=== PATIENT | female | born 1935 | race Caucasian/White ===

== ENCOUNTER 2021-05-11 20:58 | Inpatient (IN) | payer MEDICARE ==
[~2021-05-11] VITALS: Ht 162.6 cm; Wt 60.0 kg
[2021-05-11 21:33] LABS: BASO % 0 % (0-3); EOS # 0.2 x10^3/uL (0.0-0.7); EOS % 3 % (0-3); HEMATOCRIT 34.7 % (36.0-47.0); HEMOGLOBIN 11.3 g/dL (12.0-15.5); LYMPH # 1.6 x10^3/uL (1.0-4.8); LYMPH % 21 % (24-48); MEAN CORPUSCULAR HEMOGLOBIN 26 pg (25-35); MEAN CORPUSCULAR HGB CONC 33 g/dL (31-37); MEAN CORPUSCULAR VOLUME 79 fL (79-100); MONO # 0.5 x10^3/uL (0.0-1.1); MONO % 7 % (0-9); NEUT # 5.2 x10^3/uL (1.8-7.7); NEUT % 69 % (31-73); PLATELET COUNT 362 x10^3/uL (140-400); RED BLOOD COUNT 4.42 x10^6/uL (3.50-5.40); RED CELL DISTRIBUTION WIDTH 17.7 % (11.5-14.5); WHITE BLOOD COUNT 7.5 x10^3/uL (4.0-11.0)
[2021-05-11 21:41] LABS: CALCIUM 10.2 mg/dL (8.5-10.1); CREATININE 0.7 mg/dL (0.6-1.0); GFR 79.3; POTASSIUM 3.6 mmol/L (3.5-5.1)
[2021-05-11 21:47] LABS: ALBUMIN 3.5 g/dL (3.4-5.0); TOTAL BILIRUBIN 0.4 mg/dL (0.2-1.0); TOTAL PROTEIN 7.1 g/dL (6.4-8.2)
--- NOTE | 2021-05-11 21:51 | RAD ---
Exam: CT head and cervical spine INDICATION: Altered mental status TECHNIQUE: Sequential axial images through the head and cervical spine were obtained without the admi nistration of IV contrast. Exposure: One or more of the following in the visualized dose reduction techniques were utilized for this examination: 1. Automated exposure control 2. Adjustment of the MA and/or KV according to patient size 3. Use of iterative of reconstructive technique Comparisons: None FINDINGS: Head: No focal parenchymal lesion or hemorrhage is identified. There is no midline shift or sulcal effaceme nt. Patchy evidence in the periventricular white matter. No acute vascular territory infarction is identi fied. Tarango-white distinction is preserved. The ventricular system is within normal limits without compression hydrocephalus. The basal cisterns are well maintained. The visualized portions of the paranasal sinuses and mastoid air cells are well-pneumatized. No acute fractures. Cervical spine: Vertebral body heights and alignment are well-maintained. Fracture to the cervical spine is not identified. No significant spondylotic change in cervical spine. Visualized paraspinal soft tissues are unremarkable. IMPRESSION: 1. Mild small vessel schema change, technically age indeterminate without recent prior imaging. 2. Negative CT C-spine for acute traumatic injury. Electronically signed by: Marlon Hoffman MD (05/11/2021 9:48 PM) [facility]
--- NOTE | 2021-05-11 21:55 | RAD ---
Exam: Chest one view INDICATION: Altered mental status TECHNIQUE: Frontal view of the chest Comparisons: None FINDINGS: The cardiomediastinal silhouette and pulmonary vessels are within normal limits. The lung and pleural spaces are clear. IMPRESSION: No acute cardiopulmonary process. Electronically signed by: Marlon Hoffman MD (05/11/2021 9:53 PM) [facility]
--- NOTE | 2021-05-11 21:59 | PHYS DOC ---
Past Medical History Additional Past Medical Histor: Dementia, Vitamin B12 defiecientcy, oseteoporis (PATRICIA FARRIS) Past Surgical History: No Surgical History (PATRICIA FARRIS) Smoking Status: Never Smoker Alcohol Use: None (PATRICIA FARRIS) General Adult EDM: Chief Complaint: ALTERED MENTAL STATUS Problems: (1) AMS (altered mental status) (PATRICIA FARRIS) HPI: HPI: Patient is a 85 year old female who presents with reported altered mental status. Patient is a very poor historian and is oriented to place only. Per EMS, a family friend called the patient today and was concerned because she did not seem to know who the friend was. This family friend went to visit the patient, and was further concerned because the patient had difficulty conversing. The patient's baseline is fully conversational, but has some short- term memory deficits. Per EMS, patient's past medical history includes hypertension and dementia. Further history is unable to be obtained secondary to patient's current mental status. (PATRICIA FARRIS) Review of Systems: Review of Systems: Review of systems not obtained secondary to patient's altered mental status. (PATRICIA FARRIS) Heart Score: C/O Chest Pain: N/A (PATRICIA FARRIS) Allergies: Allergies: Allergies Coded Allergies Type Severity Reaction Last Updated Verified No Known Drug Allergies 05/11/21 No (PATRICIA FARRIS) Physical Exam: PE: Constitutional: Thin but well developed, well nourished, non-toxic appearance. HENT: Normocephalic, atraumatic, bilateral external ears normal, oropharynx pink, no oral exudates, nose normal. Eyes: Conjunctiva normal, no discharge. Neck: Normal range of motion, no tenderness, supple, no stridor. Cardiovascular: Heart rate regular rhythm, no murmur Lungs & Thorax: Bilateral breath sounds clear to auscultation Abdomen: Bowel sounds normal, soft, no tenderness, no masses, no pulsatile masses. Skin: Skin turgor poor, some tenting noted. Warm, dry, no erythema, no rash. Back: No tenderness, no CVA tenderness. Extremities: No tenderness, no cyanosis, no clubbing, ROM intact, no edema, cap refill less than 2 seconds. Neurologic: Alert to place only, normal motor function, normal sensory function, no focal deficits noted. Psychologic: Patient is hyper arousable and sensitive to both movement and sound. (PATRICIA FARRIS) Current Patient Data: Labs: Laboratory Tests Test 05/11/21 21:20 White Blood Count 7.5 x10^3/uL (4.0-11.0) Red Blood Count 4.42 x10^6/uL (3.50-5.40) Hemoglobin 11.3 g/dL (12.0-15.5) L Hematocrit 34.7 % (36.0-47.0) L Mean Corpuscular Volume 79 fL (79-100) Mean Corpuscular Hemoglobin 26 pg (25-35) Mean Corpuscular Hemoglobin Concent 33 g/dL (31-37) Red Cell Distribution Width 17.7 % (11.5-14.5) H Platelet Count 362 x10^3/uL (140-400) Neutrophils (%) (Auto) 69 % (31-73) Lymphocytes (%) (Auto) 21 % (24-48) L Monocytes (%) (Auto) 7 % (0-9) Eosinophils (%) (Auto) 3 % (0-3) Basophils (%) (Auto) 0 % (0-3) Neutrophils # (Auto) 5.2 x10^3/uL (1.8-7.7) Lymphocytes # (Auto) 1.6 x10^3/uL (1.0-4.8) Monocytes # (Auto) 0.5 x10^3/uL (0.0-1.1) Eosinophils # (Auto) 0.2 x10^3/uL (0.0-0.7) Basophils # (Auto) 0.0 x10^3/uL (0.0-0.2) Sodium Level 147 mmol/L (136-145) H Potassium Level 3.6 mmol/L (3.5-5.1) Chloride Level 110 mmol/L (98-107) H Carbon Dioxide Level 27 mmol/L (21-32) Anion Gap 10 (6-14) Blood Urea Nitrogen 20 mg/dL (7-20) Creatinine 0.7 mg/dL (0.6-1.0) Estimated GFR (Cockcroft-Gault) 79.3 BUN/Creatinine Ratio 29 (6-20) H Glucose Level 106 mg/dL (70-99) H Calcium Level 10.2 mg/dL (8.5-10.1) H Total Bilirubin 0.4 mg/dL (0.2-1.0) Aspartate Amino Transferase (AST) 23 U/L (15-37) Alanine Aminotransferase (ALT) 28 U/L (14-59) Alkaline Phosphatase 136 U/L (46-116) H Total Protein 7.1 g/dL (6.4-8.2) Albumin 3.5 g/dL (3.4-5.0) Albumin/Globulin Ratio 1.0 (1.0-1.7) Laboratory Tests 05/11/21 21:20 Laboratory Tests 05/11/21 21:20 Vital Signs: Vital Signs Date Time Temp Pulse Resp B/P (MAP) Pulse Ox O2 Delivery O2 Flow Rate FiO2 05/11/21 21:17 89 18 194/81 (118) 97 Room Air ([facility]) Labs: Laboratory Tests Test 05/11/21 21:20 05/11/21 22:00 White Blood Count 7.5 x10^3/uL (4.0-11.0) Red Blood Count 4.42 x10^6/uL (3.50-5.40) Hemoglobin 11.3 g/dL (12.0-15.5) Hematocrit 34.7 % (36.0-47.0) Mean Corpuscular Volume 79 fL (79-100) Mean Corpuscular Hemoglobin 26 pg (25-35) Mean Corpuscular Hemoglobin Concent 33 g/dL (31-37) Red Cell Distribution Width 17.7 % (11.5-14.5) Platelet Count 362 x10^3/uL (140-400) Neutrophils (%) (Auto) 69 % (31-73) Lymphocytes (%) (Auto) 21 % (24-48) Monocytes (%) (Auto) 7 % (0-9) Eosinophils (%) (Auto) 3 % (0-3) Basophils (%) (Auto) 0 % (0-3) Neutrophils # (Auto) 5.2 x10^3/uL (1.8-7.7) Lymphocytes # (Auto) 1.6 x10^3/uL (1.0-4.8) Monocytes # (Auto) 0.5 x10^3/uL (0.0-1.1) Eosinophils # (Auto) 0.2 x10^3/uL (0.0-0.7) Basophils # (Auto) 0.0 x10^3/uL (0.0-0.2) Sodium Level 147 mmol/L (136-145) Potassium Level 3.6 mmol/L (3.5-5.1) Chloride Level 110 mmol/L (98-107) Carbon Dioxide Level 27 mmol/L (21-32) Anion Gap 10 (6-14) Blood Urea Nitrogen 20 mg/dL (7-20) Creatinine 0.7 mg/dL (0.6-1.0) Estimated GFR (Cockcroft-Gault) 79.3 BUN/Creatinine Ratio 29 (6-20) Glucose Level 106 mg/dL (70-99) Calcium Level 10.2 mg/dL (8.5-10.1) Total Bilirubin 0.4 mg/dL (0.2-1.0) Aspartate Amino Transf (AST/SGOT) 23 U/L (15-37) Alanine Aminotransferase (ALT/SGPT) 28 U/L (14-59) Alkaline Phosphatase 136 U/L (46-116) Total Protein 7.1 g/dL (6.4-8.2) Albumin 3.5 g/dL (3.4-5.0) Albumin/Globulin Ratio 1.0 (1.0-1.7) Urine Collection Type U cath Urine Color Yellow Urine Clarity Cloudy Urine pH 5.5 (<5.0-8.0) Urine Specific [place] 1.020 (1.000-1.030) Urine Protein Negative mg/dL (NEG-TRACE) Urine Glucose (UA) Negative mg/dL (NEG) Urine Ketones (Stick) Negative mg/dL (NEG) Urine Blood Trace (NEG) Urine Nitrite Positive (NEG) Urine Bilirubin Negative (NEG) Urine Urobilinogen Dipstick 1.0 mg/dL (0.2 mg/dL) Urine Leukocyte Esterase Moderate (NEG) Urine RBC 6-10 /HPF (0-2) Urine WBC >40 /HPF (0-4) Urine Squamous Epithelial Cells Mod /LPF Urine Bacteria Many /HPF (0-FEW) Vital Signs: Vital Signs Date Time Temp Pulse Resp B/P (MAP) Pulse Ox O2 Delivery O2 Flow Rate FiO2 05/11/21 22:39 80 18 202/84 (123) 99 Room Air 05/11/21 21:17 89 18 194/81 (118) 97 Room Air 05/11/21 21:04 93 18 217/96 (136) 98 (HENRYFLORESGUMEDALE Alfonso DO) EKG: EKG: EKG interpreted by Dr. Bragg: Rate 90 bpm, regular rhythm, regular QR interval, no STEMI. (PATRICIA FARRIS) Radiology/Procedures: Radiology/Procedures: PROCEDURE: CT HEAD AND CERVICAL SPINE WO Exam: CT head and cervical spine INDICATION: Altered mental status TECHNIQUE: Sequential axial images through the head and cervical spine were obtained without the administration of IV contrast. Exposure: One or more of the following in the visualized dose reduction techniques were utilized for this examination: 1. Automated exposure control 2. Adjustment of the MA and/or KV according to patient size 3. Use of iterative of reconstructive technique Comparisons: None FINDINGS: Head: No focal parenchymal lesion or hemorrhage is identified. There is no midline shift or sulcal effacement. Patchy evidence in the periventricular white matter. No acute vascular territory infarction is identified. Tarango-white distinction is preserved. The ventricular system is within normal limits without compression hydrocephal us. The basal cisterns are well maintained. The visualized portions of the paranasal sinuses and mastoid air cells are well- pneumatized. No acute fractures. Cervical spine: Vertebral body heights and alignment are well-maintained. Fracture to the cervical spine is not identified. No significant spondylotic change in cervical spine. Visualized paraspinal soft tissues are unremarkable. IMPRESSION: 1. Mild small vessel schema change, technically age indeterminate without recent prior imaging. 2. Negative CT C-spine for acute traumatic injury. Electronically signed by: Marlon Hoffman MD (05/11/2021 9:48 PM) [facility] PROCEDURE: PORTABLE CHEST 1V Exam: Chest one view INDICATION: Altered mental status TECHNIQUE: Frontal view of the chest Comparisons: None FINDINGS: The cardiomediastinal silhouette and pulmonary vessels are within normal limits. The lung and pleural spaces are clear. IMPRESSION: No acute cardiopulmonary process. Electronically signed by: Marlon Hoffman MD (05/11/2021 9:53 PM) [facility] (PATRICIA FARRIS) Course & Med Decision Making: Course & Med Decision Making Pertinent Labs and Imaging studies reviewed. (See chart for details) Patient's family friend is now present at bedside and confirms history provided by EMS. Patient is also now oriented to person, place, and situation. She cont inues to deny pain at this time. So far, imaging and labs are reassuring, but we have yet to obtain a urine sample. She does appear to be dehydrated, so fluid bolus will be administered which will hopefully produce a urine sample as well. Patient care was handed off to Dr. Gume Bragg while awaiting UA collection and analysis. Patient disposition is to be determined. (PATRICIA FARRIS) Course & Med Decision Making Patient continues to be confused, her urine was significant for urinary tract infection, we will admit her to the hospital. She did not know who her primary care provider was. We will admit to the hospitalist Dr. Quiroga. Will treat blood pressure with hydralazine (GUME BRAGG DO) Dragon Disclaimer: Dontrell Disclaimer: This electronic medical record was generated, in whole or in part, using a voice recognition dictation system. (PATRICIA FARRIS) Departure Departure Impression: Primary Impression: Urinary tract infection Additional Impression: Confusion Disposition: 09 ADMITTED INPATIENT Admitting Physician: HAN Flood) (GUME BRAGG DO) Referrals: ANEUDY LEÓN MD (PCP) PATRICIA FARRIS May 11, 2021 21:59 GUME BRAGG DO May 11, 2021 23:40
[2021-05-11 22:19] LABS: BILIRUBIN,URINE NEGATIVE (NEG); CLARITY,URINE CLOUDY; COLOR,URINE YELLOW; NITRITE,URINE POSITIVE (NEG); PH,URINE 5.5 (<5.0-8.0); PROTEIN,URINE NEGATIVE (NEG-TRACE)
[2021-05-11] MEDS ORDERED: IV NORMAL SALINE 1000ML BAG 1,000 ML IV ONE (23:00)
[2021-05-11 23:09] LABS: BACTERIA,URINE MANY /HPF (0-FEW); WBC,URINE >40 /HPF (0-4)
[2021-05-11] MEDS ORDERED: cefTRIAXone IV Push 1 GM VIAL. IVP ONE (23:45)
[2021-05-11] MEDS ORDERED: MORPHINE SULFATE 4 MG/ML INJ. IVP PRN (23:45)
[2021-05-11] MEDS ORDERED: ONDANSETRON PF 4 MG/2 ML VIAL. IVP PRN (23:45)
--- NOTE | 2021-05-12 01:10 | NUR ---
PATIENT ADMITTED TO ROOM 548 FROM ED, FAMILY FRIEND AT BEDSIDE AND GAVE IT BUSINESS PROCESS ARCHITECT/DPOA NAME AND NUMBER. PATIENT ORIENTED TO PLACE"HOSPITAL" ONLY. ATTEMPTED TO ORIENT PATIENT TO BED,CALL LIGHT AND POC, PATIENT UNABLE TO UNDERSTAND TEACHING. FRIEND STATES SHE TRIED TO CALL DPOA'S PHONE WITH NO ANSWER. PATIENT UNABLE TO GIVE HISTORY/ADMISSION INFORMATION. UNABLE TO FULLY COMPLETE ADMISSION DOCUMENTATION AT THIS TIME. CALL LIGHT IN REACH, BED ALARM SET. WILL MONITOR.
[2021-05-12 01:15] VITALS: BP 187/56
--- NOTE | 2021-05-12 01:49 | EKG ---
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
[2021-05-12 03:00] VITALS: BP 164/69
[2021-05-12] MEDS ORDERED: BUSP5TAB PO (03:20)
[2021-05-12] MEDS ORDERED: MELA5TAB20 PO ×2 (03:21→03:23)
[2021-05-12] MEDS ORDERED: LISI-517 PO (03:21)
[2021-05-12] MEDS ORDERED: MEMA10TA PO (03:22)
[2021-05-12] MEDS ORDERED: MIRT-36 PO (03:24)
[2021-05-12] MEDS ORDERED: ACET325T9 PO (03:25)
[2021-05-12] MEDS ORDERED: CYAN100016 SL (03:26)
[2021-05-12] MEDS ORDERED: CHOL10004 PO (03:27)
[2021-05-12] MEDS ORDERED: [UNRECOGNIZED DRUG - CODE] PO (03:29)
[2021-05-12 07:00] VITALS: BP 174/74
[2021-05-12 07:10] LABS: BASO % 0 % (0-3); EOS # 0.2 x10^3/uL (0.0-0.7); EOS % 3 % (0-3); HEMATOCRIT 32.9 % (36.0-47.0); HEMOGLOBIN 10.7 g/dL (12.0-15.5); LYMPH # 1.4 x10^3/uL (1.0-4.8); LYMPH % 19 % (24-48); MEAN CORPUSCULAR HEMOGLOBIN 26 pg (25-35); MEAN CORPUSCULAR HGB CONC 33 g/dL (31-37); MEAN CORPUSCULAR VOLUME 79 fL (79-100); MONO # 0.5 x10^3/uL (0.0-1.1); MONO % 7 % (0-9); NEUT # 5.2 x10^3/uL (1.8-7.7); NEUT % 70 % (31-73); PLATELET COUNT 325 x10^3/uL (140-400); RED BLOOD COUNT 4.19 x10^6/uL (3.50-5.40); RED CELL DISTRIBUTION WIDTH 17.5 % (11.5-14.5); WHITE BLOOD COUNT 7.4 x10^3/uL (4.0-11.0)
[2021-05-12 07:23] LABS: CALCIUM 9.2 mg/dL (8.5-10.1); CREATININE 0.7 mg/dL (0.6-1.0); GFR 79.3; POTASSIUM 3.6 mmol/L (3.5-5.1)
[2021-05-12] MEDS ORDERED: ACETAMINOPHEN 325 MG TABLET. PO PRN (09:30)
[2021-05-12] MEDS ORDERED: [UNRECOGNIZED DRUG - OTHER] PO SCH (09:30)
[2021-05-12] MEDS ORDERED: FOSFOMYCIN TROMETHAMINE 3 GM PACKET PO ONE (10:00)
[2021-05-12] MEDS: busPIRone 5 MG TABLET. PO SCH ×2 (10:03→21:12)
[2021-05-12] MEDS: LISINOPRIL 5 MG TABLET. PO SCH (10:03)
[2021-05-12] MEDS: MEMANTINE 10 MG TABLET. PO SCH ×2 (10:03→21:12)
[2021-05-12] MEDS: CHOLECALCIFEROL (VITAMIN D3) 1,000 UNIT TABLET PO SCH (10:03)
--- NOTE | 2021-05-12 11:09 | PDOC1 ---
History and Physical Date of Service: DOS: DATE: 05/12/21 TIME: 11:09 Allergies: Allergies: Coded Allergies: No Known Drug Allergies (Unverified , 05/11/21) Current Medications: Current Medications Current Medications Sodium Chloride 1,000 ml @ 1,000 mls/hr 1X ONCE IV Last administered on 05/11/21at 22:41; Start 05/11/21 at 23:00; Stop 05/11/21 at 23:59; Status DC Ceftriaxone Sodium (Rocephin) 1 gm 1X ONCE IVP Last administered on 05/12/21at 00:13; Start 05/11/21 at 23:45; Stop 05/11/21 at 23:46; Status DC Ondansetron HCl (Zofran) 4 mg PRN Q8HRS PRN IVP NAUSEA/VOMITING 1ST CHOICE; Start 05/11/21 at 23:45; Stop 05/12/21 at 23:44 Morphine Sulfate (Morphine Sulfate) 4 mg PRN Q4HRS PRN IVP SEVERE PAIN 7-10; Start 05/11/21 at 23:45; Stop 05/12/21 at 23:44 Hydralazine HCl (Apresoline) 50 mg ONCE ONCE PO Last administered on 05/12/21at 00:14; Start 05/12/21 at 00:00; Stop 05/12/21 at 00:01; Status DC Fosfomycin Tromethamine (Monurol) 3 gm 1X ONCE PO Last administered on 05/12/21at 10:03; Start 05/12/21 at 10:00; Stop 05/12/21 at 10:01; Status DC Acetaminophen (Tylenol) 650 mg PRN Q6HRS PRN PO PAIN/TEMP; Start 05/12/21 at 09:30 Buspirone HCl (Buspar) 2.5 mg BID PO Last administered on 05/12/21at 10:03; Start 05/12/21 at 10:00 Vitamin D (Vitamin D3) 1,000 unit DAILY PO Last administered on 05/12/21at 10:03; Start 05/12/21 at 10:00 Lisinopril (Prinivil) 5 mg DAILY PO Last administered on 05/12/21at 10:03; Start 05/12/21 at 10:00 Memantine (Namenda) 10 mg BID PO Last administered on 05/12/21at 10:03; Start 05/12/21 at 10:00 Mirtazapine (Remeron) 15 mg QHS PO ; Start 05/12/21 at 21:00 Non-Formulary Medication (Melatonin ) 5 mg DAILY PO ; Start 05/13/21 at 09:00; Status UNV Non-Formulary Medication (Nut.tx.impaired Digestive Fxn (Ensure Clear Thera peutic)) 237 ml WITH MEALS PO ; Start 05/12/21 at 09:30; Status UNV Active Scripts Active Reported Ensure Clear Therapeutic (Nut.tx.impaired Digestive Fxn) 237 Ml Liquid 237 Ml PO WITH MEALS Vitamin D3 (Vitamin D) 25 Mcg Tablet 25 Mcg PO DAILY 1,000 UNITS = 25 MCG Vitamin B-12 (Cyanocobalamin (Vitamin B-12)) 1,000 Mcg Tab.subl 1 Tab SL DAILY 30 Days Tylenol (Acetaminophen) 325 Mg Tablet 2 Tab PO PRN Q6HRS PRN Remeron (Mirtazapine) 15 Mg Tablet 1 Tab PO QHS Melatonin 5 Mg Tab.rapdis 5 Mg PO DAILY Namenda (Memantine Hcl) 10 Mg Tablet 10 Mg PO BID Melatonin 5 Mg Tab.rapdis 1 Tab PO QHS 30 Days Lisinopril 5 Mg Tablet 1 Tab PO DAILY Buspirone Hcl 5 Mg Tablet 0.5 Tab PO BID ROS: Review of Systems Review of System REVIEW OF SYSTEMS: GENERAL: Denies weakness SKIN: No bruising, hair changes or rashes. EYES: No blurred, double or loss of vision. NOSE AND THROAT: No history of nosebleeds, hoarseness or sore throat. HEART: No history of palpitations, chest pain or shortness of breath on exertion. LUNGS: Denies cough, hemoptysis, wheezing or shortness of breath. GASTROINTESTINAL: Denies changes in appetite, nausea, vomiting, diarrhea or constipation. GENITOURINARY: No history of frequency, urgency, hesitancy or nocturia. NEUROLOGIC: Denies history of numbness, tingling, or tremor. PSYCHIATRIC: No history of panic, anxiety or depression. ENDOCRINE: No history of heat or cold intolerance, polyuria or polydipsia. EXTREMITIES: Denies joint pain, pain on walking or stiffness. Physical Exam: Vital Signs: Vital Signs Date Time Temp Pulse Resp B/P (MAP) Pulse Ox O2 Delivery O2 Flow Rate FiO2 05/12/21 10:10 Room Air 05/12/21 10:03 70 174/74 05/12/21 07:00 98.3 18 98 98.3 Physcial Exam: GEN: No apparent distress. Alert and oriented HEENT: Normal cephalic, atraumatic, external auditory canals are patent EYES: Extraocular muscles are intact, pupil are equally round and reactive to light and accommodation MUSCULOSKELETAL: Well developed , well nourished, good range of motion ENDOCRINE: No thyromegaly was palpated LYMPHATICS: No cervical chain or axillary nodes were noted HEMATOPOIETIC: No bruising NECK: Supple, no JVD, no thyromegaly was noted LUNGS: Clear to auscultation in all lung moon without rhonchi or wheezing HEART: RRR, S!, S2 present. Peripheral pulses intact, no obvious murmurs noted ABDOMEN: Soft, nontender. Positive bowel sounds, no organomegaly, normal bowel sounds EXTREMITIES: Without clubbing, cyanosis, or edema. Pedal pulses intact. Negative Homans sign NEUROLOGIC: Normal speech and tone. A&O x 3, moves all extremities, no obvious focal deficits PSYCHIATRIC: Normal affect, normal mood. Stable SKIN: No ulcerations or rashes, good skin turgor, no jaundice VASCULAR: Good capillary refill, neurovascular bundle appears to be intact Labs: Labs: Laboratory Tests Test 05/11/21 21:20 05/11/21 22:00 05/12/21 00:15 05/12/21 06:15 White Blood Count 7.5 x10^3/uL (4.0-11.0) 7.4 x10^3/uL (4.0-11.0) Red Blood Count 4.42 x10^6/uL (3.50-5.40) 4.19 x10^6/uL (3.50-5.40) Hemoglobin 11.3 g/dL (12.0-15.5) 10.7 g/dL (12.0-15.5) Hematocrit 34.7 % (36.0-47.0) 32.9 % (36.0-47.0) Mean Corpuscular Volume 79 fL (79-100) 79 fL (79-100) Mean Corpuscular Hemoglobin 26 pg (25-35) 26 pg (25-35) Mean Corpuscular Hemoglobin Concent 33 g/dL (31-37) 33 g/dL (31-37) Red Cell Distribution Width 17.7 % (11.5-14.5) 17.5 % (11.5-14.5) Platelet Count 362 x10^3/uL (140-400) 325 x10^3/uL (140-400) Neutrophils (%) (Auto) 69 % (31-73) 70 % (31-73) Lymphocytes (%) (Auto) 21 % (24-48) 19 % (24-48) Monocytes (%) (Auto) 7 % (0-9) 7 % (0-9) Eosinophils (%) (Auto) 3 % (0-3) 3 % (0-3) Basophils (%) (Auto) 0 % (0-3) 0 % (0-3) Neutrophils # (Auto) 5.2 x10^3/uL (1.8-7.7) 5.2 x10^3/uL (1.8-7.7) Lymphocytes # (Auto) 1.6 x10^3/uL (1.0-4.8) 1.4 x10^3/uL (1.0-4.8) Monocytes # (Auto) 0.5 x10^3/uL (0.0-1.1) 0.5 x10^3/uL (0.0-1.1) Eosinophils # (Auto) 0.2 x10^3/uL (0.0-0.7) 0.2 x10^3/uL (0.0-0.7) Basophils # (Auto) 0.0 x10^3/uL (0.0-0.2) 0.0 x10^3/uL (0.0-0.2) Sodium Level 147 mmol/L (136-145) 146 mmol/L (136-145) Potassium Level 3.6 mmol/L (3.5-5.1) 3.6 mmol/L (3.5-5.1) Chloride Level 110 mmol/L (98-107) 111 mmol/L (98-107) Carbon Dioxide Level 27 mmol/L (21-32) 26 mmol/L (21-32) Anion Gap 10 (6-14) 9 (6-14) Blood Urea Nitrogen 20 mg/dL (7-20) 15 mg/dL (7-20) Creatinine 0.7 mg/dL (0.6-1.0) 0.7 mg/dL (0.6-1.0) Estimated GFR (Cockcroft-Gault) 79.3 79.3 BUN/Creatinine Ratio 29 (6-20) Glucose Level 106 mg/dL (70-99) 89 mg/dL (70-99) Calcium Level 10.2 mg/dL (8.5-10.1) 9.2 mg/dL (8.5-10.1) Total Bilirubin 0.4 mg/dL (0.2-1.0) Aspartate Amino Transf (AST/SGOT) 23 U/L (15-37) Alanine Aminotransferase (ALT/SGPT) 28 U/L (14-59) Alkaline Phosphatase 136 U/L (46-116) Troponin I Quantitative < 0.017 ng/mL (0.000-0.055) IL-Tzh-E-Type Natriuretic Peptide 245 pg/mL (0-449) Total Protein 7.1 g/dL (6.4-8.2) Albumin 3.5 g/dL (3.4-5.0) Albumin/Globulin Ratio 1.0 (1.0-1.7) Urine Collection Type U cath Urine Color Yellow Urine Clarity Cloudy Urine pH 5.5 (<5.0-8.0) Urine Specific [place] 1.020 (1.000-1.030) Urine Protein Negative mg/dL (NEG-TRACE) Urine Glucose (UA) Negative mg/dL (NEG) Urine Ketones (Stick) Negative mg/dL (NEG) Urine Blood Trace (NEG) Urine Nitrite Positive (NEG) Urine Bilirubin Negative (NEG) Urine Urobilinogen Dipstick 1.0 mg/dL (0.2 mg/dL) Urine Leukocyte Esterase Moderate (NEG) Urine RBC 6-10 /HPF (0-2) Urine WBC >40 /HPF (0-4) Urine Squamous Epithelial Cells Mod /LPF Urine Bacteria Many /HPF (0-FEW) SARS-CoV-2 Antigen (Rapid) Negative (NEGATIVE) Laboratory Tests Test 05/11/21 21:20 05/11/21 22:00 05/12/21 00:15 05/12/21 06:15 White Blood Count 7.5 x10^3/uL (4.0-11.0) 7.4 x10^3/uL (4.0-11.0) Red Blood Count 4.42 x10^6/uL (3.50-5.40) 4.19 x10^6/uL (3.50-5.40) Hemoglobin 11.3 g/dL (12.0-15.5) 10.7 g/dL (12.0-15.5) Hematocrit 34.7 % (36.0-47.0) 32.9 % (36.0-47.0) Mean Corpuscular Volume 79 fL (79-100) 79 fL (79-100) Mean Corpuscular Hemoglobin 26 pg (25-35) 26 pg (25-35) Mean Corpuscular Hemoglobin Concent 33 g/dL (31-37) 33 g/dL (31-37) Red Cell Distribution Width 17.7 % (11.5-14.5) 17.5 % (11.5-14.5) Platelet Count 362 x10^3/uL (140-400) 325 x10^3/uL (140-400) Neutrophils (%) (Auto) 69 % (31-73) 70 % (31-73) Lymphocytes (%) (Auto) 21 % (24-48) 19 % (24-48) Monocytes (%) (Auto) 7 % (0-9) 7 % (0-9) Eosinophils (%) (Auto) 3 % (0-3) 3 % (0-3) Basophils (%) (Auto) 0 % (0-3) 0 % (0-3) Neutrophils # (Auto) 5.2 x10^3/uL (1.8-7.7) 5.2 x10^3/uL (1.8-7.7) Lymphocytes # (Auto) 1.6 x10^3/uL (1.0-4.8) 1.4 x10^3/uL (1.0-4.8) Monocytes # (Auto) 0.5 x10^3/uL (0.0-1.1) 0.5 x10^3/uL (0.0-1.1) Eosinophils # (Auto) 0.2 x10^3/uL (0.0-0.7) 0.2 x10^3/uL (0.0-0.7) Basophils # (Auto) 0.0 x10^3/uL (0.0-0.2) 0.0 x10^3/uL (0.0-0.2) Sodium Level 147 mmol/L (136-145) 146 mmol/L (136-145) Potassium Level 3.6 mmol/L (3.5-5.1) 3.6 mmol/L (3.5-5.1) Chloride Level 110 mmol/L (98-107) 111 mmol/L (98-107) Carbon Dioxide Level 27 mmol/L (21-32) 26 mmol/L (21-32) Anion Gap 10 (6-14) 9 (6-14) Blood Urea Nitrogen 20 mg/dL (7-20) 15 mg/dL (7-20) Creatinine 0.7 mg/dL (0.6-1.0) 0.7 mg/dL (0.6-1.0) Estimated GFR (Cockcroft-Gault) 79.3 79.3 BUN/Creatinine Ratio 29 (6-20) Glucose Level 106 mg/dL (70-99) 89 mg/dL (70-99) Calcium Level 10.2 mg/dL (8.5-10.1) 9.2 mg/dL (8.5-10.1) Total Bilirubin 0.4 mg/dL (0.2-1.0) Aspartate Amino Transf (AST/SGOT) 23 U/L (15-37) Alanine Aminotransferase (ALT/SGPT) 28 U/L (14-59) Alkaline Phosphatase 136 U/L (46-116) Troponin I Quantitative < 0.017 ng/mL (0.000-0.055) RN-Gua-R-Type Natriuretic Peptide 245 pg/mL (0-449) Total Protein 7.1 g/dL (6.4-8.2) Albumin 3.5 g/dL (3.4-5.0) Albumin/Globulin Ratio 1.0 (1.0-1.7) Urine Collection Type U cath Urine Color Yellow Urine Clarity Cloudy Urine pH 5.5 (<5.0-8.0) Urine Specific [place] 1.020 (1.000-1.030) Urine Protein Negative mg/dL (NEG-TRACE) Urine Glucose (UA) Negative mg/dL (NEG) Urine Ketones (Stick) Negative mg/dL (NEG) Urine Blood Trace (NEG) Urine Nitrite Positive (NEG) Urine Bilirubin Negative (NEG) Urine Urobilinogen Dipstick 1.0 mg/dL (0.2 mg/dL) Urine Leukocyte Esterase Moderate (NEG) Urine RBC 6-10 /HPF (0-2) Urine WBC >40 /HPF (0-4) Urine Squamous Epithelial Cells Mod /LPF Urine Bacteria Many /HPF (0-FEW) SARS-CoV-2 Antigen (Rapid) Negative (NEGATIVE) Justifications for Admission Other Justification MADDISON CANELA MD May 12, 2021 11:09
--- NOTE | 2021-05-12 14:04 | PDOC1 ---
History and Physical Date of Service: DOS: DATE: 05/12/21 TIME: 13:58 Chief Complaint: Problems: (1) Confusion (2) Urinary tract infection (3) AMS (altered mental status) Chief Complain: Confusion History of Present Illness: HPI: Patient unable to provide a reliable history thus history from emergency room below Patient is a 85 year old female who presents with reported altered mental status. Patient is a very poor historian and is oriented to place only. Per EMS, a family friend called the patient today and was concerned because she did not seem to know who the friend was. This family friend went to visit the patient, and was further concerned because the patient had difficulty conversing. The patient's baseline is fully conversational, but has some short- term memory deficits. Per EMS, patient's past medical history includes hypertension and dementia. Further history is unable to be obtained secondary to patient's current mental status. Past Medical/Surgical History: PMH/PSH: Dementia, osteoporosis Allergies: Allergies: Coded Allergies: No Known Drug Allergies (Unverified , 05/11/21) Family History: Family History: Unknown Social History: Social History: No alcohol tobacco or drug use per Chart review Current Medications: Current Medications Current Medications Sodium Chloride 1,000 ml @ 1,000 mls/hr 1X ONCE IV Last administered on 05/11/21at 22:41; Start 05/11/21 at 23:00; Stop 05/11/21 at 23:59; Status DC Ceftriaxone Sodium (Rocephin) 1 gm 1X ONCE IVP Last administered on 05/12/21at 00:13; Start 05/11/21 at 23:45; Stop 05/11/21 at 23:46; Status DC Ondansetron HCl (Zofran) 4 mg PRN Q8HRS PRN IVP NAUSEA/VOMITING 1ST CHOICE; Start 05/11/21 at 23:45; Stop 05/12/21 at 23:44 Morphine Sulfate (Morphine Sulfate) 4 mg PRN Q4HRS PRN IVP SEVERE PAIN 7-10; Start 05/11/21 at 23:45; Stop 05/12/21 at 23:44 Hydralazine HCl (Apresoline) 50 mg ONCE ONCE PO Last administered on 05/12/21at 00:14; Start 05/12/21 at 00:00; Stop 05/12/21 at 00:01; Status DC Fosfomycin Tromethamine (Monurol) 3 gm 1X ONCE PO Last administered on 05/12/21at 10:03; Start 05/12/21 at 10:00; Stop 05/12/21 at 10:01; Status DC Acetaminophen (Tylenol) 650 mg PRN Q6HRS PRN PO PAIN/TEMP; Start 05/12/21 at 09:30 Buspirone HCl (Buspar) 2.5 mg BID PO Last administered on 05/12/21at 10:03; Start 05/12/21 at 10:00 Vitamin D (Vitamin D3) 1,000 unit DAILY PO Last administered on 05/12/21at 10:03; Start 05/12/21 at 10:00 Lisinopril (Prinivil) 5 mg DAILY PO Last administered on 05/12/21at 10:03; Start 05/12/21 at 10:00 Memantine (Namenda) 10 mg BID PO Last administered on 05/12/21at 10:03; Start 05/12/21 at 10:00 Mirtazapine (Remeron) 15 mg QHS PO ; Start 05/12/21 at 21:00 Non-Formulary Medication (Melatonin ) 5 mg DAILY PO ; Start 05/13/21 at 09:00; Status UNV Non-Formulary Medication (Nut.tx.impaired Digestive Fxn (Ensure Clear Therapeutic)) 237 ml WITH MEALS PO ; Start 05/12/21 at 09:30; Status UNV Active Scripts Active Reported Ensure Clear Therapeutic (Nut.tx.impaired Digestive Fxn) 237 Ml Liquid 237 Ml PO WITH MEALS Vitamin D3 (Vitamin D) 25 Mcg Tablet 25 Mcg PO DAILY 1,000 UNITS = 25 MCG Vitamin B-12 (Cyanocobalamin (Vitamin B-12)) 1,000 Mcg Tab.subl 1 Tab SL DAILY 30 Days Tylenol (Acetaminophen) 325 Mg Tablet 2 Tab PO PRN Q6HRS PRN Remeron (Mirtazapine) 15 Mg Tablet 1 Tab PO QHS Melatonin 5 Mg Tab.rapdis 5 Mg PO DAILY Namenda (Memantine Hcl) 10 Mg Tablet 10 Mg PO BID Melatonin 5 Mg Tab.rapdis 1 Tab PO QHS 30 Days Lisinopril 5 Mg Tablet 1 Tab PO DAILY Buspirone Hcl 5 Mg Tablet 0.5 Tab PO BID ROS: Review of Systems Review of System Cannot obtain Physical Exam: Vital Signs: Vital Signs Date Time Temp Pulse Resp B/P (MAP) Pulse Ox O2 Delivery O2 Flow Rate FiO2 05/12/21 10:10 Room Air 05/12/21 10:03 70 174/74 05/12/21 07:00 98.3 18 98 98.3 Physcial Exam: GEN: Not alert or oriented HEENT: Normal cephalic, atraumatic, external auditory canals are patent EYES: Extraocular muscles are intact, pupil are equally round and reactive to light and accommodation MUSCULOSKELETAL: Well developed , well nourished, good range of motion ENDOCRINE: No thyromegaly was palpated LYMPHATICS: No cervical chain or axillary nodes were noted HEMATOPOIETIC: No bruising NECK: Supple, no JVD, no thyromegaly was noted LUNGS: Clear to auscultation in all lung moon without rhonchi or wheezing HEART: RRR, S!, S2 present. Peripheral pulses intact, no obvious murmurs noted ABDOMEN: Soft, nontender. Positive bowel sounds, no organomegaly, normal fei wel sounds EXTREMITIES: Without clubbing, cyanosis, or edema. Pedal pulses intact. Negative Homans sign NEUROLOGIC: Not alert PSYCHIATRIC: Normal affect, normal mood. Stable SKIN: No ulcerations or rashes, good skin turgor, no jaundice VASCULAR: Good capillary refill, neurovascular bundle appears to be intact Labs: Labs: Laboratory Tests Test 05/11/21 21:20 05/11/21 22:00 05/12/21 00:15 05/12/21 06:15 White Blood Count 7.5 x10^3/uL (4.0-11.0) 7.4 x10^3/uL (4.0-11.0) Red Blood Count 4.42 x10^6/uL (3.50-5.40) 4.19 x10^6/uL (3.50-5.40) Hemoglobin 11.3 g/dL (12.0-15.5) 10.7 g/dL (12.0-15.5) Hematocrit 34.7 % (36.0-47.0) 32.9 % (36.0-47.0) Mean Corpuscular Volume 79 fL (79-100) 79 fL (79-100) Mean Corpuscular Hemoglobin 26 pg (25-35) 26 pg (25-35) Mean Corpuscular Hemoglobin Concent 33 g/dL (31-37) 33 g/dL (31-37) Red Cell Distribution Width 17.7 % (11.5-14.5) 17.5 % (11.5-14.5) Platelet Count 362 x10^3/uL (140-400) 325 x10^3/uL (140-400) Neutrophils (%) (Auto) 69 % (31-73) 70 % (31-73) Lymphocytes (%) (Auto) 21 % (24-48) 19 % (24-48) Monocytes (%) (Auto) 7 % (0-9) 7 % (0-9) Eosinophils (%) (Auto) 3 % (0-3) 3 % (0-3) Basophils (%) (Auto) 0 % (0-3) 0 % (0-3) Neutrophils # (Auto) 5.2 x10^3/uL (1.8-7.7) 5.2 x10^3/uL (1.8-7.7) Lymphocytes # (Auto) 1.6 x10^3/uL (1.0-4.8) 1.4 x10^3/uL (1.0-4.8) Monocytes # (Auto) 0.5 x10^3/uL (0.0-1.1) 0.5 x10^3/uL (0.0-1.1) Eosinophils # (Auto) 0.2 x10^3/uL (0.0-0.7) 0.2 x10^3/uL (0.0-0.7) Basophils # (Auto) 0.0 x10^3/uL (0.0-0.2) 0.0 x10^3/uL (0.0-0.2) Sodium Level 147 mmol/L (136-145) 146 mmol/L (136-145) Potassium Level 3.6 mmol/L (3.5-5.1) 3.6 mmol/L (3.5-5.1) Chloride Level 110 mmol/L (98-107) 111 mmol/L (98-107) Carbon Dioxide Level 27 mmol/L (21-32) 26 mmol/L (21-32) Anion Gap 10 (6-14) 9 (6-14) Blood Urea Nitrogen 20 mg/dL (7-20) 15 mg/dL (7-20) Creatinine 0.7 mg/dL (0.6-1.0) 0.7 mg/dL (0.6-1.0) Estimated GFR (Cockcroft-Gault) 79.3 79.3 BUN/Creatinine Ratio 29 (6-20) Glucose Level 106 mg/dL (70-99) 89 mg/dL (70-99) Calcium Level 10.2 mg/dL (8.5-10.1) 9.2 mg/dL (8.5-10.1) Total Bilirubin 0.4 mg/dL (0.2-1.0) Aspartate Amino Transf (AST/SGOT) 23 U/L (15-37) Alanine Aminotransferase (ALT/SGPT) 28 U/L (14-59) Alkaline Phosphatase 136 U/L (46-116) Troponin I Quantitative < 0.017 ng/mL (0.000-0.055) CQ-Vkg-G-Type Natriuretic Peptide 245 pg/mL (0-449) Total Protein 7.1 g/dL (6.4-8.2) Albumin 3.5 g/dL (3.4-5.0) Albumin/Globulin Ratio 1.0 (1.0-1.7) Urine Collection Type U cath Urine Color Yellow Urine Clarity Cloudy Urine pH 5.5 (<5.0-8.0) Urine Specific [place] 1.020 (1.000-1.030) Urine Protein Negative mg/dL (NEG-TRACE) Urine Glucose (UA) Negative mg/dL (NEG) Urine Ketones (Stick) Negative mg/dL (NEG) Urine Blood Trace (NEG) Urine Nitrite Positive (NEG) Urine Bilirubin Negative (NEG) Urine Urobilinogen Dipstick 1.0 mg/dL (0.2 mg/dL) Urine Leukocyte Esterase Moderate (NEG) Urine RBC 6-10 /HPF (0-2) Urine WBC >40 /HPF (0-4) Urine Squamous Epithelial Cells Mod /LPF Urine Bacteria Many /HPF (0-FEW) SARS-CoV-2 Antigen (Rapid) Negative (NEGATIVE) Laboratory Tests Test 05/11/21 21:20 05/11/21 22:00 05/12/21 00:15 05/12/21 06:15 White Blood Count 7.5 x10^3/uL (4.0-11.0) 7.4 x10^3/uL (4.0-11.0) Red Blood Count 4.42 x10^6/uL (3.50-5.40) 4.19 x10^6/uL (3.50-5.40) Hemoglobin 11.3 g/dL (12.0-15.5) 10.7 g/dL (12.0-15.5) Hematocrit 34.7 % (36.0-47.0) 32.9 % (36.0-47.0) Mean Corpuscular Volume 79 fL (79-100) 79 fL (79-100) Mean Corpuscular Hemoglobin 26 pg (25-35) 26 pg (25-35) Mean Corpuscular Hemoglobin Concent 33 g/dL (31-37) 33 g/dL (31-37) Red Cell Distribution Width 17.7 % (11.5-14.5) 17.5 % (11.5-14.5) Platelet Count 362 x10^3/uL (140-400) 325 x10^3/uL (140-400) Neutrophils (%) (Auto) 69 % (31-73) 70 % (31-73) Lymphocytes (%) (Auto) 21 % (24-48) 19 % (24-48) Monocytes (%) (Auto) 7 % (0-9) 7 % (0-9) Eosinophils (%) (Auto) 3 % (0-3) 3 % (0-3) Basophils (%) (Auto) 0 % (0-3) 0 % (0-3) Neutrophils # (Auto) 5.2 x10^3/uL (1.8-7.7) 5.2 x10^3/uL (1.8-7.7) Lymphocytes # (Auto) 1.6 x10^3/uL (1.0-4.8) 1.4 x10^3/uL (1.0-4.8) Monocytes # (Auto) 0.5 x10^3/uL (0.0-1.1) 0.5 x10^3/uL (0.0-1.1) Eosinophils # (Auto) 0.2 x10^3/uL (0.0-0.7) 0.2 x10^3/uL (0.0-0.7) Basophils # (Auto) 0.0 x10^3/uL (0.0-0.2) 0.0 x10^3/uL (0.0-0.2) Sodium Level 147 mmol/L (136-145) 146 mmol/L (136-145) Potassium Level 3.6 mmol/L (3.5-5.1) 3.6 mmol/L (3.5-5.1) Chloride Level 110 mmol/L (98-107) 111 mmol/L (98-107) Carbon Dioxide Level 27 mmol/L (21-32) 26 mmol/L (21-32) Anion Gap 10 (6-14) 9 (6-14) Blood Urea Nitrogen 20 mg/dL (7-20) 15 mg/dL (7-20) Creatinine 0.7 mg/dL (0.6-1.0) 0.7 mg/dL (0.6-1.0) Estimated GFR (Cockcroft-Gault) 79.3 79.3 BUN/Creatinine Ratio 29 (6-20) Glucose Level 106 mg/dL (70-99) 89 mg/dL (70-99) Calcium Level 10.2 mg/dL (8.5-10.1) 9.2 mg/dL (8.5-10.1) Total Bilirubin 0.4 mg/dL (0.2-1.0) Aspartate Amino Transf (AST/SGOT) 23 U/L (15-37) Alanine Aminotransferase (ALT/SGPT) 28 U/L (14-59) Alkaline Phosphatase 136 U/L (46-116) Troponin I Quantitative < 0.017 ng/mL (0.000-0.055) VI-Lgo-D-Type Natriuretic Peptide 245 pg/mL (0-449) Total Protein 7.1 g/dL (6.4-8.2) Albumin 3.5 g/dL (3.4-5.0) Albumin/Globulin Ratio 1.0 (1.0-1.7) Urine Collection Type U cath Urine Color Yellow Urine Clarity Cloudy Urine pH 5.5 (<5.0-8.0) Urine Specific [place] 1.020 (1.000-1.030) Urine Protein Negative mg/dL (NEG-TRACE) Urine Glucose (UA) Negative mg/dL (NEG) Urine Ketones (Stick) Negative mg/dL (NEG) Urine Blood Trace (NEG) Urine Nitrite Positive (NEG) Urine Bilirubin Negative (NEG) Urine Urobilinogen Dipstick 1.0 mg/dL (0.2 mg/dL) Urine Leukocyte Esterase Moderate (NEG) Urine RBC 6-10 /HPF (0-2) Urine WBC >40 /HPF (0-4) Urine Squamous Epithelial Cells Mod /LPF Urine Bacteria Many /HPF (0-FEW) SARS-CoV-2 Antigen (Rapid) Negative (NEGATIVE) Assessment/Plan Assessment/Plan Urinary tract infection, dementia with acutely altered mental status, osteoporosis -Patient with worsening confusion at home, a close friend she did not recognize -Brought to the emergency room and found to have a UTI -Received a dose of Rocephin in the emergency room; will give one-time dose of fosfomycin for UTI treatment -We will try to contact relatives and/or close friends regarding patient's baseline -Home meds resumed as indicated -DVT prophylaxis -PT OT ordered Justifications for Admission Other Justification MADDISON CANELA MD May 12, 2021 14:04
[2021-05-12 15:00] VITALS: BP 147/62
[2021-05-12 19:45] VITALS: BP 159/61
[2021-05-12] MEDS: MIRTAZAPINE 15 MG TABLET PO SCH (21:12)
[2021-05-12 23:06] VITALS: BP 123/60
[2021-05-13 03:32] VITALS: BP 167/66
[2021-05-13 07:00] VITALS: BP 177/77
[2021-05-13] MEDS: CHOLECALCIFEROL (VITAMIN D3) 1,000 UNIT TABLET PO SCH (08:11)
[2021-05-13] MEDS: MEMANTINE 10 MG TABLET. PO SCH ×2 (08:12→22:33)
[2021-05-13] MEDS: LISINOPRIL 5 MG TABLET. PO SCH (08:12)
[2021-05-13] MEDS: busPIRone 5 MG TABLET. PO SCH ×2 (08:12→22:34)
[2021-05-13] MEDS ORDERED: NON FORMULARY ITEM (Melatonin 5 MG) PO SCH (09:00)
--- NOTE | 2021-05-13 10:14 | PDOC ---
[facility] PROGRESS NOTE Date of Service DOS: DATE: 05/13/21 TIME: 09:14 Chief Complaint Chief Complaint A/P: Acute encephalopathy - UTI related UTI - treated with rocephin and 1x fosfomycin Alzheimer dementia Osteoporosis Hypernatremia - dehydrated, needs free water Hypercalcemia - likely due to hemoconcentration Cough - appears to be upper airway cough syndrome from left maxillary sinusitis, has brown nasal discharge, facial pain Left maxillary sinusitis - will start on augmentin History of Present Illness History of Present Illness Ms Mcmillan is an 85 year old female w/ PMHx osteoporosis, alzheimer dementia who presents with reported altered mental status. Patient is a very poor historian and is oriented to place only. Per EMS, a family friend called the patient and was concerned because she did not seem to know who the friend was. This family friend went to visit the patient, and was further concerned because the patient had difficulty conversing. The patient's baseline is fully conversational, but has some short-term memory deficits. Patient has migratory pain complaints, but does not speak much. Her daughter supplement history of essential has had a cough for the last month and has been getting more confused over the past several days. Sodium 147, calcium 10.2, Covid negative, urine moderate leuk esterase and nitrates preliminary urine culture with greater than 100,000 CFU E. coli. Given IV rocephin 1g on 05/11. She was given a single dose of fosfomycin on 05/12, still having little improvement in her cough or confusion. Speaking very little this morning. Oriented to person. Coughing, dry. Brown nasal discharge noted from left nares. d/w daughter bedside. Vitals/I&O Vitals/I&O: Vital Signs Date Time Temp Pulse Resp B/P (MAP) Pulse Ox O2 Delivery O2 Flow Rate FiO2 05/13/21 08:18 Room Air 05/13/21 08:12 73 177/77 05/13/21 03:32 98.2 18 91 98.2 I & O 05/12/21 05/12/21 05/13/21 15:00 23:00 07:00 Intake Total 600 ml 100 ml Output Total 0 ml Balance 600 ml 100 ml 0 ml Physical Exam General: Cooperative Heart: Regular rate, Normal S1, Normal S2 Lungs: Crackles Abdomen: Normal bowel sounds, Soft Extremities: No clubbing, No cyanosis Skin: No rashes, No breakdown Assessment and Plan Assessmemt and Plan Problems Medical Problems: (1) Confusion Status: Acute (2) Urinary tract infection Status: Acute Comment Review of Relevant I have reviewed the following items markus (where applicable) has been applied. Medications: Current Medications Medications (Trade) Dose Ordered Sig/Zachary Route PRN Reason Start Time Stop Time Status Last Admin Dose Admin Fosfomycin Tromethamine (Monurol) 3 gm 1X ONCE PO 05/12/21 10:00 05/12/21 10:01 DC 05/12/21 10:03 Buspirone HCl (Buspar) 2.5 mg BID PO 05/12/21 10:00 05/13/21 08:12 Vitamin D (Vitamin D3) 1,000 unit DAILY PO 05/12/21 10:00 05/13/21 08:11 Lisinopril (Prinivil) 5 mg DAILY PO 05/12/21 10:00 05/13/21 08:12 Memantine (Namenda) 10 mg BID PO 05/12/21 10:00 05/13/21 08:12 Mirtazapine (Remeron) 15 mg QHS PO 05/12/21 21:00 05/12/21 21:12 Justifications for Admission Other Justification MADDISON LAROSE MD May 13, 2021 10:14
[2021-05-13 11:00] VITALS: BP 148/58
--- NOTE | 2021-05-13 11:13 | NUR ---
SW following. Discussed with RN, pt from [facility], room air, regular diet. COVID-19 negative. PT/OT ordered. Pt not ready for discharge today. SW will continue to follow.
[2021-05-13] MEDS: AMOXICILLIN/K CLAV 500/125MG TABLET. PO SCH ×2 (11:52→22:33)
[2021-05-13 15:00] VITALS: BP 149/52
[2021-05-13 19:00] VITALS: BP 159/55
--- NOTE | 2021-05-13 20:28 | NUR ---
Transferred pt to room 550 which is closer to the nurses station for closer monitoring for safety. Pt refusing night meds @ this time. Reapproached, still refused claimed shes not sick. Will try again later.
[2021-05-13] MEDS: MIRTAZAPINE 15 MG TABLET PO SCH (22:33)
[2021-05-13 23:00] VITALS: BP 173/61
[2021-05-14 03:00] VITALS: BP 172/71
[2021-05-14 07:00] VITALS: BP 187/80
[2021-05-14 08:03] LABS: CALCIUM 9.3 mg/dL (8.5-10.1); CREATININE 0.7 mg/dL (0.6-1.0); GFR 79.3; POTASSIUM 3.5 mmol/L (3.5-5.1)
--- NOTE | 2021-05-14 08:26 | PDOC ---
[facility] [facility] PROGRESS NOTE Date of Service DOS: DATE: 05/14/21 TIME: 08:25 Chief Complaint Chief Complaint A/P: Acute encephalopathy - UTI related UTI - treated with rocephin and 1x fosfomycin Alzheimer dementia Osteoporosis Hypernatremia - dehydrated, needs free water Hypercalcemia - likely due to hemoconcentration Cough - appears to be upper airway cough syndrome from left maxillary sinusitis, has brown nasal discharge, facial pain Left maxillary sinusitis - will start on augmentin History of Present Illness History of Present Illness Ms Mcmillan is an 85 year old female w/ PMHx osteoporosis, alzheimer dementia who presents with reported altered mental status. Patient is a very poor historian and is oriented to place only. Per EMS, a family friend called the patient and was concerned because she did not seem to know who the friend was. This family friend went to visit the patient, and was further concerned because the patient had difficulty conversing. The patient's baseline is fully conversational, but has some short-term memory deficits. Patient has migratory pain complaints, but does not speak much. Her daughter supplement history of essential has had a cough for the last month and has been getting more confused over the past several days. Sodium 147, calcium 10.2, Covid negative, urine moderate leuk esterase and nitrates preliminary urine culture with greater than 100,000 CFU E. coli. Given IV rocephin 1g on 05/11. She was given a single dose of fosfomycin on 05/12, still having little improvement in her cough or confusion. 05/13: Speaking very little this morning. Oriented to person. Coughing, dry. Brown nasal discharge noted from left nares. d/w daughter bedside. Afebrile overnight. Confused. Refusing some medications. Oriented to person. E. coli urine with pansensitive. On Augmentin for recent sinusitis and e. coli UTI. Discussed with daughter bedside getting back to baseline may be difficult in the room to look into potential palliative care options in the near future. Vitals/I&O Vitals/I&O: Vital Signs Date Time Temp Pulse Resp B/P (MAP) Pulse Ox O2 Delivery O2 Flow Rate FiO2 05/14/21 07:00 97.8 69 18 187/80 (115) 95 Room Air 97.8 I & O 05/13/21 05/13/21 05/14/21 15:00 23:00 07:00 Intake Total 260 ml 450 ml Output Total 0 ml Balance 260 ml 450 ml Physical Exam General: Cooperative Heart: Regular rate, Normal S1, Normal S2 Lungs: Crackles Abdomen: Normal bowel sounds, Soft Extremities: No clubbing, No cyanosis Skin: No rashes, No breakdown Labs Labs: Laboratory Tests Test 05/14/21 06:55 Sodium Level 144 mmol/L (136-145) Potassium Level 3.5 mmol/L (3.5-5.1) Chloride Level 109 mmol/L (98-107) Carbon Dioxide Level 28 mmol/L (21-32) Anion Gap 7 (6-14) Blood Urea Nitrogen 14 mg/dL (7-20) Creatinine 0.7 mg/dL (0.6-1.0) Estimated GFR (Cockcroft-Gault) 79.3 Glucose Level 84 mg/dL (70-99) Calcium Level 9.3 mg/dL (8.5-10.1) Assessment and Plan Assessmemt and Plan Problems Medical Problems: (1) Confusion Status: Acute (2) Urinary tract infection Status: Acute Comment Review of Relevant I have reviewed the following items markus (where applicable) has been applied. Medications: Current Medications Medications (Trade) Dose Ordered Sig/Zachary Route PRN Reason Start Time Stop Time Status Last Admin Dose Admin Amoxicillin/ Clavulanate Potassium (Augmentin 500/ 125mg) 1 tab BID PO 05/13/21 09:15 05/13/21 22:33 Justifications for Admission Other Justification MADDISON LAROSE MD May 14, 2021 08:26
[2021-05-14] MEDS ORDERED: AMOX1TAB10 PO (09:46)
[2021-05-14] MEDS: AMOXICILLIN/K CLAV 500/125MG TABLET. PO SCH (10:15)
[2021-05-14] MEDS: MEMANTINE 10 MG TABLET. PO SCH (10:16)
[2021-05-14] MEDS: busPIRone 5 MG TABLET. PO SCH (10:16)
[2021-05-14] MEDS: CHOLECALCIFEROL (VITAMIN D3) 1,000 UNIT TABLET PO SCH (10:16)
[2021-05-14] MEDS: LISINOPRIL 5 MG TABLET. PO SCH (10:16)
--- NOTE | 2021-05-14 10:44 | NUR ---
SW following. Discussed with RN, discharge orders for pt to return to [facility] [place] with home health. MANUEL spoke with pt's daughter, Nori - she does not have preference of provider, just a company who is in network and can go into the [facility]. MANUEL verified [facility] does go into the [facility]. [facility] RN notified of discharge. MANUEL arranged transportation with [facility] transport for 1200. RN notified. [facility] notified. Clinicals faxed to the [facility]. No further SW needs.
[2021-05-14 11:00] VITALS: BP 179/65
--- NOTE | 2021-05-14 12:31 | NUR ---
Discharge Note: MEENAKSHI ANGELES RN called [facility] and left message for nurse to call back. Discontinued lines and drains: 18 guage right AC, tip intact. patient tolerated well. Patient discharged to [facility] via [facility] transport.
--- NOTE | 2021-05-14 14:41 | PDOC3 ---
Discharge Summary Visit Information Date of Admission: May 11, 2021 Date of Discharge: May 14, 2021 Admitting Diagnosis: Acute encephalopathy Final Diagnosis Problems Medical Problems: (1) Confusion Status: Acute (2) Urinary tract infection Status: Acute Brief Hospital Course Allergies Allergies Coded Allergies Type Severity Reaction Last Updated Verified No Known Drug Allergies 05/11/21 No Vital Signs Vital Signs Date Time Temp Pulse Resp B/P (MAP) Pulse Ox O2 Delivery O2 Flow Rate FiO2 05/14/21 11:00 97.6 63 18 179/65 (103) 95 Room Air 97.6 Lab Results Laboratory Tests Test 05/14/21 06:55 Sodium Level 144 mmol/L (136-145) Potassium Level 3.5 mmol/L (3.5-5.1) Chloride Level 109 mmol/L (98-107) Carbon Dioxide Level 28 mmol/L (21-32) Anion Gap 7 (6-14) Blood Urea Nitrogen 14 mg/dL (7-20) Creatinine 0.7 mg/dL (0.6-1.0) Estimated GFR (Cockcroft-Gault) 79.3 Glucose Level 84 mg/dL (70-99) Calcium Level 9.3 mg/dL (8.5-10.1) Laboratory Tests Test 05/14/21 06:55 Sodium Level 144 mmol/L (136-145) Potassium Level 3.5 mmol/L (3.5-5.1) Chloride Level 109 mmol/L (98-107) Carbon Dioxide Level 28 mmol/L (21-32) Anion Gap 7 (6-14) Blood Urea Nitrogen 14 mg/dL (7-20) Creatinine 0.7 mg/dL (0.6-1.0) Estimated GFR (Cockcroft-Gault) 79.3 Glucose Level 84 mg/dL (70-99) Calcium Level 9.3 mg/dL (8.5-10.1) Brief Hospital Course Ms Mcmillan is an 85 year old female w/ PMHx osteoporosis, alzheimer dementia who presents with reported altered mental status. Patient is a very poor historian and is oriented to place only. Per EMS, a family friend called the patient and was concerned because she did not seem to know who the friend was. This family friend went to visit the patient, and was further concerned because the patient had difficulty conversing. The patient's baseline is fully conversational, but has some short-term memory deficits. Patient has migratory pain complaints, but does not speak much. Her daughter supplement history of essential has had a cough for the last month and has been getting more confused over the past several days. Sodium 147, calcium 10.2, Covid negative, urine moderate leuk esterase and nitrates preliminary urine culture with greater than 100,000 CFU E. coli. Given IV rocephin 1g on 05/11. She was given a single dose of fosfomycin on 05/12, still having little improvement in her cough or confusion. 05/13: Speaking very little this morning. Oriented to person. Coughing, dry. Brown nasal discharge noted from left nares. d/w daughter bedside. Afebrile overnight. Confused. Refusing some medications. Oriented to person. E. coli urine with pansensitive. On Augmentin for recent sinusitis and e. coli UTI. Discussed with daughter bedside getting back to baseline may be difficult in the room to look into potential palliative care options in the near future. Problem list: Acute encephalopathy - UTI related UTI - treated with rocephin and 1x fosfomycin Alzheimer dementia Osteoporosis Hypernatremia - dehydrated, needs free water Hypercalcemia - likely due to hemoconcentration Cough - appears to be upper airway cough syndrome from left maxillary sinusitis, has brown nasal discharge, facial pain Left maxillary sinusitis - will start on augmentin Greater than 30 minutes spent on d/c to assisted living with home health Discharge Information Condition at Discharge: Stable Follow Up: Weeks Disposition/Orders: D/C to Home w/ HH Scheduled Amoxicillin/Potassium Clav (Amox Tr-K Clv 500-125 Mg Tab) 1 Each Tablet, 1 TAB PO BID for Sinusitis/UTI for 5 Days, #10 Prescribed by: MADDISON LAROSE MD on 05/14/21 0946 Buspirone Hcl (Buspirone Hcl) 5 Mg Tablet, 0.5 TAB PO BID for ANXIETY, #60 Ref 2 (Reported) Entered as Reported by: DOROTEO JIM on 05/12/21 0320 Last Action: Continued on 05/12/21924 by MADDISON CANELA MD Cholecalciferol (Vitamin D3) (Vitamin D3 ) 25 Mcg Tablet, 25 MCG PO DAILY for SUPPLEMENT, (Reported) 1,000 UNITS = 25 MCG Entered as Reported by: DOROTEO JIM on 05/12/21326 Last Action: Continued on 05/12/21924 by MADDISON CANELA MD Cyanocobalamin (Vitamin B-12) (Vitamin B-12) 1,000 Mcg Tab.subl, 1 TAB SL DAILY for B12 DEFICIENCY for 30 Days, #30 Ref 0 (Reported) Entered as Reported by: DOROTEO JIM on 05/12/21325 Last Action: HELD on 05/12/21924 by MADDISON CANELA MD Lisinopril (Lisinopril) 5 Mg Tablet, 1 TAB PO DAILY for HTN, #30 Ref 5 (Reported) Entered as Reported by: DOROTEO JIM on 05/12/21320 Last Action: Continued on 05/12/21924 by MADDISON CANELA MD Melatonin (Melatonin) 5 Mg Tab.rapdis, 1 TAB PO QHS for sleep for 30 Days, #30 Ref 0 (Reported) Entered as Reported by: DOROTEO JIM on 05/12/21320 Last Action: HELD on 05/12/21924 by MADDISON CANELA MD Melatonin (Melatonin) 5 Mg Tab.rapdis, 5 MG PO DAILY for SLEEP, (Reported) Entered as Reported by: DOROTEO JIM on 05/12/21322 Last Action: Converted on 05/12/21924 by MADDISON CANELA MD Memantine Hcl (Namenda) 10 Mg Tablet, 10 MG PO BID for DEMENTIA, (Reported) Entered as Reported by: DOROTEO JIM on 05/12/21321 Last Action: Continued on 05/12/21924 by MADDISON CANELA MD Mirtazapine (Remeron) 15 Mg Tablet, 1 TAB PO QHS for INSOPMNIA, #30 Ref 1 (Reported) Entered as Reported by: DOROTEO JIM on 05/12/21323 Last Action: Continued on 05/12/21924 by MADDISON CANELA MD Nut.tx.impaired Digestive Fxn (Ensure Clear Therapeutic) 237 Ml Liquid, 237 ML PO WITH MEALS for SUPPLEMENT, (Reported) Entered as Reported by: DOROTEO JIM on 05/12/21328 Last Action: Converted on 05/12/21924 by MADDISON CANELA MD Scheduled PRN Acetaminophen (Tylenol) 325 Mg Tablet, 2 TAB PO PRN Q6HRS PRN for PAIN/TEMP, #30 (Reported) Entered as Reported by: DOROTEO JIM on 05/12/21324 Last Action: Continued on 05/12/21924 by MADDISON CANELA MD Justicifation of Admission Dx: Justifications for Admission: Justification of Admission Dx: Yes MADDISON LAROSE MD May 14, 2021 14:41
--- NOTE | 2021-05-15 08:47 | SNU/HH DC ---
DISCHARGE WITH HOME HEALTH DISCHARGE INFORMATION: Discharge Date: May 14, 2021 Final Diagnosis: Problems Medical Problems: (1) Confusion Status: Acute (2) Urinary tract infection Status: Acute Condition on Discharge: Stable CODE STATUS: Code Status: Full HOME HEALTH: Face to Face: I certify this patient is under my care and that I, or a nurse practitioner or physician's assistant tennis coach working with me, had a face to face encounter that meets the physician face to face encounter requirements with this patient on 05/14/2021. Medical Complications: Dementia, Falls Jail For: Assess & Educate Safety, Assess/Skilled Observatio, Bowel/Bladder Training, Enteral Feeding Care, Medication Management RN For Eval/Treatment: Yes Physical Therapy For: Evalulation/Treatment Occupational Therapy For: Evaluation/Treatment Pt Meets Homebound Status: Poor coordination w/ amb., Extreme weakness w/ amb., Limited distance walking, Poor cognition, Psychological condition POST DISCHARGE ORDERS: Activity Instructions for Disc: Resume previous activity Weight Bearing Status after Di: Full weight bearing DIET AFTER DISCHARGE: Regular CHECKS AFTER DISCHARGE: Checks after discharge: Check blood press - daily, Check your Temp as needed CERTIFICATION STATEMENT: Certification Statement: Certification Statement: Based on the above finding, I certify that this patient is confined to the home and needs intermittent prison care, physical therapy and/or speech therapy, or continues to need occupational therapy.~ This patient is under my care, and I have initiated the establishment of the plan of care.~ This patient will be followed by myself or a community physician who will periodically review the plan of care. Home Meds Active Scripts Amoxicillin/Potassium Clav (AMOX TR-K CLV 500-125 MG TAB) 1 Each Tablet, 1 TAB PO BID for Sinusitis/UTI for 5 Days, #10 TAB Prov:MADDISON LAROSE MD 05/14/21 Reported Medications Nut.tx.impaired Digestive Fxn (Ensure Clear Therapeutic) 237 Ml Liquid, 237 ML PO WITH MEALS for SUPPLEMENT, LIQUID 05/12/21 Cholecalciferol (Vitamin D3) (Vitamin D3 ) 25 Mcg Tablet, 25 MCG PO DAILY for SUPPLEMENT, TAB 1,000 UNITS = 25 MCG 05/12/21 Cyanocobalamin (Vitamin B-12) (VITAMIN B-12) 1,000 Mcg Tab.subl, 1 TAB SL DAILY for B12 DEFICIENCY for 30 Days, #30 TAB 0 Refills 05/12/21 Acetaminophen (TYLENOL) 325 Mg Tablet, 2 TAB PO PRN Q6HRS PRN for PAIN/TEMP, #30 TAB 05/12/21 Mirtazapine (REMERON) 15 Mg Tablet, 1 TAB PO QHS for INSOPMNIA, #30 TAB 1 Refill 05/12/21 Melatonin (MELATONIN) 5 Mg Tab.rapdis, 5 MG PO DAILY for SLEEP, TAB 05/12/21 Memantine Hcl (NAMENDA) 10 Mg Tablet, 10 MG PO BID for DEMENTIA, TAB 05/12/21 Melatonin (MELATONIN) 5 Mg Tab.rapdis, 1 TAB PO QHS for sleep for 30 Days, #30 TAB 0 Refills 05/12/21 Lisinopril (LISINOPRIL) 5 Mg Tablet, 1 TAB PO DAILY for HTN, #30 TAB 5 Refills 05/12/21 Buspirone Hcl (BUSPIRONE HCL) 5 Mg Tablet, 0.5 TAB PO BID for ANXIETY, #60 TAB 2 Refills 05/12/21 MADDISON LAROSE MD May 15, 2021 08:47
== END 2021-05-14 12:13 | disposition home health service (06) | DRG 689 ==
LOC: ER 20:58 → 5 SOUTH 23:52
PROVIDERS: ADMIT Internal Medicine; ATTEND Internal Medicine
DX: N39.0 Urinary tract infection, site not specified (principal); G93.41 Metabolic encephalopathy; E87.0 Hyperosmolality and hypernatremia; M81.0 Age-related osteoporosis without current pathological fracture; G30.9 Alzheimer's disease, unspecified; F02.80 Dementia in other diseases classified elsewhere, unspecified severity, without behavioral disturbance, psychotic disturbance, mood disturbance, and anxiety; Z20.822 Contact with and (suspected) exposure to COVID-19; E86.0 Dehydration; E83.52 Hypercalcemia; J32.0 Chronic maxillary sinusitis; R51.9 Headache, unspecified; I10 Essential (primary) hypertension
CPT/HCPCS: 36415; 70450; 71045; 72125; 80048; 80053; 81001; 83880; 84484; 85025; 87077; 87086; 87186; 87426; 93005; 96361; 96374; J0696; J7030; U0003; U0005; 97530-GP; 97535-GO; 99285-25; G0378

== ENCOUNTER 2021-06-19 05:16 | Inpatient (IN) | payer MEDICARE ==
[2021-06-19] VITALS (7 sets, daily range): BP systolic 141–181; BP diastolic 44–83
[~2021-06-19] VITALS: Ht 167.6 cm; Wt 62.4 kg
[~2021-06-19 05:16] MED LIST: ACET325T9 PO; AMOX1TAB10 PO; BUSP5TAB PO; CHOL10004 PO; CYAN100016 SL; LISI5TAB15 PO; MELA5TAB20 PO; MEMA10TA PO; MIRT-36 PO; [UNRECOGNIZED DRUG - CODE] PO
--- NOTE | 2021-06-19 05:53 | PHYS DOC ---
Past Medical History Additional Past Medical Histor: Dementia, Vitamin B12 defiecientcy, oseteoporis (CRISTI JACOBSON DO) Past Surgical History: Other (CRISTI JACOBSON DO) Smoking Status: Never Smoker Alcohol Use: None (CRISTI JACOBSON DO) General Adult EDM: Chief Complaint: MECHANICAL FALL HPI: HPI: 85-year-old female past medical history of hypertension and dementia, presents the ED brought in by EMS from proper custodial after patient was seen on the ground just next to her bed with complaints of left leg and hip pain. Patient was seen prior to this 1 hour ago in her bed, no active complaints. Due to patient's dementia, history and review of systems are unable to be obtained. (CRISTI JACOBSON DO) Review of Systems: Review of Systems: ROS limited due to dementia (CRISTI JACOBSON DO) Heart Score: C/O Chest Pain: No Risk Factors: Risk Factors: DM, Current or recent (<one month) smoker, HTN, HLP, family history of CAD, obesity. Risk Scores: Score 0 - 3: 2.5% MACE over next 6 weeks - Discharge Home Score 4 - 6: 20.3% MACE over next 6 weeks - Admit for Clinical Observation Score 7 - 10: 72.7% MACE over next 6 weeks - Early Invasive Strategies (CRISTI JACOBSON DO) C/O Chest Pain: No (JOHANN ARRIETA MD) Allergies: Allergies: Allergies Coded Allergies Type Severity Reaction Last Updated Verified No Known Drug Allergies 05/11/21 No (CRISTI JACOBSON DO) Physical Exam: PE: Constitutional: no acute distress at rest, pain worsened when sitting upright, non-toxic appearance. HENT: Normocephalic, atraumatic, Eyes: DELVIN, EOMI, conjunctiva normal, no discharge. Neck: Normal range of motion, supple, Cardiovascular: S1/2 present, regular rhythm Lungs & Thorax: Speaking in full sentences, bilateral equal chest rise, no tachypnea or increased work of breathing Abdomen: soft, no tenderness, Skin: Warm, dry, no erythema, no rash. [] Back: No midline spinal step offs or tenderness, no CVA tenderness. [] Extremities: tender left knee w/swelling and proximal left hip pain, equal dp/pt pulses Neurologic: Alert, normal motor function, normal sensory function, no focal deficits noted. [] Psychologic: Affect normal, judgement normal, mood normal. [] (CRISTI JACOBSON DO) Current Patient Data: Vital Signs: Vital Signs Date Time Temp Pulse Resp B/P (MAP) Pulse Ox O2 Delivery O2 Flow Rate FiO2 06/19/21 05:25 98.1 66 18 170/87 (114) 98 Room Air 98.1 (CRISTI JACOBSON DO) EKG: EKG: [] (CRISTI JACOBSON DO) Radiology/Procedures: Radiology/Procedures: [] (CRISTI JACOBSON DO) Radiology/Procedures: [facility] [address] [place], [place] [id number] IMAGING REPORT Signed PATIENT: MEENAKSHI ANGELES ACCOUNT: [id number] : 1935 LOCATION: ER AGE: 85 SEX: F EXAM STATUS: PRE ER ORD. PHYSICIAN: CRISTI JACOBSON DO REASON: fall fro bed PROCEDURE: CT HEAD AND CERVICAL SPINE WO EXAMINATION: CT HEAD AND C-SPINE WO CLINICAL HISTORY: Fall from bed TECHNIQUE: Serial axial images without IV contrast were obtained from the vertex to the foramen magnum. CT of the cervical spine without IV contrast. Spiral, high resolution axial images were obtained from the skull base to the cervicothoracic junction with sagittal and coronal planar reconstructions. CT Dose Reduction Employed: One or more of the following individualized dose reduction techniques were utilized for this examination: 1. Automated exposure control 2. Adjustment of the mA and/or kV according to patient size 3. Use of iterative reconstruction technique. COMPARISON: 05/11/2021 FINDINGS: BRAIN: Acute Change: No evidence of an acute contusion or other acute parenchymal process. Hemorrhage: No evidence of acute intracranial hemorrhage. Mass Lesion/Mass Effect: No evidence of intracranial mass or extraaxial fluid collection. No significant mass effect. 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 Patchy hypoattenuation in the supratentorial white matter, nonspecific but likely represents moderate microvascular ischemia. Atherosclerotic calcification of the bilateral carotid siphons. Parenchyma: Mild to moderate generalized volume loss. Ventricles: Ventricular enlargement concordant with degree of parenchymal volume loss. Paranasal Sinuses and Skull Base: Visualized paranasal sinuses clear. No evidence of acute calvarial fracture. C-SPINE: Alignment: Normal anatomic alignment. Osseous Structures: No evidence of acute fracture or spondylolisthesis. Degenerative Changes: Mild to moderate multilevel degenerative disc disease, greatest at C6-7. Moderate to severe multilevel neural foraminal narrowing. Mild to moderate osseous spinal stenosis in the mid to lower cervical spine. Multilevel facet arthropathy. Cervical Soft Tissues: No prevertebral soft tissue swelling. Unchanged left thyroid nodule. IMPRESSION: BRAIN: No evidence of acute intracranial abnormality or significant interval change. C-SPINE: No evidence of acute osseous abnormality involving the cervical spine or significant interval change. Electronically signed by: Reed Claudio DO (06/19/2021 7:03 AM) [facility] DICTATED and SIGNED BY: REED CLAUDIO DO DATE: 06/19/21 [id number] [facility] [address] [place] [address] IMAGING REPORT Signed PATIENT: MEENAKSHI ANGELES ACCOUNT: [id number] : 1935 LOCATION: ER AGE: 85 SEX: F EXAM STATUS: PRE ER ORD. PHYSICIAN: CRISTI JACOBSON DO REASON: fall fro bed PROCEDURE: CT HEAD AND CERVICAL SPINE WO EXAMINATION: CT HEAD AND C-SPINE WO CLINICAL HISTORY: Fall from bed TECHNIQUE: Serial axial images without IV contrast were obtained from the vertex to the foramen magnum. CT of the cervical spine without IV contrast. Spiral, high resolution axial images were obtained from the skull base to the cervicothoracic junction with sagittal and coronal planar reconstructions. CT Dose Reduction Employed: One or more of the following individualized dose reduction techniques were utilized for this examination: 1. Automated exposure control 2. Adjustment of the mA and/or kV according to patient size 3. Use of iterative reconstruction technique. COMPARISON: 05/11/2021 FINDINGS: BRAIN: Acute Change: No evidence of an acute contusion or other acute parenchymal process. Hemorrhage: No evidence of acute intracranial hemorrhage. Mass Lesion/Mass Effect: No evidence of intracranial mass or extraaxial fluid collection. No significant mass effect. 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 Patchy hypoattenuation in the supratentorial white matter, nonspecific but likely represents moderate microvascular ischemia. Atherosclerotic calcification of the bilateral carotid siphons. Parenchyma: Mild to moderate generalized volume loss. Ventricles: Ventricular enlargement concordant with degree of parenchymal volume loss. Paranasal Sinuses and Skull Base: Visualized paranasal sinuses clear. No evidence of acute calvarial fracture. C-SPINE: Alignment: Normal anatomic alignment. Osseous Structures: No evidence of acute fracture or spondylolisthesis. Degenerative Changes: Mild to moderate multilevel degenerative disc disease, greatest at C6-7. Moderate to severe multilevel neural foraminal narrowing. Mild to moderate osseous spinal stenosis in the mid to lower cervical spine. Multil evel facet arthropathy. Cervical Soft Tissues: No prevertebral soft tissue swelling. Unchanged left thyroid nodule. IMPRESSION: BRAIN: No evidence of acute intracranial abnormality or significant interval change. C-SPINE: No evidence of acute osseous abnormality involving the cervical spine or significant interval change. Electronically signed by: Reed Claudio DO (06/19/2021 7:03 AM) [id number] DICTATED and SIGNED BY: REED CLAUDIO DO DATE: 06/19/21 [id number] [facility] [address] [place] [address] IMAGING REPORT Signed PATIENT: MEENAKSHI ANGELES ACCOUNT: [id number] : 1935 LOCATION: ER AGE: 85 SEX: F EXAM STATUS: PRE ER ORD. PHYSICIAN: CRISTI JACOBSON DO REASON: lef tknee pain s/p fall PROCEDURE: TIBIA FIBULA LEFT Chest AP portable 06/19/2021. Reason for exam: Patient fell. Comparison is made with a study of 05/11/2021. There are some increased lung markings that are probably chronic. No acute infiltrate or effusion is seen. Heart size is normal. Bony thorax appears grossly intact. IMPRESSION: No acute abnormality. Left tibia and fibula 2 views: Postoperative changes are seen with previous placement of a dequan and screws through the tibia. There is evidence of a healed fracture toward the proximal and abnormality also be a healed fracture of the proximal fibula. No acute fracture or dislocation is seen. There are mild degene rative changes of the knee. IMPRESSION: Postoperative and degenerative changes. No apparent acute abnormality. Left knee 3 views: Postoperative changes are seen in the proximal tibia. No acute fracture or dislocation is seen. There is moderate osteoarthritis. IMPRESSION: No acute findings. Left femur 2 views: There is an oblique intertrochanteric fracture of the proximal femur with some varus angulation. No other fracture or dislocation is seen. IMPRESSION: Proximal femur fracture. AP pelvis: The proximal left femur fracture is again seen. No fracture of the bony pelvis or proximal right femur is seen. Joint spaces are fairly well- maintained for age. IMPRESSION: No pelvic fracture. Electronically signed by: Edgardo Tillman Jr., MD (06/19/2021 7:02 AM) [id number] DICTATED and SIGNED BY: EDGARDO TILLMAN Jr, MD DATE: 06/19/21 [id number] (JOHANN ARRIETA MD) Course & Med Decision Making: Course & Med Decision Making Pertinent Labs and Imaging studies reviewed. (See chart for details) Concern for fall from bed, unwitnessed. Labs and imaging pending. Due to shift change pt was signed out to oncoming physician, Dr. Arrieta for further medical evaluation disposition. (CRISTI JACOBSON DO) Course & Med Decision Making Admit to hospitalist for left hip fracture. Discussed with orthopedics, Dr Das (JOHANN ARRIETA MD) Patriaon Disclaimer: Dontrell Disclaimer: This electronic medical record was generated, in whole or in part, using a voice recognition dictation system. (CRISTI JACOBSON DO) Departure Departure Impression: Primary Impression: Pain of left lower extremity Additional Impression: Closed left hip fracture Disposition: ADMITTED INPATIENT Admitting Physician: HAN (JOHANN ARRIETA MD) Condition: STABLE Referrals: UNKNOWN PCP NAME (PCP) CRISTI JACOBSON DO Jun 19, 2021 05:53 JOHANN ARRIETA MD Jun 19, 2021 07:13
--- NOTE | 2021-06-19 07:04 | RAD ---
Chest AP portable 06/19/2021. Reason for exam: Patient fell. Comparison is made with a study of 05/11/2021. There are some increased lung markings that are probably chronic. No acute infiltrate or effusion is seen. Heart size is normal. Bony thorax appears grossly intact. IMPRESSION: No acute abnormality. Left tibia and fibula 2 views: Postoperative changes are seen with previous placement of a dequan and sc rews through the tibia. There is evidence of a healed fracture toward the proximal and abnormality al so be a healed fracture of the proximal fibula. No acute fracture or dislocation is seen. There are m ild degenerative changes of the knee. IMPRESSION: Postoperative and degenerative changes. No apparent acute abnormality. Left knee 3 views: Postoperative changes are seen in the proximal tibia. No acute fracture or disloca tion is seen. There is moderate osteoarthritis. IMPRESSION: No acute findings. Left femur 2 views: There is an oblique intertrochanteric fracture of the proximal femur with some va jose e angulation. No other fracture or dislocation is seen. IMPRESSION: Proximal femur fracture. AP pelvis: The proximal left femur fracture is again seen. No fracture of the bony pelvis or proximal right femur is seen. Joint spaces are fairly well-maintained for age. IMPRESSION: No pelvic fracture. Electronically signed by: Dwight Tillman Jr., MD (06/19/2021 7:02 AM) [id number]
--- NOTE | 2021-06-19 07:05 | RAD ---
EXAMINATION: CT HEAD AND C-SPINE WO CLINICAL HISTORY: Fall from bed TECHNIQUE: Serial axial images without IV contrast were obtained from the vertex to the foramen magnum. CT of the cervical spine without IV contrast. Spiral, high resolution axial images were obtained from the skull base to the cervicothoracic junction with sagittal and coronal planar reconstructions. CT Dose Reduction Employed: One or more of the following individualized dose reduction techniques wer e utilized for this examination: 1. Automated exposure control 2. Adjustment of the mA and/or kV ac cording to patient size 3. Use of iterative reconstruction technique. COMPARISON: 05/11/2021 FINDINGS: BRAIN: Acute Change: No evidence of an acute contusion or other acute parenchymal process. Hemorrhage: No evidence of acute intracranial hemorrhage. Mass Lesion/Mass Effect: No evidence of intracranial mass or extraaxial fluid collection. No signific ant mass effect. 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 Patchy hypoattenuation in th e supratentorial white matter, nonspecific but likely represents moderate microvascular ischemia. Ath erosclerotic calcification of the bilateral carotid siphons. Parenchyma: Mild to moderate generalized volume loss. Ventricles: Ventricular enlargement concordant with degree of parenchymal volume loss. Paranasal Sinuses and Skull Base: Visualized paranasal sinuses clear. No evidence of acute calvarial fracture. C-SPINE: Alignment: Normal anatomic alignment. Osseous Structures: No evidence of acute fracture or spondylolisthesis. Degenerative Changes: Mild to moderate multilevel degenerative disc disease, greatest at C6-7. Modera te to severe multilevel neural foraminal narrowing. Mild to moderate osseous spinal stenosis in the m id to lower cervical spine. Multilevel facet arthropathy. Cervical Soft Tissues: No prevertebral soft tissue swelling. Unchanged left thyroid nodule. IMPRESSION: BRAIN: No evidence of acute intracranial abnormality or significant interval change. C-SPINE: No evidence of acute osseous abnormality involving the cervical spine or significant interval change. Electronically signed by: Reed Guadalupe DO (06/19/2021 7:03 AM) [facility]
[2021-06-19 07:44] LABS: BASO % 0 % (0-3); EOS % 0 % (0-3); HEMATOCRIT 36.6 % (36.0-47.0); HEMOGLOBIN 11.9 g/dL (12.0-15.5); LYMPH # 0.6 x10^3/uL (1.0-4.8); LYMPH % 6 % (24-48); MEAN CORPUSCULAR HEMOGLOBIN 26 pg (25-35); MEAN CORPUSCULAR HGB CONC 33 g/dL (31-37); MEAN CORPUSCULAR VOLUME 80 fL (79-100); MONO # 0.2 x10^3/uL (0.0-1.1); MONO % 2 % (0-9); NEUT # 8.6 x10^3/uL (1.8-7.7); NEUT % 91 % (31-73); PLATELET COUNT 306 x10^3/uL (140-400); RED BLOOD COUNT 4.58 x10^6/uL (3.50-5.40); RED CELL DISTRIBUTION WIDTH 16.8 % (11.5-14.5); WHITE BLOOD COUNT 9.4 x10^3/uL (4.0-11.0)
[2021-06-19 07:53] LABS: CALCIUM 9.9 mg/dL (8.5-10.1); CREATININE 0.8 mg/dL (0.6-1.0); POTASSIUM 3.1 mmol/L (3.5-5.1)
[2021-06-19 07:59] LABS: ALBUMIN 3.6 g/dL (3.4-5.0); TOTAL BILIRUBIN 0.4 mg/dL (0.2-1.0); TOTAL PROTEIN 7.3 g/dL (6.4-8.2)
[2021-06-19] MEDS ORDERED: fentaNYL PF VIAL 100 MCG/2 ML VIAL IVP ONE (08:15)
[2021-06-19 08:17] LABS: BILIRUBIN,URINE NEGATIVE (NEG); CLARITY,URINE CLOUDY; COLOR,URINE YELLOW; NITRITE,URINE POSITIVE (NEG); PH,URINE 8.5 (<5.0-8.0); PROTEIN,URINE 100 mg/dL (NEG-TRACE); UROBILINOGEN,URINE 0.2 mg/dL (0.2 mg/dL)
--- NOTE | 2021-06-19 08:37 | RAD ---
Left humerus 2 views, left forearm 2 views. HISTORY: Left upper arm pain, left forearm pain Left humerus 2 views were taken of the left humerus. There is not evidence of an acute fracture or osseous abnorma lity. There is no dislocation at the shoulder. Left forearm 2 views were taken of the left forearm. There is not evidence of an acute fracture or osseous abnorma lity. IMPRESSION: 1. No fracture noted in the left humerus. 2. No acute fracture noted in the left forearm. Electronically signed by: Vnace Huston MD (06/19/2021 8:35 AM) [id number]
[2021-06-19 08:39] LABS: BACTERIA,URINE MANY /HPF (0-FEW); WBC,URINE >40 /HPF (0-4)
[2021-06-19] MEDS ORDERED: fentaNYL PF VIAL 100 MCG/2 ML VIAL IVP PRN (09:15)
[2021-06-19] MEDS ORDERED: ONDANSETRON PF 4 MG/2 ML VIAL. IVP PRN ×2 (09:15→11:45)
[2021-06-19] MEDS: IV NORMAL SALINE 1000ML BAG 1,000 ML IV SCH ×2 (11:24→22:02)
[2021-06-19] MEDS ORDERED: DEXTROSE 50% 25 GM / 50ML DISP.SYRIN. IV PRN ×2 (11:45→21:00)
[2021-06-19] MEDS ORDERED: ZOLPIDEM 5 MG TABLET. PO PRN (11:45)
[2021-06-19] MEDS ORDERED: SENNOSIDES 8.6 MG TABLET PO PRN (11:45)
[2021-06-19] MEDS ORDERED: PROCHLORPERAZINE 10 MG/2 ML VIAL. IV PRN (11:45)
[2021-06-19] MEDS ORDERED: DOCUSATE SODIUM 100 MG CAPSULE. PO PRN (11:45)
--- NOTE | 2021-06-19 11:46 | PDOC1 ---
History and Physical Date of Service: DOS: DATE: 06/19/21 TIME: 11:38 Chief Complaint: Chief Complain: Found on the ground History of Present Illness: HPI: History obtained from chart review and discussion with the daughter 85-year-old female past medical history of hypertension and dementia, presents the ED brought in by EMS from proper [facility] after patient was seen on the ground just next to her bed with complaints of left leg and hip pain. Patient was seen prior to this 1 hour ago in her bed, no active complaints. Due to patient's dementia, history and review of systems are unable to be obtained. According to the daughter, patient is fairly mobile without using any cane or walker. She is able to dress herself and feed herself and use the toilet. No falls in the past. Past Medical/Surgical History: PMH/PSH: Past Medical Histor: Alzheimer's dementia with paranoia, Vitamin B12 deficiency, osteoporosis, hypertension Allergies: Allergies: Coded Allergies: No Known Drug Allergies (Unverified , 05/11/21) Family History: Family History: Reviewed with no relevant findings Social History: Social History: No alcohol, drug or tobacco abuse Current Medications: Current Medications Current Medications Fentanyl Citrate (Fentanyl 2ml Vial) 25 mcg 1X ONCE IVP Last administered on 06/19/21at 08:15; Start 06/19/21 at 08:15; Stop 06/19/21 at 08:16; Status DC Ondansetron HCl (Zofran) 4 mg PRN Q8HRS PRN IVP NAUSEA/VOMITING; Start 06/19/21 at 09:15; Stop 06/20/21 at 09:14 Fentanyl Citrate (Fentanyl 2ml Vial) 50 mcg PRN Q1HR PRN IVP PAIN; Start 06/19/21 at 09:15; Stop 06/20/21 at 09:14 Sodium Chloride 1,000 ml @ 75 mls/hr [id number] IV Last administered on 06/19/21at 11:24; Start 06/19/21 at 09:15; Stop 06/20/21 at 09:14 Ceftriaxone Sodium (Rocephin) 1 gm Q24H IVP ; Start 06/19/21 at 11:00 Active Scripts Active Amox Tr-K Clv 500-125 Mg Tab (Amoxicillin/Potassium Clav) 1 Each Tablet 1 Tab PO BID 5 Days Reported Ensure Clear Therapeutic (Nut.tx.impaired Digestive Fxn) 237 Ml Liquid 237 Ml PO WITH MEALS Vitamin D3 (Vitamin D) 25 Mcg Tablet 25 Mcg PO DAILY 1,000 UNITS = 25 MCG Vitamin B-12 (Cyanocobalamin (Vitamin B-12)) 1,000 Mcg Tab.subl 1 Tab SL DAILY 30 Days Tylenol (Acetaminophen) 325 Mg Tablet 2 Tab PO PRN Q6HRS PRN Remeron (Mirtazapine) 15 Mg Tablet 1 Tab PO QHS Melatonin 5 Mg Tab.rapdis 5 Mg PO DAILY Namenda (Memantine Hcl) 10 Mg Tablet 10 Mg PO BID Melatonin 5 Mg Tab.rapdis 1 Tab PO QHS 30 Days Lisinopril 5 Mg Tablet 1 Tab PO DAILY Buspirone Hcl 5 Mg Tablet 0.5 Tab PO BID ROS: Review of Systems Review of System Unable obtain due to dementia Physical Exam: Vital Signs: Vital Signs Date Time Temp Pulse Resp B/P (MAP) Pulse Ox O2 Delivery O2 Flow Rate FiO2 06/19/21 09:24 90 191/77 (115) Room Air 06/19/21 08:45 20 96 06/19/21 05:25 98.1 98.1 Physcial Exam: General: Well developed, well nourished, no acute distress, well appearing HEENT: Pupils equally round and reactive to light, EOMI, no discharge, normal conjunctiva Neck: Supple, no nuchal rigidity, no JVD, trachea midline, no tenderness Cardiac: RRR, no murmurs, no gallops, no rubs Chest/Lungs: CTAB, no wheeze, no rhonchi, no crackles Abdomen: soft, non-distended, no guarding, no peritoneal signs, non-tender Back: No tenderness Extremities: no edema, pulses intact, non-tender,capillary refill <3 sec bilateral upper and lower extremities, left lower extremity internally rotated. No obvious deformities Neuro: Alert and awake and oriented x1, no focal deficits, normal speech Labs: Labs: Laboratory Tests Test 06/19/21 07:32 06/19/21 08:08 White Blood Count 9.4 x10^3/uL (4.0-11.0) Red Blood Count 4.58 x10^6/uL (3.50-5.40) Hemoglobin 11.9 g/dL (12.0-15.5) Hematocrit 36.6 % (36.0-47.0) Mean Corpuscular Volume 80 fL (79-100) Mean Corpuscular Hemoglobin 26 pg (25-35) Mean Corpuscular Hemoglobin Concent 33 g/dL (31-37) Red Cell Distribution Width 16.8 % (11.5-14.5) Platelet Count 306 x10^3/uL (140-400) Neutrophils (%) (Auto) 91 % (31-73) Lymphocytes (%) (Auto) 6 % (24-48) Monocytes (%) (Auto) 2 % (0-9) Eosinophils (%) (Auto) 0 % (0-3) Basophils (%) (Auto) 0 % (0-3) Neutrophils # (Auto) 8.6 x10^3/uL (1.8-7.7) Lymphocytes # (Auto) 0.6 x10^3/uL (1.0-4.8) Monocytes # (Auto) 0.2 x10^3/uL (0.0-1.1) Eosinophils # (Auto) 0.0 x10^3/uL (0.0-0.7) Basophils # (Auto) 0.0 x10^3/uL (0.0-0.2) Sodium Level 144 mmol/L (136-145) Potassium Level 3.1 mmol/L (3.5-5.1) Chloride Level 106 mmol/L (98-107) Carbon Dioxide Level 25 mmol/L (21-32) Anion Gap 13 (6-14) Blood Urea Nitrogen 18 mg/dL (7-20) Creatinine 0.8 mg/dL (0.6-1.0) Estimated GFR (Cockcroft-Gault) 68.0 BUN/Creatinine Ratio 23 (6-20) Glucose Level 136 mg/dL (70-99) Calcium Level 9.9 mg/dL (8.5-10.1) Total Bilirubin 0.4 mg/dL (0.2-1.0) Aspartate Amino Transf (AST/SGOT) 21 U/L (15-37) Alanine Aminotransferase (ALT/SGPT) 21 U/L (14-59) Alkaline Phosphatase 135 U/L (46-116) Total Protein 7.3 g/dL (6.4-8.2) Albumin 3.6 g/dL (3.4-5.0) Albumin/Globulin Ratio 1.0 (1.0-1.7) Urine Collection Type U cath Urine Color Yellow Urine Clarity Cloudy Urine pH 8.5 (<5.0-8.0) Urine Specific [place] 1.015 (1.000-1.030) Urine Protein 100 mg/dL (NEG-TRACE) Urine Glucose (UA) Negative mg/dL (NEG) Urine Ketones (Stick) >=80 mg/dL (NEG) Urine Blood Trace (NEG) Urine Nitrite Positive (NEG) Urine Bilirubin Negative (NEG) Urine Urobilinogen Dipstick 0.2 mg/dL (0.2 mg/dL) Urine Leukocyte Esterase Large (NEG) Urine RBC 6-10 /HPF (0-2) Urine WBC >40 /HPF (0-4) Urine Bacteria Many /HPF (0-FEW) Laboratory Tests Test 06/19/21 07:32 06/19/21 08:08 White Blood Count 9.4 x10^3/uL (4.0-11.0) Red Blood Count 4.58 x10^6/uL (3.50-5.40) Hemoglobin 11.9 g/dL (12.0-15.5) Hematocrit 36.6 % (36.0-47.0) Mean Corpuscular Volume 80 fL (79-100) Mean Corpuscular Hemoglobin 26 pg (25-35) Mean Corpuscular Hemoglobin Concent 33 g/dL (31-37) Red Cell Distribution Width 16.8 % (11.5-14.5) Platelet Count 306 x10^3/uL (140-400) Neutrophils (%) (Auto) 91 % (31-73) Lymphocytes (%) (Auto) 6 % (24-48) Monocytes (%) (Auto) 2 % (0-9) Eosinophils (%) (Auto) 0 % (0-3) Basophils (%) (Auto) 0 % (0-3) Neutrophils # (Auto) 8.6 x10^3/uL (1.8-7.7) Lymphocytes # (Auto) 0.6 x10^3/uL (1.0-4.8) Monocytes # (Auto) 0.2 x10^3/uL (0.0-1.1) Eosinophils # (Auto) 0.0 x10^3/uL (0.0-0.7) Basophils # (Auto) 0.0 x10^3/uL (0.0-0.2) Sodium Level 144 mmol/L (136-145) Potassium Level 3.1 mmol/L (3.5-5.1) Chloride Level 106 mmol/L (98-107) Carbon Dioxide Level 25 mmol/L (21-32) Anion Gap 13 (6-14) Blood Urea Nitrogen 18 mg/dL (7-20) Creatinine 0.8 mg/dL (0.6-1.0) Estimated GFR (Cockcroft-Gault) 68.0 BUN/Creatinine Ratio 23 (6-20) Glucose Level 136 mg/dL (70-99) Calcium Level 9.9 mg/dL (8.5-10.1) Total Bilirubin 0.4 mg/dL (0.2-1.0) Aspartate Amino Transf (AST/SGOT) 21 U/L (15-37) Alanine Aminotransferase (ALT/SGPT) 21 U/L (14-59) Alkaline Phosphatase 135 U/L (46-116) Total Protein 7.3 g/dL (6.4-8.2) Albumin 3.6 g/dL (3.4-5.0) Albumin/Globulin Ratio 1.0 (1.0-1.7) Urine Collection Type U cath Urine Color Yellow Urine Clarity Cloudy Urine pH 8.5 (<5.0-8.0) Urine Specific [place] 1.015 (1.000-1.030) Urine Protein 100 mg/dL (NEG-TRACE) Urine Glucose (UA) Negative mg/dL (NEG) Urine Ketones (Stick) >=80 mg/dL (NEG) Urine Blood Trace (NEG) Urine Nitrite Positive (NEG) Urine Bilirubin Negative (NEG) Urine Urobilinogen Dipstick 0.2 mg/dL (0.2 mg/dL) Urine Leukocyte Esterase Large (NEG) Urine RBC 6-10 /HPF (0-2) Urine WBC >40 /HPF (0-4) Urine Bacteria Many /HPF (0-FEW) Images: Images PROCEDURE: PELVIS Chest AP portable 06/19/2021. Reason for exam: Patient fell. Comparison is made with a study of 05/11/2021. There are some increased lung markings that are probably chronic. No acute infiltrate or effusion is seen. Heart size is normal. Bony thorax appears grossly intact. IMPRESSION: No acute abnormality. Left tibia and fibula 2 views: Postoperative changes are seen with previous placement of a dequan and screws through the tibia. There is evidence of a healed fracture toward the proximal and abnormality also be a healed fracture of the proximal fibula. No acute fracture or dislocation is seen. There are mild degenerative changes of the knee. IMPRESSION: Postoperative and degenerative changes. No apparent acute abnormality. Left knee 3 views: Postoperative changes are seen in the proximal tibia. No acut e fracture or dislocation is seen. There is moderate osteoarthritis. IMPRESSION: No acute findings. Left femur 2 views: There is an oblique intertrochanteric fracture of the proximal femur with some varus angulation. No other fracture or dislocation is s een. IMPRESSION: Proximal femur fracture. AP pelvis: The proximal left femur fracture is again seen. No fracture of the bony pelvis or proximal right femur is seen. Joint spaces are fairly well- maintained for age. IMPRESSION: No pelvic fracture. PROCEDURE: CHEST AP ONLY IMPRESSION: No pelvic fracture. PROCEDURE: FEMUR LEFT 2 VIEW Chest AP portable 06/19/2021. Reason for exam: Patient fell. Comparison is made with a study of 05/11/2021. There are some increased lung markings that are probably chronic. No acute infiltrate or effusion is seen. Heart size is normal. Bony thorax appears grossly intact. IMPRESSION: No acute abnormality. Left tibia and fibula 2 views: Postoperative changes are seen with previous placement of a dequan and screws through the tibia. There is evidence of a healed fracture toward the proximal and abnormality also be a healed fracture of the proximal fibula. No acute fracture or dislocation is seen. There are mild degenerative changes of the knee. IMPRESSION: Postoperative and degenerative changes. No apparent acute abnormality. Left knee 3 views: Postoperative changes are seen in the proximal tibia. No acute fracture or dislocation is seen. There is moderate osteoarthritis. IMPRESSION: No acute findings. Left femur 2 views: There is an oblique intertrochanteric fracture of the proximal femur with some varus angulation. No other fracture or dislocation is seen. IMPRESSION: Proximal femur fracture. AP pelvis: The proximal left femur fracture is again seen. No fracture of the bony pelvis or proximal right femur is seen. Joint spaces are fairly well- maintained for age. IMPRESSION: No pelvic fracture. PROCEDURE: CT HEAD AND CERVICAL SPINE WO EXAMINATION: CT HEAD AND C-SPINE WO CLINICAL HISTORY: Fall from bed TECHNIQUE: Serial axial images without IV contrast were obtained from the vertex to the foramen magnum. CT of the cervical spine without IV contrast. Spiral, high resolution axial images were obtained from the skull base to the cervicothoracic junction with sagittal and coronal planar reconstructions. CT Dose Reduction Employed: One or more of the following individualized dose reduction techniques were utilized for this examination: 1. Automated exposure control 2. Adjustment of the mA and/or kV according to patient size 3. Use of iterative reconstruction technique. COMPARISON: 05/11/2021 FINDINGS: BRAIN: Acute Change: No evidence of an acute contusion or other acute parenchymal process. Hemorrhage: No evidence of acute intracranial hemorrhage. Mass Lesion/Mass Effect: No evidence of intracranial mass or extraaxial fluid collection. No significant mass effect. 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 Patchy hypoattenuation in the supratentorial white matter, nonspecific but likely represents moderate microvascular ischemia. Atherosclerotic calcification of the bilateral carotid siphons. Parenchyma: Mild to moderate generalized volume loss. Ventricles: Ventricular enlargement concordant with degree of parenchymal volume loss. Paranasal Sinuses and Skull Base: Visualized paranasal sinuses clear. No evidence of acute calvarial fracture. C-SPINE: Alignment: Normal anatomic alignment. Osseous Structures: No evidence of acute fracture or spondylolisthesis. Degenerative Changes: Mild to moderate multilevel degenerative disc disease, greatest at C6-7. Moderate to severe multilevel neural foraminal narrowing. Mild to moderate osseous spinal stenosis in the mid to lower cervical spine. Multilevel facet arthropathy. Cervical Soft Tissues: No prevertebral soft tissue swelling. Unchanged left thyroid nodule. IMPRESSION: BRAIN: No evidence of acute intracranial abnormality or significant interval change. C-SPINE: No evidence of acute osseous abnormality involving the cervical spine or significant interval change. Assessment/Plan Assessment/Plan Acute left femur fracture Acute UTI Mild hypokalemia History of Alzheimer's dementia Normocytic anemia History of vitamin B12 deficiency History of hypertension Admit to hospitalist service for further management Orthopedic consult Continue empiric IV antibiotics Pending urine culture IV and p.o. electrolyte replacement as needed Continue IV fluids Delirium prevention protocolexposure to daylight, open curtains, oriented to date time and people, avoid sedative acting medications. Lovenox for DVT prophylaxis N.p.o. CODE STATUS DNR Discussed with RN and SW Disposition pending Ortho evaluation DPOA: Daughter In addition to my E/M visit, advance care planning done with A total time of 20 minutes was spent from 1030 to 1050 face to face in discussion regarding the patient's goals of care, CODE STATUS. Justifications for Admission Other Justification Left femur fracture KEIRA JACKSON MD Jun 19, 2021 11:46
[2021-06-19] MEDS: ENOXAPARIN 40 MG/0.4 ML SYRINGE. SQ SCH (12:00)
[2021-06-19] MEDS: MORPHINE SULFATE 2 MG/ML INJ. IVP PRN ×2 (12:16→21:27)
[2021-06-19] MEDS: cefTRIAXone IV Push 1 GM VIAL. IVP SCH (12:20)
[2021-06-19] MEDS: POTASSIUM CHLORIDE 20MEQ 100 ML IV SCH ×4 (14:55→19:15)
[2021-06-19] MEDS ORDERED: DEXAMETHASONE SOD PHOS 4 MG/ML VIAL ONE (16:04)
[2021-06-19] MEDS ORDERED: ePHEDrine PF IN SALINE 50 MG/10 ML SYRINGE. IV ONE (16:04)
[2021-06-19] MEDS ORDERED: ONDANSETRON PF 4 MG/2 ML VIAL. ONE (16:04)
[2021-06-19] MEDS ORDERED: PHENYLEPHRINE in 0.9% NACL PF 1 MG/10 ML SYRINGE. IV ONE (16:04)
[2021-06-19] MEDS ORDERED: fentaNYL PF VIAL 100 MCG/2 ML VIAL ONE (19:40)
[2021-06-19] MEDS ORDERED: SEVOFLURANE 31 TO 60 MINUTES. IH ONE (20:00)
--- NOTE | 2021-06-19 20:10 | PDOC2 ---
CONSULT Date of Consult Date of Consult DATE: 06/19/21 TIME: 20:00 Reason for Consult Reason for Consult: fall Referring Physician Referring Physician: ER Identification/Chief Complaint Chief Complaint left leg pain Source Source: Caregiver, Chart review, Patient History of Present Illness Reason for Visit: 85 yo F s/p fall. Seen in hospital room accompanied by supportive family. Pt uncomfortable and mainly communicates with family. Past Medical History CENTRAL NERVOUS SYSTEM: Dementia Endocrine: Osteoporosis Social History No ALCOHOL: none Lives: [place]Way Current Problem List Problem List Problems Medical Problems: (1) Closed left hip fracture Status: Acute (2) Pain of left lower extremity Status: Acute Current Medications Current Medications Current Medications Fentanyl Citrate (Fentanyl 2ml Vial) 25 mcg 1X ONCE IVP Last administered on 06/19/21at 08:15; Start 06/19/21 at 08:15; Stop 06/19/21 at 08:16; Status DC Ondansetron HCl (Zofran) 4 mg PRN Q8HRS PRN IVP NAUSEA/VOMITING; Start 06/19/21 at 09:15; Stop 06/20/21 at 09:14 Fentanyl Citrate (Fentanyl 2ml Vial) 50 mcg PRN Q1HR PRN IVP PAIN; Start 06/19/21 at 09:15; Stop 06/20/21 at 09:14 Sodium Chloride 1,000 ml @ 75 mls/hr [id number] IV Last administered on at 11:24; Start 06/19/21 at 09:15; Stop 06/20/21 at 09:14 Ceftriaxone Sodium (Rocephin) 1 gm Q24H IVP Last administered on 06/19/21at 12:20; Start 06/19/21 at 11:00 Sennosides (Senna) 17.2 mg PRN BID PRN PO CONSTIPATION; Start 06/19/21 at 11:45 Docusate Sodium (Colace) 100 mg PRN DAILY PRN PO HARD STOOLS; Start 06/19/21 at 11:45 Ondansetron HCl (Zofran) 4 mg PRN Q6HRS PRN IVP NAUSEA/VOMITING; Start 06/19/21 at 11:45 Dextrose (Dextrose 50%-Water Syringe) 12.5 gm PRN Q15MIN PRN IV SEE COMMENTS; Start 06/19/21 at 11:45 Acetaminophen (Tylenol) 650 mg PRN Q4HRS PRN PO TEMP OVER 100.4F OR MILD PAIN; Start 06/19/21 at 11:45 Lorazepam (Ativan) 0.5 mg PRN Q6HRS PRN PO ANXIETY / AGITATION; Start 06/19/21 at 11:45 Lorazepam (Ativan Inj) 0.25 mg PRN Q4HRS PRN IV ANXIETY / AGITATION; Start 06/19/21 at 11:45 Enoxaparin Sodium (Lovenox 40mg Syringe) 40 mg Q24H SQ ; Start 06/19/21 at 12:00 Oxycodone/ Acetaminophen (Percocet 5/325) 1 tab PRN Q4HRS PRN PO MILD PAIN, 1ST CHOICE; Start 06/19/21 at 11:45 Morphine Sulfate (Morphine Sulfate) 1 mg PRN Q1HR PRN IV PAIN; Start 06/19/21 at 11:45 Morphine Sulfate (Morphine Sulfate) 2 mg PRN Q2HR PRN IVP SEVERE PAIN 7-10 Last administered on 06/19/21at 12:16; Start 06/19/21 at 11:45; Stop 06/20/21 at 11:44 Prochlorperazine Edisylate (Compazine) 10 mg PRN Q6HRS PRN IV NAUSEA/VOMITING; Start 06/19/21 at 11:45 Zolpidem Tartrate (Ambien) 2.5 mg PRN QHS PRN PO INSOMNIA; Start 06/19/21 at 11:45 Potassium Chloride/Water 100 ml @ 50 mls/hr Q2H IV Last administered on 06/19/21at 17:19; Start 06/19/21 at 13:15; Stop 06/19/21 at 21:14 Phenylephrine HCl (PHENYLEPHRINE in 0.9% NACL PF) 1 mg STK-MED ONCE IV ; Start 06/19/21 at 16:04; Stop 06/19/21 at 16:04; Status DC Ephedrine Sulfate (ePHEDrine PF IN SALINE SYRINGE) 50 mg STK-MED ONCE IV ; Start 06/19/21 at 16:04; Stop 06/19/21 at 16:04; Status DC Dexamethasone Sodium Phosphate (Decadron) 4 mg STK-MED ONCE .ROUTE ; Start 06/19/21 at 16:04; Stop 06/19/21 at 16:04; Status DC Ondansetron HCl (Zofran) 4 mg STK-MED ONCE .ROUTE ; Start 06/19/21 at 16:04; Stop 06/19/21 at 16:04; Status DC Phenylephrine HCl (PHENYLEPHRINE in 0.9% NACL PF) 1 mg STK-MED ONCE IV ; Start 06/19/21 at 16:04; Stop 06/19/21 at 16:05; Status DC Ephedrine Sulfate (ePHEDrine PF IN SALINE SYRINGE) 50 mg STK-MED ONCE IV ; Start 06/19/21 at 16:04; Stop 06/19/21 at 16:05; Status DC Fentanyl Citrate (Fentanyl 2ml Vial) 100 mcg STK-MED ONCE .ROUTE ; Start 06/19/21 at 19:40; Stop 06/19/21 at 19:40; Status DC Active Scripts Active Reported Ensure Clear Therapeutic (Nut.tx.impaired Digestive Fxn) 237 Ml Liquid 237 Ml PO WITH MEALS Vitamin B-12 (Cyanocobalamin (Vitamin B-12)) 1,000 Mcg Tab.subl 1 Tab SL DAILY 30 Days Tylenol (Acetaminophen) 325 Mg Tablet 2 Tab PO PRN Q6HRS PRN Remeron (Mirtazapine) 15 Mg Tablet 1 Tab PO QHS Melatonin 5 Mg Tab.rapdis 5 Mg PO DAILY Namenda (Memantine Hcl) 10 Mg Tablet 10 Mg PO BID Melatonin 5 Mg Tab.rapdis 1 Tab PO QHS 30 Days Buspirone Hcl 5 Mg Tablet 0.5 Tab PO BID Allergies Allergies: Coded Allergies: No Known Drug Allergies (Unverified , 05/11/21) ROS Review of System unobtainable Physical Exam General: moderate distress HEENT: Atraumatic Lungs: Normal air movement Abdomen: Soft, No tenderness Vitals VITALS Vital Signs Date Time Temp Pulse Resp B/P (MAP) Pulse Ox O2 Delivery O2 Flow Rate FiO2 06/19/21 15:00 96.6 72 24 181/75 (110) 95 Room Air 96.6 Labs Labs Laboratory Tests Test 06/19/21 07:32 06/19/21 08:08 06/19/21 10:06 White Blood Count 9.4 x10^3/uL (4.0-11.0) Red Blood Count 4.58 x10^6/uL (3.50-5.40) Hemoglobin 11.9 g/dL (12.0-15.5) Hematocrit 36.6 % (36.0-47.0) Mean Corpuscular Volume 80 fL (79-100) Mean Corpuscular Hemoglobin 26 pg (25-35) Mean Corpuscular Hemoglobin Concent 33 g/dL (31-37) Red Cell Distribution Width 16.8 % (11.5-14.5) Platelet Count 306 x10^3/uL (140-400) Neutrophils (%) (Auto) 91 % (31-73) Lymphocytes (%) (Auto) 6 % (24-48) Monocytes (%) (Auto) 2 % (0-9) Eosinophils (%) (Auto) 0 % (0-3) Basophils (%) (Auto) 0 % (0-3) Neutrophils # (Auto) 8.6 x10^3/uL (1.8-7.7) Lymphocytes # (Auto) 0.6 x10^3/uL (1.0-4.8) Monocytes # (Auto) 0.2 x10^3/uL (0.0-1.1) Eosinophils # (Auto) 0.0 x10^3/uL (0.0-0.7) Basophils # (Auto) 0.0 x10^3/uL (0.0-0.2) Sodium Level 144 mmol/L (136-145) Potassium Level 3.1 mmol/L (3.5-5.1) Chloride Level 106 mmol/L (98-107) Carbon Dioxide Level 25 mmol/L (21-32) Anion Gap 13 (6-14) Blood Urea Nitrogen 18 mg/dL (7-20) Creatinine 0.8 mg/dL (0.6-1.0) Estimated GFR (Cockcroft-Gault) 68.0 BUN/Creatinine Ratio 23 (6-20) Glucose Level 136 mg/dL (70-99) Calcium Level 9.9 mg/dL (8.5-10.1) Total Bilirubin 0.4 mg/dL (0.2-1.0) Aspartate Amino Transf (AST/SGOT) 21 U/L (15-37) Alanine Aminotransferase (ALT/SGPT) 21 U/L (14-59) Alkaline Phosphatase 135 U/L (46-116) Total Protein 7.3 g/dL (6.4-8.2) Albumin 3.6 g/dL (3.4-5.0) Albumin/Globulin Ratio 1.0 (1.0-1.7) Vitamin B12 Level 931 pg/mL (247-911) 25-Hydroxy Vitamin D Total 38.0 ng/mL (30-100) Urine Collection Type U cath Urine Color Yellow Urine Clarity Cloudy Urine pH 8.5 (<5.0-8.0) Urine Specific [place] 1.015 (1.000-1.030) Urine Protein 100 mg/dL (NEG-TRACE) Urine Glucose (UA) Negative mg/dL (NEG) Urine Ketones (Stick) >=80 mg/dL (NEG) Urine Blood Trace (NEG) Urine Nitrite Positive (NEG) Urine Bilirubin Negative (NEG) Urine Urobilinogen Dipstick 0.2 mg/dL (0.2 mg/dL) Urine Leukocyte Esterase Large (NEG) Urine RBC 6-10 /HPF (0-2) Urine WBC >40 /HPF (0-4) Urine Bacteria Many /HPF (0-FEW) SARS-CoV-2 RNA (SHILPI) Negative (Negative) SARS-CoV-2 Antigen (Rapid) Negative (NEGATIVE) Laboratory Tests Test 06/19/21 07:32 06/19/21 08:08 06/19/21 10:06 White Blood Count 9.4 x10^3/uL (4.0-11.0) Red Blood Count 4.58 x10^6/uL (3.50-5.40) Hemoglobin 11.9 g/dL (12.0-15.5) Hematocrit 36.6 % (36.0-47.0) Mean Corpuscular Volume 80 fL (79-100) Mean Corpuscular Hemoglobin 26 pg (25-35) Mean Corpuscular Hemoglobin Concent 33 g/dL (31-37) Red Cell Distribution Width 16.8 % (11.5-14.5) Platelet Count 306 x10^3/uL (140-400) Neutrophils (%) (Auto) 91 % (31-73) Lymphocytes (%) (Auto) 6 % (24-48) Monocytes (%) (Auto) 2 % (0-9) Eosinophils (%) (Auto) 0 % (0-3) Basophils (%) (Auto) 0 % (0-3) Neutrophils # (Auto) 8.6 x10^3/uL (1.8-7.7) Lymphocytes # (Auto) 0.6 x10^3/uL (1.0-4.8) Monocytes # (Auto) 0.2 x10^3/uL (0.0-1.1) Eosinophils # (Auto) 0.0 x10^3/uL (0.0-0.7) Basophils # (Auto) 0.0 x10^3/uL (0.0-0.2) Sodium Level 144 mmol/L (136-145) Potassium Level 3.1 mmol/L (3.5-5.1) Chloride Level 106 mmol/L (98-107) Carbon Dioxide Level 25 mmol/L (21-32) Anion Gap 13 (6-14) Blood Urea Nitrogen 18 mg/dL (7-20) Creatinine 0.8 mg/dL (0.6-1.0) Estimated GFR (Cockcroft-Gault) 68.0 BUN/Creatinine Ratio 23 (6-20) Glucose Level 136 mg/dL (70-99) Calcium Level 9.9 mg/dL (8.5-10.1) Total Bilirubin 0.4 mg/dL (0.2-1.0) Aspartate Amino Transf (AST/SGOT) 21 U/L (15-37) Alanine Aminotransferase (ALT/SGPT) 21 U/L (14-59) Alkaline Phosphatase 135 U/L (46-116) Total Protein 7.3 g/dL (6.4-8.2) Albumin 3.6 g/dL (3.4-5.0) Albumin/Globulin Ratio 1.0 (1.0-1.7) Vitamin B12 Level 931 pg/mL (247-911) 25-Hydroxy Vitamin D Total 38.0 ng/mL (30-100) Urine Collection Type U cath Urine Color Yellow Urine Clarity Cloudy Urine pH 8.5 (<5.0-8.0) Urine Specific [place] 1.015 (1.000-1.030) Urine Protein 100 mg/dL (NEG-TRACE) Urine Glucose (UA) Negative mg/dL (NEG) Urine Ketones (Stick) >=80 mg/dL (NEG) Urine Blood Trace (NEG) Urine Nitrite Positive (NEG) Urine Bilirubin Negative (NEG) Urine Urobilinogen Dipstick 0.2 mg/dL (0.2 mg/dL) Urine Leukocyte Esterase Large (NEG) Urine RBC 6-10 /HPF (0-2) Urine WBC >40 /HPF (0-4) Urine Bacteria Many /HPF (0-FEW) SARS-CoV-2 RNA (SHILPI) Negative (Negative) SARS-CoV-2 Antigen (Rapid) Negative (NEGATIVE) Images Images left femur fx, multiple previous fx repairs Assessment/Plan Assessment/Plan femur fx agree with care per ortho and hospitalist Thanks for consult! PA SNYDER MD Jun 19, 2021 20:10
[2021-06-19] MEDS ORDERED: hydrALAZINE 20 MG/ML VIAL. ONE (20:40)
--- NOTE | 2021-06-19 20:41 | PDOC4 ---
OPERATIVE NOTE: Date of surgery: 06/19/2021 Preoperative diagnosis: Stable Left intertrochanteric femur fracture. Postoperative diagnosis: Same. Operative procedure: Left intertrochanteric femur fracture intramedullary nail fixation Surgeon: Aneudy Rodriguez DO/OG Assistants: None Anesthesia: General Antibiotics: Ancef Orthopedic implants: -Arthrex intertrochanteric nail, size 11mm x 390mm Operative indications: Patient is a pleasant 85-year-old female who suffered a ground-level fall and was admitted to the hospital. Radiographs demonstrated a stable intertrochanteric femur fracture.. We discussed the indications, risks, benefits, and alternatives to surgical intervention with the family and DPOAs. They demonstrated understanding and wished to proceed with recommended surgery. Operative technique: The patient was met in the preoperative holding area and again the risk, benefits, and alternatives to surgery. The operative extremity was then initialed after verifying correct surgical site with family. Patient was then taken back to the operative suite. She was administered a general anesthetic by the department of anesthesiology. She was placed on the operative table in supine position and was given antibiotics preoperatively. A timeout protocol was performed to verify correct surgical site and procedure. All teams were in agreement. Traction boots were then placed and the patient was gently placed about the perineal post on the fracture table. Gentle traction was ap plied to the right lower extremity. Surgery began by marking our planned surgical incisions around the superior aspect of the greater trochanter. A 10 blade scalpel was used to make a longitudinal incision. Under fluoroscopic guidance, the threaded guidepin was placed at the tip of the greater trochanter. It was advanced to the level of the lesser trochanter. The opening reamer was then used to open the proximal femoral canal. The long ball-tipped guidewire was then directed across the fracture site into the distal femur. Its distal position was checked utilizing fluoroscopy. Length measurements were then taken. The starting reamer was then advanced across the fracture site and down the distal femoral canal. Next, the intramedullary nail was placed on the insertion handle. It was advanced over the ball-tipped guidewire across the fracture site utilizing gentle mallet blows. Its position was checked under C-arm fluoroscopy. The jig for the proximal lag screw was then placed. A second skin incision was then made utilizing a 10 blade scalpel. A 3.2 mm guidepin was then guided into the central aspect of the femoral head across the fracture site under fluoroscopic guidance. Length measurements were taken. The drill was then used to drill for the lag screw. The lag screw was then placed in standard fashion. It was then locked proximally into the nail creating a fixed angle device. Final fluoroscopic images in the AP and lateral planes were taken and saved for later review. The wounds were thoroughly irrigated with normal saline. Skin was closed with subcuticular 2-0 Vicryl and zulema. Sterile dressings were then applied and the patient was awakened from general anesthesia. He was then transferred to the postoperative gurney in stable condition. Estimated blood loss: 50 mL. Complications: None. Specimens sent to pathology: None. Disposition: PACU and post surgical floor. Condition: Stable. ANEUDY RODRIGUEZ DO Jun 19, 2021 20:41
[2021-06-19] MEDS: hydrALAZINE 20 MG/ML VIAL. IVP PRN (20:44)
--- NOTE | 2021-06-19 20:46 | PDOC2 ---
CONSULT Date of Consult Date of Consult DATE: 06/19/21 TIME: 20:42 Reason for Consult Reason for Consult: Left hip fracture after ground-level fall. Identification/Chief Complaint Chief Complaint Left hip fracture after ground-level fall. Source Source: Caregiver, Chart review History of Present Illness Reason for Visit: Pleasant 85-year-old female with known history of dementia admitted through the ER after ground-level fall and inability to bear weight. Left lower extremity demonstrated deformity and radiographs revealed a displaced intertrochanteric femur fracture. Patient lives at [facility]. Prior to her fall, she was independently ambulating without assistive devices. History of obtained via chart review and discussion with family. Past Medical History CENTRAL NERVOUS SYSTEM: Dementia Endocrine: Osteoporosis Social History No ALCOHOL: none Lives: [facility] Current Problem List Problem List Problems Medical Problems: (1) Closed left hip fracture Status: Acute (2) Pain of left lower extremity Status: Acute Current Medications Current Medications Current Medications Fentanyl Citrate (Fentanyl 2ml Vial) 25 mcg 1X ONCE IVP Last administered on 06/19/21at 08:15; Start 06/19/21 at 08:15; Stop 06/19/21 at 08:16; Status DC Ondansetron HCl (Zofran) 4 mg PRN Q8HRS PRN IVP NAUSEA/VOMITING; Start 06/19/21 at 09:15; Stop 06/20/21 at 09:14 Fentanyl Citrate (Fentanyl 2ml Vial) 50 mcg PRN Q1HR PRN IVP PAIN; Start 06/19/21 at 09:15; Stop 06/20/21 at 09:14 Sodium Chloride 1,000 ml @ 75 mls/hr [id number] IV Last administered on 06/19/21at 11:24; Start 06/19/21 at 09:15; Stop 06/20/21 at 09:14 Ceftriaxone Sodium (Rocephin) 1 gm Q24H IVP Last administered on 06/19/21at 12:20; Start 06/19/21 at 11:00 Sennosides (Senna) 17.2 mg PRN BID PRN PO CONSTIPATION; Start 06/19/21 at 11:45 Docusate Sodium (Colace) 100 mg PRN DAILY PRN PO HARD STOOLS; Start 06/19/21 at 11:45 Ondansetron HCl (Zofran) 4 mg PRN Q6HRS PRN IVP NAUSEA/VOMITING; Start 06/19/21 at 11:45 Dextrose (Dextrose 50%-Water Syringe) 12.5 gm PRN Q15MIN PRN IV SEE COMMENTS; Start 06/19/21 at 11:45 Acetaminophen (Tylenol) 650 mg PRN Q4HRS PRN PO TEMP OVER 100.4F OR MILD PAIN; Start 06/19/21 at 11:45 Lorazepam (Ativan) 0.5 mg PRN Q6HRS PRN PO ANXIETY / AGITATION; Start 06/19/21 at 11:45 Lorazepam (Ativan Inj) 0.25 mg PRN Q4HRS PRN IV ANXIETY / AGITATION; Start 06/19/21 at 11:45 Enoxaparin Sodium (Lovenox 40mg Syringe) 40 mg Q24H SQ ; Start 06/19/21 at 12:00 Oxycodone/ Acetaminophen (Percocet 5/325) 1 tab PRN Q4HRS PRN PO MILD PAIN, 1ST CHOICE; Start 06/19/21 at 11:45 Morphine Sulfate (Morphine Sulfate) 1 mg PRN Q1HR PRN IV PAIN; Start 06/19/21 at 11:45 Morphine Sulfate (Morphine Sulfate) 2 mg PRN Q2HR PRN IVP SEVERE PAIN 7-10 Last administered on 06/19/21at 12:16; Start 06/19/21 at 11:45; Stop 06/20/21 at 11:44 Prochlorperazine Edisylate (Compazine) 10 mg PRN Q6HRS PRN IV NAUSEA/VOMITING; Start 06/19/21 at 11:45 Zolpidem Tartrate (Ambien) 2.5 mg PRN QHS PRN PO INSOMNIA; Start 06/19/21 at 11:45 Potassium Chloride/Water 100 ml @ 50 mls/hr Q2H IV Last administered on 06/19/21at 17:19; Start 06/19/21 at 13:15; Stop 06/19/21 at 21:14 Phenylephrine HCl (PHENYLEPHRINE in 0.9% NACL PF) 1 mg STK-MED ONCE IV ; Start 06/19/21 at 16:04; Stop 06/19/21 at 16:04; Status DC Ephedrine Sulfate (ePHEDrine PF IN SALINE SYRINGE) 50 mg STK-MED ONCE IV ; Start 06/19/21 at 16:04; Stop 06/19/21 at 16:04; Status DC Dexamethasone Sodium Phosphate (Decadron) 4 mg STK-MED ONCE .ROUTE ; Start 06/19/21 at 16:04; Stop 06/19/21 at 16:04; Status DC Ondansetron HCl (Zofran) 4 mg STK-MED ONCE .ROUTE ; Start 06/19/21 at 16:04; Stop 06/19/21 at 16:04; Status DC Phenylephrine HCl (PHENYLEPHRINE in 0.9% NACL PF) 1 mg STK-MED ONCE IV ; Start 06/19/21 at 16:04; Stop 06/19/21 at 16:05; Status DC Ephedrine Sulfate (ePHEDrine PF IN SALINE SYRINGE) 50 mg STK-MED ONCE IV ; Start 06/19/21 at 16:04; Stop 06/19/21 at 16:05; Status DC Fentanyl Citrate (Fentanyl 2ml Vial) 100 mcg STK-MED ONCE .ROUTE ; Start 06/19/21 at 19:40; Stop 06/19/21 at 19:40; Status DC Sevoflurane (Ultane) 30 ml STK-MED ONCE IH ; Start 06/19/21 at 20:00; Stop 06/19/21 at 20:00; Status DC Active Scripts Active Reported Ensure Clear Therapeutic (Nut.tx.impaired Digestive Fxn) 237 Ml Liquid 237 Ml PO WITH MEALS Vitamin B-12 (Cyanocobalamin (Vitamin B-12)) 1,000 Mcg Tab.subl 1 Tab SL DAILY 30 Days Tylenol (Acetaminophen) 325 Mg Tablet 2 Tab PO PRN Q6HRS PRN Remeron (Mirtazapine) 15 Mg Tablet 1 Tab PO QHS Melatonin 5 Mg Tab.rapdis 5 Mg PO DAILY Namenda (Memantine Hcl) 10 Mg Tablet 10 Mg PO BID Melatonin 5 Mg Tab.rapdis 1 Tab PO QHS 30 Days Buspirone Hcl 5 Mg Tablet 0.5 Tab PO BID Allergies Allergies: Coded Allergies: No Known Drug Allergies (Unverified , 05/11/21) ROS Musculoskeletal: Yes Gait Disturbance, Yes Joint Pain, Yes Joint Swelling, Yes Muscle Pain Physical Exam General: Alert HEENT: Atraumatic MUSCULOSKELETAL: Abnormal exam of left (Left hip shortened and internally rotated. No skin abrasions. Distal NV exam intact.) Vitals VITALS Vital Signs Date Time Temp Pulse Resp B/P (MAP) Pulse Ox O2 Delivery O2 Flow Rate FiO2 06/19/21 20:21 Mask 6 06/19/21 20:21 99 80 16 181/75 99 99.0 Labs Labs Laboratory Tests Test 06/19/21 07:32 06/19/21 08:08 06/19/21 10:06 White Blood Count 9.4 x10^3/uL (4.0-11.0) Red Blood Count 4.58 x10^6/uL (3.50-5.40) Hemoglobin 11.9 g/dL (12.0-15.5) Hematocrit 36.6 % (36.0-47.0) Mean Corpuscular Volume 80 fL (79-100) Mean Corpuscular Hemoglobin 26 pg (25-35) Mean Corpuscular Hemoglobin Concent 33 g/dL (31-37) Red Cell Distribution Width 16.8 % (11.5-14.5) Platelet Count 306 x10^3/uL (140-400) Neutrophils (%) (Auto) 91 % (31-73) Lymphocytes (%) (Auto) 6 % (24-48) Monocytes (%) (Auto) 2 % (0-9) Eosinophils (%) (Auto) 0 % (0-3) Basophils (%) (Auto) 0 % (0-3) Neutrophils # (Auto) 8.6 x10^3/uL (1.8-7.7) Lymphocytes # (Auto) 0.6 x10^3/uL (1.0-4.8) Monocytes # (Auto) 0.2 x10^3/uL (0.0-1.1) Eosinophils # (Auto) 0.0 x10^3/uL (0.0-0.7) Basophils # (Auto) 0.0 x10^3/uL (0.0-0.2) Sodium Level 144 mmol/L (136-145) Potassium Level 3.1 mmol/L (3.5-5.1) Chloride Level 106 mmol/L (98-107) Carbon Dioxide Level 25 mmol/L (21-32) Anion Gap 13 (6-14) Blood Urea Nitrogen 18 mg/dL (7-20) Creatinine 0.8 mg/dL (0.6-1.0) Estimated GFR (Cockcroft-Gault) 68.0 BUN/Creatinine Ratio 23 (6-20) Glucose Level 136 mg/dL (70-99) Calcium Level 9.9 mg/dL (8.5-10.1) Total Bilirubin 0.4 mg/dL (0.2-1.0) Aspartate Amino Transf (AST/SGOT) 21 U/L (15-37) Alanine Aminotransferase (ALT/SGPT) 21 U/L (14-59) Alkaline Phosphatase 135 U/L (46-116) Total Protein 7.3 g/dL (6.4-8.2) Albumin 3.6 g/dL (3.4-5.0) Albumin/Globulin Ratio 1.0 (1.0-1.7) Vitamin B12 Level 931 pg/mL (247-911) 25-Hydroxy Vitamin D Total 38.0 ng/mL (30-100) Urine Collection Type U cath Urine Color Yellow Urine Clarity Cloudy Urine pH 8.5 (<5.0-8.0) Urine Specific [place] 1.015 (1.000-1.030) Urine Protein 100 mg/dL (NEG-TRACE) Urine Glucose (UA) Negative mg/dL (NEG) Urine Ketones (Stick) >=80 mg/dL (NEG) Urine Blood Trace (NEG) Urine Nitrite Positive (NEG) Urine Bilirubin Negative (NEG) Urine Urobilinogen Dipstick 0.2 mg/dL (0.2 mg/dL) Urine Leukocyte Esterase Large (NEG) Urine RBC 6-10 /HPF (0-2) Urine WBC >40 /HPF (0-4) Urine Bacteria Many /HPF (0-FEW) SARS-CoV-2 RNA (SHILPI) Negative (Negative) SARS-CoV-2 Antigen (Rapid) Negative (NEGATIVE) Laboratory Tests Test 06/19/21 07:32 06/19/21 08:08 06/19/21 10:06 White Blood Count 9.4 x10^3/uL (4.0-11.0) Red Blood Count 4.58 x10^6/uL (3.50-5.40) Hemoglobin 11.9 g/dL (12.0-15.5) Hematocrit 36.6 % (36.0-47.0) Mean Corpuscular Volume 80 fL (79-100) Mean Corpuscular Hemoglobin 26 pg (25-35) Mean Corpuscular Hemoglobin Concent 33 g/dL (31-37) Red Cell Distribution Width 16.8 % (11.5-14.5) Platelet Count 306 x10^3/uL (140-400) Neutrophils (%) (Auto) 91 % (31-73) Lymphocytes (%) (Auto) 6 % (24-48) Monocytes (%) (Auto) 2 % (0-9) Eosinophils (%) (Auto) 0 % (0-3) Basophils (%) (Auto) 0 % (0-3) Neutrophils # (Auto) 8.6 x10^3/uL (1.8-7.7) Lymphocytes # (Auto) 0.6 x10^3/uL (1.0-4.8) Monocytes # (Auto) 0.2 x10^3/uL (0.0-1.1) Eosinophils # (Auto) 0.0 x10^3/uL (0.0-0.7) Basophils # (Auto) 0.0 x10^3/uL (0.0-0.2) Sodium Level 144 mmol/L (136-145) Potassium Level 3.1 mmol/L (3.5-5.1) Chloride Level 106 mmol/L (98-107) Carbon Dioxide Level 25 mmol/L (21-32) Anion Gap 13 (6-14) Blood Urea Nitrogen 18 mg/dL (7-20) Creatinine 0.8 mg/dL (0.6-1.0) Estimated GFR (Cockcroft-Gault) 68.0 BUN/Creatinine Ratio 23 (6-20) Glucose Level 136 mg/dL (70-99) Calcium Level 9.9 mg/dL (8.5-10.1) Total Bilirubin 0.4 mg/dL (0.2-1.0) Aspartate Amino Transf (AST/SGOT) 21 U/L (15-37) Alanine Aminotransferase (ALT/SGPT) 21 U/L (14-59) Alkaline Phosphatase 135 U/L (46-116) Total Protein 7.3 g/dL (6.4-8.2) Albumin 3.6 g/dL (3.4-5.0) Albumin/Globulin Ratio 1.0 (1.0-1.7) Vitamin B12 Level 931 pg/mL (247-911) 25-Hydroxy Vitamin D Total 38.0 ng/mL (30-100) Urine Collection Type U cath Urine Color Yellow Urine Clarity Cloudy Urine pH 8.5 (<5.0-8.0) Urine Specific [place] 1.015 (1.000-1.030) Urine Protein 100 mg/dL (NEG-TRACE) Urine Glucose (UA) Negative mg/dL (NEG) Urine Ketones (Stick) >=80 mg/dL (NEG) Urine Blood Trace (NEG) Urine Nitrite Positive (NEG) Urine Bilirubin Negative (NEG) Urine Urobilinogen Dipstick 0.2 mg/dL (0.2 mg/dL) Urine Leukocyte Esterase Large (NEG) Urine RBC 6-10 /HPF (0-2) Urine WBC >40 /HPF (0-4) Urine Bacteria Many /HPF (0-FEW) SARS-CoV-2 RNA (SHILPI) Negative (Negative) SARS-CoV-2 Antigen (Rapid) Negative (NEGATIVE) Images Images Left femur radiographs reveal a displaced stable intertrochanteric femur fracture. Assessment/Plan Assessment/Plan 85-year-old female with known history of dementia admitted with left hip fra cture after ground-level fall. Discussion was had with the family and DURABLE POWER OF CUSTOMS INSPECTOR's regarding the diagnosis and treatment options. We discussed both nonsurgical and surgical treatment options. After discussion, they would like to proceed with surgical recommendation for left hip intertrochanteric nail fixation. We reviewed the risk, benefits, and alternatives to the surgery. They demonstrated understanding and wished to proceed. Surgical consent was obtained. Patient was taken to the OR with appropriate n.p.o. status and antibiotics on-call. ANEUDY RODRIGUEZ DO Jun 19, 2021 20:46
--- NOTE | 2021-06-19 21:00 | NUR ---
Patient arrived back to unit from surgery at 2100 with Daughter Nori present. Patient alert to person. In severe pain after x rays, pain medication administered per orders. Dressing to left hip intact with outline of drainage visible on outside of dressing and marked by receiving nurse.
--- NOTE | 2021-06-19 22:08 | RAD ---
Left femur AP lateral x-rays 2 views HISTORY: Postoperative for proximal femur fracture. FINDINGS: ORIF of the acute traumatic femoral intertrochanteric fracture with a long trochanteric fix ation nail down the femoral shaft and a femoral neck cannulated screw, with anatomic alignment of the fracture components. Skin zulema lateral hip and upper thigh and soft tissue swelling. The distal t ip of the femoral nail is eccentrically positioned within the anterior trabecular bone of the distal femoral metadiaphysis just underlying the anterior cortical bone. IMPRESSION: See above. Electronically signed by: Michael Tim MD (06/19/2021 10:06 PM) [facility]
[2021-06-20] MEDS: oxyCODONE/APAP 5/325 1 TAB TABLET PO PRN ×3 (00:28→11:41)
[2021-06-20 02:58] VITALS: BP 143/58
[2021-06-20] MEDS: MORPHINE SULFATE 2 MG/ML INJ. IVP PRN (06:10)
[2021-06-20] MEDS: ONDANSETRON PF 4 MG/2 ML VIAL. IVP SCH ×4 (06:10→18:00)
[2021-06-20 07:00] VITALS: BP 147/63
[2021-06-20] MEDS: ACETAMINOPHEN 500 MG TABLET PO SCH ×3 (08:25→19:40)
[2021-06-20 08:59] LABS: BASO % 0 % (0-3); EOS % 1 % (0-3); HEMATOCRIT 30.7 % (36.0-47.0); LYMPH # 0.9 x10^3/uL (1.0-4.8); LYMPH % 12 % (24-48); MEAN CORPUSCULAR HEMOGLOBIN 26 pg (25-35); MEAN CORPUSCULAR HGB CONC 33 g/dL (31-37); MEAN CORPUSCULAR VOLUME 80 fL (79-100); MONO # 0.5 x10^3/uL (0.0-1.1); MONO % 7 % (0-9); NEUT # 6.4 x10^3/uL (1.8-7.7); NEUT % 81 % (31-73); PLATELET COUNT 276 x10^3/uL (140-400); RED BLOOD COUNT 3.82 x10^6/uL (3.50-5.40); RED CELL DISTRIBUTION WIDTH 17.5 % (11.5-14.5); WHITE BLOOD COUNT 7.9 x10^3/uL (4.0-11.0)
[2021-06-20 09:13] LABS: CALCIUM 9.1 mg/dL (8.5-10.1); CREATININE 0.6 mg/dL (0.6-1.0); GFR 94.8; PHOSPHORUS 2.8 mg/dL (2.6-4.7); POTASSIUM 3.2 mmol/L (3.5-5.1)
--- NOTE | 2021-06-20 10:21 | NUR ---
MANUEL following. Discussed with RN, pt from [facility], room air, ada diet, COVID-19 negative. Pt had surgery on 06/19. PT/OT ordered. MANUEL will continue to follow. Addendum: 06/20/21 at 1619 by ALEXIA JACKSON Therapy recommending SNF. MANUEL left voicemail for pt's daughter, Nguyen (DPOA on whiteboard in pt's room) [phone]. Awaiting return call.
[2021-06-20 11:00] VITALS: BP 153/51
[2021-06-20] MEDS: cefTRIAXone IV Push 1 GM VIAL. IVP SCH (11:11)
[2021-06-20] MEDS: ENOXAPARIN 40 MG/0.4 ML SYRINGE. SQ SCH (11:19)
--- NOTE | 2021-06-20 11:56 | PDOC ---
[employer] PROGRESS NOTE Date of Service DOS: DATE: 06/20/21 TIME: 11:53 Chief Complaint Chief Complaint Assessment/Plan Acute left femur fracture Acute UTI Mild hypokalemia History of Alzheimer's dementia Normocytic anemia History of vitamin B12 deficiency History of hypertension Admit to hospitalist service for further management Orthopedic consult Continue empiric IV antibiotics IV and p.o. electrolyte replacement as needed Continue IV fluids Delirium prevention protocolexposure to daylight, open curtains, oriented to date time and people, avoid sedative acting medications. Lovenox for DVT prophylaxis Diet as tolerated CODE STATUS DNR Discussed with RN and MANUEL POD1 after ORIF performed by orthopedics. DPOA: Daughter History of Present Illness History of Present Illness History obtained from chart review and discussion with the daughter 85-year-old female past medical history of hypertension and dementia, presents the ED brought in by [facility] after patient was seen on the ground just next to her bed with complaints of left leg and hip pain. Patient was seen prior to this 1 hour ago in her bed, no active complaints. Due to patient's dementia, history and review of systems are unable to be obtained. According to the daughter, patient is fairly mobile without using any cane or walker. She is able to dress herself and feed herself and use the toilet. No falls in the past. 06/20 Patient underwent surgical intervention yesterday. Patient evaluated examined at bedside. She cannot provide much history given mental status but from report she has improved. PT OT ordered. Weightbearing status per orthopedics. Continue Rocephin for now. Possible discharge in the next couple of days. Vitals/I&O Vitals/I&O: Vital Signs Date Time Temp Pulse Resp B/P (MAP) Pulse Ox O2 Delivery O2 Flow Rate FiO2 06/20/21 11:41 Room Air 06/20/21 11:00 98.4 66 16 153/51 (85) 96 98.4 06/20/21 06:10 6.0 I & O 06/19/21 06/19/21 06/20/21 15:00 23:00 07:00 Intake Total 850 ml 120 ml Output Total 600 ml 450 ml Balance 250 ml -330 ml Physical Exam General: Alert, Cooperative Heart: Regular rate, Normal S1, Normal S2 Lungs: Clear Abdomen: Soft, No tenderness Extremities: No edema, Normal pulses Skin: Other (CDI) Labs Labs: Laboratory Tests Test 06/19/21 20:30 06/20/21 07:35 Potassium Level 3.5 mmol/L (3.5-5.1) 3.2 mmol/L (3.5-5.1) White Blood Count 7.9 x10^3/uL (4.0-11.0) Red Blood Count 3.82 x10^6/uL (3.50-5.40) Hemoglobin 10.0 g/dL (12.0-15.5) Hematocrit 30.7 % (36.0-47.0) Mean Corpuscular Volume 80 fL (79-100) Mean Corpuscular Hemoglobin 26 pg (25-35) Mean Corpuscular Hemoglobin Concent 33 g/dL (31-37) Red Cell Distribution Width 17.5 % (11.5-14.5) Platelet Count 276 x10^3/uL (140-400) Neutrophils (%) (Auto) 81 % (31-73) Lymphocytes (%) (Auto) 12 % (24-48) Monocytes (%) (Auto) 7 % (0-9) Eosinophils (%) (Auto) 1 % (0-3) Basophils (%) (Auto) 0 % (0-3) Neutrophils # (Auto) 6.4 x10^3/uL (1.8-7.7) Lymphocytes # (Auto) 0.9 x10^3/uL (1.0-4.8) Monocytes # (Auto) 0.5 x10^3/uL (0.0-1.1) Eosinophils # (Auto) 0.0 x10^3/uL (0.0-0.7) Basophils # (Auto) 0.0 x10^3/uL (0.0-0.2) Sodium Level 144 mmol/L (136-145) Chloride Level 110 mmol/L (98-107) Carbon Dioxide Level 22 mmol/L (21-32) Anion Gap 12 (6-14) Blood Urea Nitrogen 12 mg/dL (7-20) Creatinine 0.6 mg/dL (0.6-1.0) Estimated GFR (Cockcroft-Gault) 94.8 Glucose Level 111 mg/dL (70-99) Calcium Level 9.1 mg/dL (8.5-10.1) Phosphorus Level 2.8 mg/dL (2.6-4.7) Magnesium Level 2.0 mg/dL (1.8-2.4) Assessment and Plan Assessmemt and Plan Problems Medical Problems: (1) Closed left hip fracture Status: Acute (2) Pain of left lower extremity Status: Acute Comment Review of Relevant I have reviewed the following items markus (where applicable) has been applied. Medications: Current Medications Medications (Trade) Dose Ordered Sig/Zachary Route PRN Reason Start Time Stop Time Status Last Admin Dose Admin Enoxaparin Sodium (Lovenox 40mg Syringe) 40 mg Q24H SQ 06/19/21 12:00 06/20/21 11:19 Potassium Chloride/Water 100 ml @ 50 mls/hr Q2H IV 06/19/21 13:15 06/19/21 21:14 DC 06/19/21 17:19 Hydralazine HCl (Apresoline Inj) 10 mg PRN Q15MIN PRN IVP ELEVATED BP, SEE COMMENTS 06/19/21 20:45 06/19/21 20:44 Ondansetron HCl (Zofran) 4 mg Q6HRS IVP 06/20/21 00:00 06/20/21 18:01 06/20/21 06:10 Justifications for Admission Other Justification Left femur fracture MADDISON CANELA MD Jun 20, 2021 11:56
[2021-06-20 15:00] VITALS: BP 150/59
--- NOTE | 2021-06-20 16:45 | PDOC ---
PROGRESS NOTES Date of Service DATE: 06/20/21 TIME: 16:42 Subjective Subjective Problems overnight: No acute issues overnight. Patient sleepy today. Was given antipsychotic medications to help her rest. Therapy was unable to work with her this morning as she was sleeping. Spoke with Nori ROSA, no acute issues. Objective Vital Signs Vital Signs Date Time Temp Pulse Resp B/P (MAP) Pulse Ox O2 Delivery O2 Flow Rate FiO2 06/20/21 15:00 97.8 85 16 150/59 (89) 91 Room Air 97.8 06/20/21 08:10 6.0 Physical Exam Surgical dressings clean and dry. Distal neurovascular examination is intact. Labs Laboratory Tests Test 06/19/21 07:32 06/19/21 08:08 06/19/21 10:06 06/19/21 20:30 White Blood Count 9.4 x10^3/uL (4.0-11.0) Red Blood Count 4.58 x10^6/uL (3.50-5.40) Hemoglobin 11.9 g/dL (12.0-15.5) Hematocrit 36.6 % (36.0-47.0) Mean Corpuscular Volume 80 fL (79-100) Mean Corpuscular Hemoglobin 26 pg (25-35) Mean Corpuscular Hemoglobin Concent 33 g/dL (31-37) Red Cell Distribution Width 16.8 % (11.5-14.5) Platelet Count 306 x10^3/uL (140-400) Neutrophils (%) (Auto) 91 % (31-73) Lymphocytes (%) (Auto) 6 % (24-48) Monocytes (%) (Auto) 2 % (0-9) Eosinophils (%) (Auto) 0 % (0-3) Basophils (%) (Auto) 0 % (0-3) Neutrophils # (Auto) 8.6 x10^3/uL (1.8-7.7) Lymphocytes # (Auto) 0.6 x10^3/uL (1.0-4.8) Monocytes # (Auto) 0.2 x10^3/uL (0.0-1.1) Eosinophils # (Auto) 0.0 x10^3/uL (0.0-0.7) Basophils # (Auto) 0.0 x10^3/uL (0.0-0.2) Sodium Level 144 mmol/L (136-145) Potassium Level 3.1 mmol/L (3.5-5.1) 3.5 mmol/L (3.5-5.1) Chloride Level 106 mmol/L (98-107) Carbon Dioxide Level 25 mmol/L (21-32) Anion Gap 13 (6-14) Blood Urea Nitrogen 18 mg/dL (7-20) Creatinine 0.8 mg/dL (0.6-1.0) Estimated GFR (Cockcroft-Gault) 68.0 BUN/Creatinine Ratio 23 (6-20) Glucose Level 136 mg/dL (70-99) Calcium Level 9.9 mg/dL (8.5-10.1) Total Bilirubin 0.4 mg/dL (0.2-1.0) Aspartate Amino Transf (AST/SGOT) 21 U/L (15-37) Alanine Aminotransferase (ALT/SGPT) 21 U/L (14-59) Alkaline Phosphatase 135 U/L (46-116) Total Protein 7.3 g/dL (6.4-8.2) Albumin 3.6 g/dL (3.4-5.0) Albumin/Globulin Ratio 1.0 (1.0-1.7) Vitamin B12 Level 931 pg/mL (247-911) 25-Hydroxy Vitamin D Total 38.0 ng/mL (30-100) Urine Collection Type U cath Urine Color Yellow Urine Clarity Cloudy Urine pH 8.5 (<5.0-8.0) Urine Specific Bennett 1.015 (1.000-1.030) Urine Protein 100 mg/dL (NEG-TRACE) Urine Glucose (UA) Negative mg/dL (NEG) Urine Ketones (Stick) >=80 mg/dL (NEG) Urine Blood Trace (NEG) Urine Nitrite Positive (NEG) Urine Bilirubin Negative (NEG) Urine Urobilinogen Dipstick 0.2 mg/dL (0.2 mg/dL) Urine Leukocyte Esterase Large (NEG) Urine RBC 6-10 /HPF (0-2) Urine WBC >40 /HPF (0-4) Urine Bacteria Many /HPF (0-FEW) SARS-CoV-2 RNA (SHILPI) Negative (Negative) SARS-CoV-2 Antigen (Rapid) Negative (NEGATIVE) Test 06/20/21 07:35 White Blood Count 7.9 x10^3/uL (4.0-11.0) Red Blood Count 3.82 x10^6/uL (3.50-5.40) Hemoglobin 10.0 g/dL (12.0-15.5) Hematocrit 30.7 % (36.0-47.0) Mean Corpuscular Volume 80 fL (79-100) Mean Corpuscular Hemoglobin 26 pg (25-35) Mean Corpuscular Hemoglobin Concent 33 g/dL (31-37) Red Cell Distribution Width 17.5 % (11.5-14.5) Platelet Count 276 x10^3/uL (140-400) Neutrophils (%) (Auto) 81 % (31-73) Lymphocytes (%) (Auto) 12 % (24-48) Monocytes (%) (Auto) 7 % (0-9) Eosinophils (%) (Auto) 1 % (0-3) Basophils (%) (Auto) 0 % (0-3) Neutrophils # (Auto) 6.4 x10^3/uL (1.8-7.7) Lymphocytes # (Auto) 0.9 x10^3/uL (1.0-4.8) Monocytes # (Auto) 0.5 x10^3/uL (0.0-1.1) Eosinophils # (Auto) 0.0 x10^3/uL (0.0-0.7) Basophils # (Auto) 0.0 x10^3/uL (0.0-0.2) Sodium Level 144 mmol/L (136-145) Potassium Level 3.2 mmol/L (3.5-5.1) Chloride Level 110 mmol/L (98-107) Carbon Dioxide Level 22 mmol/L (21-32) Anion Gap 12 (6-14) Blood Urea Nitrogen 12 mg/dL (7-20) Creatinine 0.6 mg/dL (0.6-1.0) Estimated GFR (Cockcroft-Gault) 94.8 Glucose Level 111 mg/dL (70-99) Calcium Level 9.1 mg/dL (8.5-10.1) Phosphorus Level 2.8 mg/dL (2.6-4.7) Magnesium Level 2.0 mg/dL (1.8-2.4) Laboratory Tests Test 06/19/21 20:30 06/20/21 07:35 Potassium Level 3.5 mmol/L (3.5-5.1) 3.2 mmol/L (3.5-5.1) White Blood Count 7.9 x10^3/uL (4.0-11.0) Red Blood Count 3.82 x10^6/uL (3.50-5.40) Hemoglobin 10.0 g/dL (12.0-15.5) Hematocrit 30.7 % (36.0-47.0) Mean Corpuscular Volume 80 fL (79-100) Mean Corpuscular Hemoglobin 26 pg (25-35) Mean Corpuscular Hemoglobin Concent 33 g/dL (31-37) Red Cell Distribution Width 17.5 % (11.5-14.5) Platelet Count 276 x10^3/uL (140-400) Neutrophils (%) (Auto) 81 % (31-73) Lymphocytes (%) (Auto) 12 % (24-48) Monocytes (%) (Auto) 7 % (0-9) Eosinophils (%) (Auto) 1 % (0-3) Basophils (%) (Auto) 0 % (0-3) Neutrophils # (Auto) 6.4 x10^3/uL (1.8-7.7) Lymphocytes # (Auto) 0.9 x10^3/uL (1.0-4.8) Monocytes # (Auto) 0.5 x10^3/uL (0.0-1.1) Eosinophils # (Auto) 0.0 x10^3/uL (0.0-0.7) Basophils # (Auto) 0.0 x10^3/uL (0.0-0.2) Sodium Level 144 mmol/L (136-145) Chloride Level 110 mmol/L (98-107) Carbon Dioxide Level 22 mmol/L (21-32) Anion Gap 12 (6-14) Blood Urea Nitrogen 12 mg/dL (7-20) Creatinine 0.6 mg/dL (0.6-1.0) Estimated GFR (Cockcroft-Gault) 94.8 Glucose Level 111 mg/dL (70-99) Calcium Level 9.1 mg/dL (8.5-10.1) Phosphorus Level 2.8 mg/dL (2.6-4.7) Magnesium Level 2.0 mg/dL (1.8-2.4) Imaging Postoperative radiographs reveal well-seated intramedullary nail hugging the anterior cortex of the distal femur. Near-anatomic reduction of the fracture. Assessment Assessment POD#1 status post left intertrochanteric femur fracture IM nailing. Plan Plan of Care -Patient doing well postop day #1. No acute issues overnight. -Orthopedically stable. -Keep surgical dressings clean dry and intact until outpatient orthopedic follow-up. -Continue PT/OT. -We will likely need rehab placement once medically stable. -Patient to follow-up in outpatient orthopedic clinic within 14 days of surgery for x-rays and staple removal. -Weightbearing as tolerated with assistive device is likely needed. -Please contact office [phone] with any further questions. Justicifation of Admission Dx: Justifications for Admission: Justification of Admission Dx: Yes ANEUDY RODRIGUEZ DO Jun 20, 2021 16:45
[2021-06-20] MEDS: POTASSIUM BICARB 20 MEQ EFFERVESCENT TABLET. PO SCH ×3 (19:00→21:00)
[2021-06-20 19:20] VITALS: BP 99/58
[2021-06-20] MEDS: POTASSIUM CHLORIDE 20MEQ 100 ML IV SCH ×2 (19:35→21:16)
[2021-06-20] MEDS: LACTOBACILLUS RHAMNOSUS GG 1 CAPSULE. PO SCH ×2 (19:36→19:47)
[2021-06-20] MEDS: MORPHINE SULFATE 2 MG/ML INJ. IV PRN ×2 (19:44→23:39)
[2021-06-20 23:14] VITALS: BP 163/69
[2021-06-21] MEDS: oxyCODONE/APAP 5/325 1 TAB TABLET PO PRN (01:23)
[2021-06-21] MEDS: ACETAMINOPHEN 500 MG TABLET PO SCH ×5 (02:45→22:34)
[2021-06-21 03:13] VITALS: BP 135/74
[2021-06-21] MEDS: MORPHINE SULFATE 2 MG/ML INJ. IV PRN ×4 (06:41→22:35)
[2021-06-21 07:00] VITALS: BP_SYST 142; BP_SYST 144; BP_DIAS 52; BP_DIAS 69
[2021-06-21 08:18] LABS: CALCIUM 9.1 mg/dL (8.5-10.1); CREATININE 0.6 mg/dL (0.6-1.0); GFR 94.8; POTASSIUM 3.4 mmol/L (3.5-5.1)
[2021-06-21 08:32] LABS: BASO % 0 % (0-3); EOS # 0.1 x10^3/uL (0.0-0.7); EOS % 1 % (0-3); HEMATOCRIT 28.2 % (36.0-47.0); HEMOGLOBIN 9.2 g/dL (12.0-15.5); LYMPH % 13 % (24-48); MEAN CORPUSCULAR HEMOGLOBIN 26 pg (25-35); MEAN CORPUSCULAR HGB CONC 33 g/dL (31-37); MEAN CORPUSCULAR VOLUME 81 fL (79-100); MONO # 0.6 x10^3/uL (0.0-1.1); MONO % 7 % (0-9); NEUT % 79 % (31-73); PLATELET COUNT 266 x10^3/uL (140-400); RED CELL DISTRIBUTION WIDTH 17.2 % (11.5-14.5); WHITE BLOOD COUNT 7.6 x10^3/uL (4.0-11.0)
[2021-06-21] MEDS: LACTOBACILLUS RHAMNOSUS GG 1 CAPSULE. PO SCH ×2 (09:00→22:30)
--- NOTE | 2021-06-21 10:26 | NUR ---
MANUEL following. Discussed with RN, MANUEL spoke with SHELLEY Cedillo - she would like referral to [facility] (first choice [facility] - however out of network). MANUEL phoned and faxed referral to [facility]. Awaiting acceptance decision and insurance auth. RN notified. MANUEL will continue to follow. Addendum: 06/21/21 at 1436 by ALEXIA JACKSON [facility] declined due to pt behaviors and confusion. Sana (category planner) checking with pt's SHELLEY RE other options. Pt may have to return to [facility].
[2021-06-21] MEDS: cefTRIAXone IV Push 1 GM VIAL. IVP SCH (10:35)
[2021-06-21] MEDS: ENOXAPARIN 40 MG/0.4 ML SYRINGE. SQ SCH (10:43)
[2021-06-21 11:00] VITALS: BP 114/69
--- NOTE | 2021-06-21 13:16 | PDOC ---
[employer] PROGRESS NOTE Date of Service DOS: DATE: 06/21/21 TIME: 13:15 Chief Complaint Chief Complaint Assessment/Plan Acute left femur fracture Acute UTI Mild hypokalemia History of Alzheimer's dementia Normocytic anemia History of vitamin B12 deficiency History of hypertension Admit to hospitalist service for further management Orthopedic consult, s/p ORIF femur Continue empiric IV antibiotics IV and p.o. electrolyte replacement as needed Continue IV fluids Delirium prevention protocolexposure to daylight, open curtains, oriented to date time and people, avoid sedative acting medications. Lovenox for DVT prophylaxis Diet as tolerated CODE STATUS DNR Discussed with RN and MANUEL DPOA: Daughter History of Present Illness History of Present Illness History obtained from chart review and discussion with the daughter 85-year-old female past medical history of hypertension and dementia, presents the ED [facility] after patient was seen on the ground just next to her bed with complaints of left leg and hip pain. Patient was seen prior to this 1 hour ago in her bed, no active complaints. Due to patient's dementia, history and review of systems are unable to be obtained. According to the daughter, patient is fairly mobile without using any cane or walker. She is able to dress herself and feed herself and use the toilet. No falls in the past. 06/20 Patient underwent surgical intervention yesterday. Patient evaluated examined at bedside. She cannot provide much history given mental status but from report she has improved. PT OT ordered. Weightbearing status per orthopedics. Continue Rocephin for now. Possible discharge in the next couple of days. 06/21 Patient evaluated examined at bedside. Does. Clinically improved a little more alert today. Continue to Rocephin for UTI. Can be switched to p.o. on discharge continue working with PT OT. Patient could possibly go over the weekend if placement found otherwise plan discharge Thursday. Vitals/I&O Vitals/I&O: Vital Signs Date Time Temp Pulse Resp B/P (MAP) Pulse Ox O2 Delivery O2 Flow Rate FiO2 06/21/21 11:07 94 Room Air 06/21/21 11:00 99.4 79 20 114/69 (84) 99.4 06/20/21 08:10 6.0 I & O 06/20/21 06/20/21 06/21/21 15:00 23:00 07:00 Intake Total 0 ml Output Total 450 ml 600 ml Balance -450 ml -600 ml Physical Exam General: Alert, Cooperative Heart: Regular rate, Normal S1, Normal S2 Lungs: Clear Abdomen: Soft, No tenderness Extremities: No edema, Normal pulses Skin: Other (CDI) Labs Labs: Laboratory Tests Test 06/21/21 07:05 White Blood Count 7.6 x10^3/uL (4.0-11.0) Red Blood Count 3.50 x10^6/uL (3.50-5.40) Hemoglobin 9.2 g/dL (12.0-15.5) Hematocrit 28.2 % (36.0-47.0) Mean Corpuscular Volume 81 fL (79-100) Mean Corpuscular Hemoglobin 26 pg (25-35) Mean Corpuscular Hemoglobin Concent 33 g/dL (31-37) Red Cell Distribution Width 17.2 % (11.5-14.5) Platelet Count 266 x10^3/uL (140-400) Neutrophils (%) (Auto) 79 % (31-73) Lymphocytes (%) (Auto) 13 % (24-48) Monocytes (%) (Auto) 7 % (0-9) Eosinophils (%) (Auto) 1 % (0-3) Basophils (%) (Auto) 0 % (0-3) Neutrophils # (Auto) 6.0 x10^3/uL (1.8-7.7) Lymphocytes # (Auto) 1.0 x10^3/uL (1.0-4.8) Monocytes # (Auto) 0.6 x10^3/uL (0.0-1.1) Eosinophils # (Auto) 0.1 x10^3/uL (0.0-0.7) Basophils # (Auto) 0.0 x10^3/uL (0.0-0.2) Sodium Level 142 mmol/L (136-145) Potassium Level 3.4 mmol/L (3.5-5.1) Chloride Level 108 mmol/L (98-107) Carbon Dioxide Level 22 mmol/L (21-32) Anion Gap 12 (6-14) Blood Urea Nitrogen 12 mg/dL (7-20) Creatinine 0.6 mg/dL (0.6-1.0) Estimated GFR (Cockcroft-Gault) 94.8 Glucose Level 98 mg/dL (70-99) Calcium Level 9.1 mg/dL (8.5-10.1) Magnesium Level 2.0 mg/dL (1.8-2.4) Assessment and Plan Assessmemt and Plan Problems Medical Problems: (1) Closed left hip fracture Status: Acute (2) Pain of left lower extremity Status: Acute Comment Review of Relevant I have reviewed the following items markus (where applicable) has been applied. Medications: Current Medications Medications (Trade) Dose Ordered Sig/Zachary Route PRN Reason Start Time Stop Time Status Last Admin Dose Admin Potassium Chloride/Water 100 ml @ 50 mls/hr Q2H IV 06/20/21 19:00 06/20/21 22:59 DC 06/20/21 21:16 Morphine Sulfate (Morphine Sulfate) 2 mg PRN Q1HR PRN IV SEVERE PAIN 7-10 06/21/21 00:30 06/21/21 10:38 Justifications for Admission Other Justification Left femur fracture MADDISON CANELA MD Jun 21, 2021 13:16
[2021-06-21 15:00] VITALS: BP 147/65
[2021-06-21] MEDS ORDERED: POTASSIUM CHLORIDE 20 MEQ TABLET.ER. PO ONE (16:30)
[2021-06-21 19:30] VITALS: BP 142/60
[2021-06-21] MEDS: MEMANTINE 10 MG TABLET. PO SCH (22:30)
[2021-06-21] MEDS: busPIRone 5 MG TABLET. PO SCH (22:30)
[2021-06-21] MEDS: MIRTAZAPINE 15 MG TABLET PO SCH (22:30)
[2021-06-21 23:20] VITALS: BP 145/57
[2021-06-22 02:56] VITALS: BP 148/51
[2021-06-22] MEDS: ACETAMINOPHEN 500 MG TABLET PO SCH ×4 (03:02→22:58)
[2021-06-22 07:00] VITALS: BP 135/55
[2021-06-22 07:39] LABS: BASO % 0 % (0-3); EOS # 0.2 x10^3/uL (0.0-0.7); EOS % 2 % (0-3); HEMATOCRIT 26.6 % (36.0-47.0); HEMOGLOBIN 8.7 g/dL (12.0-15.5); LYMPH % 15 % (24-48); MEAN CORPUSCULAR HEMOGLOBIN 27 pg (25-35); MEAN CORPUSCULAR HGB CONC 33 g/dL (31-37); MEAN CORPUSCULAR VOLUME 81 fL (79-100); MONO # 0.5 x10^3/uL (0.0-1.1); MONO % 7 % (0-9); NEUT # 5.4 x10^3/uL (1.8-7.7); NEUT % 76 % (31-73); PLATELET COUNT 272 x10^3/uL (140-400); RED CELL DISTRIBUTION WIDTH 17.4 % (11.5-14.5); WHITE BLOOD COUNT 7.1 x10^3/uL (4.0-11.0)
[2021-06-22 08:37] LABS: CALCIUM 8.9 mg/dL (8.5-10.1); CREATININE 0.7 mg/dL (0.6-1.0); GFR 79.3; MAGNESIUM 2.2 mg/dL (1.8-2.4); POTASSIUM 3.7 mmol/L (3.5-5.1)
[2021-06-22] MEDS: MEMANTINE 10 MG TABLET. PO SCH ×4 (09:00→22:57)
[2021-06-22] MEDS: LACTOBACILLUS RHAMNOSUS GG 1 CAPSULE. PO SCH ×4 (09:00→22:57)
[2021-06-22] MEDS ORDERED: NON FORMULARY ITEM (Melatonin 5 MG) PO SCH (09:00)
[2021-06-22] MEDS: busPIRone 5 MG TABLET. PO SCH ×4 (09:00→22:57)
--- NOTE | 2021-06-22 09:17 | PDOC ---
[employer] PROGRESS NOTE Date of Service DOS: DATE: 06/22/21 TIME: 09:15 Chief Complaint Chief Complaint Assessment/Plan Acute left femur fracture Acute UTI Mild hypokalemia History of Alzheimer's dementia Normocytic anemia History of vitamin B12 deficiency History of hypertension Admit to hospitalist service for further management Orthopedic consult, s/p ORIF femur Continue empiric IV antibiotics IV and p.o. electrolyte replacement as needed Continue IV fluids Delirium prevention protocolexposure to daylight, open curtains, oriented to date time and people, avoid sedative acting medications. Lovenox for DVT prophylaxis Diet as tolerated CODE STATUS DNR Discussed with RN and MANUEL DPOA: Daughter History of Present Illness History of Present Illness History obtained from chart review and discussion with the daughter 85-year-old female past medical history of hypertension and dementia, presents the ED brought in by EMS [facility] after patient was seen on the ground just next to her bed with complaints of left leg and hip pain. Patient was seen prior to this 1 hour ago in her bed, no active complaints. Due to patient's dementia, history and review of systems are unable to be obtained. According to the daughter, patient is fairly mobile without using any cane or walker. She is able to dress herself and feed herself and use the toilet. No falls in the past. 06/20 Patient underwent surgical intervention yesterday. Patient evaluated examined at bedside. She cannot provide much history given mental status but from report she has improved. PT OT ordered. Weightbearing status per orthopedics. Continue Rocephin for now. Possible discharge in the next couple of days. 06/21 Patient evaluated examined at bedside. Does. Clinically improved a little more alert today. Continue to Rocephin for UTI. Can be switched to p.o. on discharge continue working with PT OT. Patient could possibly go over the weekend if placement found otherwise plan discharge Thursday. 06/22 Patient evaluated examined at bedside. Resting in bed when evaluated. Did not really endorse any complaints. It appears that patient had denied for placement will need home health. We will start working on this. Continue antibiotics for UTI will transition to oral today in preparation of upcoming discharge. Plan of care discussed with bedside RN. Vitals/I&O Vitals/I&O: Vital Signs Date Time Temp Pulse Resp B/P (MAP) Pulse Ox O2 Delivery O2 Flow Rate FiO2 06/22/21 07:00 76 16 135/55 (81) 95 Room Air 06/22/21 02:56 97.7 97.7 06/21/21 22:35 6.0 I & O 06/21/21 06/21/21 06/22/21 15:00 23:00 07:00 Intake Total 50 ml Output Total 200 ml 275 ml Balance -150 ml -275 ml Physical Exam General: Alert, Cooperative Heart: Regular rate, Normal S1, Normal S2 Lungs: Clear Abdomen: Soft, No tenderness Extremities: No edema, Normal pulses Skin: Other (CDI) Labs Labs: Laboratory Tests Test 06/22/21 06:20 06/22/21 06:25 06/22/21 07:36 Sodium Level 144 mmol/L (136-145) Potassium Level 3.7 mmol/L (3.5-5.1) Chloride Level 111 mmol/L (98-107) Carbon Dioxide Level 25 mmol/L (21-32) Anion Gap 8 (6-14) Blood Urea Nitrogen 20 mg/dL (7-20) Creatinine 0.7 mg/dL (0.6-1.0) Estimated GFR (Cockcroft-Gault) 79.3 Glucose Level 93 mg/dL (70-99) Calcium Level 8.9 mg/dL (8.5-10.1) Magnesium Level 2.2 mg/dL (1.8-2.4) White Blood Count 7.1 x10^3/uL (4.0-11.0) Red Blood Count 3.30 x10^6/uL (3.50-5.40) Hemoglobin 8.7 g/dL (12.0-15.5) Hematocrit 26.6 % (36.0-47.0) Mean Corpuscular Volume 81 fL (79-100) Mean Corpuscular Hemoglobin 27 pg (25-35) Mean Corpuscular Hemoglobin Concent 33 g/dL (31-37) Red Cell Distribution Width 17.4 % (11.5-14.5) Platelet Count 272 x10^3/uL (140-400) Neutrophils (%) (Auto) 76 % (31-73) Lymphocytes (%) (Auto) 15 % (24-48) Monocytes (%) (Auto) 7 % (0-9) Eosinophils (%) (Auto) 2 % (0-3) Basophils (%) (Auto) 0 % (0-3) Neutrophils # (Auto) 5.4 x10^3/uL (1.8-7.7) Lymphocytes # (Auto) 1.0 x10^3/uL (1.0-4.8) Monocytes # (Auto) 0.5 x10^3/uL (0.0-1.1) Eosinophils # (Auto) 0.2 x10^3/uL (0.0-0.7) Basophils # (Auto) 0.0 x10^3/uL (0.0-0.2) Glucose (Fingerstick) 92 mg/dL (70-99) Assessment and Plan Assessmemt and Plan Problems Medical Problems: (1) Closed left hip fracture Status: Acute (2) Pain of left lower extremity Status: Acute Comment Review of Relevant I have reviewed the following items markus (where applicable) has been applied. Medications: Current Medications Medications (Trade) Dose Ordered Sig/Zachary Route PRN Reason Start Time Stop Time Status Last Admin Dose Admin Potassium Chloride (Klor-Con) 40 meq 1X ONCE PO 06/21/21 16:30 06/21/21 16:31 DC 06/21/21 16:33 Buspirone HCl (Buspar) 2.5 mg BID PO 06/21/21 21:00 06/21/21 22:30 Memantine (Namenda) 10 mg BID PO 06/21/21 21:00 06/21/21 22:30 Mirtazapine (Remeron) 15 mg QHS PO 06/21/21 21:00 06/21/21 22:30 Justifications for Admission Other Justification Left femur fracture MADDISON CANELA MD Jun 22, 2021 09:17
[2021-06-22] MEDS: NITROFURANTOIN MONOHYD/M-CRYST 100 MG CAPSULE. PO SCH ×2 (10:00→10:10)
[2021-06-22] MEDS: LORazepam 0.5 MG TABLET PO PRN ×2 (10:10→13:16)
[2021-06-22] MEDS: oxyCODONE/APAP 5/325 1 TAB TABLET PO PRN ×2 (10:10→13:16)
[2021-06-22 11:00] VITALS: BP 161/59
[2021-06-22] MEDS: CEFDINIR 300 MG CAPSULE PO SCH ×3 (13:12→22:57)
[2021-06-22] MEDS: ENOXAPARIN 40 MG/0.4 ML SYRINGE. SQ SCH (13:12)
[2021-06-22] MEDS: MORPHINE SULFATE 2 MG/ML INJ. IV PRN ×3 (13:39→22:43)
[2021-06-22 15:00] VITALS: BP 171/54
[2021-06-22 19:00] VITALS: BP 179/73
[2021-06-22] MEDS: MIRTAZAPINE 15 MG TABLET PO SCH ×2 (21:00→22:57)
[2021-06-22 23:00] VITALS: BP 123/87
[2021-06-23] VITALS (7 sets, daily range): BP systolic 110–213; BP diastolic 53–123
[2021-06-23] MEDS: ACETAMINOPHEN 500 MG TABLET PO SCH ×4 (03:00→21:00)
[2021-06-23] MEDS: MORPHINE SULFATE 2 MG/ML INJ. IV PRN ×4 (03:19→21:51)
[2021-06-23] MEDS: LACTOBACILLUS RHAMNOSUS GG 1 CAPSULE. PO SCH ×2 (09:00→21:00)
[2021-06-23] MEDS: LORazepam 0.5 MG TABLET PO PRN (09:42)
[2021-06-23] MEDS: oxyCODONE/APAP 5/325 1 TAB TABLET PO PRN (09:42)
[2021-06-23] MEDS: busPIRone 5 MG TABLET. PO SCH ×2 (09:43→21:00)
[2021-06-23] MEDS: MEMANTINE 10 MG TABLET. PO SCH ×2 (09:43→21:00)
[2021-06-23] MEDS: CEFDINIR 300 MG CAPSULE PO SCH ×2 (09:43→21:00)
--- NOTE | 2021-06-23 13:38 | PDOC ---
[employer] PROGRESS NOTE Date of Service DOS: DATE: 06/23/21 TIME: 13:32 Chief Complaint Chief Complaint Assessment/Plan Acute left femur fracture status post left intertrochanteric femur intramedullary nail fixation 06/19/2021 Acute UTI Mild hypokalemia History of Alzheimer's dementia Normocytic anemia History of vitamin B12 deficiency History of hypertension Admit to hospitalist service for further management Orthopedic consult, s/p ORIF femur Continue empiric IV antibiotics IV and p.o. electrolyte replacement as needed Continue IV fluids Delirium prevention protocolexposure to daylight, open curtains, oriented to date time and people, avoid sedative acting medications. Lovenox for DVT prophylaxis Diet as tolerated CODE STATUS DNR Discussed with RN and MANUEL DPOA: Daughter History of Present Illness History of Present Illness History obtained from chart review and discussion with the daughter 85-year-old female past medical history of hypertension and dementia, presents the ED brought in by EMS from [facility] after patient was seen on the ground just next to her bed with complaints of left leg and hip pain. Patient was seen prior to this 1 hour ago in her bed, no active complaints. Due to patient's dementia, history and review of systems are unable to be obtained. According to the daughter, patient is fairly mobile without using any cane or walker. She is able to dress herself and feed herself and use the toilet. No falls in the past. 06/20 Patient underwent surgical intervention yesterday. Patient evaluated examined at bedside. She cannot provide much history given mental status but from report she has improved. PT OT ordered. Weightbearing status per orthopedics. Continue Rocephin for now. Possible discharge in the next couple of days. 06/21 Patient evaluated examined at bedside. Does. Clinically improved a little more alert today. Continue to Rocephin for UTI. Can be switched to p.o. on discharge continue working with PT OT. Patient could possibly go over the weekend if placement found otherwise plan discharge Thursday. 06/22 Patient evaluated examined at bedside. Resting in bed when evaluated. Did not really endorse any complaints. It appears that patient had denied for placement will need home health. We will start working on this. Continue antibiotics for UTI will transition to oral today in preparation of upcoming discharge. Plan of care discussed with bedside RN. 06/23/2021 No acute events overnight. Patient seen and examined bedside. Patient still having uncontrolled pain during physical therapy and any time she is moving in bed. Discussed with daughter Nori about pain management. Apparently patient at [facility] was started on Celexa by a psychiatrist. We are currently waiting for medication reconciliation overnight [facility]. Nurse will call over there today. I have also instructed the nurse to make sure that the patient receives her pain medication about 30 minutes prior to any physical therapy session. Patient at this time is a total care and is not safe for discharge to assisted living facility. Patient will need to be in a long-term care facility. Patient's chart, labs, images were reviewed and discussed with RN In addition to my E/M visit, advance care planning done with A total time of 20 minutes was spent from 12:00 to 1220 face to face in discussion regarding the patient's goals of care, CODE STATUS. Vitals/I&O Vitals/I&O: Vital Signs Date Time Temp Pulse Resp B/P (MAP) Pulse Ox O2 Delivery O2 Flow Rate FiO2 06/23/21 11:00 97.9 84 18 135/53 (80) 96 Room Air 97.9 06/23/21 09:42 6.0 I & O 06/22/21 06/22/21 06/23/21 15:00 23:00 07:00 Output Total 100 ml Balance -100 ml Physical Exam General: Alert, Cooperative Heart: Regular rate, Normal S1, Normal S2 Lungs: Clear Abdomen: Soft, No tenderness Extremities: No edema, Normal pulses Skin: Other (CDI) Labs Labs: Laboratory Tests Test 06/22/21 20:26 06/23/21 08:14 06/23/21 11:39 Glucose (Fingerstick) 96 mg/dL (70-99) 91 mg/dL (70-99) 95 mg/dL (70-99) Assessment and Plan Assessmemt and Plan Problems Medical Problems: (1) Closed left hip fracture Status: Acute (2) Pain of left lower extremity Status: Acute Comment Review of Relevant I have reviewed the following items markus (where applicable) has been applied. Justifications for Admission Other Justification Left femur fracture KEIRA JACKSON MD Jun 23, 2021 13:38
[2021-06-23] MEDS: ENOXAPARIN 40 MG/0.4 ML SYRINGE. SQ SCH (14:00)
[2021-06-23] MEDS: MIRTAZAPINE 15 MG TABLET PO SCH (21:00)
[2021-06-23] MEDS: hydrALAZINE 20 MG/ML VIAL. IVP PRN (21:28)
[2021-06-24] MEDS: MORPHINE SULFATE 2 MG/ML INJ. IV PRN (02:45)
[2021-06-24] MEDS: ACETAMINOPHEN 500 MG TABLET PO SCH (03:00)
[2021-06-24 07:00] VITALS: BP 151/87
--- NOTE | 2021-06-24 08:06 | PDOC ---
[employer] PROGRESS NOTE Date of Service DOS: DATE: 06/24/21 TIME: 07:53 Chief Complaint Chief Complaint Assessment/Plan Acute left femur fracture status post left intertrochanteric femur intramedullary nail fixation 06/19/2021 Acute UTI - proteus mirabilis, s/p 4 doses IV rocephin and 2 doses of cefdinir. Course completed on 06/23/2021. Dozier to d/c Mild hypokalemia History of Alzheimer's dementia Normocytic anemia History of vitamin B12 deficiency History of hypertension Admit to hospitalist service for further management Orthopedic consult, s/p ORIF femur Delirium prevention protocolexposure to daylight, open curtains, oriented to date time and people, avoid sedative acting medications. Lovenox for DVT prophylaxis --> eliquis 30 days Diet as tolerated CODE STATUS DNR Discussed with RN and MANUEL DPOA: Daughter History of Present Illness History of Present Illness Ms Mcmillan is an 85-year-old female past medical history of hypertension and dementia, presents the ED [facility] after patient was seen on the ground just next to her bed with complaints of left leg and hip pain. Patient was seen prior to this 1 hour ago in her bed, no active complaints. Due to patient's dementia, history and review of systems are unable to be obtained. According to the daughter, patient is fairly mobile without using any cane or walker. She is able to dress herself and feed herself and use the toilet. No falls in the past. To OR, Status post left intertrochanteric femur fracture IM nailing. 06/20: Patient underwent surgical intervention yesterday. Patient evaluated examined at bedside. She cannot provide much history given mental status but from report she has improved. PT OT ordered. Weightbearing status per orthopedics. Continue Rocephin for now. 06/21: Patient evaluated examined at bedside. Does. Clinically improved a little more alert today. Continue to Rocephin for UTI. Can be switched to p.o. on discharge continue working with PT OT. Patient could possibly go over the weekend if placement found. 06/22: Patient evaluated examined at bedside. Resting in bed when evaluated. Did not really endorse any complaints. It appears that patient had denied for placement will need home health. 06/23: No acute events overnight. Patient seen and examined bedside. Patient still having uncontrolled pain during physical therapy and any time she is moving in bed. Discussed with daughter Nori about pain management. Apparently patient at assisted living facility was started on Celexa by a psychiatrist. We are currently waiting for medication reconciliation overnight [facility]. Nurse will call over there today. I have also instructed the nurse to make sure that the patient receives her pain medication about 30 minutes prior to any physical therapy session. Patient at this time is a total care and is not safe for discharge to assisted living facility. Patient will need to be in a long-term care facility. Patient's chart, labs, images were reviewed and discussed with RN No overnight events. Completed antibiotic course for UTI. Not oriented. No complaints. Vitals/I&O Vitals/I&O: Vital Signs Date Time Temp Pulse Resp B/P (MAP) Pulse Ox O2 Delivery O2 Flow Rate FiO2 06/24/21 03:15 18 Room Air 06/24/21 03:00 98.9 94 98.9 06/23/21 23:00 117 146/84 (104) 06/23/21 18:19 6.0 I & O 06/23/21 06/23/21 06/24/21 15:00 23:00 07:00 Intake Total 100 ml 50 ml 0 ml Output Total 1 ml 300 ml 250 ml Balance 99 ml -250 ml -250 ml Physical Exam General: Alert, Cooperative Heart: Regular rate, Normal S1, Normal S2 Lungs: Clear Abdomen: Soft, No tenderness Extremities: No edema, Normal pulses Skin: Other (CDI) Labs Labs: Laboratory Tests Test 06/23/21 08:14 06/23/21 11:39 Glucose (Fingerstick) 91 mg/dL (70-99) 95 mg/dL (70-99) Assessment and Plan Assessmemt and Plan Problems Medical Problems: (1) Closed left hip fracture Status: Acute (2) Pain of left lower extremity Status: Acute Comment Review of Relevant I have reviewed the following items markus (where applicable) has been applied. Justifications for Admission Other Justification Left femur fracture MADDISON LAROSE MD Jun 24, 2021 08:06
[2021-06-24] MEDS: MEMANTINE 10 MG TABLET. PO SCH ×2 (08:52→20:46)
[2021-06-24] MEDS: busPIRone 5 MG TABLET. PO SCH ×2 (08:52→20:46)
[2021-06-24] MEDS: APIXABAN 2.5 MG TABLET. PO SCH ×2 (08:52→20:46)
[2021-06-24] MEDS: LACTOBACILLUS RHAMNOSUS GG 1 CAPSULE. PO SCH ×2 (08:52→20:46)
[2021-06-24 11:00] VITALS: BP 179/60
[2021-06-24 15:00] VITALS: BP 141/88
[2021-06-24] MEDS: oxyCODONE/APAP 5/325 1 TAB TABLET PO PRN (15:05)
[2021-06-24 19:20] VITALS: BP 124/59
[2021-06-24] MEDS: MIRTAZAPINE 15 MG TABLET PO SCH (20:46)
[2021-06-24 22:58] VITALS: BP 131/73
[2021-06-25 02:57] VITALS: BP 148/45
[2021-06-25 07:00] VITALS: BP 164/78
[2021-06-25] MEDS: busPIRone 5 MG TABLET. PO SCH ×2 (10:03→21:00)
[2021-06-25] MEDS: LACTOBACILLUS RHAMNOSUS GG 1 CAPSULE. PO SCH ×2 (10:03→21:00)
[2021-06-25] MEDS: MEMANTINE 10 MG TABLET. PO SCH ×2 (10:03→21:00)
[2021-06-25] MEDS: APIXABAN 2.5 MG TABLET. PO SCH ×2 (10:03→21:00)
[2021-06-25] MEDS: ACETAMINOPHEN 325 MG TABLET. PO PRN (10:04)
[2021-06-25 11:00] VITALS: BP 144/61
--- NOTE | 2021-06-25 12:44 | PDOC ---
[facility] [facility] PROGRESS NOTE Date of Service DOS: DATE: 06/25/21 TIME: 12:41 Chief Complaint Chief Complaint Assessment/Plan Acute left femur fracture status post left intertrochanteric femur intramedullary nail fixation 06/19/2021 Acute UTI - proteus mirabilis, s/p 4 doses IV rocephin and 2 doses of cefdinir. Course completed on 06/23/2021. Dozier to d/c Mild hypokalemia History of Alzheimer's dementia Normocytic anemia History of vitamin B12 deficiency History of hypertension Admit to hospitalist service for further management Orthopedic consult, s/p ORIF femur Delirium prevention protocolexposure to daylight, open curtains, oriented to date time and people, avoid sedative acting medications. Lovenox for DVT prophylaxis --> eliquis 30 days Diet as tolerated CODE STATUS DNR Discussed with RN and MANUEL DPOA: Daughter History of Present Illness History of Present Illness Ms Mcmillan is an 85-year-old female past medical history of hypertension and dementia, presents the ED brought in by [facility] after patient was seen on the ground just next to her bed with complaints of left leg and hip pain. Patient was seen prior to this 1 hour ago in her bed, no active complaints. Due to patient's dementia, history and review of systems are unable to be obtained. According to the daughter, patient is fairly mobile without using any cane or walker. She is able to dress herself and feed herself and use the toilet. No falls in the past. To OR, Status post left intertrochanteric femur fracture IM nailing. 06/20: Patient underwent surgical intervention yesterday. Patient evaluated examined at bedside. She cannot provide much history given mental status but from report she has improved. PT OT ordered. Weightbearing status per orthopedics. Continue Rocephin for now. 06/21: Patient evaluated examined at bedside. Does. Clinically improved a little more alert today. Continue to Rocephin for UTI. Can be switched to p.o. on discharge continue working with PT OT. Patient could possibly go over the weekend if placement found. 06/22: Patient evaluated examined at bedside. Resting in bed when evaluated. Did not really endorse any complaints. It appears that patient had denied for placement will need home health. 06/23: No acute events overnight. Patient seen and examined bedside. Patient still having uncontrolled pain during physical therapy and any time she is moving in bed. Discussed with daughter Nori about pain management. Apparently patient at assisted living facility was started on Celexa by a psychiatrist. We are currently waiting for medication reconciliation overnight [facility]. Nurse will call over there today. I have also instructed the nurse to make sure that the patient receives her pain medication about 30 minutes prior to any physical therapy session. Patient at this time is a total care and is not safe for discharge to assisted living facility. Patient will need to be in a long-term care facility. Patient's chart, labs, images were reviewed and discussed with RN 06/24: No overnight events. Completed antibiotic course for UTI. Not oriented. No complaints. 06/25: Febrile overnight, T-max 100.3 F. Her C. difficile resulted positive on 06/23. Will initiate oral vancomycin 125 mg 4 times daily x 10 days. Still having diarrhea, but denies any abdominal pain. Vitals/I&O Vitals/I&O: Vital Signs Date Time Temp Pulse Resp B/P (MAP) Pulse Ox O2 Delivery O2 Flow Rate FiO2 06/25/21 11:00 97.9 89 18 144/61 (88) 96 Room Air 97.9 I & O 06/24/21 06/24/21 06/25/21 15:00 23:00 07:00 Intake Total 60 ml Output Total 200 ml Balance -200 ml 60 ml Physical Exam General: Alert, Cooperative Heart: Regular rate, Normal S1, Normal S2 Lungs: Clear Abdomen: Soft, No tenderness Extremities: No edema, Normal pulses Skin: Other (CDI) Assessment and Plan Assessmemt and Plan Problems Medical Problems: (1) Closed left hip fracture Status: Acute (2) Pain of left lower extremity Status: Acute Comment Review of Relevant I have reviewed the following items markus (where applicable) has been applied. Justifications for Admission Other Justification Left femur fracture ESTEBAN MARKS MD Jun 25, 2021 12:44
[2021-06-25] MEDS: VANCOMYCIN 125 MG/2.5 ML ORAL SOLUTION. PO SCH ×3 (13:12→21:00)
[2021-06-25 15:00] VITALS: BP 131/47
[2021-06-25 19:25] VITALS: BP 197/79
--- NOTE | 2021-06-25 19:40 | NUR ---
Patient is very aggressive at this time. Trying to hit staff. Refusing to take her meds. Bed alarm is on. Tried to give patient SL med for agitation and patient spit out. Will continue to monitor.
[2021-06-25] MEDS: MIRTAZAPINE 15 MG TABLET PO SCH (21:00)
[2021-06-25 23:11] VITALS: BP 151/53
[2021-06-26 03:09] VITALS: BP 174/87
[2021-06-26 07:00] VITALS: BP 144/61
[2021-06-26] MEDS: MEMANTINE 10 MG TABLET. PO SCH ×3 (08:52→21:05)
[2021-06-26] MEDS: oxyCODONE/APAP 5/325 1 TAB TABLET PO PRN (08:52)
[2021-06-26] MEDS: LACTOBACILLUS RHAMNOSUS GG 1 CAPSULE. PO SCH ×3 (08:52→21:05)
[2021-06-26] MEDS: busPIRone 5 MG TABLET. PO SCH ×3 (08:52→21:06)
[2021-06-26] MEDS: APIXABAN 2.5 MG TABLET. PO SCH ×3 (08:52→21:06)
[2021-06-26] MEDS: VANCOMYCIN 125 MG/2.5 ML ORAL SOLUTION. PO SCH ×5 (08:52→21:05)
--- NOTE | 2021-06-26 10:08 | PDOC ---
[facility] [facility] PROGRESS NOTE Date of Service DOS: DATE: 06/26/21 TIME: 10:03 Chief Complaint Chief Complaint Assessment/Plan Acute left femur fracture status post left intertrochanteric femur intramedullary nail fixation 06/19/2021 Acute UTI - proteus mirabilis, s/p 4 doses IV rocephin and 2 doses of cefdinir. Course completed on 06/23/2021. Dozier to d/c Mild hypokalemia History of Alzheimer's dementia Normocytic anemia History of vitamin B12 deficiency History of hypertension Admit to hospitalist service for further management Orthopedic consult, s/p ORIF femur Delirium prevention protocolexposure to daylight, open curtains, oriented to date time and people, avoid sedative acting medications. Lovenox for DVT prophylaxis --> eliquis 30 days Diet as tolerated CODE STATUS DNR Discussed with RN and MANUEL DPOA: Daughter History of Present Illness History of Present Illness Ms Mcmillan is an 85-year-old female past medical history of hypertension and dementia, presents the ED brought in by EMS from [facility] after patient was seen on the ground just next to her bed with complaints of left leg and hip pain. Patient was seen prior to this 1 hour ago in her bed, no active complaints. Due to patient's dementia, history and review of systems are unable to be obtained. According to the daughter, patient is fairly mobile without using any cane or walker. She is able to dress herself and feed herself and use the toilet. No falls in the past. To OR, Status post left intertrochanteric femur fracture IM nailing. 06/20: Patient underwent surgical intervention yesterday. Patient evaluated examined at bedside. She cannot provide much history given mental status but from report she has improved. PT OT ordered. Weightbearing status per orthopedics. Continue Rocephin for now. 06/21: Patient evaluated examined at bedside. Does. Clinically improved a little more alert today. Continue to Rocephin for UTI. Can be switched to p.o. on discharge continue working with PT OT. Patient could possibly go over the weekend if placement found. 06/22: Patient evaluated examined at bedside. Resting in bed when evaluated. Did not really endorse any complaints. It appears that patient had denied for placement will need home health. 06/23: No acute events overnight. Patient seen and examined bedside. Patient still having uncontrolled pain during physical therapy and any time she is moving in bed. Discussed with daughter Nori about pain management. Apparently patient at assisted living facility was started on Celexa by a psychiatrist. We are currently waiting for medication reconciliation overnight [facility]. Nurse will call over there today. I have also instructed the nurse to make sure that the patient receives her pain medication about 30 minutes prior to any physical therapy session. Patient at this time is a total care and is not safe for discharge to assisted living facility. Patient will need to be in a long-term care facility. Patient's chart, labs, images were reviewed and discussed with RN 06/24: No overnight events. Completed antibiotic course for UTI. Not oriented. No complaints. 06/25: Febrile overnight, T-max 100.3 F. Her C. difficile resulted positive on 06/23. Will initiate oral vancomycin 125 mg 4 times daily x 10 days. Still having diarrhea, but denies any abdominal pain. 06/26: Patient seen and evaluated in bed. Denies any further diarrhea. Work with PT and recommended SNU. interstate planner spoke with patient's daughter who declined SNU would like patient to go back to the [facility] with home health. Greater than 30 minutes spent managing the discharge of this patient. Vitals/I&O Vitals/I&O: Vital Signs Date Time Temp Pulse Resp B/P (MAP) Pulse Ox O2 Delivery O2 Flow Rate FiO2 06/26/21 07:27 Room Air 06/26/21 07:00 98.2 105 18 144/61 (88) 97 98.2 I & O 06/25/21 06/25/21 06/26/21 15:00 23:00 07:00 Intake Total 0 ml 0 ml Balance 0 ml 0 ml Physical Exam General: Alert, Cooperative Heart: Regular rate, Normal S1, Normal S2 Lungs: Clear Abdomen: Soft, No tenderness Extremities: No edema, Normal pulses Skin: Other (CDI) Assessment and Plan Assessmemt and Plan Problems Medical Problems: (1) Closed left hip fracture Status: Acute (2) Pain of left lower extremity Status: Acute Comment Review of Relevant I have reviewed the following items markus (where applicable) has been applied. Medications: Current Medications Medications (Trade) Dose Ordered Sig/Zachary Route PRN Reason Start Time Stop Time Status Last Admin Dose Admin Vancomycin HCl (Vancomycin Oral Solution) 125 mg [id number] PO 06/25/21 13:00 07/05/21 12:59 06/25/21 17:29 Justifications for Admission Other Justification Left femur fracture ESTEBAN MARKS MD Jun 26, 2021 10:08
--- NOTE | 2021-06-26 10:14 | PDOC3 ---
Discharge Summary Visit Information Date of Admission: Jun 19, 2021 Date of Discharge: Jun 26, 2021 Final Diagnosis Problems Medical Problems: (1) Closed left hip fracture Status: Acute (2) Pain of left lower extremity Status: Acute Brief Hospital Course Allergies Allergies Coded Allergies Type Severity Reaction Last Updated Verified No Known Drug Allergies 05/11/21 No Vital Signs Vital Signs Date Time Temp Pulse Resp B/P (MAP) Pulse Ox O2 Delivery O2 Flow Rate FiO2 06/26/21 07:27 Room Air 06/26/21 07:00 98.2 105 18 144/61 (88) 97 98.2 Brief Hospital Course Ms. Mcmillan is a 85 old female who presented with stable left intertrochanteric femur fracture. Consultation placed to orthopedic surgery. She had left intertrochanteric femur fracture intramedullary nail fixation. Worse with PT and recommended SNU. Family would prefer patient to return home to the [facility] with home health. She will [facility] on oral vancomycin for C. difficile diagnosis. Discharge Information Condition at Discharge: Stable Disposition/Orders: D/C to Home w/ HH Scheduled Buspirone Hcl (Buspirone Hcl) 5 Mg Tablet, 0.5 TAB PO BID for ANXIETY, #60 Ref 2 (Reported) Entered as Reported by: DOROTEO JIM on 05/12/21319 Last Action: Continued on 06/21/211640 by MADDISON CANELA MD Cyanocobalamin (Vitamin B-12) (Vitamin B-12) 1,000 Mcg Tab.subl, 1 TAB SL DAILY for B12 DEFICIENCY for 30 Days, #30 Ref 0 (Reported) Entered as Reported by: DOROTEO JIM on 05/12/21325 Last Action: HELD on 06/21/211640 by MADDISON CANELA MD Melatonin (Melatonin) 5 Mg Tab.rapdis, 1 TAB PO QHS for sleep for 30 Days, #30 Ref 0 (Reported) Entered as Reported by: DOROTEO JIM on 05/12/21320 Last Action: HELD on 06/21/211640 by MADDISON CANELA MD Melatonin (Melatonin) 5 Mg Tab.rapdis, 5 MG PO DAILY for SLEEP, (Reported) Entered as Reported by: DOROTEO JIM on 05/12/21322 Last Action: Converted on 06/21/211640 by MADDISON CANELA MD Memantine Hcl (Namenda) 10 Mg Tablet, 10 MG PO BID for DEMENTIA, (Reported) Entered as Reported by: DOROTEO JIM on 05/12/21321 Last Action: Continued on 06/21/211640 by MADDISON CANELA MD Mirtazapine (Remeron) 15 Mg Tablet, 1 TAB PO QHS for INSOPMNIA, #30 Ref 1 (Reported) Entered as Reported by: DOROTEO JIM on 05/12/21323 Last Action: Continued on 06/21/211640 by MADDISON CANELA MD Nut.tx.impaired Digestive Fxn (Ensure Clear Therapeutic) 237 Ml Liquid, 237 ML PO WITH MEALS for SUPPLEMENT, (Reported) Entered as Reported by: DOROTEO JIM on 05/12/21328 Last Action: HELD on 06/21/211640 by MADDISON CANELA MD Scheduled PRN Acetaminophen (Tylenol) 325 Mg Tablet, 2 TAB PO PRN Q6HRS PRN for PAIN/TEMP, #30 (Reported) Entered as Reported by: DOROTEO JIM on 05/12/21324 Last Action: HELD on 06/21/211640 by MADDISON CANELA MD Justicifation of Admission Dx: Justifications for Admission: Justification of Admission Dx: Yes ESTEBAN MARKS MD Jun 26, 2021 10:13
[2021-06-26] MEDS ORDERED: APIX2.5T PO (10:24)
[2021-06-26] MEDS ORDERED: VANC500V PO (10:24)
[2021-06-26] MEDS ORDERED: OXYC1TAB15 PO (10:24)
--- NOTE | 2021-06-26 10:30 | SNU/HH DC ---
DISCHARGE WITH HOME HEALTH DISCHARGE INFORMATION: Discharge Date: Jun 26, 2021 Final Diagnosis: Problems Medical Problems: (1) Closed left hip fracture Status: Acute (2) Pain of left lower extremity Status: Acute Condition on Discharge: Stable CODE STATUS: Code Status: DNR/DNI HOME HEALTH: Face to Face: I certify this patient is under my care and that I, or a nurse practitioner or physician's assistant women's soccer coach working with me, had a face to face encounter that meets the physician face to face encounter requirements with this patient on 06/26/2021. RN For Eval/Treatment: Yes Physical Therapy For: Evalulation/Treatment Occupational Therapy For: Evaluation/Treatment Pt Meets Homebound Status: Poor coordination w/ amb., Unsteady balance w/ amb,, Limited distance walking POST DISCHARGE ORDERS: Activity Instructions for Disc: Activity as tolerated Weight Bearing Status after Di: As tolerated DIET AFTER DISCHARGE: Regular CHECKS AFTER DISCHARGE: Checks after discharge: Check blood press - daily, Check your Temp as needed TREATMENT/EQUIPMENT ORDERS: Adaptive Equipment Issued: Four wheeled walker CERTIFICATION STATEMENT: Certification Statement: Certification Statement: Based on the above finding, I certify that this patient is confined to the home and needs intermittent alf care, physical therapy and/or speech therapy, or continues to need occupational therapy.~ This patient is under my care, and I have initiated the establishment of the plan of care.~ This patient will be followed by myself or a community physician who will periodically review the plan of care. Home Meds Active Scripts Oxycodone/Apap 5-325 (PERCOCET 5-325 MG TABLET ) 1 Each Tablet, 1 TAB PO PRN Q6HRS PRN for PAIN, #28 TAB 0 Refills Prov:ESTEBAN MARKS MD 06/26/21 Reported Medications Nut.tx.impaired Digestive Fxn (Ensure Clear Therapeutic) 237 Ml Liquid, 237 ML PO WITH MEALS for SUPPLEMENT, LIQUID 05/12/21 Cyanocobalamin (Vitamin B-12) (VITAMIN B-12) 1,000 Mcg Tab.subl, 1 TAB SL DAILY for B12 DEFICIENCY for 30 Days, #30 TAB 0 Refills 05/12/21 Acetaminophen (TYLENOL) 325 Mg Tablet, 2 TAB PO PRN Q6HRS PRN for PAIN/TEMP, #30 TAB 05/12/21 Mirtazapine (REMERON) 15 Mg Tablet, 1 TAB PO QHS for INSOPMNIA, #30 TAB 1 Refill 05/12/21 Melatonin (MELATONIN) 5 Mg Tab.rapdis, 5 MG PO DAILY for SLEEP, TAB 05/12/21 Memantine Hcl (NAMENDA) 10 Mg Tablet, 10 MG PO BID for DEMENTIA, TAB 05/12/21 Melatonin (MELATONIN) 5 Mg Tab.rapdis, 1 TAB PO QHS for sleep for 30 Days, #30 TAB 0 Refills 05/12/21 Buspirone Hcl (BUSPIRONE HCL) 5 Mg Tablet, 0.5 TAB PO BID for ANXIETY, #60 TAB 2 Refills 05/12/21 ESTEBAN MARKS MD Jun 26, 2021 10:30
[2021-06-26 11:00] VITALS: BP 125/57
[2021-06-26 15:00] VITALS: BP 144/125
[2021-06-26 19:00] VITALS: BP 139/79
[2021-06-26] MEDS: MIRTAZAPINE 15 MG TABLET PO SCH (21:06)
[2021-06-26 23:00] VITALS: BP 105/88
[2021-06-27 07:00] VITALS: BP 114/84
[2021-06-27] MEDS: busPIRone 5 MG TABLET. PO SCH ×2 (08:27→20:47)
[2021-06-27] MEDS: LACTOBACILLUS RHAMNOSUS GG 1 CAPSULE. PO SCH ×2 (08:27→20:47)
[2021-06-27] MEDS: VANCOMYCIN 125 MG/2.5 ML ORAL SOLUTION. PO SCH ×4 (08:27→20:47)
[2021-06-27] MEDS: APIXABAN 2.5 MG TABLET. PO SCH ×2 (08:27→20:46)
[2021-06-27] MEDS: MEMANTINE 10 MG TABLET. PO SCH ×2 (08:27→20:47)
[2021-06-27 11:00] VITALS: BP 123/80
--- NOTE | 2021-06-27 11:52 | PDOC ---
[employer] [facility] PROGRESS NOTE Date of Service DOS: DATE: 06/27/21 TIME: 11:50 Chief Complaint Chief Complaint Assessment/Plan Acute left femur fracture status post left intertrochanteric femur intramedullary nail fixation 06/19/2021 Acute UTI - proteus mirabilis, s/p 4 doses IV rocephin and 2 doses of cefdinir. Course completed on 06/23/2021. Dozier to d/c Mild hypokalemia History of Alzheimer's dementia Normocytic anemia History of vitamin B12 deficiency History of hypertension Admit to hospitalist service for further management Orthopedic consult, s/p ORIF femur Delirium prevention protocolexposure to daylight, open curtains, oriented to date time and people, avoid sedative acting medications. Lovenox for DVT prophylaxis --> eliquis 30 days Diet as tolerated CODE STATUS DNR Discussed with RN and MANUEL DPOA: Daughter History of Present Illness History of Present Illness Ms Mcmillan is an 85-year-old female past medical history of hypertension and dementia, presents the ED [facility] after patient was seen on the ground just next to her bed with complaints of left leg and hip pain. Patient was seen prior to this 1 hour ago in her bed, no active complaints. Due to patient's dementia, history and review of systems are unable to be obtained. According to the daughter, patient is fairly mobile without using any cane or walker. She is able to dress herself and feed herself and use the toilet. No falls in the past. To OR, Status post left intertrochanteric femur fracture IM nailing. 06/20: Patient underwent surgical intervention yesterday. Patient evaluated examined at bedside. She cannot provide much history given mental status but from report she has improved. PT OT ordered. Weightbearing status per orthopedics. Continue Rocephin for now. 06/21: Patient evaluated examined at bedside. Does. Clinically improved a little more alert today. Continue to Rocephin for UTI. Can be switched to p.o. on discharge continue working with PT OT. Patient could possibly go over the weekend if placement found. 06/22: Patient evaluated examined at bedside. Resting in bed when evaluated. Did not really endorse any complaints. It appears that patient had denied for placement will need home health. 06/23: No acute events overnight. Patient seen and examined bedside. Patient still having uncontrolled pain during physical therapy and any time she is moving in bed. Discussed with daughter Nori about pain management. Apparently patient at assisted living facility was started on Celexa by a psychiatrist. We are currently waiting for medication reconciliation overnight [facility]. Nurse will call over there today. I have also instructed the nurse to make sure that the patient receives her pain medication about 30 minutes prior to any physical therapy session. Patient at this time is a total care and is not safe for discharge to assisted living facility. Patient will need to be in a long-term care facility. Patient's chart, labs, images were reviewed and discussed with RN 06/24: No overnight events. Completed antibiotic course for UTI. Not oriented. No complaints. 06/25: Febrile overnight, T-max 100.3 F. Her C. difficile resulted positive on 06/23. Will initiate oral vancomycin 125 mg 4 times daily x 10 days. Still having diarrhea, but denies any abdominal pain. 06/26: Patient seen and evaluated in bed. Denies any further diarrhea. Work with PT and recommended SNU. planner scheduler spoke with patient's daughter who declined SNU would like patient to go back to the [facility] with home health. Greater than 30 minutes spent managing the discharge of this patient. 06/27: Patient did not discharge back to [facility] yesterday, as they were unab le to accommodate her needs. Daughter is now okay with pursuing rehab. Referrals placed to rehab facilities, with acceptance pending. Still having diarrhea. Reinforced medication compliance. Vitals/I&O Vitals/I&O: Vital Signs Date Time Temp Pulse Resp B/P (MAP) Pulse Ox O2 Delivery O2 Flow Rate FiO2 06/27/21 08:00 Room Air 06/27/21 07:00 97.9 83 16 114/84 (94) 98 97.9 I & O 06/26/21 06/26/21 06/27/21 15:00 23:00 07:00 Intake Total 120 ml Balance 120 ml Physical Exam General: Alert, Cooperative Heart: Regular rate, Normal S1, Normal S2 Lungs: Clear Abdomen: Soft, No tenderness Extremities: No edema, Normal pulses Skin: Other (CDI) Assessment and Plan Assessmemt and Plan Problems Medical Problems: (1) Closed left hip fracture Status: Acute (2) Pain of left lower extremity Status: Acute Comment Review of Relevant I have reviewed the following items markus (where applicable) has been applied. Justifications for Admission Other Justification Left femur fracture ESTEBAN MARKS MD Jun 27, 2021 11:52
[2021-06-27 15:00] VITALS: BP 110/78
[2021-06-27 16:10] VITALS: BP 110/78
[2021-06-27 19:00] VITALS: BP 165/70
[2021-06-27] MEDS: MIRTAZAPINE 15 MG TABLET PO SCH (20:47)
[2021-06-27] MEDS: ACETAMINOPHEN 325 MG TABLET. PO PRN (20:47)
[2021-06-28 03:00] VITALS: BP 126/69
[2021-06-28 07:00] VITALS: BP 131/61
[2021-06-28] MEDS: oxyCODONE/APAP 5/325 1 TAB TABLET PO PRN (08:18)
[2021-06-28] MEDS: VANCOMYCIN 125 MG/2.5 ML ORAL SOLUTION. PO SCH ×4 (08:18→20:17)
[2021-06-28] MEDS: LACTOBACILLUS RHAMNOSUS GG 1 CAPSULE. PO SCH ×2 (08:18→20:17)
[2021-06-28] MEDS: APIXABAN 2.5 MG TABLET. PO SCH ×2 (08:18→20:16)
[2021-06-28] MEDS: busPIRone 5 MG TABLET. PO SCH ×2 (08:18→20:18)
[2021-06-28] MEDS: MEMANTINE 10 MG TABLET. PO SCH ×2 (08:18→20:19)
--- NOTE | 2021-06-28 08:39 | PDOC ---
[facility] [facility] PROGRESS NOTE Date of Service DOS: DATE: 06/28/21 TIME: 08:27 Chief Complaint Chief Complaint Assessment/Plan Acute left femur fracture status post left intertrochanteric femur intramedullary nail fixation 06/19/2021 Acute UTI - proteus mirabilis, s/p 4 doses IV rocephin and 2 doses of cefdinir. Course completed on 06/23/2021. C difficile diarrhea - likely secondary to antibiotic exposure from UTI. Will need 10 total days of treatment Mild hypokalemia History of Alzheimer's dementia Normocytic anemia History of vitamin B12 deficiency History of hypertension Admit to hospitalist service for further management Orthopedic consult, s/p ORIF femur Delirium prevention protocolexposure to daylight, open curtains, oriented to date time and people, avoid sedative acting medications. Lovenox for DVT prophylaxis --> eliquis 30 days Diet as tolerated CODE STATUS DNR Discussed with RN and MANUEL DPOA: Daughter History of Present Illness History of Present Illness Ms Mcmillan is an 85-year-old female past medical history of hypertension and dementia, presents the ED brought [facility] after patient was seen on the ground just next to her bed with complaints of left leg and hip pain. Patient was seen prior to this 1 hour ago in her bed, no active complaints. Due to patient's dementia, history and review of systems are unable to be obtained. According to the daughter, patient is fairly mobile without using any cane or walker. She is able to dress herself and feed herself and use the toilet. No falls in the past. To OR, Status post left intertrochanteric femur fracture IM nailing. 06/20: Patient underwent surgical intervention yesterday. Patient evaluated examined at bedside. She cannot provide much history given mental status but from report she has improved. PT OT ordered. Weightbearing status per orthopedics. Continue Rocephin for now. 06/21: Patient evaluated examined at bedside. Does. Clinically improved a little more alert today. Continue to Rocephin for UTI. Can be switched to p.o. on discharge continue working with PT OT. Patient could possibly go over the weekend if placement found. 06/22: Patient evaluated examined at bedside. Resting in bed when evaluated. Did not really endorse any complaints. It appears that patient had denied for placement will need home health. 06/23: No acute events overnight. Patient seen and examined bedside. Patient still having uncontrolled pain during physical therapy and any time she is moving in bed. Discussed with daughter Nori about pain management. A pparently patient at assisted living facility was started on Celexa by a psychiatrist. We are currently waiting for medication reconciliation overnight [facility]. Nurse will call over there today. I have also instructed the nurse to make sure that the patient receives her pain medication about 30 minutes prior to any physical therapy session. Patient at this time is a total care and is not safe for discharge to assisted living facility. Patient will need to be in a long-term care facility. Patient's chart, labs, images were reviewed and discussed with RN 06/24: No overnight events. Completed antibiotic course for UTI. Not oriented. No complaints. 06/25: Febrile overnight, T-max 100.3 F. Her C. difficile resulted positive on 06/23. Will initiate oral vancomycin 125 mg 4 times daily x 10 days. Still having diarrhea, but denies any abdominal pain. 06/26: Patient seen and evaluated in bed. Denies any further diarrhea. Work with PT and recommended SNU. exercise planner spoke with patient's daughter who declined SNU would like patient to go back to the [facility] with home health. 06/27: Patient did not discharge back to [facility] yesterday, as they were unable to accommodate her needs. Daughter is now okay with pursuing rehab. Referrals placed to rehab facilities, with acceptance pending. Still having diarrhea. c diff positive. Reinforced medication compliance. Still with diarrhea but she is taking all her meds including oral vancomycin. Working with therapy. She is easily redirected. Pleasant. Has a little bit of epigastric tenderness after taking medications but otherwise no complaints leg pain well controlled no shortness of breath or chest pain. Vitals/I&O Vitals/I&O: Vital Signs Date Time Temp Pulse Resp B/P (MAP) Pulse Ox O2 Delivery O2 Flow Rate FiO2 06/28/21 08:18 Room Air 06/28/21 03:00 98.1 84 20 126/69 (88) 95 98.1 Physical Exam General: Alert, Cooperative Heart: Regular rate, Normal S1, Normal S2 Lungs: Clear Abdomen: Soft, No tenderness Extremities: No edema, Normal pulses Skin: Other (CDI) Assessment and Plan Assessmemt and Plan Problems Medical Problems: (1) Closed left hip fracture Status: Acute (2) Pain of left lower extremity Status: Acute Comment Review of Relevant I have reviewed the following items markus (where applicable) has been applied. Justifications for Admission Other Justification Left femur fracture MADDISON LAROSE MD Jun 28, 2021 08:39
[2021-06-28 11:00] VITALS: BP 131/77
[2021-06-28 15:00] VITALS: BP 112/54
--- NOTE | 2021-06-28 18:37 | NUR ---
Patient alarm went off around 17:50 and the charged nurse response to the alarm immediately and the patient had a witness/assist to the floor non injury fall. When I got there patient already on the floor with Missy there, so we assess the patient and help her back to the chair and then assisted her to bed. Dr. Lindsey was page, general car yard supervisor Negin was notified and Nguyen ROSA was notified.
[2021-06-28 19:00] VITALS: BP 135/59
[2021-06-28] MEDS: MIRTAZAPINE 15 MG TABLET PO SCH (20:18)
[2021-06-28] MEDS: traMADol 50 MG TABLET PO PRN (20:37)
[2021-06-28 23:00] VITALS: BP 129/55
[2021-06-29 07:00] VITALS: BP 150/67
[2021-06-29] MEDS: APIXABAN 2.5 MG TABLET. PO SCH ×2 (08:49→21:34)
[2021-06-29] MEDS: LACTOBACILLUS RHAMNOSUS GG 1 CAPSULE. PO SCH ×2 (08:49→21:34)
[2021-06-29] MEDS: MEMANTINE 10 MG TABLET. PO SCH ×2 (08:49→21:34)
[2021-06-29] MEDS: busPIRone 5 MG TABLET. PO SCH ×2 (08:49→21:34)
[2021-06-29] MEDS: traMADol 50 MG TABLET PO PRN ×2 (08:49→16:21)
[2021-06-29] MEDS: VANCOMYCIN 125 MG/2.5 ML ORAL SOLUTION. PO SCH ×4 (08:53→21:38)
--- NOTE | 2021-06-29 10:28 | PDOC ---
[facility] [facility] PROGRESS NOTE Date of Service DOS: DATE: 06/29/21 TIME: 10:26 Chief Complaint Chief Complaint Assessment/Plan Acute left femur fracture status post left intertrochanteric femur intramedullary nail fixation 06/19/2021 Acute UTI - proteus mirabilis, s/p 4 doses IV rocephin and 2 doses of cefdinir. Course completed on 06/23/2021. C difficile diarrhea - likely secondary to antibiotic exposure from UTI. Will need 10 total days of treatment Mild hypokalemia History of Alzheimer's dementia Normocytic anemia History of vitamin B12 deficiency History of hypertension Admit to hospitalist service for further management Orthopedic consult, s/p ORIF femur Delirium prevention protocolexposure to daylight, open curtains, oriented to date time and people, avoid sedative acting medications. Lovenox for DVT prophylaxis --> eliquis 30 days Diet as tolerated CODE STATUS DNR Discussed with RN and MANUEL DPOA: Daughter History of Present Illness History of Present Illness Ms Mcmillan is an 85-year-old female past medical history of hypertension and dementia, presents the ED [facility] after patient was seen on the ground just next to her bed with complaints of left leg and hip pain. Patient was seen prior to this 1 hour ago in her bed, no active complaints. Due to patient's dementia, history and review of systems are unable to be obtained. According to the daughter, patient is fairly mobile without using any cane or walker. She is able to dress herself and feed herself and use the toilet. No falls in the past. To OR, Status post left intertrochanteric femur fracture IM nailing. 06/20: Patient underwent surgical intervention yesterday. Patient evaluated examined at bedside. She cannot provide much history given mental status but from report she has improved. PT OT ordered. Weightbearing status per orthopedics. Continue Rocephin for now. 06/21: Patient evaluated examined at bedside. Does. Clinically improved a little more alert today. Continue to Rocephin for UTI. Can be switched to p.o. on discharge continue working with PT OT. Patient could possibly go over the weekend if placement found. 06/22: Patient evaluated examined at bedside. Resting in bed when evaluated. Did not really endorse any complaints. It appears that patient had denied for placement will need home health. 06/23: No acute events overnight. Patient seen and examined bedside. Patient still having uncontrolled pain during physical therapy and any time she is moving in bed. Discussed with daughter Nori about pain management. A pparently patient at assisted living facility was started on Celexa by a psychiatrist. We are currently waiting for medication reconciliation overnight [facility]. Nurse will call over there today. I have also instructed the nurse to make sure that the patient receives her pain medication about 30 minutes prior to any physical therapy session. Patient at this time is a total care and is not safe for discharge to assisted living facility. Patient will need to be in a long-term care facility. Patient's chart, labs, images were reviewed and discussed with RN 06/24: No overnight events. Completed antibiotic course for UTI. Not oriented. No complaints. 06/25: Febrile overnight, T-max 100.3 F. Her C. difficile resulted positive on 06/23. Will initiate oral vancomycin 125 mg 4 times daily x 10 days. Still having diarrhea, but denies any abdominal pain. 06/26: Patient seen and evaluated in bed. Denies any further diarrhea. Work with PT and recommended SNU. systems planner spoke with patient's daughter who declined SNU would like patient to go back to the [facility] with home health. 06/27: Patient did not discharge back to [facility] yesterday, as they were unable to accommodate her needs. Daughter is now okay with pursuing rehab. Referrals placed to rehab facilities, with acceptance pending. Still having diarrhea. c diff positive. Reinforced medication compliance. 06/28: Still with diarrhea but she is taking all her meds including oral vancomycin. Working with therapy. She is easily redirected. Pleasant. Has a little bit of epigastric tenderness after taking medications but otherwise no complaints leg pain well controlled no shortness of breath or chest pain. 06/29: Afebrile. Continue vancomycin for C. difficile. systems planner working on SNU placement for left femur fracture. This has been made difficult due to patient's dementia behavior. Vitals/I&O Vitals/I&O: Vital Signs Date Time Temp Pulse Resp B/P (MAP) Pulse Ox O2 Delivery O2 Flow Rate FiO2 06/29/21 09:19 Room Air 06/29/21 07:00 97.5 94 18 150/67 (94) 94 97.5 06/28/21 07:55 6.0 I & O 06/28/21 06/28/21 06/29/21 15:00 23:00 07:00 Intake Total 100 ml Balance 100 ml Physical Exam General: Alert, Cooperative Heart: Regular rate, Normal S1, Normal S2 Lungs: Clear Abdomen: Soft, No tenderness Extremities: No edema, Normal pulses Skin: Other (CDI) Assessment and Plan Assessmemt and Plan Problems Medical Problems: (1) Closed left hip fracture Status: Acute (2) Pain of left lower extremity Status: Acute Comment Review of Relevant I have reviewed the following items markus (where applicable) has been applied. Justifications for Admission Other Justification Left femur fracture ESTEBAN MARKS MD Jun 29, 2021 10:28
[2021-06-29 11:00] VITALS: BP 130/76
[2021-06-29 15:00] VITALS: BP 131/49
[2021-06-29 19:00] VITALS: BP 121/55
[2021-06-29] MEDS: MIRTAZAPINE 15 MG TABLET PO SCH (21:34)
[2021-06-29 23:00] VITALS: BP 107/54
[2021-06-30 07:00] VITALS: BP 155/74
[2021-06-30] MEDS: MEMANTINE 10 MG TABLET. PO SCH ×2 (08:30→21:59)
[2021-06-30] MEDS: busPIRone 5 MG TABLET. PO SCH ×2 (08:30→21:59)
[2021-06-30] MEDS: traMADol 50 MG TABLET PO PRN ×2 (08:30→14:12)
[2021-06-30] MEDS: APIXABAN 2.5 MG TABLET. PO SCH ×2 (08:30→21:59)
[2021-06-30] MEDS: LACTOBACILLUS RHAMNOSUS GG 1 CAPSULE. PO SCH ×2 (08:30→21:59)
[2021-06-30] MEDS: VANCOMYCIN 125 MG/2.5 ML ORAL SOLUTION. PO SCH ×4 (08:32→22:04)
--- NOTE | 2021-06-30 09:58 | PDOC ---
[facility] [facility] PROGRESS NOTE Date of Service DOS: DATE: 06/30/21 TIME: 09:54 Chief Complaint Chief Complaint Assessment/Plan Acute left femur fracture status post left intertrochanteric femur intramedullary nail fixation 06/19/2021 Acute UTI - proteus mirabilis, s/p 4 doses IV rocephin and 2 doses of cefdinir. Course completed on 06/23/2021. C difficile diarrhea - likely secondary to antibiotic exposure from UTI. Will need 10 total days of treatment Mild hypokalemia History of Alzheimer's dementia Normocytic anemia History of vitamin B12 deficiency History of hypertension Admit to hospitalist service for further management Orthopedic consult, s/p ORIF femur Delirium prevention protocolexposure to daylight, open curtains, oriented to date time and people, avoid sedative acting medications. Lovenox for DVT prophylaxis --> eliquis 30 days Diet as tolerated CODE STATUS DNR Discussed with RN and MANUEL DPOA: Daughter History of Present Illness History of Present Illness Ms Mcmillan is an 85-year-old female past medical history of hypertension and dementia, presents the ED brought in by [facility] after patient was seen on the ground just next to her bed with complaints of left leg and hip pain. Patient was seen prior to this 1 hour ago in her bed, no active complaints. Due to patient's dementia, history and review of systems are unable to be obtained. According to the daughter, patient is fairly mobile without using any cane or walker. She is able to dress herself and feed herself and use the toilet. No falls in the past. To OR, Status post left intertrochanteric femur fracture IM nailing. 06/20: Patient underwent surgical intervention yesterday. Patient evaluated examined at bedside. She cannot provide much history given mental status but from report she has improved. PT OT ordered. Weightbearing status per orthopedics. Continue Rocephin for now. 06/21: Patient evaluated examined at bedside. Does. Clinically improved a little more alert today. Continue to Rocephin for UTI. Can be switched to p.o. on discharge continue working with PT OT. Patient could possibly go over the weekend if placement found. 06/22: Patient evaluated examined at bedside. Resting in bed when evaluated. Did not really endorse any complaints. It appears that patient had denied for placement will need home health. 06/23: No acute events overnight. Patient seen and examined bedside. Patient still having uncontrolled pain during physical therapy and any time she is moving in bed. Discussed with daughter Nori about pain management. A pparently patient at assisted living [facility] was started on Celexa by a psychiatrist. We are currently waiting for medication reconciliation overnight [facility]. Nurse will call over there today. I have also instructed the nurse to make sure that the patient receives her pain medication about 30 minutes prior to any physical therapy session. Patient at this time is a total care and is not safe for discharge to assisted living facility. Patient will need to be in a long-term care facility. Patient's chart, labs, images were reviewed and discussed with RN 06/24: No overnight events. Completed antibiotic course for UTI. Not oriented. No complaints. 06/25: Febrile overnight, T-max 100.3 F. Her C. difficile resulted positive on 06/23. Will initiate oral vancomycin 125 mg 4 times daily x 10 days. Still having diarrhea, but denies any abdominal pain. 06/26: Patient seen and evaluated in bed. Denies any further diarrhea. Work with PT and recommended SNU. partner integration planner spoke with patient's daughter who declined SNU would like patient to go back to the [facility] with home health. 06/27: Patient did not discharge back to The [facility] yesterday, as they were unable to accommodate her needs. Daughter is now okay with pursuing rehab. Referrals placed to rehab facilities, with acceptance pending. Still having diarrhea. c diff positive. Reinforced medication compliance. 06/28: Still with diarrhea but she is taking all her meds including oral vancomycin. Working with therapy. She is easily redirected. Pleasant. Has a little bit of epigastric tenderness after taking medications but otherwise no complaints leg pain well controlled no shortness of breath or chest pain. 06/29: Afebrile. Continue vancomycin for C. difficile. partner integration planner working on SNU placement for left femur fracture. This has been made difficult due to patient's dementia behavior. 06/30: Afebrile. S/P left intertrochanteric femur intramedullary nail fixation for acute left femur fracture. Family now amenable to SNU. cloud services architect looking for rehab facility that will accept patients based on her dementia behaviors. Continue vancomycin for C. difficile. Vitals/I&O Vitals/I&O: Vital Signs Date Time Temp Pulse Resp B/P (MAP) Pulse Ox O2 Delivery O2 Flow Rate FiO2 06/30/21 08:30 Room Air 06/30/21 07:00 97.5 92 18 155/74 (101) 94 97.5 I & O 06/29/21 06/29/21 06/30/21 15:00 23:00 07:00 Intake Total 237 ml 237 ml Balance 237 ml 237 ml Physical Exam General: Alert, Cooperative Heart: Regular rate, Normal S1, Normal S2 Lungs: Clear Abdomen: Soft, No tenderness Extremities: No edema, Normal pulses Skin: Other (CDI) Assessment and Plan Assessmemt and Plan Problems Medical Problems: (1) Closed left hip fracture Status: Acute (2) Pain of left lower extremity Status: Acute Comment Review of Relevant I have reviewed the following items markus (where applicable) has been applied. Justifications for Admission Other Justification Left femur fracture ESTEBAN MARKS MD Jun 30, 2021 09:58
[2021-06-30 11:00] VITALS: BP 115/42
[2021-06-30 15:00] VITALS: BP 139/58
[2021-06-30 19:00] VITALS: BP 132/57
[2021-06-30] MEDS: MIRTAZAPINE 15 MG TABLET PO SCH (21:59)
[2021-06-30 23:00] VITALS: BP 120/64
[2021-07-01] VITALS (7 sets, daily range): BP systolic 90–148; BP diastolic 53–71
[2021-07-01] MEDS: APIXABAN 2.5 MG TABLET. PO SCH ×2 (08:52→20:38)
[2021-07-01] MEDS: MEMANTINE 10 MG TABLET. PO SCH ×2 (08:52→20:38)
[2021-07-01] MEDS: traMADol 50 MG TABLET PO PRN ×2 (08:52→20:38)
[2021-07-01] MEDS: LACTOBACILLUS RHAMNOSUS GG 1 CAPSULE. PO SCH ×2 (08:52→20:38)
[2021-07-01] MEDS: VANCOMYCIN 125 MG/2.5 ML ORAL SOLUTION. PO SCH ×4 (08:52→20:40)
[2021-07-01] MEDS: busPIRone 5 MG TABLET. PO SCH ×2 (08:52→20:38)
--- NOTE | 2021-07-01 11:40 | PDOC ---
[facility] [facility] PROGRESS NOTE Date of Service DOS: DATE: 07/01/21 TIME: 11:39 Chief Complaint Chief Complaint Assessment/Plan Acute left femur fracture status post left intertrochanteric femur intramedullary nail fixation 06/19/2021 Acute UTI - proteus mirabilis, s/p 4 doses IV rocephin and 2 doses of cefdinir. Course completed on 06/23/2021. C difficile diarrhea - likely secondary to antibiotic exposure from UTI. Will need 10 total days of treatment Mild hypokalemia History of Alzheimer's dementia Normocytic anemia History of vitamin B12 deficiency History of hypertension Admit to hospitalist service for further management Orthopedic consult, s/p ORIF femur Delirium prevention protocolexposure to daylight, open curtains, oriented to date time and people, avoid sedative acting medications. Lovenox for DVT prophylaxis --> eliquis 30 days Diet as tolerated CODE STATUS DNR Discussed with RN and MANUEL DPOA: Daughter History of Present Illness History of Present Illness 07/01/2021 Patient seen and examined Chart reviewed Discussed with RN She is resting with no apparent distress Ms Mcmillan is an 85-year-old female past medical history of hypertension and ely ia, presents the ED brought in [facility] after patient was seen on the ground just next to her bed with complaints of left leg and hip pain. Patient was seen prior to this 1 hour ago in her bed, no active complaints. Due to patient's dementia, history and review of systems are unable to be obtained. According to the daughter, patient is fairly mobile without using any cane or walker. She is able to dress herself and feed herself and use the toilet. No falls in the past. To OR, Status post left intertrochanteric femur fracture IM nailing. 06/20: Patient underwent surgical intervention yesterday. Patient evaluated examined at bedside. She cannot provide much history given mental status but from report she has improved. PT OT ordered. Weightbearing status per orthopedics. Continue Rocephin for now. 06/21: Patient evaluated examined at bedside. Does. Clinically improved a little more alert today. Continue to Rocephin for UTI. Can be switched to p.o. on discharge continue working with PT OT. Patient could possibly go over the weekend if placement found. 06/22: Patient evaluated examined at bedside. Resting in bed when evaluated. Did not really endorse any complaints. It appears that patient had denied for placement will need home health. 06/23: No acute events overnight. Patient seen and examined bedside. Patient still having uncontrolled pain during physical therapy and any time she is moving in bed. Discussed with daughter Nori about pain management. Apparently patient at assisted living facility was started on Celexa by a psychiatrist. We are currently waiting for medication reconciliation overnight [facility]. Nurse will call over there today. I have also instructed the nurse to make sure that the patient receives her pain medication about 30 minutes prior to any physical therapy session. Patient at this time is a total care and is not safe for discharge to assisted living facility. Patient will need to be in a long-term care facility. Patient's chart, labs, images were reviewed and discussed with RN 06/24: No overnight events. Completed antibiotic course for UTI. Not oriented. No complaints. 06/25: Febrile overnight, T-max 100.3 F. Her C. difficile resulted positive on 06/23. Will initiate oral vancomycin 125 mg 4 times daily x 10 days. Still having diarrhea, but denies any abdominal pain. 06/26: Patient seen and evaluated in bed. Denies any further diarrhea. Work with PT and recommended SNU. senior program planner spoke with patient's daughter who declined SNU would like patient to go back to the [facility] with home health. 06/27: Patient did not discharge back to [facility] yesterday, as they were unable to accommodate her needs. Daughter is now okay with pursuing rehab. Referrals placed to rehab facilities, with acceptance pending. Still having diarrhea. c diff positive. Reinforced medication compliance. 06/28: Still with diarrhea but she is taking all her meds including oral vancomycin. Working with therapy. She is easily redirected. Pleasant. Has a little bit of epigastric tenderness after taking medications but otherwise no complaints leg pain well controlled no shortness of breath or chest pain. 06/29: Afebrile. Continue vancomycin for C. difficile. senior program planner working on SNU placement for left femur fracture. This has been made difficult due to patient's dementia behavior. 06/30: Afebrile. S/P left intertrochanteric femur intramedullary nail fixation for acute left femur fracture. Family now amenable to SNU. greeter guest services looking for rehab facility that will accept patients based on her dementia behaviors. Continue vancomycin for C. difficile. Vitals/I&O Vitals/I&O: Vital Signs Date Time Temp Pulse Resp B/P (MAP) Pulse Ox O2 Delivery O2 Flow Rate FiO2 07/01/21 11:00 98.4 80 16 118/62 (80) 97 Room Air 6.0 98.4 Physical Exam General: No acute distress Heart: Regular rate, Normal S1, Normal S2 Lungs: Clear Abdomen: Soft, No tenderness Extremities: No edema, Normal pulses Skin: Other (CDI) Assessment and Plan Assessmemt and Plan Problems Medical Problems: (1) Closed left hip fracture Status: Acute (2) Pain of left lower extremity Status: Acute Urinary tract infection - Suprapubic catheter associated urinary tract infection with polymicrobial organisms - Morganella morganii, Serratia marcescens, Enterococcus faecalis, and Actinotignum schaaliii. Invanz through 07/06 + linezolid, PICC placed. ID consulted Chronic pain. Tobacco use - counseled on cessation Failure to thrive Weakness and debility - needs skilled rehab Severe protein calorie malnutrition - due to infection Inability to take care of himself Anemia - likely of chronic disease Suprapubic Dozier FEN - Regular diet PPX - Lovenox FULL CODE Dispo - Inpatient to SNF for completion of antibiotics and rehab Comment Review of Relevant I have reviewed the following items markus (where applicable) has been applied. Justifications for Admission Other Justification Left femur fracture TEMI XIAO III DO Jul 01, 2021 11:40
[2021-07-01] MEDS: MIRTAZAPINE 15 MG TABLET PO SCH (20:38)
[2021-07-02] MEDS: traMADol 50 MG TABLET PO PRN ×3 (02:55→20:00)
[2021-07-02 03:25] VITALS: BP 131/70
[2021-07-02 07:00] VITALS: BP 135/49
[2021-07-02] MEDS: VANCOMYCIN 125 MG/2.5 ML ORAL SOLUTION. PO SCH ×4 (08:51→20:01)
[2021-07-02] MEDS: APIXABAN 2.5 MG TABLET. PO SCH ×2 (08:51→20:01)
[2021-07-02] MEDS: busPIRone 5 MG TABLET. PO SCH ×2 (08:51→20:01)
[2021-07-02] MEDS: MEMANTINE 10 MG TABLET. PO SCH ×2 (08:51→20:01)
[2021-07-02] MEDS: LACTOBACILLUS RHAMNOSUS GG 1 CAPSULE. PO SCH ×2 (08:51→20:00)
--- NOTE | 2021-07-02 10:39 | NUR ---
SW following. Discussed with RN, MANUEL followed up with Chrystal at [facility] to determine if she had come to do bedside eval yet. Chrystal stated she hadn't. MANUEL requested this be done, as this is something we have been waiting on. MANUEL notified Sana (train planner) who will continue working with this patient. MANUEL will continue to follow.
[2021-07-02] MEDS: ANTI-COAG MONITOR BY PHARMACY. MC PRN (12:29)
[2021-07-02 15:00] VITALS: BP 106/51
--- NOTE | 2021-07-02 15:36 | PDOC ---
[employer] PROGRESS NOTE Date of Service DOS: DATE: 07/02/21 TIME: 15:34 Chief Complaint Chief Complaint Assessment/Plan Acute left femur fracture status post left intertrochanteric femur intramedullary nail fixation 06/19/2021 Acute UTI - proteus mirabilis, s/p 4 doses IV rocephin and 2 doses of cefdinir. Course completed on 06/23/2021. C difficile diarrhea - likely secondary to antibiotic exposure from UTI. Will need 10 total days of treatment Mild hypokalemia History of Alzheimer's dementia Normocytic anemia History of vitamin B12 deficiency History of hypertension Admit to hospitalist service for further management Orthopedic consult, s/p ORIF femur Delirium prevention protocolexposure to daylight, open curtains, oriented to date time and people, avoid sedative acting medications. Lovenox for DVT prophylaxis --> eliquis 30 days Diet as tolerated CODE STATUS DNR Discussed with RN and MANUEL DPOA: Daughter History of Present Illness History of Present Illness 07/02 Patient evaluated examined at bedside. Resting no apparent distress still quite altered mental status. Appears she has been accepted at a facility awaiting insurance authorization right now. Continue p.o. Vanco for C. difficile treatment. Plan of care discussed with bedside RN. 07/01/2021 Patient seen and examined Chart reviewed Discussed with RN She is resting with no apparent distress Ms Mcmillan is an 85-year-old female past medical history of hypertension and dementia, presents the ED brought in by [facility] after patient was seen on the ground just next to her bed with complaints of left leg and hip pain. Patient was seen prior to this 1 hour ago in her bed, no active complaints. Due to patient's dementia, history and review of systems are unable to be obtained. According to the daughter, patient is fairly mobile without using any cane or walker. She is able to dress herself and feed herself and use the toilet. No falls in the past. To OR, Status post left intertrochanteric femur fracture IM nailing. 06/20: Patient underwent surgical intervention yesterday. Patient evaluated examined at bedside. She cannot provide much history given mental status but from report she has improved. PT OT ordered. Weightbearing status per orthopedics. Continue Rocephin for now. 06/21: Patient evaluated examined at bedside. Does. Clinically improved a little more alert today. Continue to Rocephin for UTI. Can be switched to p.o. on discharge continue working with PT OT. Patient could possibly go over the weekend if placement found. 06/22: Patient evaluated examined at bedside. Resting in bed when evaluated. Did not really endorse any complaints. It appears that patient had denied for placement will need home health. 06/23: No acute events overnight. Patient seen and examined bedside. Patient still having uncontrolled pain during physical therapy and any time she is moving in bed. Discussed with daughter Nori about pain management. Apparently patient at assisted living facility was started on Celexa by a psychiatrist. We are currently waiting for medication reconciliation overnight [facility]. Nurse will call over there today. I have also instructed the nurse to make sure that the patient receives her pain medication about 30 minutes prior to any physical therapy session. Patient at this time is a total care and is not safe for discharge to assisted living facility. Patient will need to be in a long-term care facility. Patient's chart, labs, images were reviewed and discussed with RN 06/24: No overnight events. Completed antibiotic course for UTI. Not oriented. No complaints. 06/25: Febrile overnight, T-max 100.3 F. Her C. difficile resulted positive on 06/23. Will initiate oral vancomycin 125 mg 4 times daily x 10 days. Still having diarrhea, but denies any abdominal pain. 06/26: Patient seen and evaluated in bed. Denies any further diarrhea. Work with PT and recommended SNU. technical planner spoke with patient's daughter who declined SNU would like patient to go back to the [facility] with home health. 06/27: Patient did not discharge back to [facility] yesterday, as they were unable to accommodate her needs. Daughter is now okay with pursuing rehab. Referrals placed to rehab facilities, with acceptance pending. Still having diarrhea. c diff positive. Reinforced medication compliance. 06/28: Still with diarrhea but she is taking all her meds including oral vancomycin. Working with therapy. She is easily redirected. Pleasant. Has a little bit of epigastric tenderness after taking medications but otherwise no complaints leg pain well controlled no shortness of breath or chest pain. 06/29: Afebrile. Continue vancomycin for C. difficile. technical planner working on SNU placement for left femur fracture. This has been made difficult due to patient's dementia behavior. 06/30: Afebrile. S/P left intertrochanteric femur intramedullary nail fixation for acute left femur fracture. Family now amenable to SNU. director pharmacy services looking for rehab facility that will accept patients based on her dementia behaviors. Continue vancomycin for C. difficile. Vitals/I&O Vitals/I&O: Vital Signs Date Time Temp Pulse Resp B/P (MAP) Pulse Ox O2 Delivery O2 Flow Rate FiO2 07/02/21 15:00 97.7 85 20 106/51 (69) 96 Room Air 97.7 07/01/21 15:23 6.0 l I & O 07/01/21 07/01/21 07/02/21 15:00 23:00 07:00 Intake Total 120 ml Balance 120 ml Physical Exam General: No acute distress Heart: Regular rate, Normal S1, Normal S2 Lungs: Clear Abdomen: Soft, No tenderness Extremities: No edema, Normal pulses Skin: Other (CDI) Labs Labs: Laboratory Tests Test 07/02/21 13:30 SARS-CoV-2 Antigen (Rapid) Negative (NEGATIVE) Assessment and Plan Assessmemt and Plan Problems Medical Problems: (1) Closed left hip fracture Status: Acute (2) Pain of left lower extremity Status: Acute Comment Review of Relevant I have reviewed the following items markus (where applicable) has been applied. Medications: Current Medications Medications (Trade) Dose Ordered Sig/Zachary Route PRN Reason Start Time Stop Time Status Last Admin Dose Admin Info (Anti-Coagulation Monitoring By Pharmacy) 1 each PRN DAILY PRN MC PER PROTOCOL 07/02/21 12:30 07/02/21 12:29 Justifications for Admission Other Justification Left femur fracture MADDISON CANELA MD Jul 02, 2021 15:35
[2021-07-02 19:40] VITALS: BP 154/55
[2021-07-02] MEDS: MIRTAZAPINE 15 MG TABLET PO SCH (20:00)
[2021-07-02 23:19] VITALS: BP 126/61
[2021-07-03 03:18] VITALS: BP 127/50
[2021-07-03 07:00] VITALS: BP 133/41
[2021-07-03] MEDS: LACTOBACILLUS RHAMNOSUS GG 1 CAPSULE. PO SCH ×2 (08:04→19:36)
[2021-07-03] MEDS: MEMANTINE 10 MG TABLET. PO SCH ×2 (08:04→19:36)
[2021-07-03] MEDS: APIXABAN 2.5 MG TABLET. PO SCH ×2 (08:04→19:36)
[2021-07-03] MEDS: VANCOMYCIN 125 MG/2.5 ML ORAL SOLUTION. PO SCH ×4 (08:05→19:40)
[2021-07-03] MEDS: busPIRone 5 MG TABLET. PO SCH ×2 (08:05→19:35)
[2021-07-03 11:00] VITALS: BP 126/59
--- NOTE | 2021-07-03 11:29 | PDOC ---
[employer] [facility] PROGRESS NOTE Date of Service DOS: DATE: 07/03/21 TIME: 11:28 Chief Complaint Chief Complaint Assessment/Plan Acute left femur fracture status post left intertrochanteric femur intramedullary nail fixation 06/19/2021 Acute UTI - proteus mirabilis, s/p 4 doses IV rocephin and 2 doses of cefdinir. Course completed on 06/23/2021. C difficile diarrhea - likely secondary to antibiotic exposure from UTI. Will need 10 total days of treatment Mild hypokalemia History of Alzheimer's dementia Normocytic anemia History of vitamin B12 deficiency History of hypertension Admit to hospitalist service for further management Orthopedic consult, s/p ORIF femur Delirium prevention protocolexposure to daylight, open curtains, oriented to date time and people, avoid sedative acting medications. Lovenox for DVT prophylaxis --> eliquis 30 days Diet as tolerated CODE STATUS DNR Discussed with RN and MANUEL DPOA: Daughter History of Present Illness History of Present Illness 07/03 Patient evaluated examined at bedside. Resting in bed with ongoing altered mental status. Continue oral vancomycin for C. difficile treatment has been accepted facility awaiting insurance authorization. Can discharge whenever that is received. 07/02 Patient evaluated examined at bedside. Resting no apparent distress still quite altered mental status. Appears she has been accepted at a facility awaiting insurance authorization right now. Continue p.o. Vanco for C. difficile treatment. Plan of care discussed with bedside RN. 07/01/2021 Patient seen and examined Chart reviewed Discussed with RN She is resting with no apparent distress Ms Mcmillan is an 85-year-old female past medical history of hypertension and dementia, presents the ED brought in by EMS [facility] after patient was seen on the ground just next to her bed with complaints of left leg and hip pain. Patient was seen prior to this 1 hour ago in her bed, no active complaints. Due to patient's dementia, history and review of systems are unable to be obtained. According to the daughter, patient is fairly mobile without using any cane or walker. She is able to dress herself and feed herself and use the toilet. No falls in the past. To OR, Status post left intertrochanteric femur fracture IM nailing. 06/20: Patient underwent surgical intervention yesterday. Patient evaluated examined at bedside. She cannot provide much history given mental status but from report she has improved. PT OT ordered. Weightbearing status per orthopedics. Continue Rocephin for now. 06/21: Patient evaluated examined at bedside. Does. Clinically improved a little more alert today. Continue to Rocephin for UTI. Can be switched to p.o. on discharge continue working with PT OT. Patient could possibly go over the weekend if placement found. 06/22: Patient evaluated examined at bedside. Resting in bed when evaluated. Did not really endorse any complaints. It appears that patient had denied for placement will need home health. 06/23: No acute events overnight. Patient seen and examined bedside. Patient still having uncontrolled pain during physical therapy and any time she is moving in bed. Discussed with daughter Nori about pain management. Apparently patient at assisted living facility was started on Celexa by a psychiatrist. We are currently waiting for medication reconciliation overnight [facility]. Nurse will call over there today. I have also instructed the nurse to make sure that the patient receives her pain medication about 30 minutes prior to any physical therapy session. Patient at this time is a total care and is not safe for discharge to assisted living facility. Patient will need to be in a long-term care facility. Patient's chart, labs, images were reviewed and discussed with RN 06/24: No overnight events. Completed antibiotic course for UTI. Not oriented. No complaints. 06/25: Febrile overnight, T-max 100.3 F. Her C. difficile resulted positive on 06/23. Will initiate oral vancomycin 125 mg 4 times daily x 10 days. Still having diarrhea, but denies any abdominal pain. 06/26: Patient seen and evaluated in bed. Denies any further diarrhea. Work with PT and recommended SNU. land use planner spoke with patient's daughter who declined SNU would like patient to go back to the [facility] with home health. 06/27: Patient did not discharge back to [facility] yesterday, as they were unable to accommodate her needs. Daughter is now okay with pursuing rehab. Referrals placed to rehab facilities, with acceptance pending. Still having diarrhea. c diff positive. Reinforced medication compliance. 06/28: Still with diarrhea but she is taking all her meds including oral vancomycin. Working with therapy. She is easily redirected. Pleasant. Has a little bit of epigastric tenderness after taking medications but otherwise no complaints leg pain well controlled no shortness of breath or chest pain. 06/29: Afebrile. Continue vancomycin for C. difficile. land use planner working on SNU placement for left femur fracture. This has been made difficult due to patient's dementia behavior. 06/30: Afebrile. S/P left intertrochanteric femur intramedullary nail fixation for acute left femur fracture. Family now amenable to SNU. clinical services professional looking for rehab facility that will accept patients based on her dementia behaviors. Continue vancomycin for C. difficile. Vitals/I&O Vitals/I&O: Vital Signs Date Time Temp Pulse Resp B/P (MAP) Pulse Ox O2 Delivery O2 Flow Rate FiO2 07/03/21 07:12 Room Air 07/03/21 07:00 97.6 79 18 133/41 (71) 92 97.6 I & O 07/02/21 07/02/21 07/03/21 15:00 23:00 07:00 Intake Total 240 ml 150 ml Balance 240 ml 150 ml Physical Exam General: No acute distress Heart: Regular rate, Normal S1, Normal S2 Lungs: Clear Abdomen: Soft, No tenderness Extremities: No edema, Normal pulses Skin: Other (CDI) Labs Labs: Laboratory Tests Test 07/02/21 13:30 SARS-CoV-2 Antigen (Rapid) Negative (NEGATIVE) Assessment and Plan Assessmemt and Plan Problems Medical Problems: (1) Closed left hip fracture Status: Acute (2) Pain of left lower extremity Status: Acute Comment Review of Relevant I have reviewed the following items markus (where applicable) has been applied. Medications: Current Medications Medications (Trade) Dose Ordered Sig/Zachary Route PRN Reason Start Time Stop Time Status Last Admin Dose Admin Info (Anti-Coagulation Monitoring By Pharmacy) 1 each PRN DAILY PRN MC PER PROTOCOL 07/02/21 12:30 07/02/21 12:29 Justifications for Admission Other Justification Left femur fracture MADDISON CANELA MD Jul 03, 2021 11:29
[2021-07-03 15:00] VITALS: BP 131/48
[2021-07-03 19:34] VITALS: BP 140/63
[2021-07-03] MEDS: MIRTAZAPINE 15 MG TABLET PO SCH (19:35)
[2021-07-03] MEDS: traMADol 50 MG TABLET PO PRN (19:35)
[2021-07-03 23:00] VITALS: BP 146/68
[2021-07-04 03:01] VITALS: BP 135/47
[2021-07-04 07:00] VITALS: BP 105/45
[2021-07-04] MEDS: MEMANTINE 10 MG TABLET. PO SCH ×2 (07:59→21:19)
[2021-07-04] MEDS: busPIRone 5 MG TABLET. PO SCH ×2 (07:59→21:20)
[2021-07-04] MEDS: APIXABAN 2.5 MG TABLET. PO SCH ×2 (07:59→21:20)
[2021-07-04] MEDS: LACTOBACILLUS RHAMNOSUS GG 1 CAPSULE. PO SCH ×2 (07:59→21:20)
[2021-07-04] MEDS: VANCOMYCIN 125 MG/2.5 ML ORAL SOLUTION. PO SCH ×4 (07:59→21:25)
[2021-07-04 11:00] VITALS: BP 121/43
--- NOTE | 2021-07-04 11:41 | PDOC ---
[employer] [facility] PROGRESS NOTE Date of Service DOS: DATE: 07/04/21 TIME: 11:41 Chief Complaint Chief Complaint Assessment/Plan Acute left femur fracture status post left intertrochanteric femur intramedullary nail fixation 06/19/2021 Acute UTI - proteus mirabilis, s/p 4 doses IV rocephin and 2 doses of cefdinir. Course completed on 06/23/2021. C difficile diarrhea - likely secondary to antibiotic exposure from UTI. Will need 10 total days of treatment Mild hypokalemia History of Alzheimer's dementia Normocytic anemia History of vitamin B12 deficiency History of hypertension Admit to hospitalist service for further management Orthopedic consult, s/p ORIF femur Delirium prevention protocolexposure to daylight, open curtains, oriented to date time and people, avoid sedative acting medications. Lovenox for DVT prophylaxis --> eliquis 30 days Diet as tolerated CODE STATUS DNR Discussed with RN and MANUEL DPOA: Daughter History of Present Illness History of Present Illness 07/04 Patient evaluated and examined at bedside. Was trying to work with PT when evaluated. Continue oral Vanco. Awaiting insurance Auth can discharge once that it is received 07/03 Patient evaluated examined at bedside. Resting in bed with ongoing altered mental status. Continue oral vancomycin for C. difficile treatment has been accepted facility awaiting insurance authorization. Can discharge whenever that is received. 07/02 Patient evaluated examined at bedside. Resting no apparent distress still quite altered mental status. Appears she has been accepted at a facility awaiting insurance authorization right now. Continue p.o. Vanco for C. difficile treatment. Plan of care discussed with bedside RN. 07/01/2021 Patient seen and examined Chart reviewed Discussed with RN She is resting with no apparent distress Ms Mcmillan is an 85-year-old female past medical history of hypertension and dementia, presents the ED brought in by EMS [facility] after patient was seen on the ground just next to her bed with complaints of left leg and hip pain. Patient was seen prior to this 1 hour ago in her bed, no active complaints. Due to patient's dementia, history and review of systems are unable to be obtained. According to the daughter, patient is fairly mobile without using any cane or walker. She is able to dress herself and feed herself and use the toilet. No falls in the past. To OR, Status post left intertrochanteric femur fracture IM nailing. 06/20: Patient underwent surgical intervention yesterday. Patient evaluated examined at bedside. She cannot provide much history given mental status but from report she has improved. PT OT ordered. Weightbearing status per orthopedics. Continue Rocephin for now. 06/21: Patient evaluated examined at bedside. Does. Clinically improved a little more alert today. Continue to Rocephin for UTI. Can be switched to p.o. on discharge continue working with PT OT. Patient could possibly go over the weekend if placement found. 06/22: Patient evaluated examined at bedside. Resting in bed when evaluated. Did not really endorse any complaints. It appears that patient had denied for placement will need home health. 06/23: No acute events overnight. Patient seen and examined bedside. Patient still having uncontrolled pain during physical therapy and any time she is moving in bed. Discussed with daughter Nori about pain management. Apparently patient at assisted living facility was started on Celexa by a psychiatrist. We are currently waiting for medication reconciliation overnight [facility]. Nurse will call over there today. I have also instructed the nurse to make sure that the patient receives her pain medication about 30 minutes prior to any physical therapy session. Patient at this time is a total care and is not safe for discharge to assisted living facility. Patient will need to be in a long-term care facility. Patient's chart, labs, images were reviewed and discussed with RN 06/24: No overnight events. Completed antibiotic course for UTI. Not oriented. No complaints. 06/25: Febrile overnight, T-max 100.3 F. Her C. difficile resulted positive on 06/23. Will initiate oral vancomycin 125 mg 4 times daily x 10 days. Still having diarrhea, but denies any abdominal pain. 06/26: Patient seen and evaluated in bed. Denies any further diarrhea. Work with PT and recommended SNU. tool planner spoke with patient's daughter who declined SNU would like patient to go back to the [facility] with home health. 06/27: Patient did not discharge back to [facility] yesterday, as they were unable to accommodate her needs. Daughter is now okay with pursuing rehab. Referrals placed to rehab facilities, with acceptance pending. Still having diarrhea. c diff positive. Reinforced medication compliance. 06/28: Still with diarrhea but she is taking all her meds including oral vancomycin. Working with therapy. She is easily redirected. Pleasant. Has a little bit of epigastric tenderness after taking medications but otherwise no complaints leg pain well controlled no shortness of breath or chest pain. 06/29: Afebrile. Continue vancomycin for C. difficile. tool planner working on SNU placement for left femur fracture. This has been made difficult due to patient's dementia behavior. 06/30: Afebrile. S/P left intertrochanteric femur intramedullary nail fixation for acute left femur fracture. Family now amenable to SNU. patient services manager looking for rehab facility that will accept patients based on her dementia behaviors. Continue vancomycin for C. difficile. Vitals/I&O Vitals/I&O: Vital Signs Date Time Temp Pulse Resp B/P (MAP) Pulse Ox O2 Delivery O2 Flow Rate FiO2 07/04/21 07:06 Room Air 07/04/21 07:00 98.3 81 18 105/45 (65) 92 98.3 I & O 07/03/21 07/03/21 07/04/21 15:00 23:00 07:00 Intake Total 125 ml 430 ml 270 ml Balance 125 ml 430 ml 270 ml Physical Exam General: Cooperative, No acute distress Heart: Regular rate, Normal S1, Normal S2 Lungs: Clear Abdomen: Soft, No tenderness Extremities: No edema, Normal pulses Skin: Other (CDI) Assessment and Plan Assessmemt and Plan Problems Medical Problems: (1) Closed left hip fracture Status: Acute (2) Pain of left lower extremity Status: Acute Comment Review of Relevant I have reviewed the following items markus (where applicable) has been applied. Justifications for Admission Other Justification Left femur fracture MADDISON CANELA MD Jul 04, 2021 11:41
[2021-07-04 19:00] VITALS: BP 105/83
[2021-07-04] MEDS: MIRTAZAPINE 15 MG TABLET PO SCH (21:20)
[2021-07-04] MEDS: traMADol 50 MG TABLET PO PRN (21:20)
[2021-07-05 03:00] VITALS: BP 130/44
[2021-07-05 07:00] VITALS: BP 119/58
[2021-07-05] MEDS: busPIRone 5 MG TABLET. PO SCH ×2 (09:22→20:40)
[2021-07-05] MEDS: MEMANTINE 10 MG TABLET. PO SCH ×2 (09:22→20:41)
[2021-07-05] MEDS: APIXABAN 2.5 MG TABLET. PO SCH ×2 (09:22→20:40)
[2021-07-05] MEDS: traMADol 50 MG TABLET PO PRN ×2 (09:22→20:40)
[2021-07-05] MEDS: LACTOBACILLUS RHAMNOSUS GG 1 CAPSULE. PO SCH ×2 (09:22→20:41)
[2021-07-05] MEDS: VANCOMYCIN 125 MG/2.5 ML ORAL SOLUTION. PO SCH (10:01)
[2021-07-05 11:00] VITALS: BP 132/64
[2021-07-05 15:00] VITALS: BP 121/43
[2021-07-05 19:00] VITALS: BP 131/47
--- NOTE | 2021-07-05 20:27 | PDOC ---
[facility] [facility] PROGRESS NOTE Date of Service DOS: DATE: 07/05/21 TIME: 20:26 Chief Complaint Chief Complaint Assessment/Plan Acute left femur fracture status post left intertrochanteric femur intramedullary nail fixation 06/19/2021 Acute UTI - proteus mirabilis, s/p 4 doses IV rocephin and 2 doses of cefdinir. Course completed on 06/23/2021. C difficile diarrhea - likely secondary to antibiotic exposure from UTI. Will need 10 total days of treatment Mild hypokalemia History of Alzheimer's dementia Normocytic anemia History of vitamin B12 deficiency History of hypertension Admit to hospitalist service for further management Orthopedic consult, s/p ORIF femur Delirium prevention protocolexposure to daylight, open curtains, oriented to date time and people, avoid sedative acting medications. Lovenox for DVT prophylaxis --> eliquis 30 days Diet as tolerated CODE STATUS DNR Discussed with RN and MANUEL DPOA: Daughter History of Present Illness History of Present Illness 07/05 Patient evaluated and examined at bedside. No major clinical changes. To continue therapy. Can discharge once placement found. 07/04 Patient evaluated and examined at bedside. Was trying to work with PT when evaluated. Continue oral Vanco. Awaiting insurance Auth can discharge once that it is received 07/03 Patient evaluated examined at bedside. Resting in bed with ongoing altered mental status. Continue oral vancomycin for C. difficile treatment has been accepted facility awaiting insurance authorization. Can discharge whenever that is received. 07/02 Patient evaluated examined at bedside. Resting no apparent distress still quite altered mental status. Appears she has been accepted at a facility awaiting insurance authorization right now. Continue p.o. Vanco for C. difficile treatment. Plan of care discussed with bedside RN. 07/01/2021 Patient seen and examined Chart reviewed Discussed with RN She is resting with no apparent distress Ms Mcmillan is an 85-year-old female past medical history of hypertension and dementia, presents the ED brought in by EMS from [facility] after patient was seen on the ground just next to her bed with complaints of left leg and hip pain. Patient was seen prior to this 1 hour ago in her bed, no active complaints. Due to patient's dementia, history and review of systems are unable to be obtained. According to the daughter, patient is fairly mobile without using any cane or walker. She is able to dress herself and feed herself and use the toilet. No falls in the past. To OR, Status post left intertrochanteric femur fracture IM nailing. 06/20: Patient underwent surgical intervention yesterday. Patient evaluated examined at bedside. She cannot provide much history given mental status but from report she has improved. PT OT ordered. Weightbearing status per orthoped ics. Continue Rocephin for now. 06/21: Patient evaluated examined at bedside. Does. Clinically improved a little more alert today. Continue to Rocephin for UTI. Can be switched to p.o. on discharge continue working with PT OT. Patient could possibly go over the weekend if placement found. 06/22: Patient evaluated examined at bedside. Resting in bed when evaluated. Did not really endorse any complaints. It appears that patient had denied for placement will need home health. 06/23: No acute events overnight. Patient seen and examined bedside. Patient still having uncontrolled pain during physical therapy and any time she is moving in bed. Discussed with daughter Nori about pain management. Apparently patient at assisted living facility was started on Celexa by a psychiatrist. We are currently waiting for medication reconciliation overnight [facility]. Nurse will call over there today. I have also instructed the nurse to make sure that the patient receives her pain medication about 30 minutes prior to any physical therapy session. Patient at this time is a total care and is not safe for discharge to assisted living facility. Patient will need to be in a long-term care facility. Patient's chart, labs, images were reviewed and discussed with RN 06/24: No overnight events. Completed antibiotic course for UTI. Not oriented. No complaints. 06/25: Febrile overnight, T-max 100.3 F. Her C. difficile resulted positive on 06/23. Will initiate oral vancomycin 125 mg 4 times daily x 10 days. Still having diarrhea, but denies any abdominal pain. 06/26: Patient seen and evaluated in bed. Denies any further diarrhea. Work with PT and recommended SNU. quality director spoke with patient's daughter who declined SNU would like patient to go back to the [facility] with home health. 06/27: Patient did not discharge back to The [facility] yesterday, as they were unable to accommodate her needs. Daughter is now okay with pursuing rehab. Referrals placed to rehab facilities, with acceptance pending. Still having diarrhea. c diff positive. Reinforced medication compliance. 06/28: Still with diarrhea but she is taking all her meds including oral v ancomycin. Working with therapy. She is easily redirected. Pleasant. Has a little bit of epigastric tenderness after taking medications but otherwise no complaints leg pain well controlled no shortness of breath or chest pain. 06/29: Afebrile. Continue vancomycin for C. difficile. quality director working on SNU placement for left femur fracture. This has been made difficult due to patient's dementia behavior. 06/30: Afebrile. S/P left intertrochanteric femur intramedullary nail fixation for acute left femur fracture. Family now amenable to SNU. human services professional looking for rehab facility that will accept patients based on her dementia behaviors. Continue vancomycin for C. difficile. Vitals/I&O Vitals/I&O: Vital Signs Date Time Temp Pulse Resp B/P (MAP) Pulse Ox O2 Delivery O2 Flow Rate FiO2 07/05/21 20:23 Room Air 6.0 07/05/21 19:00 98.0 93 20 131/47 (75) 95 98.0 I & O 07/04/21 07/04/21 07/05/21 15:00 23:00 07:00 Intake Total 150 ml 0 ml Output Total 2 ml Balance 148 ml 0 ml Physical Exam General: Cooperative, No acute distress Heart: Regular rate, Normal S1, Normal S2 Lungs: Clear Abdomen: Soft, No tenderness Extremities: No edema, Normal pulses Skin: Other (CDI) Assessment and Plan Assessmemt and Plan Problems Medical Problems: (1) Closed left hip fracture Status: Acute (2) Pain of left lower extremity Status: Acute Comment Review of Relevant I have reviewed the following items markus (where applicable) has been applied. Justifications for Admission Other Justification Left femur fracture MADDISON CANELA MD Jul 05, 2021 20:27
[2021-07-05] MEDS: MIRTAZAPINE 15 MG TABLET PO SCH (20:40)
[2021-07-05 23:02] VITALS: BP 94/58
[2021-07-06 03:03] VITALS: BP 142/55
[2021-07-06 07:00] VITALS: BP 126/55
--- NOTE | 2021-07-06 09:26 | PDOC ---
[facility] [facility] PROGRESS NOTE Date of Service DOS: DATE: 07/06/21 TIME: 09:25 Chief Complaint Chief Complaint Assessment/Plan Acute left femur fracture status post left intertrochanteric femur intramedullary nail fixation 06/19/2021 Acute UTI - proteus mirabilis, s/p 4 doses IV rocephin and 2 doses of cefdinir. Course completed on 06/23/2021. C difficile diarrhea - likely secondary to antibiotic exposure from UTI. Will need 10 total days of treatment Mild hypokalemia History of Alzheimer's dementia Normocytic anemia History of vitamin B12 deficiency History of hypertension Admit to hospitalist service for further management Orthopedic consult, s/p ORIF femur Delirium prevention protocolexposure to daylight, open curtains, oriented to date time and people, avoid sedative acting medications. Lovenox for DVT prophylaxis --> eliquis 30 days Diet as tolerated CODE STATUS DNR Discussed with RN and MANUEL DPOA: Daughter History of Present Illness History of Present Illness 07/06 Patient evaluated examined at bedside. No major clinical change. Just waiting for placement. 07/05 Patient evaluated and examined at bedside. No major clinical changes. To continue therapy. Can discharge once placement found. 07/04 Patient evaluated and examined at bedside. Was trying to work with PT when arnaldo luated. Continue oral Vanco. Awaiting insurance Auth can discharge once that it is received 07/03 Patient evaluated examined at bedside. Resting in bed with ongoing altered mental status. Continue oral vancomycin for C. difficile treatment has been acc epted facility awaiting insurance authorization. Can discharge whenever that is received. 07/02 Patient evaluated examined at bedside. Resting no apparent distress still quite altered mental status. Appears she has been accepted at a facility awaiting i nsurance authorization right now. Continue p.o. Vanco for C. difficile treatment. Plan of care discussed with bedside RN. 07/01/2021 Patient seen and examined Chart reviewed Discussed with RN She is resting with no apparent distress Ms Mcmillan is an 85-year-old female past medical history of hypertension and dementia, presents the ED brought in by EMS [facility] after patient was seen on the ground just next to her bed with complaints of left leg and hip pain. Patient was seen prior to this 1 hour ago in her bed, no active complaints. Due to patient's dementia, history and review of systems are unable to be obtained. According to the daughter, patient is fairly mobile without using any cane or walker. She is able to dress herself and feed herself and use the toilet. No falls in the past. To OR, Status post left intertrochanteric femur fracture IM nailing. 06/20: Patient underwent surgical intervention yesterday. Patient evaluated examined at bedside. She cannot provide much history given mental status but from report she has improved. PT OT ordered. Weightbearing status per orthopedics. Continue Rocephin for now. 06/21: Patient evaluated examined at bedside. Does. Clinically improved a little more alert today. Continue to Rocephin for UTI. Can be switched to p.o. on discharge continue working with PT OT. Patient could possibly go over the weekend if placement found. 06/22: Patient evaluated examined at bedside. Resting in bed when evaluated. Did not really endorse any complaints. It appears that patient had denied for placement will need home health. 06/23: No acute events overnight. Patient seen and examined bedside. Patient still having uncontrolled pain during physical therapy and any time she is moving in bed. Discussed with daughter Nori about pain management. Apparently patient at assisted living facility was started on Celexa by a psychiatrist. We are currently waiting for medication reconciliation overnight [facility]. Nurse will call over there today. I have also instructed the nurse to make sure that the patient receives her pain medication about 30 minutes prior to any physical therapy session. Patient at this time is a total care and is not safe for discharge to assisted living facility. Patient will need to be in a long-term care facility. Patient's chart, labs, images were reviewed and discussed with RN 06/24: No overnight events. Completed antibiotic course for UTI. Not oriented. No complaints. 06/25: Febrile overnight, T-max 100.3 F. Her C. difficile resulted positive on 06/23. Will initiate oral vancomycin 125 mg 4 times daily x 10 days. Still having diarrhea, but denies any abdominal pain. 06/26: Patient seen and evaluated in bed. Denies any further diarrhea. Work with PT and recommended SNU. shoe lay out planner spoke with patient's daughter who declined SNU would like patient to go back to the [facility] with home health. 06/27: Patient did not discharge back to [facility] yesterday, as they were unable to accommodate her needs. Daughter is now okay with pursuing rehab. Referrals placed to rehab facilities, with acceptance pending. Still having diarrhea. c diff positive. Reinforced medication compliance. 06/28: Still with diarrhea but she is taking all her meds including oral vancomycin. Working with therapy. She is easily redirected. Pleasant. Has a little bit of epigastric tenderness after taking medications but otherwise no complaints leg pain well controlled no shortness of breath or chest pain. 06/29: Afebrile. Continue vancomycin for C. difficile. shoe lay out planner working on SNU placement for left femur fracture. This has been made difficult due to patient's dementia behavior. 06/30: Afebrile. S/P left intertrochanteric femur intramedullary nail fixation for acute left femur fracture. Family now amenable to SNU. account services representative looking for rehab facility that will accept patients based on her dementia behaviors. Continue vancomycin for C. difficile. Vitals/I&O Vitals/I&O: Vital Signs Date Time Temp Pulse Resp B/P (MAP) Pulse Ox O2 Delivery O2 Flow Rate FiO2 07/06/21 07:00 98.1 80 18 126/55 (78) 95 Room Air 98.1 07/05/21 20:40 6.0 I & O 07/05/21 07/05/21 07/06/21 15:00 23:00 07:00 Output Total 0 ml Balance 0 ml Physical Exam General: Cooperative, No acute distress Heart: Regular rate, Normal S1, Normal S2 Lungs: Clear Abdomen: Soft, No tenderness Extremities: No edema, Normal pulses Skin: Other (CDI) Assessment and Plan Assessmemt and Plan Problems Medical Problems: (1) Closed left hip fracture Status: Acute (2) Pain of left lower extremity Status: Acute Comment Review of Relevant I have reviewed the following items markus (where applicable) has been applied. Justifications for Admission Other Justification Left femur fracture MADDISON CANELA MD Jul 06, 2021 09:26
[2021-07-06] MEDS: busPIRone 5 MG TABLET. PO SCH ×2 (10:23→21:51)
[2021-07-06] MEDS: APIXABAN 2.5 MG TABLET. PO SCH ×2 (10:23→21:50)
[2021-07-06] MEDS: LACTOBACILLUS RHAMNOSUS GG 1 CAPSULE. PO SCH ×2 (10:23→21:51)
[2021-07-06] MEDS: MEMANTINE 10 MG TABLET. PO SCH ×2 (10:23→21:51)
[2021-07-06] MEDS: traMADol 50 MG TABLET PO PRN (10:23)
[2021-07-06 11:01] VITALS: BP 155/47
[2021-07-06 15:00] VITALS: BP 119/40
[2021-07-06 19:30] VITALS: BP 138/54
[2021-07-06] MEDS: MIRTAZAPINE 15 MG TABLET PO SCH (21:51)
[2021-07-06 23:28] VITALS: BP 134/62
[2021-07-07 03:15] VITALS: BP 120/47
[2021-07-07 07:30] VITALS: BP 140/58
[2021-07-07] MEDS: MEMANTINE 10 MG TABLET. PO SCH ×2 (09:18→20:47)
[2021-07-07] MEDS: APIXABAN 2.5 MG TABLET. PO SCH ×2 (09:18→20:47)
[2021-07-07] MEDS: LACTOBACILLUS RHAMNOSUS GG 1 CAPSULE. PO SCH ×2 (09:18→20:47)
[2021-07-07] MEDS: busPIRone 5 MG TABLET. PO SCH ×2 (09:18→20:47)
[2021-07-07] MEDS: traMADol 50 MG TABLET PO PRN (10:11)
[2021-07-07 11:00] VITALS: BP 103/60
--- NOTE | 2021-07-07 12:02 | PDOC ---
[employer] [facility] PROGRESS NOTE Date of Service DOS: DATE: 07/07/21 TIME: 12:02 Chief Complaint Chief Complaint Assessment/Plan Acute left femur fracture status post left intertrochanteric femur intramedullary nail fixation 06/19/2021 Acute UTI - proteus mirabilis, s/p 4 doses IV rocephin and 2 doses of cefdinir. Course completed on 06/23/2021. C difficile diarrhea - likely secondary to antibiotic exposure from UTI. Will need 10 total days of treatment Mild hypokalemia History of Alzheimer's dementia Normocytic anemia History of vitamin B12 deficiency History of hypertension Admit to hospitalist service for further management Orthopedic consult, s/p ORIF femur Delirium prevention protocolexposure to daylight, open curtains, oriented to date time and people, avoid sedative acting medications. Lovenox for DVT prophylaxis --> eliquis 30 days Diet as tolerated CODE STATUS DNR Discussed with RN and MANUEL DPOA: Daughter History of Present Illness History of Present Illness 07/07 Patient evaluated and examined at bedside. No major clinical changes. Continue therapy. Can discharge once placement found. 07/06 Patient evaluated examined at bedside. No major clinical change. Just waiting for placement. 07/05 Patient evaluated and examined at bedside. No major clinical changes. To continue therapy. Can discharge once placement found. 07/04 Patient evaluated and examined at bedside. Was trying to work with PT when evaluated. Continue oral Vanco. Awaiting insurance Auth can discharge once that it is received 07/03 Patient evaluated examined at bedside. Resting in bed with ongoing altered mental status. Continue oral vancomycin for C. difficile treatment has been accepted facility awaiting insurance authorization. Can discharge whenever that is received. 07/02 Patient evaluated examined at bedside. Resting no apparent distress still quite altered mental status. Appears she has been accepted at a facility awaiting insurance authorization right now. Continue p.o. Vanco for C. difficile treatment. Plan of care discussed with bedside RN. 07/01/2021 Patient seen and examined Chart reviewed Discussed with RN She is resting with no apparent distress Ms Mcmillan is an 85-year-old female past medical history of hypertension and dementia, presents the ED brought in by EMS [facility] after patient was seen on the ground just next to her bed with complaints of left leg and hip pain. Patient was seen prior to this 1 hour ago in her bed, no active complaints. Due to patient's dementia, history and review of systems are unable to be obtained. According to the daughter, patient is fairly mobile without using any cane or walker. She is able to dress herself and feed herself and use the toilet. No falls in the past. To OR, Status post left intertrochanteric femur fracture IM nailing. 06/20: Patient underwent surgical intervention yesterday. Patient evaluated examined at bedside. She cannot provide much history given mental status but from report she has improved. PT OT ordered. Weightbearing status per orthopedics. Continue Rocephin for now. 06/21: Patient evaluated examined at bedside. Does. Clinically improved a little more alert today. Continue to Rocephin for UTI. Can be switched to p.o. on discharge continue working with PT OT. Patient could possibly go over the weekend if placement found. 06/22: Patient evaluated examined at bedside. Resting in bed when evaluated. Did not really endorse any complaints. It appears that patient had denied for placement will need home health. 06/23: No acute events overnight. Patient seen and examined bedside. Patient still having uncontrolled pain during physical therapy and any time she is moving in bed. Discussed with daughter Nori about pain management. Apparently patient at assisted living facility was started on Celexa by a psyc hiatrist. We are currently waiting for medication reconciliation overnight [facility]. Nurse will call over there today. I have also instructed the nurse to make sure that the patient receives her pain medication about 30 minutes prior to any physical therapy session. Patient at this time is a total care and is not safe for discharge to assisted living facility. Patient will need to be in a long-term care facility. Patient's chart, labs, images were reviewed and discussed with RN 06/24: No overnight events. Completed antibiotic course for UTI. Not oriented. No complaints. 06/25: Febrile overnight, T-max 100.3 F. Her C. difficile resulted positive on 06/23. Will initiate oral vancomycin 125 mg 4 times daily x 10 days. Still having diarrhea, but denies any abdominal pain. 06/26: Patient seen and evaluated in bed. Denies any further diarrhea. Work with PT and recommended SNU. systems requirements planner spoke with patient's daughter who declined SNU would like patient to go back to the [facility] with home health. 06/27: Patient did not discharge back to [facility] yesterday, as they were unable to accommodate her needs. Daughter is now okay with pursuing rehab. Referrals placed to rehab facilities, with acceptance pending. Still having diarrhea. c diff positive. Reinforced medication compliance. 06/28: Still with diarrhea but she is taking all her meds including oral vancomycin. Working with therapy. She is easily redirected. Pleasant. Has a little bit of epigastric tenderness after taking medications but otherwise no complaints leg pain well controlled no shortness of breath or chest pain. 06/29: Afebrile. Continue vancomycin for C. difficile. systems requirements planner working on SNU placement for left femur fracture. This has been made difficult due to patient's dementia behavior. 06/30: Afebrile. S/P left intertrochanteric femur intramedullary nail fixation for acute left femur fracture. Family now amenable to SNU. convention services manager looking for rehab facility that will accept patients based on her dementia behaviors. Continue vancomycin for C. difficile. Vitals/I&O Vitals/I&O: Vital Signs Date Time Temp Pulse Resp B/P (MAP) Pulse Ox O2 Delivery O2 Flow Rate FiO2 07/07/21 11:44 Room Air 07/07/21 11:00 97.8 97 16 103/60 (74) 91 97.8 07/07/21 08:05 6.0 I & O 07/06/21 07/06/21 07/07/21 15:00 23:00 07:00 Intake Total 50 ml 100 ml 240 ml Output Total 1 ml 1 ml 1 ml Balance 49 ml 99 ml 239 ml Physical Exam General: Cooperative, No acute distress Heart: Regular rate, Normal S1, Normal S2 Lungs: Clear Abdomen: Soft, No tenderness Extremities: No edema, Normal pulses Skin: Other (CDI) Assessment and Plan Assessmemt and Plan Problems Medical Problems: (1) Closed left hip fracture Status: Acute (2) Pain of left lower extremity Status: Acute Comment Review of Relevant I have reviewed the following items markus (where applicable) has been applied. Justifications for Admission Other Justification Left femur fracture MADDISON CANELA MD Jul 07, 2021 12:02
[2021-07-07] MEDS ORDERED: LOPERAMIDE 2 MG CAPSULE PO PRN (15:00)
[2021-07-07 19:20] VITALS: BP 155/64
[2021-07-07] MEDS: MIRTAZAPINE 15 MG TABLET PO SCH (20:47)
[2021-07-07 23:00] VITALS: BP 126/43
[2021-07-08 03:00] VITALS: BP 145/54
[2021-07-08 07:00] VITALS: BP 112/58
[2021-07-08] MEDS: APIXABAN 2.5 MG TABLET. PO SCH ×2 (07:52→20:12)
[2021-07-08] MEDS: busPIRone 5 MG TABLET. PO SCH ×2 (07:52→20:12)
[2021-07-08] MEDS: LACTOBACILLUS RHAMNOSUS GG 1 CAPSULE. PO SCH ×2 (07:52→20:12)
[2021-07-08] MEDS: MIRTAZAPINE 15 MG TABLET PO SCH (07:52)
[2021-07-08] MEDS: MEMANTINE 10 MG TABLET. PO SCH ×2 (07:54→20:13)
[2021-07-08 11:00] VITALS: BP 117/52
--- NOTE | 2021-07-08 12:09 | PDOC ---
[facility] [facility] PROGRESS NOTE Date of Service DOS: DATE: 07/08/21 TIME: 12:08 Chief Complaint Chief Complaint Assessment/Plan Acute left femur fracture status post left intertrochanteric femur intramedullary nail fixation 06/19/2021 Acute UTI - proteus mirabilis, s/p 4 doses IV rocephin and 2 doses of cefdinir. Course completed on 06/23/2021. C difficile diarrhea - likely secondary to antibiotic exposure from UTI. Will need 10 total days of treatment Mild hypokalemia History of Alzheimer's dementia Normocytic anemia History of vitamin B12 deficiency History of hypertension Admit to hospitalist service for further management Orthopedic consult, s/p ORIF femur Delirium prevention protocolexposure to daylight, open curtains, oriented to date time and people, avoid sedative acting medications. Lovenox for DVT prophylaxis --> eliquis 30 days Diet as tolerated CODE STATUS DNR Discussed with RN and SW DPOA: Daughter History of Present Illness History of Present Illness 07/08: Loose stools improved off of oral vancomycin. Still intermittently confused with therapy. Awaiting placement no chest pain or shortness of breath 07/07 Patient evaluated and examined at bedside. No major clinical changes. Continue therapy. Can discharge once placement found. 07/06 Patient evaluated examined at bedside. No major clinical change. Just waiting for placement. 07/05 Patient evaluated and examined at bedside. No major clinical changes. To continue therapy. Can discharge once placement found. 07/04 Patient evaluated and examined at bedside. Was trying to work with PT when evaluated. Continue oral Vanco. Awaiting insurance Auth can discharge once that it is received 07/03 Patient evaluated examined at bedside. Resting in bed with ongoing altered mental status. Continue oral vancomycin for C. difficile treatment has been accepted facility awaiting insurance authorization. Can discharge whenever that is received. 07/02 Patient evaluated examined at bedside. Resting no apparent distress still quite altered mental status. Appears she has been accepted at a facility awaiting insurance authorization right now. Continue p.o. Vanco for C. difficile treatment. Plan of care discussed with bedside RN. 07/01/2021 Patient seen and examined Chart reviewed Discussed with RN She is resting with no apparent distress Ms Mcmillan is an 85-year-old female past medical history of hypertension and dementia, presents the ED brought in by EMS from proper [facility]ial after patient was seen on the ground just next to her bed with complaints of left leg and hip pain. Patient was seen prior to this 1 hour ago in her bed, no active complaints. Due to patient's dementia, history and review of systems are unable to be obtained. According to the daughter, patient is fairly mobile without using any cane or walker. She is able to dress herself and feed herself and use the toilet. No falls in the past. To OR, Status post left intertrochanteric femur fracture IM nailing. 06/20: Patient underwent surgical intervention yesterday. Patient evaluated examined at bedside. She cannot provide much history given mental status but from report she has improved. PT OT ordered. Weightbearing status per orthopedics. Continue Rocephin for now. 06/21: Patient evaluated examined at bedside. Does. Clinically improved a lit tle more alert today. Continue to Rocephin for UTI. Can be switched to p.o. on discharge continue working with PT OT. Patient could possibly go over the weekend if placement found. 06/22: Patient evaluated examined at bedside. Resting in bed when evaluated. Did not really endorse any complaints. It appears that patient had denied for placement will need home health. 06/23: No acute events overnight. Patient seen and examined bedside. Patient still having uncontrolled pain during physical therapy and any time she is moving in bed. Discussed with daughter Nori about pain management. Apparently patient at assisted living facility was started on Celexa by a psychiatrist. We are currently waiting for medication reconciliation overnight [facility]. Nurse will call over there today. I have also instructed the nurse to make sure that the patient receives her pain medication about 30 minutes prior to any physical therapy session. Patient at this time is a total care and is not safe for discharge to assisted living facility. Patient will need to be in a long-term care facility. Patient's chart, labs, images were reviewed and discussed with RN 06/24: No overnight events. Completed antibiotic course for UTI. Not oriented. No complaints. 06/25: Febrile overnight, T-max 100.3 F. Her C. difficile resulted positive on 06/23. Will initiate oral vancomycin 125 mg 4 times daily x 10 days. Still having diarrhea, but denies any abdominal pain. 06/26: Patient seen and evaluated in bed. Denies any further diarrhea. Work with PT and recommended SNU. funeral planner spoke with patient's daughter who declined SNU would like patient to go back to the [facility] with home health. 06/27: Patient did not discharge back to [facility] yesterday, as they were unable to accommodate her needs. Daughter is now okay with pursuing rehab. Referrals placed to rehab facilities, with acceptance pending. Still having diarrhea. c diff positive. Reinforced medication compliance. 06/28: Still with diarrhea but she is taking all her meds including oral vancomycin. Working with therapy. She is easily redirected. Pleasant. Has a little bit of epigastric tenderness after taking medications but otherwise no complaints leg pain well controlled no shortness of breath or chest pain. 06/29: Afebrile. Continue vancomycin for C. difficile. funeral planner working on SNU placement for left femur fracture. This has been made difficult due to patient's dementia behavior. 06/30: Afebrile. S/P left intertrochanteric femur intramedullary nail fixation for acute left femur fracture. Family now amenable to SNU. social services looking for rehab facility that will accept patients based on her dementia behaviors. Continue vancomycin for C. difficile. Vitals/I&O Vitals/I&O: Vital Signs Date Time Temp Pulse Resp B/P (MAP) Pulse Ox O2 Delivery O2 Flow Rate FiO2 07/08/21 11:00 75 16 117/52 (73) 95 Room Air 07/08/21 07:00 97.7 97.7 07/07/21 08:05 6.0 I & O 07/07/21 07/07/21 07/08/21 15:00 23:00 07:00 Intake Total 100 ml 500 ml Balance 100 ml 500 ml Physical Exam General: Cooperative, No acute distress Heart: Regular rate, Normal S1, Normal S2 Lungs: Clear Abdomen: Soft, No tenderness Extremities: No edema, Normal pulses Skin: Other (CDI) Assessment and Plan Assessmemt and Plan Problems Medical Problems: (1) Closed left hip fracture Status: Acute (2) Pain of left lower extremity Status: Acute Comment Review of Relevant I have reviewed the following items marksu (where applicable) has been applied. Medications: Current Medications Medications (Trade) Dose Ordered Sig/Zachary Route PRN Reason Start Time Stop Time Status Last Admin Dose Admin Loperamide HCl (Imodium) 2 mg PRN BID PRN PO DIARRHEA 07/07/21 15:00 07/07/21 15:17 Justifications for Admission Other Justification Left femur fracture MADDISON LAROSE MD Jul 08, 2021 12:09
[2021-07-08 15:00] VITALS: BP 107/50
[2021-07-08 19:00] VITALS: BP 133/55
[2021-07-08] MEDS: traMADol 50 MG TABLET PO PRN (20:13)
[2021-07-08 23:00] VITALS: BP 118/53
[2021-07-09 03:00] VITALS: BP 154/65
[2021-07-09] MEDS: traMADol 50 MG TABLET PO PRN (03:32)
[2021-07-09 07:00] VITALS: BP 116/52
[2021-07-09] MEDS: LACTOBACILLUS RHAMNOSUS GG 1 CAPSULE. PO SCH ×2 (09:38→20:49)
[2021-07-09] MEDS: busPIRone 5 MG TABLET. PO SCH ×2 (09:38→20:50)
[2021-07-09] MEDS: MEMANTINE 10 MG TABLET. PO SCH ×2 (09:38→20:49)
[2021-07-09] MEDS: APIXABAN 2.5 MG TABLET. PO SCH ×2 (09:39→20:49)
--- NOTE | 2021-07-09 10:13 | SNU/HH DC ---
DISCHARGE ORDERS DISCHARGE INFORMATION: DISCHARGE DATE: Jul 30, 2021 FINAL DIAGNOSIS Problems Medical Problems: (1) Closed left hip fracture Status: Acute (2) Pain of left lower extremity Status: Acute CONDITION ON DISCHARGE: Stable CODE STATUS: Code Status: DNR/DNI PRISON: SNF STAY <30 DAYS: Yes POST DISCHARGE ORDERS: ACTIVITY ORDERS: Activity as tolerated WEIGHT BEARING STATUS: As tolerated DIET AFTER DISCHARGE: Regular CHECKS AFTER DISCHARGE: CHECKS AFTER DISCHARGE: Check blood press - daily, Check your Temp as needed FOLLOW-UP: Additional Instructions: [facility] [address], [address] [place] [address] [facility] [id number] [place], [place] [id number] To complete Eliquis on 07/24/2021 and to complete oral vancomycin on 07/18/2021 TREATMENT/EQUIPMENT ORDERS: ADAPTIVE EQUIPMENT NEEDED: Four wheeled walker Physical Therapy For: Evalulation/Treatment Occupational Therapy For: Evaluation/Treatment DISCHARGE MEDICATIONS: Home Meds Active Scripts Tramadol Hcl (TRAMADOL HCL) 50 Mg Tablet, 50 MG PO PRN Q6HRS PRN for MODERATE-SEVERE PAIN for 6 Days, #24 TAB Prov:MADDISON LAROSE MD 07/30/21 Olanzapine (OLANZAPINE ODT) 5 Mg Tab.rapdis, 5 MG PO PRN BID PRN for ANXIETY / AGITATION for 30 Days, #60 TAB 2 Refills Prov:MADDISON LAROSE MD 07/30/21 Reported Medications Nut.tx.impaired Digestive Fxn (Ensure Clear Therapeutic) 237 Ml Liquid, 237 ML PO WITH MEALS for SUPPLEMENT, LIQUID 05/12/21 Cyanocobalamin (Vitamin B-12) (VITAMIN B-12) 1,000 Mcg Tab.subl, 1 TAB SL DAILY for B12 DEFICIENCY for 30 Days, #30 TAB 0 Refills 05/12/21 Acetaminophen (TYLENOL) 325 Mg Tablet, 2 TAB PO PRN Q6HRS PRN for PAIN/TEMP, #30 TAB 05/12/21 Mirtazapine (REMERON) 15 Mg Tablet, 1 TAB PO QHS for INSOPMNIA, #30 TAB 1 Refill 05/12/21 Melatonin (MELATONIN) 5 Mg Tab.rapdis, 5 MG PO DAILY for SLEEP, TAB 05/12/21 Memantine Hcl (NAMENDA) 10 Mg Tablet, 10 MG PO BID for DEMENTIA, TAB 05/12/21 Buspirone Hcl (BUSPIRONE HCL) 5 Mg Tablet, 0.5 TAB PO BID for ANXIETY, #60 TAB 2 Refills 05/12/21 MADDISON LAROSE MD Jul 09, 2021 10:13
--- NOTE | 2021-07-09 10:15 | PDOC ---
[facility] [facility] PROGRESS NOTE Date of Service DOS: DATE: 07/09/21 TIME: 10:14 Chief Complaint Chief Complaint Assessment/Plan Acute left femur fracture status post left intertrochanteric femur intramedullary nail fixation 06/19/2021 Acute UTI - proteus mirabilis, s/p 4 doses IV rocephin and 2 doses of cefdinir. Course completed on 06/23/2021. C difficile diarrhea - likely secondary to antibiotic exposure from UTI. Will need 10 total days of treatment Mild hypokalemia History of Alzheimer's dementia Normocytic anemia History of vitamin B12 deficiency History of hypertension Admit to hospitalist service for further management Orthopedic consult, s/p ORIF femur Delirium prevention protocolexposure to daylight, open curtains, oriented to date time and people, avoid sedative acting medications. Lovenox for DVT prophylaxis --> eliquis 30 days Diet as tolerated CODE STATUS DNR Discussed with RN and SW DPOA: Daughter 37 MIN PT exam, chart review, > 50% of time spent with exam, chart review, pt care coordination. History of Present Illness History of Present Illness 07/09: Easily redirectable hip pain well controlled on very occasional tramadol and Tylenol. Loose stools improved no dysuria. Awaiting rehab placement. 07/08: Loose stools improved off of oral vancomycin. Still intermittently confused with therapy. Awaiting placement no chest pain or shortness of breath 07/07 Patient evaluated and examined at bedside. No major clinical changes. Continue therapy. Can discharge once placement found. 07/06 Patient evaluated examined at bedside. No major clinical change. Just waiting for placement. 07/05 Patient evaluated and examined at bedside. No major clinical changes. To continue therapy. Can discharge once placement found. 07/04 Patient evaluated and examined at bedside. Was trying to work with PT when evaluated. Continue oral Vanco. Awaiting insurance Auth can discharge once that it is received 07/03 Patient evaluated examined at bedside. Resting in bed with ongoing altered mental status. Continue oral vancomycin for C. difficile treatment has been accepted facility awaiting insurance authorization. Can discharge whenever that is received. 07/02 Patient evaluated examined at bedside. Resting no apparent distress still quite altered mental status. Appears she has been accepted at a facility awaiting insurance authorization right now. Continue p.o. Vanco for C. difficile treatment. Plan of care discussed with bedside RN. 07/01/2021 Patient seen and examined Chart reviewed Discussed with RN She is resting with no apparent distress Ms Mcmillan is an 85-year-old female past medical history of hypertension and dementia, presents the ED brought in by EMS from [facility] after patient was seen on the ground just next to her bed with complaints of left leg and hip pain. Patient was seen prior to this 1 hour ago in her bed, no active complaints. Due to patient's dementia, history and review of systems are unable to be obtained. According to the daughter, patient is fairly mobile without using any cane or walker. She is able to dress herself and feed herself and use the toilet. No falls in the past. To OR, Status post left intertrochanteric femur fracture IM nailing. 06/20: Patient underwent surgical intervention yesterday. Patient evaluated examined at bedside. She cannot provide much history given mental status but from report she has improved. PT OT ordered. Weightbearing status per orthopedics. Continue Rocephin for now. 06/21: Patient evaluated examined at bedside. Does. Clinically improved a little more alert today. Continue to Rocephin for UTI. Can be switched to p.o. on discharge continue working with PT OT. Patient could possibly go over the weekend if placement found. 06/22: Patient evaluated examined at bedside. Resting in bed when evaluated. Did not really endorse any complaints. It appears that patient had denied for placement will need home health. 06/23: No acute events overnight. Patient seen and examined bedside. Patient still having uncontrolled pain during physical therapy and any time she is moving in bed. Discussed with daughter Nori about pain management. Apparently patient at assisted living facility was started on Celexa by a psychiatrist. We are currently waiting for medication reconciliation overnight [facility]. Nurse will call over there today. I have also instructed the nurse to make sure that the patient receives her pain medication about 30 minutes prior to any physical therapy session. Patient at this time is a total care and is not safe for discharge to assisted living facility. Patient will need to be in a long-term care facility. Patient's chart, labs, images were reviewed and discussed with RN 06/24: No overnight events. Completed antibiotic course for UTI. Not oriented. No complaints. 06/25: Febrile overnight, T-max 100.3 F. Her C. difficile resulted positive on 06/23. Will initiate oral vancomycin 125 mg 4 times daily x 10 days. Still having diarrhea, but denies any abdominal pain. 06/26: Patient seen and evaluated in bed. Denies any further diarrhea. Work with PT and recommended SNU. business continuity planner spoke with patient's daughter who declined SNU would like patient to go back to the [facility] with home health. 06/27: Patient did not discharge back to The [facility] yesterday, as they were unable to accommodate her needs. Daughter is now okay with pursuing rehab. Referrals placed to rehab facilities, with acceptance pending. Still having diarrhea. c diff positive. Reinforced medication compliance. 06/28: Still with diarrhea but she is taking all her meds including oral vancomycin. Working with therapy. She is easily redirected. Pleasant. Has a little bit of epigastric tenderness after taking medications but otherwise no complaints leg pain well controlled no shortness of breath or chest pain. 06/29: Afebrile. Continue vancomycin for C. difficile. business continuity planner working on SNU placement for left femur fracture. This has been made difficult due to patient's dementia behavior. 06/30: Afebrile. S/P left intertrochanteric femur intramedullary nail fixation for acute left femur fracture. Family now amenable to SNU. medical staff services coordinator looking for rehab facility that will accept patients based on her dementia behaviors. Continue vancomycin for C. difficile. Vitals/I&O Vitals/I&O: Vital Signs Date Time Temp Pulse Resp B/P (MAP) Pulse Ox O2 Delivery O2 Flow Rate FiO2 07/09/21 07:00 98.1 75 18 116/52 (73) 93 Room Air 98.1 07/09/21 03:32 6.0 I & O 07/08/21 07/08/21 07/09/21 15:00 23:00 07:00 Intake Total 690 ml 450 ml Output Total 0 ml 0 ml Balance 0 ml 690 ml 450 ml Physical Exam General: Cooperative, No acute distress Heart: Regular rate, Normal S1, Normal S2 Lungs: Clear Abdomen: Soft, No tenderness Extremities: No edema, Normal pulses Skin: Other (CDI) Assessment and Plan Assessmemt and Plan Problems Medical Problems: (1) Closed left hip fracture Status: Acute (2) Pain of left lower extremity Status: Acute Comment Review of Relevant I have reviewed the following items markus (where applicable) has been applied. Justifications for Admission Other Justification Left femur fracture MADDISON LAROSE MD Jul 09, 2021 10:15
[2021-07-09 11:00] VITALS: BP 130/47
[2021-07-09] MEDS: VANCOMYCIN 125 MG/2.5 ML ORAL SOLUTION. PO SCH ×3 (14:05→20:50)
[2021-07-09 15:00] VITALS: BP 118/55
[2021-07-09 19:00] VITALS: BP 147/56
[2021-07-09] MEDS: MIRTAZAPINE 15 MG TABLET PO SCH (20:50)
[2021-07-10 03:19] VITALS: BP 149/48
--- NOTE | 2021-07-10 09:22 | PDOC ---
[facility] PROGRESS NOTE Date of Service DOS: DATE: 07/10/21 TIME: 09:21 Chief Complaint Chief Complaint Assessment/Plan Acute left femur fracture status post left intertrochanteric femur intramedullary nail fixation 06/19/2021 Acute UTI - proteus mirabilis, s/p 4 doses IV rocephin and 2 doses of cefdinir. Course completed on 06/23/2021. C difficile diarrhea - likely secondary to antibiotic exposure from UTI. Will need additional 10 total days of treatment Mild hypokalemia History of Alzheimer's dementia Normocytic anemia History of vitamin B12 deficiency History of hypertension Admit to hospitalist service for further management Orthopedic consult, s/p ORIF femur Delirium prevention protocolexposure to daylight, open curtains, oriented to date time and people, avoid sedative acting medications. Lovenox for DVT prophylaxis --> eliquis 30 days Diet as tolerated CODE STATUS DNR Discussed with RN and SW DPOA: Daughter 37 MIN PT exam, chart review, > 50% of time spent with exam, chart review, pt care coordination. History of Present Illness History of Present Illness She is redirectable. After 3 doses back on oral vancomycin her stools have firmed up though she still had 4 bowel movements last 24 hours. No dysuria no shortness of breath or chest pain. She is able to ambulate with standby assistance with no pain complaints. 07/09: Easily redirectable hip pain well controlled on very occasional tramadol and Tylenol. Loose stools not improved no dysuria. Awaiting rehab placement. 07/08: Loose stools getting worse again off of oral vancomycin. Still intermittently confused with therapy. Awaiting placement no chest pain or shortness of breath 07/07 Patient evaluated and examined at bedside. No major clinical changes. Continue therapy. Can discharge once placement found. 07/06 Patient evaluated examined at bedside. No major clinical change. Just waiting for placement. 07/05 Patient evaluated and examined at bedside. No major clinical changes. To continue therapy. Can discharge once placement found. 07/04 Patient evaluated and examined at bedside. Was trying to work with PT when evaluated. Continue oral Vanco. Awaiting insurance Auth can discharge once that it is received 07/03 Patient evaluated examined at bedside. Resting in bed with ongoing altered mental status. Continue oral vancomycin for C. difficile treatment has been accepted facility awaiting insurance authorization. Can discharge whenever that is received. 07/02 Patient evaluated examined at bedside. Resting no apparent distress still quite altered mental status. Appears she has been accepted at a facility awaiting insurance authorization right now. Continue p.o. Vanco for C. difficile treatment. Plan of care discussed with bedside RN. 07/01/2021 Patient seen and examined Chart reviewed Discussed with RN She is resting with no apparent distress Ms Mcmillan is an 85-year-old female past medical history of hypertension and dementia, presents the ED brought in by EMS from [facility] after patient was seen on the ground just next to her bed with complaints of left leg and hip pain. Patient was seen prior to this 1 hour ago in her bed, no active complaints. Due to patient's dementia, history and review of systems are unable to be obtained. According to the daughter, patient is fairly mobile without using any cane or walker. She is able to dress herself and feed herself and use the toilet. No falls in the past. To OR, Status post left intertrochanteric femur fracture IM nailing. 06/20: Patient underwent surgical intervention yesterday. Patient evaluated examined at bedside. She cannot provide much history given mental status but from report she has improved. PT OT ordered. Weightbearing status per orthopedics. Continue Rocephin for now. 06/21: Patient evaluated examined at bedside. Does. Clinically improved a little more alert today. Continue to Rocephin for UTI. Can be switched to p.o. on discharge continue working with PT OT. Patient could possibly go over the weekend if placement found. 06/22: Patient evaluated examined at bedside. Resting in bed when evaluated. Did not really endorse any complaints. It appears that patient had denied for placement will need home health. 06/23: No acute events overnight. Patient seen and examined bedside. Patient still having uncontrolled pain during physical therapy and any time she is moving in bed. Discussed with daughter Nori about pain management. Apparently patient at assisted living facility was started on Celexa by a psychiatrist. We are currently waiting for medication reconciliation overnight [place]. Nurse will call over there today. I have also instructed the nurse to make sure that the patient receives her pain medication about 30 minutes prior to any physical therapy session. Patient at this time is a total care and is not safe for discharge to assisted living facility. Patient will need to be in a long-term care facility. Patient's chart, labs, images were reviewed and discussed with RN 06/24: No overnight events. Completed antibiotic course for UTI. Not oriented. No complaints. 06/25: Febrile overnight, T-max 100.3 F. Her C. difficile resulted positive on 06/23. Will initiate oral vancomycin 125 mg 4 times daily x 10 days. Still having diarrhea, but denies any abdominal pain. 06/26: Patient seen and evaluated in bed. Denies any further diarrhea. Work with PT and recommended SNU. conference planner spoke with patient's daughter who declined SNU would like patient to go back to the [facility] with home health. 06/27: Patient did not discharge back to [facility] yesterday, as they were unable to accommodate her needs. Daughter is now okay with pursuing rehab. Referrals placed to rehab facilities, with acceptance pending. Still having diarrhea. c diff positive. Reinforced medication compliance. 06/28: Still with diarrhea but she is taking all her meds including oral vancomycin. Working with therapy. She is easily redirected. Pleasant. Has a little bit of epigastric tenderness after taking medications but otherwise no complaints leg pain well controlled no shortness of breath or chest pain. 06/29: Afebrile. Continue vancomycin for C. difficile. conference planner working on SNU placement for left femur fracture. This has been made difficult due to patient's dementia behavior. 06/30: Afebrile. S/P left intertrochanteric femur intramedullary nail fixation for acute left femur fracture. Family now amenable to SNU. creative services specialist looking for rehab facility that will accept patients based on her dementia behaviors. Continue vancomycin for C. difficile. Vitals/I&O Vitals/I&O: Vital Signs Date Time Temp Pulse Resp B/P (MAP) Pulse Ox O2 Delivery O2 Flow Rate FiO2 07/10/21 03:19 98.1 91 14 149/48 (81) 92 Room Air 98.1 I & O 07/09/21 07/09/21 07/10/21 15:00 23:00 07:00 Intake Total 280 ml 100 ml Balance 280 ml 100 ml Physical Exam General: Cooperative, No acute distress Heart: Regular rate, Normal S1, Normal S2 Lungs: Clear Abdomen: Soft, No tenderness Extremities: No edema, Normal pulses Skin: Other (CDI) Assessment and Plan Assessmemt and Plan Problems Medical Problems: (1) Closed left hip fracture Status: Acute (2) Pain of left lower extremity Status: Acute Comment Review of Relevant I have reviewed the following items markus (where applicable) has been applied. Medications: Current Medications Medications (Trade) Dose Ordered Sig/Zachary Route PRN Reason Start Time Stop Time Status Last Admin Dose Admin Vancomycin HCl (Vancomycin Oral Solution) 125 mg [id number] PO 07/09/21 13:00 07/19/21 12:59 07/09/21 20:50 Justifications for Admission Other Justification Left femur fracture MADDISON LAROSE MD Jul 10, 2021 09:22
[2021-07-10] MEDS: ANTI-COAG MONITOR BY PHARMACY. MC PRN (09:33)
[2021-07-10 11:00] VITALS: BP 136/55
[2021-07-10] MEDS ORDERED: VANC500V PO (12:29)
[2021-07-10] MEDS ORDERED: APIX2.5T PO (12:29)
[2021-07-10] MEDS: APIXABAN 2.5 MG TABLET. PO SCH ×2 (12:36→20:42)
[2021-07-10] MEDS: VANCOMYCIN 125 MG/2.5 ML ORAL SOLUTION. PO SCH ×4 (12:36→20:43)
[2021-07-10] MEDS: LACTOBACILLUS RHAMNOSUS GG 1 CAPSULE. PO SCH ×2 (12:36→20:42)
[2021-07-10] MEDS: busPIRone 5 MG TABLET. PO SCH ×2 (12:36→20:42)
[2021-07-10] MEDS: MEMANTINE 10 MG TABLET. PO SCH ×2 (12:36→20:42)
[2021-07-10 14:37] VITALS: BP 94/74
--- NOTE | 2021-07-10 18:00 | NUR ---
Pt was anxious most of the day. She would become anxious when needing to be changed. There is an order for Zyprexa if needed, she was given 1 throughout shift which helped with her behaviors. She attempted to get out of bed X 3, gait is not steady. Pt ate meals after they were set up for her. BM X 2 this shift. Pt tries to communicate but unable to put words together and will ramble on not making sense. She is asleep at this time
[2021-07-10 19:47] VITALS: BP 135/53
[2021-07-10] MEDS: MIRTAZAPINE 15 MG TABLET PO SCH (20:44)
[2021-07-10 23:10] VITALS: BP 136/56
[2021-07-11 03:20] VITALS: BP 154/58
--- NOTE | 2021-07-11 06:32 | NUR ---
Pt behavior was pleasant throughout the shift. She followed commands with needing to be changed. She Took meds without issues. Zyprexa given this AM due to pt being figity. Will continue to monitor.
[2021-07-11 07:00] VITALS: BP 130/59
[2021-07-11] MEDS: MEMANTINE 10 MG TABLET. PO SCH ×2 (09:20→20:48)
[2021-07-11] MEDS: busPIRone 5 MG TABLET. PO SCH ×2 (09:21→20:48)
[2021-07-11] MEDS: VANCOMYCIN 125 MG/2.5 ML ORAL SOLUTION. PO SCH ×5 (09:21→20:48)
[2021-07-11] MEDS: APIXABAN 2.5 MG TABLET. PO SCH ×2 (09:21→20:48)
[2021-07-11] MEDS: LACTOBACILLUS RHAMNOSUS GG 1 CAPSULE. PO SCH ×2 (09:21→20:48)
--- NOTE | 2021-07-11 10:25 | PDOC ---
[facility] PROGRESS NOTE Date of Service DOS: DATE: 07/11/21 TIME: 10:22 Chief Complaint Chief Complaint Assessment/Plan Acute left femur fracture status post left intertrochanteric femur intramedullary nail fixation 06/19/2021 Acute UTI - proteus mirabilis, s/p 4 doses IV rocephin and 2 doses of cefdinir. Course completed on 06/23/2021. C difficile diarrhea - likely secondary to antibiotic exposure from UTI. Will need additional 10 total days of treatment Mild hypokalemia History of Alzheimer's dementia Normocytic anemia History of vitamin B12 deficiency History of hypertension Admit to hospitalist service for further management Orthopedic consult, s/p ORIF femur Delirium prevention protocolexposure to daylight, open curtains, oriented to date time and people, avoid sedative acting medications. Lovenox for DVT prophylaxis --> eliquis 30 days Diet as tolerated CODE STATUS DNR Discussed with RN and SW DPOA: Daughter 37 MIN PT exam, chart review, > 50% of time spent with exam, chart review, pt care coordination. History of Present Illness History of Present Illness 07/11: She is responsive to 1-2 person assist and is redirectable with OT for behaviors and is responsive to medication with as needed oral dissolving Zyprexa not requiring further interventions. Tolerating repeat round of oral vancomycin well stools are firming up. No shortness of breath or chest pain 07/10: She is redirectable. After 3 doses back on oral vancomycin her stools have firmed up though she still had 4 bowel movements last 24 hours. No dysuria no shortness of breath or chest pain. She is able to ambulate with standby assistance with no pain complaints. 07/09: Easily redirectable hip pain well controlled on very occasional tramadol and Tylenol. Loose stools not improved no dysuria. Awaiting rehab placement. 07/08: Loose stools getting worse again off of oral vancomycin. Still intermittently confused with therapy. Awaiting placement no chest pain or shortness of breath 07/07: Patient evaluated and examined at bedside. No major clinical changes. Continue therapy. Can discharge once placement found. 07/06: Patient evaluated examined at bedside. No major clinical change. Just waiting for placement. 07/05: Patient evaluated and examined at bedside. No major clinical changes. To continue therapy. Can discharge once placement found. 07/04: Patient evaluated and examined at bedside. Was trying to work with PT when evaluated. Continue oral Vanco. Awaiting insurance Auth can discharge once that it is received 07/03: Patient evaluated examined at bedside. Resting in bed with ongoing altered mental status. Continue oral vancomycin for C. difficile treatment has been accepted facility awaiting insurance authorization. Can discharge whenever that is received. 07/02: Patient evaluated examined at bedside. Resting no apparent distress still quite altered mental status. Appears she has been accepted at a facility awaiting insurance authorization right now. Continue p.o. Vanco for C. difficile treatment. Plan of care discussed with bedside RN. 07/01: Patient seen and examined. Chart reviewed Ms Mcmillan is an 85-year-old female past medical history of hypertension and dementia, presents the ED brought in by EMS from [facility] after patient was seen on the ground just next to her bed with complaints of left leg and hip pain. Patient was seen prior to this 1 hour ago in her bed, no active complaints. Due to patient's dementia, history and review of systems are unable to be obtained. According to the daughter, patient is fairly mobile without using any cane or walker. She is able to dress herself and feed herself and use the toilet. No falls in the past. To OR, Status post left intertrochanteric femur fracture IM nailing. 06/20: Patient underwent surgical intervention yesterday. Patient evaluated examined at bedside. She cannot provide much history given mental status but from report she has improved. PT OT ordered. Weightbearing status per orthopedics. Continue Rocephin for now. 06/21: Patient evaluated examined at bedside. Does. Clinically improved a little more alert today. Continue to Rocephin for UTI. Can be switched to p.o. on discharge continue working with PT OT. Patient could possibly go over the weekend if placement found. 06/22: Patient evaluated examined at bedside. Resting in bed when evaluated. Did not really endorse any complaints. It appears that patient had denied for placement will need home health. 06/23: No acute events overnight. Patient seen and examined bedside. Patient still having uncontrolled pain during physical therapy and any time she is moving in bed. Discussed with daughter Nori about pain management. Killian lezama patient at assisted living facility was started on Celexa by a psychiatrist. We are currently waiting for medication reconciliation overnight [place]. Nurse will call over there today. I have also instructed the nurse to make sure that the patient receives her pain medication about 30 minutes prior to any physical therapy session. Patient at this time is a total care and is not safe for discharge to assisted living facility. Patient will need to be in a long-term care facility. Patient's chart, labs, images were reviewed and discussed with RN 06/24: No overnight events. Completed antibiotic course for UTI. Not oriented. N o complaints. 06/25: Febrile overnight, T-max 100.3 F. Her C. difficile resulted positive on 06/23. Will initiate oral vancomycin 125 mg 4 times daily x 10 days. Still having diarrhea, but denies any abdominal pain. 06/26: Patient seen and evaluated in bed. Denies any further diarrhea. Work with PT and recommended SNU. manufacturing planner spoke with patient's daughter who declined SNU would like patient to go back to the [facility] with home health. 06/27: Patient did not discharge back to [facility] yesterday, as they were unable to accommodate her needs. Daughter is now okay with pursuing rehab. Referrals placed to rehab facilities, with acceptance pending. Still having diarrhea. c diff positive. Reinforced medication compliance. 06/28: Still with diarrhea but on oral vancomycin. Working with therapy. She is easily redirected. Pleasant. Has a little bit of epigastric tenderness after taking medications but otherwise no complaints leg pain well controlled no shortness of breath or chest pain. 06/29: Afebrile. Continue vancomycin for C. difficile. manufacturing planner working on SNU placement for left femur fracture. This has been made difficult due to patient's dementia behavior. 06/30: Afebrile. S/P left intertrochanteric femur intramedullary nail fixation for acute left femur fracture. Family now amenable to SNU. environmental services project manager looking for rehab facility that will accept patients based on her dementia behaviors. Continue vancomycin for C. difficile. Vitals/I&O Vitals/I&O: Vital Signs Date Time Temp Pulse Resp B/P (MAP) Pulse Ox O2 Delivery O2 Flow Rate FiO2 07/11/21 07:00 98.6 86 18 130/59 (82) 91 Room Air 98.6 I & O 07/10/21 07/10/21 07/11/21 15:00 23:00 07:00 Intake Total 100 ml 100 ml 120 ml Balance 100 ml 100 ml 120 ml Physical Exam General: Cooperative, No acute distress Heart: Regular rate, Normal S1, Normal S2 Lungs: Clear Abdomen: Soft, No tenderness Extremities: No edema, Normal pulses Skin: Other (CDI) Assessment and Plan Assessmemt and Plan Problems Medical Problems: (1) Closed left hip fracture Status: Acute (2) Pain of left lower extremity Status: Acute Comment Review of Relevant I have reviewed the following items markus (where applicable) has been applied. Justifications for Admission Other Justification Left femur fracture MADDISON LAROSE MD Jul 11, 2021 10:25
[2021-07-11 11:00] VITALS: BP 126/48
[2021-07-11 15:00] VITALS: BP 127/87
--- NOTE | 2021-07-11 17:27 | NUR ---
Pt was very pleasant throughout the day, she was able to stand and followed commands well while being changed. She took most of her medications with no issues. Patient stayed in bed/chair when asked for a few minutes but then would sometimes attempt to get up without assistance.
[2021-07-11 19:00] VITALS: BP 141/57
[2021-07-11] MEDS: MIRTAZAPINE 15 MG TABLET PO SCH (20:48)
[2021-07-11 23:00] VITALS: BP 144/64
[2021-07-12 03:00] VITALS: BP 148/69
--- NOTE | 2021-07-12 03:56 | NUR ---
Pt has been pleasant this evening. Pt was up in chair with a quiet activity till about 2200. Pt was changed, and covered and fell right to sleep. Pt has followed commands with changing and staying in the bed. Will continue to monitor.
[2021-07-12 07:00] VITALS: BP 116/51
--- NOTE | 2021-07-12 08:32 | PDOC ---
[employer] PROGRESS NOTE Date of Service DOS: DATE: 07/12/21 TIME: 08:32 Chief Complaint Chief Complaint Assessment/Plan Acute left femur fracture status post left intertrochanteric femur intramedullary nail fixation 06/19/2021 Acute UTI - proteus mirabilis, s/p 4 doses IV rocephin and 2 doses of cefdinir. Course completed on 06/23/2021. C difficile diarrhea - likely secondary to antibiotic exposure from UTI. Will need additional 10 total days of treatment Mild hypokalemia History of Alzheimer's dementia Normocytic anemia History of vitamin B12 deficiency History of hypertension Admit to hospitalist service for further management Orthopedic consult, s/p ORIF femur Delirium prevention protocolexposure to daylight, open curtains, oriented to date time and people, avoid sedative acting medications. Lovenox for DVT prophylaxis --> eliquis 30 days Diet as tolerated CODE STATUS DNR Discussed with RN and SW DPOA: Daughter 37 MIN PT exam, chart review, > 50% of time spent with exam, chart review, pt care coordination. History of Present Illness History of Present Illness 07/12: Afebrile overnight. Bowels have firmed up on second round of oral vancomycin. Redirectable able to fold towels with occupational therapy and responsive to redirection admitted with 1-2 person assist to restroom. Denies shortness of breath or chest pain. Does require redirection to get herself dressed. 07/11: She is responsive to 1-2 person assist and is redirectable with OT for behaviors and is responsive to medication with as needed oral dissolving Zyprexa not requiring further interventions. Tolerating repeat round of oral vancomycin well stools are firming up. No shortness of breath or CP 07/10: She is redirectable. After 3 doses back on oral vancomycin her stools have firmed up though she still had 4 bowel movements last 24 hours. No dysuria no shortness of breath or chest pain. She is able to ambulate with standby assistance with no pain complaints. 07/09: Easily redirectable hip pain well controlled on very occasional tramadol and Tylenol. Loose stools not improved no dysuria. Awaiting rehab placement. 07/08: Loose stools getting worse again off of oral vancomycin. Still intermittently confused with therapy. Awaiting placement no chest pain or shortness of breath 07/07: Patient evaluated and examined at bedside. No major clinical changes. Continue therapy. Can discharge once placement found. 07/06: Patient evaluated examined at bedside. No major clinical change. Just waiting for placement. 07/05: Patient evaluated and examined at bedside. No major clinical changes. To continue therapy. Can discharge once placement found. 07/04: Patient evaluated and examined at bedside. Was trying to work with PT when evaluated. Continue oral Vanco. Awaiting insurance Auth can discharge once that it is received 07/03: Patient evaluated examined at bedside. Resting in bed with ongoing altered mental status. Continue oral vancomycin for C. difficile treatment has been accepted facility awaiting insurance authorization. Can discharge whenever that is received. 07/02: Patient evaluated examined at bedside. Resting no apparent distress still quite altered mental status. Appears she has been accepted at a facility awaiting insurance authorization right now. Continue p.o. Vanco for C. difficile treatment. Plan of care discussed with bedside RN. 07/01: Patient seen and examined. Chart reviewed Ms Mcmillan is an 85-year-old female past medical history of hypertension and dementia, presents the ED brought in by [facility] after patient was seen on the ground just next to her bed with complaints of left leg and hip pain. Patient was seen prior to this 1 hour ago in her bed, no active complaints. Due to patient's dementia, history and review of systems are unable to be obtained. According to the daughter, patient is fairly mobile without using any cane or walker. She is able to dress herself and feed herself and use the toilet. No falls in the past. To OR, Status post left intertrochanteric femur fracture IM nailing. 06/20: Patient underwent surgical intervention yesterday. Patient evaluated examined at bedside. She cannot provide much history given mental status but from report she has improved. PT OT ordered. Weightbearing status per orthopedics. Continue Rocephin for now. 06/21: Patient evaluated examined at bedside. Does. Clinically improved a little more alert today. Continue to Rocephin for UTI. Can be switched to p.o. on discharge continue working with PT OT. Patient could possibly go over the weekend if placement found. 06/22: Patient evaluated examined at bedside. Resting in bed when evaluated. Did not really endorse any complaints. It appears that patient had denied for placement will need home health. 06/23: No acute events overnight. Patient seen and examined bedside. Patient still having uncontrolled pain during physical therapy and any time she is moving in bed. Discussed with daughter Nori about pain management. Apparently patient at assisted living facility was started on Celexa by a p sychiatrist. We are currently waiting for medication reconciliation overnight [facility]. Nurse will call over there today. I have also instructed the nurse to make sure that the patient receives her pain medication about 30 minutes prior to any physical therapy session. Patient at this time is a total care and is not safe for discharge to assisted living facility. Patient will need to be in a long-term care facility. Patient's chart, labs, images were reviewed and discussed with RN 06/24: No overnight events. Completed antibiotic course for UTI. Not oriented. No complaints. 06/25: Febrile overnight, T-max 100.3 F. Her C. difficile resulted positive on 06/23. Will initiate oral vancomycin 125 mg 4 times daily x 10 days. Still having diarrhea, but denies any abdominal pain. 06/26: Patient seen and evaluated in bed. Denies any further diarrhea. Work with PT and recommended SNU. tool planner spoke with patient's daughter who declined SNU would like patient to go back to the [facility] with home health. 06/27: Patient did not discharge back to The [facility] yesterday, as they were unable to accommodate her needs. Daughter is now okay with pursuing rehab. Referrals placed to rehab facilities, with acceptance pending. Still having diarrhea. c diff positive. Reinforced medication compliance. 06/28: Still with diarrhea but on oral vancomycin. Working with therapy. She is easily redirected. Pleasant. Has a little bit of epigastric tenderness after taking medications but otherwise no complaints leg pain well controlled no shortness of breath or chest pain. 06/29: Afebrile. Continue vancomycin for C. difficile. tool planner wor telly on SNU placement for left femur fracture. This has been made difficult due to patient's dementia behavior. 06/30: Afebrile. S/P left intertrochanteric femur intramedullary nail fixation for acute left femur fracture. Family now amenable to SNU. 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 Continue vancomycin for C. difficile. Vitals/I&O Vitals/I&O: Vital Signs Date Time Temp Pulse Resp B/P (MAP) Pulse Ox O2 Delivery O2 Flow Rate FiO2 07/12/21 07:00 71 16 116/51 (72) 94 Room Air 07/12/21 03:00 97.9 97.9 07/11/21 08:00 6.0 I & O 07/11/21 07/11/21 07/12/21 14:59 22:59 06:59 Intake Total 300 ml 200 ml Output Total 0 ml Balance 300 ml 200 ml Physical Exam General: Cooperative, No acute distress Heart: Regular rate, Normal S1, Normal S2 Lungs: Clear Abdomen: Soft, No tenderness Extremities: No edema, Normal pulses Skin: Other (CDI) Assessment and Plan Assessmemt and Plan Problems Medical Problems: (1) Closed left hip fracture Status: Acute (2) Pain of left lower extremity Status: Acute Comment Review of Relevant I have reviewed the following items markus (where applicable) has been applied. Justifications for Admission Other Justification Left femur fracture MADDISON LAROSE MD Jul 12, 2021 08:32
[2021-07-12] MEDS: MEMANTINE 10 MG TABLET. PO SCH ×2 (08:52→20:09)
[2021-07-12] MEDS: LACTOBACILLUS RHAMNOSUS GG 1 CAPSULE. PO SCH ×2 (08:52→20:09)
[2021-07-12] MEDS: busPIRone 5 MG TABLET. PO SCH ×2 (08:52→20:09)
[2021-07-12] MEDS: APIXABAN 2.5 MG TABLET. PO SCH ×2 (08:52→20:09)
[2021-07-12] MEDS: VANCOMYCIN 125 MG/2.5 ML ORAL SOLUTION. PO SCH ×4 (08:53→20:09)
[2021-07-12 11:00] VITALS: BP 123/61
[2021-07-12 15:00] VITALS: BP 138/50
[2021-07-12 19:45] VITALS: BP 154/66
[2021-07-12] MEDS: MIRTAZAPINE 15 MG TABLET PO SCH (20:09)
[2021-07-13 07:00] VITALS: BP 116/86
[2021-07-13] MEDS: busPIRone 5 MG TABLET. PO SCH ×2 (08:45→20:32)
[2021-07-13] MEDS: LACTOBACILLUS RHAMNOSUS GG 1 CAPSULE. PO SCH ×2 (08:45→20:31)
[2021-07-13] MEDS: APIXABAN 2.5 MG TABLET. PO SCH ×2 (08:45→20:31)
[2021-07-13] MEDS: MEMANTINE 10 MG TABLET. PO SCH ×2 (08:45→20:31)
[2021-07-13] MEDS: VANCOMYCIN 125 MG/2.5 ML ORAL SOLUTION. PO SCH ×4 (08:45→20:37)
--- NOTE | 2021-07-13 10:58 | NUR ---
Removed zulema from patients left hip, patient tolerated procedure well.
[2021-07-13 11:00] VITALS: BP 117/34
--- NOTE | 2021-07-13 12:02 | PDOC ---
[employer] [facility] PROGRESS NOTE Date of Service DOS: DATE: 07/13/21 TIME: 12:01 Chief Complaint Chief Complaint Assessment/Plan Acute left femur fracture status post left intertrochanteric femur intramedullary nail fixation 06/19/2021 Acute UTI - proteus mirabilis, s/p 4 doses IV rocephin and 2 doses of cefdinir. Course completed on 06/23/2021. C difficile diarrhea - likely secondary to antibiotic exposure from UTI. Will need additional 10 total days of treatment Mild hypokalemia History of Alzheimer's dementia Normocytic anemia History of vitamin B12 deficiency History of hypertension Admit to hospitalist service for further management Orthopedic consult, s/p ORIF femur Delirium prevention protocolexposure to daylight, open curtains, oriented to date time and people, avoid sedative acting medications. Lovenox for DVT prophylaxis --> eliquis 30 days Diet as tolerated CODE STATUS DNR Discussed with RN and MANUEL DPOA: Daughter 37 MIN PT exam, chart review, > 50% of time spent with exam, chart review, pt care coordination. History of Present Illness History of Present Illness 07/13/2021 No acute events overnight. Patient seen and examined bedside. Pantera removed from surgical site. No complications. Total of 2 bowel movements in the last 24 hours. Decreased from yesterday. No Other concerns from nursing. Patient's chart, labs, images were reviewed and discussed with RN 07/12: Afebrile overnight. Bowels have firmed up on second round of oral vancomycin. Redirectable able to fold towels with occupational therapy and responsive to redirection admitted with 1-2 person assist to restroom. Denies shortness of breath or chest pain. Does require redirection to get herself dressed. 07/11: She is responsive to 1-2 person assist and is redirectable with OT for behaviors and is responsive to medication with as needed oral dissolving Zyprexa not requiring further interventions. Tolerating repeat round of oral vancomycin well stools are firming up. No shortness of breath or CP 07/10: She is redirectable. After 3 doses back on oral vancomycin her stools have firmed up though she still had 4 bowel movements last 24 hours. No dysuria no shortness of breath or chest pain. She is able to ambulate with standby assistance with no pain complaints. 07/09: Easily redirectable hip pain well controlled on very occasional tramadol and Tylenol. Loose stools not improved no dysuria. Awaiting rehab placement. 07/08: Loose stools getting worse again off of oral vancomycin. Still intermittently confused with therapy. Awaiting placement no chest pain or shortness of breath 07/07: Patient evaluated and examined at bedside. No major clinical changes. Continue therapy. Can discharge once placement found. 07/06: Patient evaluated examined at bedside. No major clinical change. Just waiting for placement. 07/05: Patient evaluated and examined at bedside. No major clinical changes. To continue therapy. Can discharge once placement found. 07/04: Patient evaluated and examined at bedside. Was trying to work with PT wh en evaluated. Continue oral Vanco. Awaiting insurance Auth can discharge once that it is received 07/03: Patient evaluated examined at bedside. Resting in bed with ongoing altered mental status. Continue oral vancomycin for C. difficile treatment has been accepted facility awaiting insurance authorization. Can discharge whenever that is received. 07/02: Patient evaluated examined at bedside. Resting no apparent distress still quite altered mental status. Appears she has been accepted at a facility rian iting insurance authorization right now. Continue p.o. Vanco for C. difficile treatment. Plan of care discussed with bedside RN. 07/01: Patient seen and examined. Chart reviewed Ms Mcmillan is an 85-year-old female past medical history of hypertension and de mentia, presents the ED brought in by EMS from [facility] after patient was seen on the ground just next to her bed with complaints of left leg and hip pain. Patient was seen prior to this 1 hour ago in her bed, no active complaints. Due to patient's dementia, history and review of systems are unable to be obtained. According to the daughter, patient is fairly mobile without using any cane or walker. She is able to dress herself and feed herself and use the toilet. No falls in the past. To OR, Status post left intertrochanteric femur fracture IM nailing. 06/20: Patient underwent surgical intervention yesterday. Patient evaluated examined at bedside. She cannot provide much history given mental status but from report she has improved. PT OT ordered. Weightbearing status per orthopedics. Continue Rocephin for now. 06/21: Patient evaluated examined at bedside. Does. Clinically improved a little more alert today. Continue to Rocephin for UTI. Can be switched to p.o. on discharge continue working with PT OT. Patient could possibly go over the weekend if placement found. 06/22: Patient evaluated examined at bedside. Resting in bed when evaluated. Did not really endorse any complaints. It appears that patient had denied for placement will need home health. 06/23: No acute events overnight. Patient seen and examined bedside. Patient still having uncontrolled pain during physical therapy and any time she is moving in bed. Discussed with daughter Nori about pain management. Apparently patient at assisted living facility was started on Celexa by a psychiatrist. We are currently waiting for medication reconciliation overnight [facility]. Nurse will call over there today. I have also instructed the nurse to make sure that the patient receives her pain medication about 30 minutes prior to any physical therapy session. Patient at this time is a total care and is not safe for discharge to assisted living facility. Patient will need to be in a long-term care facility. Patient's chart, labs, images were reviewed and discussed with RN 06/24: No overnight events. Completed antibiotic course for UTI. Not oriented. No complaints. 06/25: Febrile overnight, T-max 100.3 F. Her C. difficile resulted positive on 06/23. Will initiate oral vancomycin 125 mg 4 times daily x 10 days. Still having diarrhea, but denies any abdominal pain. 06/26: Patient seen and evaluated in bed. Denies any further diarrhea. Work with PT and recommended SNU. tool planner spoke with patient's daughter who declined SNU would like patient to go back to the [facility] with home health. 06/27: Patient did not discharge back to [facility] yesterday, as they were unable to accommodate her needs. Daughter is now okay with pursuing rehab. Referrals placed to rehab facilities, with acceptance pending. Still having diarrhea. c diff positive. Reinforced medication compliance. 06/28: Still with diarrhea but on oral vancomycin. Working with therapy. She is easily redirected. Pleasant. Has a little bit of epigastric tenderness afte r taking medications but otherwise no complaints leg pain well controlled no shortness of breath or chest pain. 06/29: Afebrile. Continue vancomycin for C. difficile. tool planner working on SNU placement for left femur fracture. This has been made difficult due to patient's dementia behavior. 06/30: Afebrile. S/P left intertrochanteric femur intramedullary nail fixation for acute left femur fracture. Family now amenable to SNU. 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 Continue vancomycin for C. difficile. Vitals/I&O Vitals/I&O: Vital Signs Date Time Temp Pulse Resp B/P (MAP) Pulse Ox O2 Delivery O2 Flow Rate FiO2 07/13/21 11:00 97.9 77 18 117/ 93 Room Air 97.9 I & O 07/12/21 07/12/21 07/13/21 15:00 23:00 07:00 Intake Total 480 ml 240 ml Balance 480 ml 240 ml Physical Exam General: Alert, Cooperative, No acute distress Heart: Regular rate, Normal S1, Normal S2 Lungs: Clear Abdomen: Soft, No tenderness Extremities: No clubbing, No edema, Normal pulses Skin: No rashes, Other (CDI) Assessment and Plan Assessmemt and Plan Problems Medical Problems: (1) Closed left hip fracture Status: Acute (2) Pain of left lower extremity Status: Acute Comment Review of Relevant I have reviewed the following items markus (where applicable) has been applied. Justifications for Admission Other Justification Left femur fracture KEIRA JACKSON MD Jul 13, 2021 12:02
[2021-07-13] MEDS: ANTI-COAG MONITOR BY PHARMACY. MC PRN (12:19)
[2021-07-13 15:00] VITALS: BP 121/67
[2021-07-13 19:00] VITALS: BP 137/59
[2021-07-13] MEDS: MIRTAZAPINE 15 MG TABLET PO SCH (20:34)
[2021-07-13 23:15] VITALS: BP 145/64
[2021-07-14 03:29] VITALS: BP 135/61
[2021-07-14 07:00] VITALS: BP 139/56
[2021-07-14] MEDS: VANCOMYCIN 125 MG/2.5 ML ORAL SOLUTION. PO SCH ×4 (08:10→23:44)
[2021-07-14] MEDS: LACTOBACILLUS RHAMNOSUS GG 1 CAPSULE. PO SCH ×2 (08:11→23:44)
[2021-07-14] MEDS: APIXABAN 2.5 MG TABLET. PO SCH ×2 (08:11→23:44)
[2021-07-14] MEDS: busPIRone 5 MG TABLET. PO SCH ×2 (08:11→23:44)
[2021-07-14] MEDS: MEMANTINE 10 MG TABLET. PO SCH ×2 (08:11→23:45)
[2021-07-14 11:00] VITALS: BP 118/46
[2021-07-14] MEDS: ANTI-COAG MONITOR BY PHARMACY. MC PRN (11:46)
--- NOTE | 2021-07-14 12:25 | PDOC ---
[facility] [facility] PROGRESS NOTE Date of Service DOS: DATE: 07/14/21 TIME: 12:24 Chief Complaint Chief Complaint Assessment/Plan Acute left femur fracture status post left intertrochanteric femur intramedullary nail fixation 06/19/2021 Acute UTI - proteus mirabilis, s/p 4 doses IV rocephin and 2 doses of cefdinir. Course completed on 06/23/2021. C difficile diarrhea - likely secondary to antibiotic exposure from UTI. Will need additional 10 total days of treatment Mild hypokalemia History of Alzheimer's dementia Normocytic anemia History of vitamin B12 deficiency History of hypertension Admit to hospitalist service for further management Orthopedic consult, s/p ORIF femur Delirium prevention protocolexposure to daylight, open curtains, oriented to date time and people, avoid sedative acting medications. Lovenox for DVT prophylaxis --> eliquis 30 days Diet as tolerated CODE STATUS DNR Discussed with RN and SW DPOA: Daughter 37 MIN PT exam, chart review, > 50% of time spent with exam, chart review, pt care coordination. History of Present Illness History of Present Illness 07/14/2021 No acute events overnight. Patient seen and examined bedside. Patient in good spirits. Bowel movements x2 in the past 24 hours. Working well with physical therapy. Pending placement and insurance authorization. Patient will need Covid PCR and before acceptance to nursing facility. Patient's chart, labs, images were reviewed and discussed with RN 07/13/2021 No acute events overnight. Patient seen and examined bedside. [place] removed from surgical site. No complications. Total of 2 bowel movements in the last 24 hours. Decreased from yesterday. No Other concerns from nursing. Patient's chart, labs, images were reviewed and discussed with RN 07/12: Afebrile overnight. Bowels have firmed up on second round of oral vancomycin. Redirectable able to fold towels with occupational therapy and responsive to redirection admitted with 1-2 person assist to restroom. Denies shortness of breath or chest pain. Does require redirection to get herself dressed. 07/11: She is responsive to 1-2 person assist and is redirectable with OT for behaviors and is responsive to medication with as needed oral dissolving Zyprexa not requiring further interventions. Tolerating repeat round of oral vancomycin well stools are firming up. No shortness of breath or CP 07/10: She is redirectable. After 3 doses back on oral vancomycin her stools have firmed up though she still had 4 bowel movements last 24 hours. No dysuria no shortness of breath or chest pain. She is able to ambulate with standby assistance with no pain complaints. 07/09: Easily redirectable hip pain well controlled on very occasional tramadol and Tylenol. Loose stools not improved no dysuria. Awaiting rehab placement. 07/08: Loose stools getting worse again off of oral vancomycin. Still intermittently confused with therapy. Awaiting placement no chest pain or shortness of breath 07/07: Patient evaluated and examined at bedside. No major clinical changes. Continue therapy. Can discharge once placement found. 07/06: Patient evaluated examined at bedside. No major clinical change. Just waiting for placement. 07/05: Patient evaluated and examined at bedside. No major clinical changes. To continue therapy. Can discharge once placement found. 07/04: Patient evaluated and examined at bedside. Was trying to work with PT when evaluated. Continue oral Vanco. Awaiting insurance Auth can discharge once that it is received 07/03: Patient evaluated examined at bedside. Resting in bed with ongoing altered mental status. Continue oral vancomycin for C. difficile treatment has been accepted facility awaiting insurance authorization. Can discharge whenever that is received. 07/02: Patient evaluated examined at bedside. Resting no apparent distress still quite altered mental status. Appears she has been accepted at a facility awaiting insurance authorization right now. Continue p.o. Vanco for C. difficile treatment. Plan of care discussed with bedside RN. 07/01: Patient seen and examined. Chart reviewed Ms Mcmillan is an 85-year-old female past medical history of hypertension and dementia, presents the ED [facility] patient was seen on the ground just next to her bed with complaints of left leg and hip pain. Patient was seen prior to this 1 hour ago in her bed, no active complaints. Due to patient's dementia, history and review of systems are unable to be obtained. According to the daughter, patient is fairly mobile without using any cane or walker. She is able to dress herself and feed herself and use the toilet. No falls in the past. To OR, Status post left intertrochanteric femur fracture IM nailing. 06/20: Patient underwent surgical intervention yesterday. Patient evaluated examined at bedside. She cannot provide much history given mental status but from report she has improved. PT OT ordered. Weightbearing status per orthopedics. Continue Rocephin for now. 06/21: Patient evaluated examined at bedside. Does. Clinically improved a little more alert today. Continue to Rocephin for UTI. Can be switched to p.o. on discharge continue working with PT OT. Patient could possibly go over the weekend if placement found. 06/22: Patient evaluated examined at bedside. Resting in bed when evaluated. Did not really endorse any complaints. It appears that patient had denied for placement will need home health. 06/23: No acute events overnight. Patient seen and examined bedside. Patient still having uncontrolled pain during physical therapy and any time she is moving in bed. Discussed with daughter Nori about pain management. Apparently patient at assisted living facility was started on Celexa by a psychiatrist. We are currently waiting for medication reconciliation overnight [facility]. Nurse will call over there today. I have also instructed the nurse to make sure that the patient receives her pain medication about 30 minutes prior to any physical therapy session. Patient at this time is a total care and is not safe for discharge to assisted living facility. Patient will need to be in a long-term care facility. Patient's chart, labs, images were reviewed and discussed with RN 06/24: No overnight events. Completed antibiotic course for UTI. Not oriented. No complaints. 06/25: Febrile overnight, T-max 100.3 F. Her C. difficile resulted positive on 06/23. Will initiate oral vancomycin 125 mg 4 times daily x 10 days. Still having diarrhea, but denies any abdominal pain. 06/26: Patient seen and evaluated in bed. Denies any further diarrhea. Work with PT and recommended SNU. marketing planner spoke with patient's daughter who declined SNU would like patient to go back to the [facility] with home health. 06/27: Patient did not discharge back to [facility] yesterday, as they were unable to accommodate her needs. Daughter is now okay with pursuing rehab. Referrals placed to rehab facilities, with acceptance pending. Still having diarrhea. c diff positive. Reinforced medication compliance. 06/28: Still with diarrhea but on oral vancomycin. Working with therapy. She is easily redirected. Pleasant. Has a little bit of epigastric tenderness after taking medications but otherwise no complaints leg pain well controlled no shortness of breath or chest pain. 06/29: Afebrile. Continue vancomycin for C. difficile. marketing planner working on SNU placement for left femur fracture. This has been made difficult due to patient's dementia behavior. 06/30: Afebrile. S/P left intertrochanteric femur intramedullary nail fixation for acute left femur fracture. Family now amenable to SNU. support services specialist looking for rehab facility that will accept patients based on her dementia behaviors. Continue vancomycin for C. difficile. Vitals/I&O Vitals/I&O: Vital Signs Date Time Temp Pulse Resp B/P (MAP) Pulse Ox O2 Delivery O2 Flow Rate FiO2 07/14/21 11:00 97.4 82 17 118/46 (70) 94 Room Air 97.4 I & O 07/13/21 07/13/21 07/14/21 15:00 23:00 07:00 Intake Total 170 ml Balance 170 ml Physical Exam General: Alert, Cooperative, No acute distress Heart: Regular rate, Normal S1, Normal S2 Lungs: Clear Abdomen: Soft, No tenderness Extremities: No clubbing, No edema, Normal pulses Skin: No rashes, Other (CDI) Assessment and Plan Assessmemt and Plan Problems Medical Problems: (1) Closed left hip fracture Status: Acute (2) Pain of left lower extremity Status: Acute Comment Review of Relevant I have reviewed the following items markus (where applicable) has been applied. Justifications for Admission Other Justification Left femur fracture KEIRA JACKSON MD Jul 14, 2021 12:25
--- NOTE | 2021-07-14 14:40 | RAD ---
Examination: Frontal view the pelvis with 2 views of the bilateral hips HISTORY: History of fall COMPARISON: Left femur radiograph from 06/19/2021 FINDINGS: The bilateral femoral heads within the acetabula. Osseous demineralization limits evaluation. Moderat e joint space loss bilaterally joints likely degenerative changes. Intramedullary dequan and dynamic hip screw identified transfixing the intertrochanteric fracture however there is a minimally displaced o bl[place] nondisplaced fracture of the proximal left femur likely new periprosthetic fracture. IMPRESSION: Intramedullary dequan and dynamic hip screw identified transfixing the intertrochanteric fracture howeve r there is a minimally displaced oblique nondisplaced fracture of the proximal left femur likely new periprosthetic fracture. Electronically signed by: Ortiz Sheikh MD (07/14/2021 2:38 PM) [id number]
--- NOTE | 2021-07-14 14:51 | NUR ---
Notified Dr. Yun of xray results.
[2021-07-14 15:00] VITALS: BP 140/61
--- NOTE | 2021-07-14 15:20 | NUR ---
Notified Dr. Das of xray results, he stated he would take a look at it.
--- NOTE | 2021-07-14 18:06 | PDOC ---
PROGRESS NOTES Date of Service DATE: 07/14/21 TIME: 18:01 Subjective Subjective Patient underwent L IT fx IM nailing about one month ago. Suffered fall at the hospital today. Radiographs reveal new fracture. Objective Vital Signs Vital Signs Date Time Temp Pulse Resp B/P (MAP) Pulse Ox O2 Delivery O2 Flow Rate FiO2 07/14/21 15:00 97.7 101 17 140/61 (87) 97 Room Air 97.7 07/11/21 08:00 6.0 Physical Exam Surgical scars maturing. No obvious deformity. Imaging Radiographs of the left hip and femur reveal periprosthetic proximal femur fracture without significant displacement. The intramedullary device remains in place. Assessment Assessment 86 year-old female who underwent L femur IT fx IM nailing one month ago with new fall and stable periprosthetic fracture. -Radiographs reviewed and reveal stable periprosthetic fracture. -No indication for orthopedic surgical intervention. -LLE TTWB for transfers only. -Con't work with PT. -New periprosthetic fracture will delay patient's recovery as time to fracture union has now started over. -Orthopedically stable. Recommend to FU out-patient in about 3-4 weeks with new x-rays. Justicifation of Admission Dx: Justifications for Admission: Justification of Admission Dx: Yes ANEUDY RODRIGUEZ DO Jul 14, 2021 18:06
[2021-07-14 19:00] VITALS: BP 161/63
[2021-07-14] MEDS: traMADol 50 MG TABLET PO PRN (23:44)
[2021-07-14] MEDS: MIRTAZAPINE 15 MG TABLET PO SCH (23:45)
[2021-07-15 05:44] VITALS: BP 140/68
[2021-07-15 08:20] VITALS: BP 141/69
[2021-07-15] MEDS: APIXABAN 2.5 MG TABLET. PO SCH ×2 (08:37→19:24)
[2021-07-15] MEDS: VANCOMYCIN 125 MG/2.5 ML ORAL SOLUTION. PO SCH ×4 (08:37→19:24)
[2021-07-15] MEDS: LACTOBACILLUS RHAMNOSUS GG 1 CAPSULE. PO SCH ×2 (08:37→19:24)
[2021-07-15] MEDS: MEMANTINE 10 MG TABLET. PO SCH ×2 (08:37→19:24)
[2021-07-15] MEDS: busPIRone 5 MG TABLET. PO SCH ×2 (08:37→19:24)
[2021-07-15 10:57] VITALS: BP 127/52
[2021-07-15 14:52] VITALS: BP 120/61
--- NOTE | 2021-07-15 15:08 | PDOC ---
[facility] [facility] PROGRESS NOTE Date of Service DOS: DATE: 07/15/21 TIME: 14:57 Chief Complaint Chief Complaint Assessment/Plan Recent fall - Intramedullary dequan and dynamic hip screw identified transfixing the intertrochanteric fracture however there is a minimally displaced oblique nondisplaced fracture of the proximal left femur likely new periprosthetic fracture. Acute left femur fracture status post left intertrochanteric femur in tramedullary nail fixation 06/19/2021 Acute UTI - proteus mirabilis, s/p 4 doses IV rocephin and 2 doses of cefdinir. Course completed on 06/23/2021. C difficile diarrhea - likely secondary to antibiotic exposure from UTI. Will need additional 10 total days of treatment Mild hypokalemia History of Alzheimer's dementia Normocytic anemia History of vitamin B12 deficiency History of hypertension Admit to hospitalist service for further management Orthopedic consult, s/p ORIF femur Delirium prevention protocolexposure to daylight, open curtains, oriented to date time and people, avoid sedative acting medications. Lovenox for DVT prophylaxis --> eliquis 30 days Diet as tolerated CODE STATUS DNR Discussed with RN and MANUEL DPOA: Daughter 37 MIN PT exam, chart review, > 50% of time spent with exam, chart review, pt care coordination. History of Present Illness History of Present Illness 07/15/2021 No acute events overnight. Patient seen and examined bedside. Unfortunately, yesterday patient suffered a fall from standing and landed on the coccyx. She was found to have a periprosthetic fracture orthopedics have reviewed the images and recommended patient to be TTWB for transfers only and continue to work with physical therapy. Patient's chart, labs, images were reviewed and discussed with RN 07/14/2021 No acute events overnight. Patient seen and examined bedside. Patient in good spirits. Bowel movements x2 in the past 24 hours. Working well with physical therapy. Pending placement and insurance authorization. Patient will need Covid PCR and before acceptance to nursing facility. Patient's chart, labs, images were reviewed and discussed with RN 07/13/2021 No acute events overnight. Patient seen and examined bedside. [place] removed from surgical site. No complications. Total of 2 bowel movements in the last 24 hours. Decreased from yesterday. No Other concerns from nursing. Patient's chart, labs, images were reviewed and discussed with RN 07/12: Afebrile overnight. Bowels have firmed up on second round of oral vancomycin. Redirectable able to fold towels with occupational therapy and responsive to redirection admitted with 1-2 person assist to restroom. Denies shortness of breath or chest pain. Does require redirection to get herself dressed. 07/11: She is responsive to 1-2 person assist and is redirectable with OT for behaviors and is responsive to medication with as needed oral dissolving Zyprexa not requiring further interventions. Tolerating repeat round of oral vancomycin well stools are firming up. No shortness of breath or CP 07/10: She is redirectable. After 3 doses back on oral vancomycin her stools have firmed up though she still had 4 bowel movements last 24 hours. No dysuria no shortness of breath or chest pain. She is able to ambulate with standby assistance with no pain complaints. 07/09: Easily redirectable hip pain well controlled on very occasional tramadol and Tylenol. Loose stools not improved no dysuria. Awaiting rehab placement. 07/08: Loose stools getting worse again off of oral vancomycin. Still intermittently confused with therapy. Awaiting placement no chest pain or shortness of breath 07/07: Patient evaluated and examined at bedside. No major clinical changes. Continue therapy. Can discharge once placement found. 07/06: Patient evaluated examined at bedside. No major clinical change. Just waiting for placement. 07/05: Patient evaluated and examined at bedside. No major clinical changes. To continue therapy. Can discharge once placement found. 07/04: Patient evaluated and examined at bedside. Was trying to work with PT wh en evaluated. Continue oral Vanco. Awaiting insurance Auth can discharge once that it is received 07/03: Patient evaluated examined at bedside. Resting in bed with ongoing altered mental status. Continue oral vancomycin for C. difficile treatment has been accepted facility awaiting insurance authorization. Can discharge whenever that is received. 07/02: Patient evaluated examined at bedside. Resting no apparent distress still quite altered mental status. Appears she has been accepted at a facility rian iting insurance authorization right now. Continue p.o. Vanco for C. difficile treatment. Plan of care discussed with bedside RN. 07/01: Patient seen and examined. Chart reviewed Ms Mcmillan is an 85-year-old female past medical history of hypertension and de mentia, presents the ED [facility] patient was seen on the ground just next to her bed with complaints of left leg and hip pain. Patient was seen prior to this 1 hour ago in her bed, no active complaints. Due to patient's dementia, history and review of systems are unable to be obtained. According to the daughter, patient is fairly mobile without using any cane or walker. She is able to dress herself and feed herself and use the toilet. No falls in the past. To OR, Status post left intertrochanteric femur fracture IM nailing. 06/20: Patient underwent surgical intervention yesterday. Patient evaluated examined at bedside. She cannot provide much history given mental status but from report she has improved. PT OT ordered. Weightbearing status per orthopedics. Continue Rocephin for now. 06/21: Patient evaluated examined at bedside. Does. Clinically improved a little more alert today. Continue to Rocephin for UTI. Can be switched to p.o. on discharge continue working with PT OT. Patient could possibly go over the weekend if placement found. 06/22: Patient evaluated examined at bedside. Resting in bed when evaluated. Did not really endorse any complaints. It appears that patient had denied for placement will need home health. 06/23: No acute events overnight. Patient seen and examined bedside. Patient still having uncontrolled pain during physical therapy and any time she is moving in bed. Discussed with daughter Nori about pain management. Apparently patient at assisted living facility was started on Celexa by a psychiatrist. We are currently waiting for medication reconciliation overnight [facility]. Nurse will call over there today. I have also instructed the nurse to make sure that the patient receives her pain medication about 30 minutes prior to any physical therapy session. Patient at this time is a total care and is not safe for discharge to assisted living facility. Patient will need to be in a long-term care facility. Patient's chart, labs, images were reviewed and discussed with RN 06/24: No overnight events. Completed antibiotic course for UTI. Not oriented. No complaints. 06/25: Febrile overnight, T-max 100.3 F. Her C. difficile resulted positive on 06/23. Will initiate oral vancomycin 125 mg 4 times daily x 10 days. Still having diarrhea, but denies any abdominal pain. 06/26: Patient seen and evaluated in bed. Denies any further diarrhea. Work with PT and recommended SNU. conference planner spoke with patient's daughter who declined SNU would like patient to go back to the [facility] with home health. 06/27: Patient did not discharge back to [facility] yesterday, as they were unable to accommodate her needs. Daughter is now okay with pursuing rehab. Referrals placed to rehab facilities, with acceptance pending. Still having diarrhea. c diff positive. Reinforced medication compliance. 06/28: Still with diarrhea but on oral vancomycin. Working with therapy. She is easily redirected. Pleasant. Has a little bit of epigastric tenderness afte r taking medications but otherwise no complaints leg pain well controlled no shortness of breath or chest pain. 06/29: Afebrile. Continue vancomycin for C. difficile. conference planner working on SNU placement for left femur fracture. This has been made difficult due to patient's dementia behavior. 06/30: Afebrile. S/P left intertrochanteric femur intramedullary nail fixation for acute left femur fracture. Family now amenable to SNU. family services manager looking for rehab facility that will accept patients based on her dementia behaviors. Continue vancomycin for C. difficile. Vitals/I&O Vitals/I&O: Vital Signs Date Time Temp Pulse Resp B/P (MAP) Pulse Ox O2 Delivery O2 Flow Rate FiO2 07/15/21 14:52 97.1 79 18 120/61 (80) 96 Room Air 97.1 I & O 07/14/21 07/14/21 07/15/21 15:00 23:00 07:00 Intake Total 50 ml 0 ml Balance 50 ml 0 ml Physical Exam General: Alert, Cooperative, No acute distress Heart: Regular rate, Normal S1, Normal S2 Lungs: Clear Abdomen: Soft, No tenderness Extremities: No clubbing, No edema, Normal pulses Skin: No rashes, Other (CDI) Assessment and Plan Assessmemt and Plan Problems Medical Problems: (1) Closed left hip fracture Status: Acute (2) Pain of left lower extremity Status: Acute Comment Review of Relevant I have reviewed the following items markus (where applicable) has been applied. Justifications for Admission Other Justification Left femur fracture KEIRA JACKSON MD Jul 15, 2021 15:08
--- NOTE | 2021-07-15 16:00 | NUR ---
daughter called and wanting an explanation about fall. gave her synopsis of my report this am. i was told that she was in the chair. she got up and they heard a crash. she was on the floor. no family in attendance. daughter stated that she had fallen today. explained that she had not fallen on my shift and the only time I knew was yesterday. yes i had the bed alarm on. was given Nicki's (breakfast supervisor's )phone number
[2021-07-15 19:00] VITALS: BP 125/42
[2021-07-15] MEDS: MIRTAZAPINE 15 MG TABLET PO SCH (19:24)
[2021-07-15] MEDS: traMADol 50 MG TABLET PO PRN (19:24)
[2021-07-15 23:00] VITALS: BP 145/70
[2021-07-16 06:19] VITALS: BP 146/69
[2021-07-16] MEDS: MEMANTINE 10 MG TABLET. PO SCH ×2 (08:48→19:29)
[2021-07-16] MEDS: busPIRone 5 MG TABLET. PO SCH ×2 (08:48→19:28)
[2021-07-16] MEDS: APIXABAN 2.5 MG TABLET. PO SCH ×2 (08:48→19:29)
[2021-07-16] MEDS: LACTOBACILLUS RHAMNOSUS GG 1 CAPSULE. PO SCH ×2 (08:48→19:29)
[2021-07-16] MEDS: VANCOMYCIN 125 MG/2.5 ML ORAL SOLUTION. PO SCH ×4 (08:49→19:29)
[2021-07-16 11:15] VITALS: BP 112/51
[2021-07-16] MEDS: traMADol 50 MG TABLET PO PRN ×2 (12:05→19:29)
[2021-07-16 15:15] VITALS: BP 139/70
--- NOTE | 2021-07-16 15:38 | PDOC ---
[employer] PROGRESS NOTE Date of Service DOS: DATE: 07/16/21 TIME: 15:37 Chief Complaint Chief Complaint Assessment/Plan Recent fall - Intramedullary dequan and dynamic hip screw identified transfixing the intertrochanteric fracture however there is a minimally displaced oblique nondisplaced fracture of the proximal left femur likely new periprosthetic fracture. Acute left femur fracture status post left intertrochanteric femur in tramedullary nail fixation 06/19/2021 Acute UTI - proteus mirabilis, s/p 4 doses IV rocephin and 2 doses of cefdinir. Course completed on 06/23/2021. C difficile diarrhea - likely secondary to antibiotic exposure from UTI. Will need additional 10 total days of treatment Mild hypokalemia History of Alzheimer's dementia Normocytic anemia History of vitamin B12 deficiency History of hypertension Admit to hospitalist service for further management Orthopedic consult, s/p ORIF femur Delirium prevention protocolexposure to daylight, open curtains, oriented to date time and people, avoid sedative acting medications. Lovenox for DVT prophylaxis --> eliquis 30 days Diet as tolerated CODE STATUS DNR Discussed with RN and MANUEL DPOA: Daughter 37 MIN PT exam, chart review, > 50% of time spent with exam, chart review, pt care coordination. History of Present Illness History of Present Illness 07/16/2021 No acute events overnight. Patient seen and examined bedside. Pending SNF placement either [facility] or [place]. Please see discharge planning notes for details. No further recommendations from orthopedic surgery. Patient's chart, labs, images were reviewed and discussed with RN 07/15/2021 No acute events overnight. Patient seen and examined bedside. Unfortunately, yesterday patient suffered a fall from standing and landed on the coccyx. She was found to have a periprosthetic fracture orthopedics have reviewed the images and recommended patient to be TTWB for transfers only and continue to work with physical therapy. Patient's chart, labs, images were reviewed and discussed with RN 07/14/2021 No acute events overnight. Patient seen and examined bedside. Patient in good spirits. Bowel movements x2 in the past 24 hours. Working well with physical therapy. Pending placement and insurance authorization. Patient will need Covid PCR and before acceptance to nursing facility. Patient's chart, labs, images were reviewed and discussed with RN 07/13/2021 No acute events overnight. Patient seen and examined bedside. Pantera removed from surgical site. No complications. Total of 2 bowel movements in the last 24 hours. Decreased from yesterday. No Other concerns from nursing. Patient's chart, labs, images were reviewed and discussed with RN 07/12: Afebrile overnight. Bowels have firmed up on second round of oral vancomycin. Redirectable able to fold towels with occupational therapy and responsive to redirection admitted with 1-2 person assist to restroom. Denies shortness of breath or chest pain. Does require redirection to get herself dressed. 07/11: She is responsive to 1-2 person assist and is redirectable with OT for behaviors and is responsive to medication with as needed oral dissolving Zyprexa not requiring further interventions. Tolerating repeat round of oral vancomycin well stools are firming up. No shortness of breath or CP 07/10: She is redirectable. After 3 doses back on oral vancomycin her stools have firmed up though she still had 4 bowel movements last 24 hours. No dysuria no shortness of breath or chest pain. She is able to ambulate with standby assistance with no pain complaints. 07/09: Easily redirectable hip pain well controlled on very occasional tramadol and Tylenol. Loose stools not improved no dysuria. Awaiting rehab placement. 07/08: Loose stools getting worse again off of oral vancomycin. Still intermittently confused with therapy. Awaiting placement no chest pain or shortness of breath 07/07: Patient evaluated and examined at bedside. No major clinical changes. Continue therapy. Can discharge once placement found. 07/06: Patient evaluated examined at bedside. No major clinical change. Just waiting for placement. 07/05: Patient evaluated and examined at bedside. No major clinical changes. To continue therapy. Can discharge once placement found. 07/04: Patient evaluated and examined at bedside. Was trying to work with PT when evaluated. Continue oral Vanco. Awaiting insurance Auth can discharge once that it is received 07/03: Patient evaluated examined at bedside. Resting in bed with ongoing altered mental status. Continue oral vancomycin for C. difficile treatment has been accepted facility awaiting insurance authorization. Can discharge whenever that is received. 07/02: Patient evaluated examined at bedside. Resting no apparent distress still quite altered mental status. Appears she has been accepted at a facility awaiting insurance authorization right now. Continue p.o. Vanco for C. difficile treatment. Plan of care discussed with bedside RN. 07/01: Patient seen and examined. Chart reviewed Ms Mcmillan is an 85-year-old female past medical history of hypertension and dementia, presents the ED brought in by EMS from [facility] after patient was seen on the ground just next to her bed with complaints of left leg and hip pain. Patient was seen prior to this 1 hour ago in her bed, no active complaints. Due to patient's dementia, history and review of systems are unable to be obtained. According to the daughter, patient is fairly mobile without using any cane or walker. She is able to dress herself and feed herself and use the toilet. No falls in the past. To OR, Status post left intertrochanteric femur fracture IM nailing. 06/20: Patient underwent surgical intervention yesterday. Patient evaluated examined at bedside. She cannot provide much history given mental status but from report she has improved. PT OT ordered. Weightbearing status per orthopedics. Continue Rocephin for now. 06/21: Patient evaluated examined at bedside. Does. Clinically improved a little more alert today. Continue to Rocephin for UTI. Can be switched to p.o. on discharge continue working with PT OT. Patient could possibly go over the weekend if placement found. 06/22: Patient evaluated examined at bedside. Resting in bed when evaluated. Did not really endorse any complaints. It appears that patient had denied for placement will need home health. 06/23: No acute events overnight. Patient seen and examined bedside. Patient still having uncontrolled pain during physical therapy and any time she is moving in bed. Discussed with daughter Nori about pain management. Apparently patient at assisted living facility was started on Celexa by a psychiatrist. We are currently waiting for medication reconciliation overnight [place]. Nurse will call over there today. I have also instructed the nurse to make sure that the patient receives her pain medication about 30 minutes prior to any physical therapy session. Patient at this time is a total care and is not safe for discharge to assisted living facility. Patient will need to be in a long-term care facility. Patient's chart, labs, images were reviewed and discussed with RN 06/24: No overnight events. Completed antibiotic course for UTI. Not oriented. No complaints. 06/25: Febrile overnight, T-max 100.3 F. Her C. difficile resulted positive on 06/23. Will initiate oral vancomycin 125 mg 4 times daily x 10 days. Still having diarrhea, but denies any abdominal pain. 06/26: Patient seen and evaluated in bed. Denies any further diarrhea. Work with PT and recommended SNU. shutdown planner spoke with patient's daughter who declined SNU would like patient to go back to the [facility] with home health. 06/27: Patient did not discharge back to [facility] yesterday, as they were unable to accommodate her needs. Daughter is now okay with pursuing rehab. Referrals placed to rehab facilities, with acceptance pending. Still having diarrhea. c diff positive. Reinforced medication compliance. 06/28: Still with diarrhea but on oral vancomycin. Working with therapy. She is easily redirected. Pleasant. Has a little bit of epigastric tenderness after taking medications but otherwise no complaints leg pain well controlled no shortness of breath or chest pain. 06/29: Afebrile. Continue vancomycin for C. difficile. shutdown planner working on SNU placement for left femur fracture. This has been made difficult due to patient's dementia behavior. 06/30: Afebrile. S/P left intertrochanteric femur intramedullary nail fixation for acute left femur fracture. Family now amenable to SNU. technical services representative looking for rehab facility that will accept patients based on her dementia behaviors. Continue vancomycin for C. difficile. Vitals/I&O Vitals/I&O: Vital Signs Date Time Temp Pulse Resp B/P (MAP) Pulse Ox O2 Delivery O2 Flow Rate FiO2 07/16/21 12:35 96 Room Air 07/16/21 11:15 98.0 77 20 112/51 (71) 98.0 I & O 07/15/21 07/15/21 07/16/21 15:00 23:00 07:00 Intake Total 420 ml 240 ml Balance 420 ml 240 ml Physical Exam General: Alert, Cooperative, No acute distress Heart: Regular rate, Normal S1, Normal S2 Lungs: Clear Abdomen: Soft, No tenderness Extremities: No clubbing, No edema, Normal pulses Skin: No rashes, Other (CDI) Assessment and Plan Assessmemt and Plan Problems Medical Problems: (1) Closed left hip fracture Status: Acute (2) Pain of left lower extremity Status: Acute Comment Review of Relevant I have reviewed the following items markus (where applicable) has been applied. Justifications for Admission Other Justification Left femur fracture KEIRA JACKSON MD Jul 16, 2021 15:38
[2021-07-16 19:00] VITALS: BP 141/75
[2021-07-16] MEDS: MIRTAZAPINE 15 MG TABLET PO SCH (19:28)
[2021-07-16 23:00] VITALS: BP 132/74
[2021-07-17 07:00] VITALS: BP 135/56
--- NOTE | 2021-07-17 07:20 | PDOC ---
[employer] PROGRESS NOTE Date of Service DOS: DATE: 07/17/21 TIME: 07:19 Chief Complaint Chief Complaint Assessment/Plan Recent fall - Intramedullary dequan and dynamic hip screw identified transfixing the intertrochanteric fracture however there is a minimally displaced oblique nondisplaced fracture of the proximal left femur likely new periprosthetic fracture. Acute left femur fracture status post left intertrochanteric femur in tramedullary nail fixation 06/19/2021 Acute UTI - proteus mirabilis, s/p 4 doses IV rocephin and 2 doses of cefdinir. Course completed on 06/23/2021. C difficile diarrhea - likely secondary to antibiotic exposure from UTI. Will need additional 10 total days of treatment Mild hypokalemia History of Alzheimer's dementia Normocytic anemia History of vitamin B12 deficiency History of hypertension Admit to hospitalist service for further management Orthopedic consult, s/p ORIF femur Delirium prevention protocolexposure to daylight, open curtains, oriented to date time and people, avoid sedative acting medications. Lovenox for DVT prophylaxis --> eliquis 30 days Diet as tolerated CODE STATUS DNR Discussed with RN and MANUEL DPOA: Daughter 37 MIN PT exam, chart review, > 50% of time spent with exam, chart review, pt care coordination. History of Present Illness History of Present Illness 07/17 Patient evaluated an examined at bedside. No clinical changes. Still awaiting placement. See social work notes for further details of d/c complications. Patient's chart, labs, images were reviewed and discussed with RN 07/16/2021 No acute events overnight. Patient seen and examined bedside. Pending SNF placement either [facility] or [place]. Please see discharge planning notes for details. No further recommendations from orthopedic surgery. Patient's chart, labs, images were reviewed and discussed with RN 07/15/2021 No acute events overnight. Patient seen and examined bedside. Unfortunately, yesterday patient suffered a fall from standing and landed on the coccyx. She was found to have a periprosthetic fracture orthopedics have reviewed the images and recommended patient to be TTWB for transfers only and continue to work with physical therapy. Patient's chart, labs, images were reviewed and discussed with RN 07/14/2021 No acute events overnight. Patient seen and examined bedside. Patient in good spirits. Bowel movements x2 in the past 24 hours. Working well with physical therapy. Pending placement and insurance authorization. Patient will need Covid PCR and before acceptance to nursing facility. Patient's chart, labs, images were reviewed and discussed with RN 07/13/2021 No acute events overnight. Patient seen and examined bedside. Pantera removed from surgical site. No complications. Total of 2 bowel movements in the last 24 hours. Decreased from yesterday. No Other concerns from nursing. Patient's chart, labs, images were reviewed and discussed with RN 07/12: Afebrile overnight. Bowels have firmed up on second round of oral vancomycin. Redirectable able to fold towels with occupational therapy and responsive to redirection admitted with 1-2 person assist to restroom. Denies shortness of breath or chest pain. Does require redirection to get herself dressed. 07/11: She is responsive to 1-2 person assist and is redirectable with OT for behaviors and is responsive to medication with as needed oral dissolving Zyprexa not requiring further interventions. Tolerating repeat round of oral vancomycin well stools are firming up. No shortness of breath or CP 07/10: She is redirectable. After 3 doses back on oral vancomycin her stools have firmed up though she still had 4 bowel movements last 24 hours. No dysuria no shortness of breath or chest pain. She is able to ambulate with standby assistance with no pain complaints. 07/09: Easily redirectable hip pain well controlled on very occasional tramadol and Tylenol. Loose stools not improved no dysuria. Awaiting rehab placement. 07/08: Loose stools getting worse again off of oral vancomycin. Still intermittently confused with therapy. Awaiting placement no chest pain or shortness of breath 07/07: Patient evaluated and examined at bedside. No major clinical changes. Continue therapy. Can discharge once placement found. 07/06: Patient evaluated examined at bedside. No major clinical change. Just waiting for placement. 07/05: Patient evaluated and examined at bedside. No major clinical changes. To continue therapy. Can discharge once placement found. 07/04: Patient evaluated and examined at bedside. Was trying to work with PT when evaluated. Continue oral Vanco. Awaiting insurance Auth can discharge once that it is received 07/03: Patient evaluated examined at bedside. Resting in bed with ongoing altered mental status. Continue oral vancomycin for C. difficile treatment has been accepted facility awaiting insurance authorization. Can discharge whenever that is received. 07/02: Patient evaluated examined at bedside. Resting no apparent distress still quite altered mental status. Appears she has been accepted at a facility awaiting insurance authorization right now. Continue p.o. Vanco for C. difficile treatment. Plan of care discussed with bedside RN. 07/01: Patient seen and examined. Chart reviewed Ms Mcmilaln is an 85-year-old female past medical history of hypertension and dementia, presents the ED brought in by EMS from [facility] after patient was seen on the ground just next to her bed with complaints of left leg and hip pain. Patient was seen prior to this 1 hour ago in her bed, no active complaints. Due to patient's dementia, history and review of systems are unable to be obtained. According to the daughter, patient is fairly mobile without using any cane or walker. She is able to dress herself and feed herself and use the toilet. No falls in the past. To OR, Status post left intertrochanteric femur fracture IM nailing. 06/20: Patient underwent surgical intervention yesterday. Patient evaluated examined at bedside. She cannot provide much history given mental status but from report she has improved. PT OT ordered. Weightbearing status per orthopedics. Continue Rocephin for now. 06/21: Patient evaluated examined at bedside. Does. Clinically improved a little more alert today. Continue to Rocephin for UTI. Can be switched to p.o. on discharge continue working with PT OT. Patient could possibly go over the weekend if placement found. 06/22: Patient evaluated examined at bedside. Resting in bed when evaluated. Did not really endorse any complaints. It appears that patient had denied for placement will need home health. 06/23: No acute events overnight. Patient seen and examined bedside. Patient still having uncontrolled pain during physical therapy and any time she is moving in bed. Discussed with daughter Nori about pain management. Apparently patient at assisted living facility was started on Celexa by a psychiatrist. We are currently waiting for medication reconciliation overnight [place]. Nurse will call over there today. I have also instructed the nurse to make sure that the patient receives her pain medication about 30 minutes prior to any physical therapy session. Patient at this time is a total care and is not safe for discharge to assisted living facility. Patient will need to be in a long-term care facility. Patient's chart, labs, images were reviewed and discussed with RN 06/24: No overnight events. Completed antibiotic course for UTI. Not oriented. No complaints. 06/25: Febrile overnight, T-max 100.3 F. Her C. difficile resulted positive on 06/23. Will initiate oral vancomycin 125 mg 4 times daily x 10 days. Still having diarrhea, but denies any abdominal pain. 06/26: Patient seen and evaluated in bed. Denies any further diarrhea. Work with PT and recommended SNU. regional planner spoke with patient's daughter who declined SNU would like patient to go back to the [facility] with home health. 06/27: Patient did not discharge back to [facility] yesterday, as they were unable to accommodate her needs. Daughter is now okay with pursuing rehab. Referrals placed to rehab facilities, with acceptance pending. Still having diarrhea. c diff positive. Reinforced medication compliance. 06/28: Still with diarrhea but on oral vancomycin. Working with therapy. She is easily redirected. Pleasant. Has a little bit of epigastric tenderness after taking medications but otherwise no complaints leg pain well controlled no shortness of breath or chest pain. 06/29: Afebrile. Continue vancomycin for C. difficile. regional planner working on SNU placement for left femur fracture. This has been made difficult due to patient's dementia behavior. 06/30: Afebrile. S/P left intertrochanteric femur intramedullary nail fixation for acute left femur fracture. Family now amenable to SNU. hotel services sales representative looking for rehab facility that will accept patients based on her dementia behaviors. Continue vancomycin for C. difficile. Vitals/I&O Vitals/I&O: Vital Signs Date Time Temp Pulse Resp B/P (MAP) Pulse Ox O2 Delivery O2 Flow Rate FiO2 07/17/21 03:00 18 Room Air 07/16/21 23:00 97.4 92 132/74 (93) 96 97.4 I & O 07/16/21 07/16/21 07/17/21 15:00 23:00 07:00 Intake Total 420 ml 180 ml Output Total 0 ml Balance 420 ml 180 ml 0 ml Physical Exam General: Alert, Cooperative, No acute distress Heart: Regular rate, Normal S1, Normal S2 Lungs: Clear Abdomen: Soft, No tenderness Extremities: No clubbing, No edema, Normal pulses Skin: No rashes, Other (CDI) Assessment and Plan Assessmemt and Plan Problems Medical Problems: (1) Closed left hip fracture Status: Acute (2) Pain of left lower extremity Status: Acute Comment Review of Relevant I have reviewed the following items markus (where applicable) has been applied. Justifications for Admission Other Justification Left femur fracture MADDISON CANELA MD Jul 17, 2021 07:20
[2021-07-17] MEDS: APIXABAN 2.5 MG TABLET. PO SCH ×2 (09:38→21:36)
[2021-07-17] MEDS: busPIRone 5 MG TABLET. PO SCH ×2 (09:38→21:36)
[2021-07-17] MEDS: MEMANTINE 10 MG TABLET. PO SCH ×2 (09:38→21:36)
[2021-07-17] MEDS: LACTOBACILLUS RHAMNOSUS GG 1 CAPSULE. PO SCH ×2 (09:38→21:35)
[2021-07-17] MEDS: VANCOMYCIN 125 MG/2.5 ML ORAL SOLUTION. PO SCH ×4 (09:41→21:36)
[2021-07-17 11:00] VITALS: BP 123/53
[2021-07-17 15:00] VITALS: BP 121/46
[2021-07-17 19:00] VITALS: BP 123/66
[2021-07-17] MEDS: MIRTAZAPINE 15 MG TABLET PO SCH (21:35)
[2021-07-17 23:00] VITALS: BP 151/56
[2021-07-18 07:00] VITALS: BP 168/78
[2021-07-18] MEDS: APIXABAN 2.5 MG TABLET. PO SCH ×2 (08:29→21:00)
[2021-07-18] MEDS: LACTOBACILLUS RHAMNOSUS GG 1 CAPSULE. PO SCH ×2 (08:29→20:07)
[2021-07-18] MEDS: MEMANTINE 10 MG TABLET. PO SCH ×2 (08:29→20:05)
[2021-07-18] MEDS: busPIRone 5 MG TABLET. PO SCH ×2 (08:29→20:07)
[2021-07-18] MEDS: VANCOMYCIN 125 MG/2.5 ML ORAL SOLUTION. PO SCH ×4 (08:34→20:04)
[2021-07-18 11:00] VITALS: BP 141/74
--- NOTE | 2021-07-18 12:18 | PDOC ---
[employer] PROGRESS NOTE Date of Service DOS: DATE: 07/18/21 TIME: 12:17 Chief Complaint Chief Complaint Assessment/Plan Recent fall - Intramedullary dequan and dynamic hip screw identified transfixing the intertrochanteric fracture however there is a minimally displaced oblique nondisplaced fracture of the proximal left femur likely new periprosthetic fracture. Acute left femur fracture status post left intertrochanteric femur in tramedullary nail fixation 06/19/2021 Acute UTI - proteus mirabilis, s/p 4 doses IV rocephin and 2 doses of cefdinir. Course completed on 06/23/2021. C difficile diarrhea - likely secondary to antibiotic exposure from UTI. Will need additional 10 total days of treatment Mild hypokalemia History of Alzheimer's dementia Normocytic anemia History of vitamin B12 deficiency History of hypertension Admit to hospitalist service for further management Orthopedic consult, s/p ORIF femur Delirium prevention protocolexposure to daylight, open curtains, oriented to date time and people, avoid sedative acting medications. Lovenox for DVT prophylaxis --> eliquis 30 days Diet as tolerated CODE STATUS DNR Discussed with RN and MANUEL DPOA: Daughter 37 MIN PT exam, chart review, > 50% of time spent with exam, chart review, pt care coordination. History of Present Illness History of Present Illness No acute events overnight.07/18/2021 Patient seen examined bedside. Vital signs stable. Pending SNF placement. Possibly [facility]. Patient's chart, labs, images were reviewed and discussed with RN 07/17 Patient evaluated an examined at bedside. No clinical changes. Still awaiting placement. See social work notes for further details of d/c complications. Patient's chart, labs, images were reviewed and discussed with RN 07/16/2021 No acute events overnight. Patient seen and examined bedside. Pending possible oblique view either [place] or [facility]. Please see discharge planning notes for details. No further recommendations from orthopedic surgery. Patient's chart, labs, images were reviewed and discussed with RN 07/15/2021 No acute events overnight. Patient seen and examined bedside. Unfortunately, yesterday patient suffered a fall from standing and landed on the coccyx. She was found to have a periprosthetic fracture orthopedics have reviewed the images and recommended patient to be TTWB for transfers only and continue to work with physical therapy. Patient's chart, labs, images were reviewed and discussed with RN 07/14/2021 No acute events overnight. Patient seen and examined bedside. Patient in good spirits. Bowel movements x2 in the past 24 hours. Working well with physical therapy. Pending placement and insurance authorization. Patient will need Covid PCR and before acceptance to nursing facility. Patient's chart, labs, images were reviewed and discussed with RN 07/13/2021 No acute events overnight. Patient seen and examined bedside. [place] removed from surgical site. No complications. Total of 2 bowel movements in the last 24 hours. Decreased from yesterday. No Other concerns from nursing. Patient's chart, labs, images were reviewed and discussed with RN 07/12: Afebrile overnight. Bowels have firmed up on second round of oral vancomycin. Redirectable able to fold towels with occupational therapy and responsive to redirection admitted with 1-2 person assist to restroom. Denies shortness of breath or chest pain. Does require redirection to get herself dr van. 07/11: She is responsive to 1-2 person assist and is redirectable with OT for behaviors and is responsive to medication with as needed oral dissolving Zyprexa not requiring further interventions. Tolerating repeat round of oral vancomycin well stools are firming up. No shortness of breath or CP 07/10: She is redirectable. After 3 doses back on oral vancomycin her stools have firmed up though she still had 4 bowel movements last 24 hours. No dysuria no shortness of breath or chest pain. She is able to ambulate with standby assistance with no pain complaints. 07/09: Easily redirectable hip pain well controlled on very occasional tramadol and Tylenol. Loose stools not improved no dysuria. Awaiting rehab placement. 07/08: Loose stools getting worse again off of oral vancomycin. Still intermittently confused with therapy. Awaiting placement no chest pain or shortness of breath 07/07: Patient evaluated and examined at bedside. No major clinical changes. Continue therapy. Can discharge once placement found. 07/06: Patient evaluated examined at bedside. No major clinical change. Just waiting for placement. 07/05: Patient evaluated and examined at bedside. No major clinical changes. To continue therapy. Can discharge once placement found. 07/04: Patient evaluated and examined at bedside. Was trying to work with PT when evaluated. Continue oral Vanco. Awaiting insurance Auth can discharge once that it is received 07/03: Patient evaluated examined at bedside. Resting in bed with ongoing altered mental status. Continue oral vancomycin for C. difficile treatment has been accepted facility awaiting insurance authorization. Can discharge whenever that is received. 07/02: Patient evaluated examined at bedside. Resting no apparent distress still quite altered mental status. Appears she has been accepted at a facility awaiting insurance authorization right now. Continue p.o. Vanco for C. difficile treatment. Plan of care discussed with bedside RN. 07/01: Patient seen and examined. Chart reviewed Ms Mcmillan is an 85-year-old female past medical history of hypertension and dementia, presents the ED brought in [facility] after patient was seen on the ground just next to her bed with complaints of left leg and hip pain. Patient was seen prior to this 1 hour ago in her bed, no active complaints. Due to patient's dementia, history and review of systems are unable to be obtained. According to the daughter, patient is fairly mobile without using any cane or walker. She is able to dress herself and feed herself and use the toilet. No falls in the past. To OR, Status post left intertrochanteric femur fracture IM nailing. 06/20: Patient underwent surgical intervention yesterday. Patient evaluated examined at bedside. She cannot provide much history given mental status but from report she has improved. PT OT ordered. Weightbearing status per orthopedics. Continue Rocephin for now. 06/21: Patient evaluated examined at bedside. Does. Clinically improved a lit tle more alert today. Continue to Rocephin for UTI. Can be switched to p.o. on discharge continue working with PT OT. Patient could possibly go over the weekend if placement found. 06/22: Patient evaluated examined at bedside. Resting in bed when evaluated. Did not really endorse any complaints. It appears that patient had denied for placement will need home health. 06/23: No acute events overnight. Patient seen and examined bedside. Patient still having uncontrolled pain during physical therapy and any time she is moving in bed. Discussed with daughter Nori about pain management. Apparently patient at assisted living facility was started on Celexa by a psychiatrist. We are currently waiting for medication reconciliation overnight [facility]. Nurse will call over there today. I have also instructed the nurse to make sure that the patient receives her pain medication about 30 minutes prior to any physical therapy session. Patient at this time is a total care and is not safe for discharge to assisted living facility. Patient will need to be in a long-term care facility. Patient's chart, labs, images were reviewed and discussed with RN 06/24: No overnight events. Completed antibiotic course for UTI. Not oriented. No complaints. 06/25: Febrile overnight, T-max 100.3 F. Her C. difficile resulted positive on 06/23. Will initiate oral vancomycin 125 mg 4 times daily x 10 days. Still having diarrhea, but denies any abdominal pain. 06/26: Patient seen and evaluated in bed. Denies any further diarrhea. Work with PT and recommended SNU. project planner spoke with patient's daughter who declined SNU would like patient to go back to the [facility] with home health. 06/27: Patient did not discharge back to [facility] yesterday, as they were unable to accommodate her needs. Daughter is now okay with pursuing rehab. Referrals placed to rehab facilities, with acceptance pending. Still having diarrhea. c diff positive. Reinforced medication compliance. 06/28: Still with diarrhea but on oral vancomycin. Working with therapy. She is easily redirected. Pleasant. Has a little bit of epigastric tenderness after taking medications but otherwise no complaints leg pain well controlled no shortness of breath or chest pain. 06/29: Afebrile. Continue vancomycin for C. difficile. project planner working on SNU placement for left femur fracture. This has been made difficult due to patient's dementia behavior. 06/30: Afebrile. S/P left intertrochanteric femur intramedullary nail fixation for acute left femur fracture. Family now amenable to SNU. manager environmental services looking for rehab facility that will accept patients based on her dementia beha viors. Continue vancomycin for C. difficile. Vitals/I&O Vitals/I&O: Vital Signs Date Time Temp Pulse Resp B/P (MAP) Pulse Ox O2 Delivery O2 Flow Rate FiO2 07/18/21 11:00 97.3 98 20 141/74 (96) 93 Room Air 97.3 I & O 07/17/21 07/17/21 07/18/21 15:00 23:00 07:00 Intake Total 60 ml Output Total 0 ml Balance 60 ml 0 ml Physical Exam General: Alert, Cooperative, No acute distress Heart: Regular rate, Normal S1, Normal S2 Lungs: Clear Abdomen: Soft, No tenderness Extremities: No clubbing, No edema, Normal pulses Skin: No rashes, Other (CDI) Assessment and Plan Assessmemt and Plan Problems Medical Problems: (1) Closed left hip fracture Status: Acute (2) Pain of left lower extremity Status: Acute Comment Review of Relevant I have reviewed the following items markus (where applicable) has been applied. Justifications for Admission Other Justification Left femur fracture KEIRA JACKSON MD Jul 18, 2021 12:18
--- NOTE | 2021-07-18 14:00 | NUR ---
Still has redness groin and coccyx. Using Calazime applied to areas. Encourage to use BSC and is offered. Cont. monitor.
[2021-07-18 15:00] VITALS: BP 141/78
--- NOTE | 2021-07-18 18:00 | NUR ---
Multiple times found pt out of bed standing at bedside with bed alarm going off. Had pt sitting at nurses station for couple of hours today. At this time pt in bed with bed alarm. Cont. monitor.
[2021-07-18 19:25] VITALS: BP 138/63
[2021-07-18] MEDS: traMADol 50 MG TABLET PO PRN (20:01)
[2021-07-18] MEDS: MIRTAZAPINE 15 MG TABLET PO SCH (20:06)
[2021-07-19 02:59] VITALS: BP 128/68
--- NOTE | 2021-07-19 06:42 | NUR ---
Toradol given at HS, pt has slept all shift. Incontinent of urine, diaper soaked. Calmazine cream applied to red buttocks.
[2021-07-19 07:43] VITALS: BP 116/42
[2021-07-19] MEDS: MEMANTINE 10 MG TABLET. PO SCH ×2 (08:48→21:00)
[2021-07-19] MEDS: APIXABAN 2.5 MG TABLET. PO SCH ×2 (08:48→21:00)
[2021-07-19] MEDS: traMADol 50 MG TABLET PO PRN (08:49)
[2021-07-19] MEDS: busPIRone 5 MG TABLET. PO SCH ×2 (08:49→21:00)
[2021-07-19] MEDS: LACTOBACILLUS RHAMNOSUS GG 1 CAPSULE. PO SCH ×2 (08:49→21:00)
[2021-07-19] MEDS: VANCOMYCIN 125 MG/2.5 ML ORAL SOLUTION. PO SCH (08:55)
[2021-07-19 11:00] VITALS: BP 106/45
--- NOTE | 2021-07-19 12:04 | PDOC ---
[employer] PROGRESS NOTE Date of Service DOS: DATE: 07/19/21 TIME: 12:03 Chief Complaint Chief Complaint Assessment/Plan Recent fall - Intramedullary dequan and dynamic hip screw identified transfixing the intertrochanteric fracture however there is a minimally displaced oblique nondisplaced fracture of the proximal left femur likely new periprosthetic fracture. Acute left femur fracture status post left intertrochanteric femur in tramedullary nail fixation 06/19/2021 Acute UTI - proteus mirabilis, s/p 4 doses IV rocephin and 2 doses of cefdinir. Course completed on 06/23/2021. C difficile diarrhea - likely secondary to antibiotic exposure from UTI. Will need additional 10 total days of treatment Mild hypokalemia History of Alzheimer's dementia Normocytic anemia History of vitamin B12 deficiency History of hypertension Admit to hospitalist service for further management Orthopedic consult, s/p ORIF femur Delirium prevention protocolexposure to daylight, open curtains, oriented to date time and people, avoid sedative acting medications. Lovenox for DVT prophylaxis --> eliquis 30 days Diet as tolerated CODE STATUS DNR Discussed with RN and MANUEL DPOA: Daughter 37 MIN PT exam, chart review, > 50% of time spent with exam, chart review, pt care coordination. History of Present Illness History of Present Illness 07/19/2021 No acute events overnight. Patient seen and examined bedside. Patient does have some incontinence and she has irritation to her buttock region. Pending SNF placement. Patient's chart, labs, images were reviewed and discussed with RN 07/18/2021 Patient seen examined bedside. Vital signs stable. Pending SNF placement. Possibly [place]. Patient's chart, labs, images were reviewed and discussed with RN 07/17 Patient evaluated an examined at bedside. No clinical changes. Still awaiting placement. See social work notes for further details of d/c complications. Patient's chart, labs, images were reviewed and discussed with RN 07/16/2021 No acute events overnight. Patient seen and examined bedside. Pending possible oblique view either [facility] or [place]. Please see discharge planning notes for details. No further recommendations from orthopedic surgery. Patient's chart, labs, images were reviewed and discussed with RN 07/15/2021 No acute events overnight. Patient seen and examined bedside. Unfortunately, yesterday patient suffered a fall from standing and landed on the coccyx. She was found to have a periprosthetic fracture orthopedics have reviewed the images and recommended patient to be TTWB for transfers only and continue to work with physical therapy. Patient's chart, labs, images were reviewed and discussed with RN 07/14/2021 No acute events overnight. Patient seen and examined bedside. Patient in good spirits. Bowel movements x2 in the past 24 hours. Working well with physical therapy. Pending placement and insurance authorization. Patient will need Covid PCR and before acceptance to nursing facility. Patient's chart, labs, images were reviewed and discussed with RN 07/13/2021 No acute events overnight. Patient seen and examined bedside. [place] removed from surgical site. No complications. Total of 2 bowel movements in the last 24 hours. Decreased from yesterday. No Other concerns from nursing. Patient's chart, labs, images were reviewed and discussed with RN 07/12: Afebrile overnight. Bowels have firmed up on second round of oral vancomy tj. Redirectable able to fold towels with occupational therapy and responsive to redirection admitted with 1-2 person assist to restroom. Denies shortness of breath or chest pain. Does require redirection to get herself dressed. 07/11: She is responsive to 1-2 person assist and is redirectable with OT for behaviors and is responsive to medication with as needed oral dissolving Zyprexa not requiring further interventions. Tolerating repeat round of oral vancomycin well stools are firming up. No shortness of breath or CP 07/10: She is redirectable. After 3 doses back on oral vancomycin her stools have firmed up though she still had 4 bowel movements last 24 hours. No dysuria no shortness of breath or chest pain. She is able to ambulate with standby assistance with no pain complaints. 07/09: Easily redirectable hip pain well controlled on very occasional tramadol and Tylenol. Loose stools not improved no dysuria. Awaiting rehab placement. 07/08: Loose stools getting worse again off of oral vancomycin. Still intermittently confused with therapy. Awaiting placement no chest pain or shortness of breath 07/07: Patient evaluated and examined at bedside. No major clinical changes. Continue therapy. Can discharge once placement found. 07/06: Patient evaluated examined at bedside. No major clinical change. Just waiting for placement. 07/05: Patient evaluated and examined at bedside. No major clinical changes. To continue therapy. Can discharge once placement found. 07/04: Patient evaluated and examined at bedside. Was trying to work with PT when evaluated. Continue oral Vanco. Awaiting insurance Auth can discharge once that it is received 07/03: Patient evaluated examined at bedside. Resting in bed with ongoing altered mental status. Continue oral vancomycin for C. difficile treatment has been accepted facility awaiting insurance authorization. Can discharge whenever that is received. 07/02: Patient evaluated examined at bedside. Resting no apparent distress still quite altered mental status. Appears she has been accepted at a facility awaiting insurance authorization right now. Continue p.o. Vanco for C. difficile treatment. Plan of care discussed with bedside RN. 07/01: Patient seen and examined. Chart reviewed Ms Mcmillan is an 85-year-old female past medical history of hypertension and dementia, presents the ED brought in by EMS [facility] after patient was seen on the ground just next to her bed with complaints of left leg and hip pain. Patient was seen prior to this 1 hour ago in her bed, no active complaints. Due to patient's dementia, history and review of systems are unable to be obtained. According to the daughter, patient is fairly mobile without using any cane or walker. She is able to dress herself and feed herself and use the toilet. No falls in the past. To OR, Status post left intertrochanteric femur fracture IM nailing. 06/20: Patient underwent surgical intervention yesterday. Patient evaluated examined at bedside. She cannot provide much history given mental status but from report she has improved. PT OT ordered. Weightbearing status per orthopedics. Continue Rocephin for now. 06/21: Patient evaluated examined at bedside. Does. Clinically improved a little more alert today. Continue to Rocephin for UTI. Can be switched to p.o. on discharge continue working with PT OT. Patient could possibly go over the weekend if placement found. 06/22: Patient evaluated examined at bedside. Resting in bed when evaluated. Did not really endorse any complaints. It appears that patient had denied for placement will need home health. 06/23: No acute events overnight. Patient seen and examined bedside. Patient still having uncontrolled pain during physical therapy and any time she is moving in bed. Discussed with daughter Nori about pain management. Apparently patient at assisted living facility was started on Celexa by a psychiatrist. We are currently waiting for medication reconciliation overnight [facility]. Nurse will call over there today. I have also instructed the nurse to make sure that the patient receives her pain medication about 30 minutes prior to any physical therapy session. Patient at this time is a total care and is not safe for discharge to assisted living facility. Patient will need to be in a long-term care facility. Patient's chart, labs, images were reviewed and discussed with RN 06/24: No overnight events. Completed antibiotic course for UTI. Not oriented. No complaints. 06/25: Febrile overnight, T-max 100.3 F. Her C. difficile resulted positive on 06/23. Will initiate oral vancomycin 125 mg 4 times daily x 10 days. Still having diarrhea, but denies any abdominal pain. 06/26: Patient seen and evaluated in bed. Denies any further diarrhea. Work with PT and recommended SNU. media planner spoke with patient's daughter who declined SNU would like patient to go back to the [facility] with home health. 06/27: Patient did not discharge back to [facility] yesterday, as they were unable to accommodate her needs. Daughter is now okay with pursuing rehab. Referrals placed to rehab facilities, with acceptance pending. Still having diarrhea. c diff positive. Reinforced medication compliance. 06/28: Still with diarrhea but on oral vancomycin. Working with therapy. She is easily redirected. Pleasant. Has a little bit of epigastric tenderness after taking medications but otherwise no complaints leg pain well controlled no shortness of breath or chest pain. 06/29: Afebrile. Continue vancomycin for C. difficile. media planner lianna estrada on SNU placement for left femur fracture. This has been made difficult due to patient's dementia behavior. 06/30: Afebrile. S/P left intertrochanteric femur intramedullary nail fixation for acute left femur fracture. Family now amenable to SNU. student services rep looking for rehab facility that will accept patients based on her dementia behaviors. Continue vancomycin for C. difficile. Vitals/I&O Vitals/I&O: Vital Signs Date Time Temp Pulse Resp B/P (MAP) Pulse Ox O2 Delivery O2 Flow Rate FiO2 11/19/21 11:00 97.5 75 16 106/45 (65) 96 Room Air 97.5 07/19/21 08:00 6.0 I & O 07/18/21 07/18/21 07/19/21 15:00 23:00 07:00 Intake Total 420 ml 240 ml Output Total 0 ml Balance 420 ml 240 ml Physical Exam General: Alert, Cooperative, No acute distress Heart: Regular rate, Normal S1, Normal S2 Lungs: Clear Abdomen: Soft, No tenderness Extremities: No clubbing, No edema, Normal pulses Skin: No rashes, Other (CDI) Assessment and Plan Assessmemt and Plan Problems Medical Problems: (1) Closed left hip fracture Status: Acute (2) Pain of left lower extremity Status: Acute Comment Review of Relevant I have reviewed the following items markus (where applicable) has been applied. Justifications for Admission Other Justification Left femur fracture KEIRA JACKSON MD Jul 19, 2021 12:04
[2021-07-19 19:00] VITALS: BP 124/51
[2021-07-19] MEDS: MIRTAZAPINE 15 MG TABLET PO SCH (21:00)
[2021-07-20 08:00] VITALS: BP 148/68
[2021-07-20] MEDS: MEMANTINE 10 MG TABLET. PO SCH ×3 (08:44→21:00)
[2021-07-20] MEDS: LACTOBACILLUS RHAMNOSUS GG 1 CAPSULE. PO SCH ×3 (08:44→21:00)
[2021-07-20] MEDS: busPIRone 5 MG TABLET. PO SCH ×3 (08:44→21:00)
[2021-07-20] MEDS: APIXABAN 2.5 MG TABLET. PO SCH ×3 (08:44→21:00)
[2021-07-20 11:00] VITALS: BP 119/62
--- NOTE | 2021-07-20 12:03 | PDOC ---
[employer] PROGRESS NOTE Date of Service DOS: DATE: 07/20/21 TIME: 11:59 Chief Complaint Chief Complaint Assessment/Plan Recent fall - Intramedullary dequan and dynamic hip screw identified transfixing the intertrochanteric fracture however there is a minimally displaced oblique nondisplaced fracture of the proximal left femur likely new periprosthetic fracture. Acute left femur fracture status post left intertrochanteric femur in tramedullary nail fixation 06/19/2021 Acute UTI - proteus mirabilis, s/p 4 doses IV rocephin and 2 doses of cefdinir. Course completed on 06/23/2021. C difficile diarrhea - likely secondary to antibiotic exposure from UTI. Will need additional 10 total days of treatment Mild hypokalemia History of Alzheimer's dementia Normocytic anemia History of vitamin B12 deficiency History of hypertension Admit to hospitalist service for further management Orthopedic consult, s/p ORIF femur Delirium prevention protocolexposure to daylight, open curtains, oriented to date time and people, avoid sedative acting medications. Lovenox for DVT prophylaxis --> eliquis 30 days Diet as tolerated CODE STATUS DNR Discussed with RN and MANUEL DPOA: Daughter 37 MIN PT exam, chart review, > 50% of time spent with exam, chart review, pt care coordination. History of Present Illness History of Present Illness 07/20/2021 No acute events tonight. Patient seen examined bedside. No concerns from nursing. Patient seen this morning by physical therapy. Patient still requires multiple verbal and tactile cues for maintaining nonweightbearing on the left foot. Patient's chart, labs, images were reviewed and discussed with RN 07/19/2021 No acute events overnight. Patient seen and examined bedside. Patient does have some incontinence and she has irritation to her buttock region. Pending SNF placement. Patient's chart, labs, images were reviewed and discussed with RN 07/18/2021 Patient seen examined bedside. Vital signs stable. Pending SNF placement. Possibly [facility]. Patient's chart, labs, images were reviewed and discussed with RN 07/17 Patient evaluated an examined at bedside. No clinical changes. Still awaiting placement. See social work notes for further details of d/c complications. Patient's chart, labs, images were reviewed and discussed with RN 07/16/2021 No acute events overnight. Patient seen and examined bedside. Pending possible oblique view either [facility] or [facility]. Please see discharge planning notes for details. No further recommendations from orthopedic surgery. Patient's chart, labs, images were reviewed and discussed with RN 07/15/2021 No acute events overnight. Patient seen and examined bedside. Unfortunately, yesterday patient suffered a fall from standing and landed on the coccyx. She was found to have a periprosthetic fracture orthopedics have reviewed the images and recommended patient to be TTWB for transfers only and continue to work with physical therapy. Patient's chart, labs, images were reviewed and discussed with RN 07/14/2021 No acute events overnight. Patient seen and examined bedside. Patient in good spirits. Bowel movements x2 in the past 24 hours. Working well with physical therapy. Pending placement and insurance authorization. Patient will need Covid PCR and before acceptance to nursing facility. Patient's chart, labs, images were reviewed and discussed with RN 07/13/2021 No acute events overnight. Patient seen and examined bedside. Pantera removed from surgical site. No complications. Total of 2 bowel movements in the last 24 hours. Decreased from yesterday. No Other concerns from nursing. Patient's chart, labs, images were reviewed and discussed with RN 07/12: Afebrile overnight. Bowels have firmed up on second round of oral vancomycin. Redirectable able to fold towels with occupational therapy and responsive to redirection admitted with 1-2 person assist to restroom. Denies shortness of breath or chest pain. Does require redirection to get herself dressed. 07/11: She is responsive to 1-2 person assist and is redirectable with OT for be haviors and is responsive to medication with as needed oral dissolving Zyprexa not requiring further interventions. Tolerating repeat round of oral vancomycin well stools are firming up. No shortness of breath or CP 07/10: She is redirectable. After 3 doses back on oral vancomycin her stools have firmed up though she still had 4 bowel movements last 24 hours. No dysuria no shortness of breath or chest pain. She is able to ambulate with standby assistance with no pain complaints. 07/09: Easily redirectable hip pain well controlled on very occasional tramadol and Tylenol. Loose stools not improved no dysuria. Awaiting rehab placement. 07/08: Loose stools getting worse again off of oral vancomycin. Still intermittently confused with therapy. Awaiting placement no chest pain or shortness of breath 07/07: Patient evaluated and examined at bedside. No major clinical changes. Continue therapy. Can discharge once placement found. 07/06: Patient evaluated examined at bedside. No major clinical change. Just waiting for placement. 07/05: Patient evaluated and examined at bedside. No major clinical changes. To continue therapy. Can discharge once placement found. 07/04: Patient evaluated and examined at bedside. Was trying to work with PT when evaluated. Continue oral Vanco. Awaiting insurance Auth can discharge once that it is received 07/03: Patient evaluated examined at bedside. Resting in bed with ongoing altered mental status. Continue oral vancomycin for C. difficile treatment has been accepted facility awaiting insurance authorization. Can discharge whenever that is received. 07/02: Patient evaluated examined at bedside. Resting no apparent distress still quite altered mental status. Appears she has been accepted at a facility awaiting insurance authorization right now. Continue p.o. Vanco for C. difficile treatment. Plan of care discussed with bedside RN. 07/01: Patient seen and examined. Chart reviewed Ms Mcmillan is an 85-year-old female past medical history of hypertension and dementia, presents the ED brought in by [facility] after patient was seen on the ground just next to her bed with complaints of left leg and hip pain. Patient was seen prior to this 1 hour ago in her bed, no active complaints. Due to patient's dementia, history and review of systems are unable to be obtained. According to the daughter, patient is fairly mobile without using any cane or walker. She is able to dress herself and feed herself and use the toilet. No falls in the past. To OR, Status post left intertrochanteric femur fracture IM nailing. 06/20: Patient underwent surgical intervention yesterday. Patient evaluated examined at bedside. She cannot provide much history given mental status but from report she has improved. PT OT ordered. Weightbearing status per orthopedics. Continue Rocephin for now. 06/21: Patient evaluated examined at bedside. Does. Clinically improved a little more alert today. Continue to Rocephin for UTI. Can be switched to p.o. on discharge continue working with PT OT. Patient could possibly go over the weekend if placement found. 06/22: Patient evaluated examined at bedside. Resting in bed when evaluated. Did not really endorse any complaints. It appears that patient had denied for placement will need home health. 06/23: No acute events overnight. Patient seen and examined bedside. Patient still having uncontrolled pain during physical therapy and any time she is moving in bed. Discussed with daughter Nori about pain management. Apparently patient at assisted living facility was started on Celexa by a psychiatrist. We are currently waiting for medication reconciliation overnight [facility] [place]. Nurse will call over there today. I have also instructed the nurse to make sure that the patient receives her pain medication about 30 minutes prior to any physical therapy session. Patient at this time is a total care and is not safe for discharge to assisted living facility. Patient will need to be in a long-term care facility. Patient's chart, labs, images were reviewed and discussed with RN 06/24: No overnight events. Completed antibiotic course for UTI. Not oriented. No complaints. 06/25: Febrile overnight, T-max 100.3 F. Her C. difficile resulted positive on 06/23. Will initiate oral vancomycin 125 mg 4 times daily x 10 days. Still having diarrhea, but denies any abdominal pain. 06/26: Patient seen and evaluated in bed. Denies any further diarrhea. Work with PT and recommended SNU. communications planner spoke with patient's daughter who declined SNU would like patient to go back to the [facility] [place] with home health. 06/27: Patient did not discharge back to [facility] [place] yesterday, as they were unable to accommodate her needs. Daughter is now okay with pursuing rehab. Referrals placed to rehab facilities, with acceptance pending. Still having diarrhea. c diff positive. Reinforced medication compliance. 06/28: Still with diarrhea but on oral vancomycin. Working with therapy. She is easily redirected. Pleasant. Has a little bit of epigastric tenderness a fter taking medications but otherwise no complaints leg pain well controlled no shortness of breath or chest pain. 06/29: Afebrile. Continue vancomycin for C. difficile. communications planner working on SNU placement for left femur fracture. This has been made difficult due to patient's dementia behavior. 06/30: Afebrile. S/P left intertrochanteric femur intramedullary nail fixation for acute left femur fracture. Family now amenable to SNU. 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 Continue vancomycin for C. difficile. Vitals/I&O Vitals/I&O: Vital Signs Date Time Temp Pulse Resp B/P (MAP) Pulse Ox O2 Delivery O2 Flow Rate FiO2 07/20/21 08:00 97.4 75 14 148/68 (94) 97 Room Air 97.4 07/19/21 08:00 6.0 Physical Exam General: Alert, Cooperative, No acute distress Heart: Regular rate, Normal S1, Normal S2 Lungs: Clear Abdomen: Soft, No tenderness Extremities: No clubbing, No edema, Normal pulses Skin: No rashes, Other (CDI) Assessment and Plan Assessmemt and Plan Problems Medical Problems: (1) Closed left hip fracture Status: Acute (2) Pain of left lower extremity Status: Acute Comment Review of Relevant I have reviewed the following items markus (where applicable) has been applied. Justifications for Admission Other Justification Left femur fracture KEIRA JACKSON MD Jul 20, 2021 12:03
[2021-07-20 15:00] VITALS: BP 123/60
[2021-07-20 19:31] VITALS: BP 148/71
[2021-07-20] MEDS: MIRTAZAPINE 15 MG TABLET PO SCH ×2 (19:59→21:00)
[2021-07-20 22:59] VITALS: BP 142/73
[2021-07-21] MEDS: MEMANTINE 10 MG TABLET. PO SCH ×2 (10:10→19:09)
[2021-07-21] MEDS: LACTOBACILLUS RHAMNOSUS GG 1 CAPSULE. PO SCH ×2 (10:10→19:09)
[2021-07-21] MEDS: APIXABAN 2.5 MG TABLET. PO SCH ×2 (10:10→19:09)
[2021-07-21] MEDS: busPIRone 5 MG TABLET. PO SCH ×2 (10:10→19:09)
--- NOTE | 2021-07-21 10:11 | PDOC ---
[employer] PROGRESS NOTE Date of Service DOS: DATE: 07/21/21 TIME: 10:08 Chief Complaint Chief Complaint Assessment/Plan Recent fall - Intramedullary dequan and dynamic hip screw identified transfixing the intertrochanteric fracture however there is a minimally displaced oblique nondisplaced fracture of the proximal left femur likely new periprosthetic fracture. Acute left femur fracture status post left intertrochanteric femur in tramedullary nail fixation 06/19/2021 Acute UTI - proteus mirabilis, s/p 4 doses IV rocephin and 2 doses of cefdinir. Course completed on 06/23/2021. C difficile diarrhea - likely secondary to antibiotic exposure from UTI. Will need additional 10 total days of treatment Mild hypokalemia History of Alzheimer's dementia Normocytic anemia History of vitamin B12 deficiency History of hypertension Admit to hospitalist service for further management Orthopedic consult, s/p ORIF femur Delirium prevention protocolexposure to daylight, open curtains, oriented to date time and people, avoid sedative acting medications. Lovenox for DVT prophylaxis --> eliquis 30 days Diet as tolerated CODE STATUS DNR Discussed with RN and SW DPOA: Daughter 37 MIN PT exam, chart review, > 50% of time spent with exam, chart review, pt care coordination. History of Present Illness History of Present Illness 07/21/2021 No acute events overnight. Patient seen examined bedside. No complaints from the patient. No concerns nursing. Pending SNF placement. Patient's chart, labs, images were reviewed and discussed with RN 07/20/2021 No acute events tonight. Patient seen examined bedside. No concerns from nursing. Patient seen this morning by physical therapy. Patient still requires multiple verbal and tactile cues for maintaining nonweightbearing on the left foot. Patient's chart, labs, images were reviewed and discussed with RN 07/19/2021 No acute events overnight. Patient seen and examined bedside. Patient does have some incontinence and she has irritation to her buttock region. Pending SNF placement. Patient's chart, labs, images were reviewed and discussed with RN 07/18/2021 Patient seen examined bedside. Vital signs stable. Pending SNF placement. Possibly [facility]. Patient's chart, labs, images were reviewed and discussed with RN 07/17 Patient evaluated an examined at bedside. No clinical changes. Still awaiting placement. See social work notes for further details of d/c complications. Patient's chart, labs, images were reviewed and discussed with RN 07/16/2021 No acute events overnight. Patient seen and examined bedside. Pending possible oblique view either [facility] Husain or [facility]. Please see discharge planning notes for details. No further recommendations from orthopedic surgery. Patient's chart, labs, images were reviewed and discussed with RN 07/15/2021 No acute events overnight. Patient seen and examined bedside. Unfortunately, yesterday patient suffered a fall from standing and landed on the coccyx. She was found to have a periprosthetic fracture orthopedics have reviewed the images and recommended patient to be TTWB for transfers only and continue to work with physical therapy. Patient's chart, labs, images were reviewed and discussed with RN 07/14/2021 No acute events overnight. Patient seen and examined bedside. Patient in good spirits. Bowel movements x2 in the past 24 hours. Working well with physical therapy. Pending placement and insurance authorization. Patient will need Covid PCR and before acceptance to nursing facility. Patient's chart, labs, images were reviewed and discussed with RN 07/13/2021 No acute events overnight. Patient seen and examined bedside. Ruby removed from surgical site. No complications. Total of 2 bowel movements in the last 24 hours. Decreased from yesterday. No Other concerns from nursing. Patient's chart, labs, images were reviewed and discussed with RN 07/12: Afebrile overnight. Bowels have firmed up on second round of oral vancomycin. Redirectable able to fold towels with occupational therapy and responsive to redirection admitted with 1-2 person assist to restroom. Denies shortness of breath or chest pain. Does require redirection to get herself dressed. 07/11: She is responsive to 1-2 person assist and is redirectable with OT for behaviors and is responsive to medication with as needed oral dissolving Zyprexa not requiring further interventions. Tolerating repeat round of oral vancomycin well stools are firming up. No shortness of breath or CP 07/10: She is redirectable. After 3 doses back on oral vancomycin her stools have firmed up though she still had 4 bowel movements last 24 hours. No dysuria no shortness of breath or chest pain. She is able to ambulate with standby assistance with no pain complaints. 07/09: Easily redirectable hip pain well controlled on very occasional tramadol and Tylenol. Loose stools not improved no dysuria. Awaiting rehab placement. 07/08: Loose stools getting worse again off of oral vancomycin. Still intermittently confused with therapy. Awaiting placement no chest pain or shortness of breath 07/07: Patient evaluated and examined at bedside. No major clinical changes. Continue therapy. Can discharge once placement found. 07/06: Patient evaluated examined at bedside. No major clinical change. Just waiting for placement. 07/05: Patient evaluated and examined at bedside. No major clinical changes. To continue therapy. Can discharge once placement found. 07/04: Patient evaluated and examined at bedside. Was trying to work with PT when evaluated. Continue oral Vanco. Awaiting insurance Auth can discharge once that it is received 07/03: Patient evaluated examined at bedside. Resting in bed with ongoing altered mental status. Continue oral vancomycin for C. difficile treatment has been accepted facility awaiting insurance authorization. Can discharge whenever that is received. 07/02: Patient evaluated examined at bedside. Resting no apparent distress still quite altered mental status. Appears she has been accepted at a facility awaiting insurance authorization right now. Continue p.o. Vanco for C. difficile treatment. Plan of care discussed with bedside RN. 07/01: Patient seen and examined. Chart reviewed Ms Mcmillan is an 85-year-old female past medical history of hypertension and dementia, presents the ED brought in by [facility] after patient was seen on the ground just next to her bed with complaints of left leg and hip pain. Patient was seen prior to this 1 hour ago in her bed, no active complaints. Due to patient's dementia, history and review of systems are unable to be obtained. According to the daughter, patient is fairly mobile without using any cane or walker. She is able to dress herself and feed herself and use the toilet. No falls in the past. To OR, Status post left intertrochanteric femur fracture IM nailing. 06/20: Patient underwent surgical intervention yesterday. Patient evaluated examined at bedside. She cannot provide much history given mental status but from report she has improved. PT OT ordered. Weightbearing status per o rthopedics. Continue Rocephin for now. 06/21: Patient evaluated examined at bedside. Does. Clinically improved a little more alert today. Continue to Rocephin for UTI. Can be switched to p.o. on discharge continue working with PT OT. Patient could possibly go over the weekend if placement found. 06/22: Patient evaluated examined at bedside. Resting in bed when evaluated. Did not really endorse any complaints. It appears that patient had denied for placement will need home health. 06/23: No acute events overnight. Patient seen and examined bedside. Patient still having uncontrolled pain during physical therapy and any time she is moving in bed. Discussed with daughter Nori about pain management. Apparently patient at assisted living facility was started on Celexa by a psychiatrist. We are currently waiting for medication reconciliation overnight [facility]. Nurse will call over there today. I have also instructed the nurse to make sure that the patient receives her pain medication about 30 minutes prior to any physical therapy session. Patient at this time is a total care and is not safe for discharge to assisted living facility. Patient will need to be in a long-term care facility. Patient's chart, labs, images were reviewed and discussed with RN 06/24: No overnight events. Completed antibiotic course for UTI. Not oriented. No complaints. 06/25: Febrile overnight, T-max 100.3 F. Her C. difficile resulted positive on 06/23. Will initiate oral vancomycin 125 mg 4 times daily x 10 days. Still having diarrhea, but denies any abdominal pain. 06/26: Patient seen and evaluated in bed. Denies any further diarrhea. Work [facility] PT and recommended SNU. environmental planner spoke with patient's daughter who declined SNU would like patient to go back to the [facility] with home health. 06/27: Patient did not discharge back to [facility] yesterday, as they were unable to accommodate her needs. Daughter is now okay with pursuing rehab. Referrals placed to rehab facilities, with acceptance pending. Still having d iarrhea. c diff positive. Reinforced medication compliance. 06/28: Still with diarrhea but on oral vancomycin. Working with therapy. She is easily redirected. Pleasant. Has a little bit of epigastric tenderness after taking medications but otherwise no complaints leg pain well controlled no shortness of breath or chest pain. 06/29: Afebrile. Continue vancomycin for C. difficile. environmental planner working on SNU placement for left femur fracture. This has been made difficult due to patient's dementia behavior. 06/30: Afebrile. S/P left intertrochanteric femur intramedullary nail fixation for acute left femur fracture. Family now amenable to SNU. vp marketing services and skin looking for rehab facility that will accept patients based on her dementia behaviors. Continue vancomycin for C. difficile. Vitals/I&O Vitals/I&O: Vital Signs Date Time Temp Pulse Resp B/P (MAP) Pulse Ox O2 Delivery O2 Flow Rate FiO2 07/21/21 03:00 18 07/20/21 22:59 96 142/73 (96) 94 Room Air 07/20/21 19:31 97.3 97.3 I & O 07/20/21 07/20/21 07/21/21 15:00 23:00 07:00 Intake Total 1000 ml 120 ml Balance 1000 ml 120 ml Physical Exam General: Alert, Cooperative, No acute distress Heart: Regular rate, Normal S1, Normal S2 Lungs: Clear Abdomen: Soft, No tenderness Extremities: No clubbing, No edema, Normal pulses Skin: No rashes, Other (CDI) Assessment and Plan Assessmemt and Plan Problems Medical Problems: (1) Closed left hip fracture Status: Acute (2) Pain of left lower extremity Status: Acute Comment Review of Relevant I have reviewed the following items markus (where applicable) has been applied. Justifications for Admission Other Justification Left femur fracture KEIRA JACKSON MD Jul 21, 2021 10:11
[2021-07-21 11:00] VITALS: BP 128/54
[2021-07-21 15:00] VITALS: BP 114/55
[2021-07-21 19:00] VITALS: BP 118/66
[2021-07-21] MEDS: MIRTAZAPINE 15 MG TABLET PO SCH (19:08)
[2021-07-21 23:01] VITALS: BP 165/89
[2021-07-22] MEDS: LACTOBACILLUS RHAMNOSUS GG 1 CAPSULE. PO SCH ×2 (08:25→19:00)
[2021-07-22] MEDS: MEMANTINE 10 MG TABLET. PO SCH ×2 (08:25→19:00)
[2021-07-22] MEDS: busPIRone 5 MG TABLET. PO SCH ×2 (08:25→19:00)
[2021-07-22] MEDS: APIXABAN 2.5 MG TABLET. PO SCH ×2 (08:25→19:00)
--- NOTE | 2021-07-22 10:55 | PDOC ---
[employer] PROGRESS NOTE Date of Service DOS: DATE: 07/22/21 TIME: 10:50 Chief Complaint Chief Complaint Assessment/Plan Recent fall - Intramedullary dequan and dynamic hip screw identified transfixing the intertrochanteric fracture however there is a minimally displaced oblique nondisplaced fracture of the proximal left femur likely new periprosthetic fracture. Acute left femur fracture status post left intertrochanteric femur in tramedullary nail fixation 06/19/2021 Acute UTI - proteus mirabilis, s/p 4 doses IV rocephin and 2 doses of cefdinir. Course completed on 06/23/2021. C difficile diarrhea - likely secondary to antibiotic exposure from UTI. Will need additional 10 total days of treatment Mild hypokalemia History of Alzheimer's dementia Normocytic anemia History of vitamin B12 deficiency History of hypertension Admit to hospitalist service for further management Orthopedic consult, s/p ORIF femur Delirium prevention protocolexposure to daylight, open curtains, oriented to date time and people, avoid sedative acting medications. Lovenox for DVT prophylaxis --> eliquis 30 days Diet as tolerated CODE STATUS DNR Discussed with RN and SW DPOA: Daughter 37 MIN PT exam, chart review, > 50% of time spent with exam, chart review, pt care coordination. History of Present Illness History of Present Illness 07/22/2021 Patient seen and examined bedside. No concerns per nursing. Recommend PT and OT to reevaluate and possibly give new recommendations so that we can adjust to proper placement. Currently patient is a 1 person assist. Patient's chart, labs, images were reviewed and discussed with RN 07/21/2021 No acute events overnight. Patient seen examined bedside. No complaints from the patient. No concerns nursing. Pending SNF placement. Patient's chart, labs, images were reviewed and discussed with RN 07/20/2021 No acute events tonight. Patient seen examined bedside. No concerns from nursing. Patient seen this morning by physical therapy. Patient still requires multiple verbal and tactile cues for maintaining nonweightbearing on the left foot. Patient's chart, labs, images were reviewed and discussed with RN 07/19/2021 No acute events overnight. Patient seen and examined bedside. Patient does have some incontinence and she has irritation to her buttock region. Pending SNF placement. Patient's chart, labs, images were reviewed and discussed with RN 07/18/2021 Patient seen examined bedside. Vital signs stable. Pending SNF placement. Possibly [place]. Patient's chart, labs, images were reviewed and discussed w alaina RN 07/17 Patient evaluated an examined at bedside. No clinical changes. Still awaiting placement. See social work notes for further details of d/c complications. Patient's chart, labs, images were reviewed and discussed with RN 07/16/2021 No acute events overnight. Patient seen and examined bedside. Pending possible oblique view either [facility] or [place]. Please see discharge planning notes for details. No further recommendations from orthopedic surgery. Patient's chart, labs, images were reviewed and discussed with RN 07/15/2021 No acute events overnight. Patient seen and examined bedside. Unfortunately, yesterday patient suffered a fall from standing and landed on the coccyx. She was found to have a periprosthetic fracture orthopedics have reviewed the images and recommended patient to be TTWB for transfers only and continue to work with physical therapy. Patient's chart, labs, images were reviewed and discussed with RN 07/14/2021 No acute events overnight. Patient seen and examined bedside. Patient in good spirits. Bowel movements x2 in the past 24 hours. Working well with physical therapy. Pending placement and insurance authorization. Patient will need Covid PCR and before acceptance to nursing facility. Patient's chart, labs, images were reviewed and discussed with RN 07/13/2021 No acute events overnight. Patient seen and examined bedside. [place] removed from surgical site. No complications. Total of 2 bowel movements in the last 24 hours. Decreased from yesterday. No Other concerns from nursing. Patient's chart, labs, images were reviewed and discussed with RN 07/12: Afebrile overnight. Bowels have firmed up on second round of oral vancomycin. Redirectable able to fold towels with occupational therapy and responsive to redirection admitted with 1-2 person assist to restroom. Denies shortness of breath or chest pain. Does require redirection to get herself dressed. 07/11: She is responsive to 1-2 person assist and is redirectable with OT for behaviors and is responsive to medication with as needed oral dissolving Zyprexa not requiring further interventions. Tolerating repeat round of oral vancomycin well stools are firming up. No shortness of breath or CP 07/10: She is redirectable. After 3 doses back on oral vancomycin her stools have firmed up though she still had 4 bowel movements last 24 hours. No dysuria no shortness of breath or chest pain. She is able to ambulate with standby assistance with no pain complaints. 07/09: Easily redirectable hip pain well controlled on very occasional tramadol and Tylenol. Loose stools not improved no dysuria. Awaiting rehab placement. 07/08: Loose stools getting worse again off of oral vancomycin. Still intermittently confused with therapy. Awaiting placement no chest pain or shortness of breath 07/07: Patient evaluated and examined at bedside. No major clinical changes. Continue therapy. Can discharge once placement found. 07/06: Patient evaluated examined at bedside. No major clinical change. Just waiting for placement. 07/05: Patient evaluated and examined at bedside. No major clinical changes. To continue therapy. Can discharge once placement found. 07/04: Patient evaluated and examined at bedside. Was trying to work with PT when evaluated. Continue oral Vanco. Awaiting insurance Auth can discharge once that it is received 07/03: Patient evaluated examined at bedside. Resting in bed with ongoing altered mental status. Continue oral vancomycin for C. difficile treatment has been accepted facility awaiting insurance authorization. Can discharge whenever that is received. 07/02: Patient evaluated examined at bedside. Resting no apparent distress still quite altered mental status. Appears she has been accepted at a facility awaiting insurance authorization right now. Continue p.o. Vanco for C. difficile treatment. Plan of care discussed with bedside RN. 07/01: Patient seen and examined. Chart reviewed Ms Mcmillan is an 85-year-old female past medical history of hypertension and dementia, presents the ED brought in by [facility] after patient was seen on the ground just next to her bed with complaints of left leg and hip pain. Patient was seen prior to this 1 hour ago in her bed, no active complaints. Due to patient's dementia, history and review of systems are unable to be obtained. According to the daughter, patient is fairly mobile without using any cane or walker. She is able to dress herself and feed herself and use the toilet. No falls in the past. To OR, Status post left intertrochanteric femur fracture IM nailing. 06/20: Patient underwent surgical intervention yesterday. Patient evaluated examined at bedside. She cannot provide much history given mental status but from report she has improved. PT OT ordered. Weightbearing status per orthopedics. Continue Rocephin for now. 06/21: Patient evaluated examined at bedside. Does. Clinically improved a little more alert today. Continue to Rocephin for UTI. Can be switched to p.o. on discharge continue working with PT OT. Patient could possibly go over the weekend if placement found. 06/22: Patient evaluated examined at bedside. Resting in bed when evaluated. Did not really endorse any complaints. It appears that patient had denied for placement will need home health. 06/23: No acute events overnight. Patient seen and examined bedside. Patient still having uncontrolled pain during physical therapy and any time she is moving in bed. Discussed with daughter Nori about pain management. Bev kwan patient at assisted living facility was started on Celexa by a psychiatrist. We are currently waiting for medication reconciliation overnight [facility]. Nurse will call over there today. I have also instructed the nurse to make sure that the patient receives her pain medication about 30 minutes prior to any physical therapy session. Patient at this time is a total care and is not safe for discharge to assisted living facility. Patient will need to be in a long-term care facility. Patient's chart, labs, images were reviewed and discussed with RN 06/24: No overnight events. Completed antibiotic course for UTI. Not oriented. No complaints. 06/25: Febrile overnight, T-max 100.3 F. Her C. difficile resulted positive on 06/23. Will initiate oral vancomycin 125 mg 4 times daily x 10 days. Still having diarrhea, but denies any abdominal pain. 06/26: Patient seen and evaluated in bed. Denies any further diarrhea. Work with PT and recommended SNU. mop handle assembler spoke with patient's daughter who declined SNU would like patient to go back to the [facility] with home health. 06/27: Patient did not discharge back to [facility] yesterday, as they were unable to accommodate her needs. Daughter is now okay with pursuing rehab. Referrals placed to rehab facilities, with acceptance pending. Still having diarrhea. c diff positive. Reinforced medication compliance. 06/28: Still with diarrhea but on oral vancomycin. Working with therapy. She is easily redirected. Pleasant. Has a little bit of epigastric tenderness after taking medications but otherwise no complaints leg pain well controlled no shortness of breath or chest pain. 06/29: Afebrile. Continue vancomycin for C. difficile. mop handle assembler working on SNU placement for left femur fracture. This has been made difficult due to patient's dementia behavior. 06/30: Afebrile. S/P left intertrochanteric femur intramedullary nail fixation for acute left femur fracture. Family now amenable to SNU. financial services education consultant looking for rehab facility that will accept patients based on her dementia behaviors. Continue vancomycin for C. difficile. Vitals/I&O Vitals/I&O: Vital Signs Date Time Temp Pulse Resp B/P (MAP) Pulse Ox O2 Delivery O2 Flow Rate FiO2 07/22/21 08:00 Room Air 07/21/21 23:01 97.7 98 17 165/89 (114) 98 97.7 I & O 07/21/21 07/21/21 07/22/21 15:00 23:00 07:00 Intake Total 0 ml Balance 0 ml Physical Exam General: Alert, Cooperative, No acute distress Heart: Regular rate, Normal S1, Normal S2 Lungs: Clear Abdomen: Soft, No tenderness Extremities: No clubbing, No edema, Normal pulses Skin: No rashes, Other (CDI) Assessment and Plan Assessmemt and Plan Problems Medical Problems: (1) Closed left hip fracture Status: Acute (2) Pain of left lower extremity Status: Acute Comment Review of Relevant I have reviewed the following items markus (where applicable) has been applied. Justifications for Admission Other Justification Left femur fracture KEIRA JACKSON MD Jul 22, 2021 10:55
[2021-07-22 11:00] VITALS: BP 122/52
[2021-07-22 15:00] VITALS: BP 126/65
[2021-07-22 19:00] VITALS: BP 127/58
[2021-07-22] MEDS: MIRTAZAPINE 15 MG TABLET PO SCH (19:00)
[2021-07-23 07:00] VITALS: BP 162/73
[2021-07-23] MEDS: LACTOBACILLUS RHAMNOSUS GG 1 CAPSULE. PO SCH ×2 (09:12→19:47)
[2021-07-23] MEDS: APIXABAN 2.5 MG TABLET. PO SCH ×2 (09:12→19:47)
[2021-07-23] MEDS: MEMANTINE 10 MG TABLET. PO SCH ×2 (09:13→19:47)
[2021-07-23] MEDS: busPIRone 5 MG TABLET. PO SCH ×2 (09:13→19:47)
[2021-07-23 11:00] VITALS: BP 113/43
--- NOTE | 2021-07-23 11:44 | PDOC ---
[employer] [facility] PROGRESS NOTE Date of Service DOS: DATE: 07/23/21 TIME: 11:37 Chief Complaint Chief Complaint Assessment/Plan Recent fall - Intramedullary dequan and dynamic hip screw identified transfixing the intertrochanteric fracture however there is a minimally displaced oblique nondisplaced fracture of the proximal left femur likely new periprosthetic fracture. Acute left femur fracture status post left intertrochanteric femur in tramedullary nail fixation 06/19/2021 Acute UTI - proteus mirabilis, s/p 4 doses IV rocephin and 2 doses of cefdinir. Course completed on 06/23/2021. C difficile diarrhea - likely secondary to antibiotic exposure from UTI. Will need additional 10 total days of treatment Mild hypokalemia History of Alzheimer's dementia Normocytic anemia History of vitamin B12 deficiency History of hypertension Admit to hospitalist service for further management Orthopedic consult, s/p ORIF femur Delirium prevention protocolexposure to daylight, open curtains, oriented to date time and people, avoid sedative acting medications. Lovenox for DVT prophylaxis --> eliquis 30 days Diet as tolerated CODE STATUS DNR Discussed with RN and MANUEL DPOA: Daughter 37 MIN PT exam, chart review, > 50% of time spent with exam, chart review, pt care coordination. History of Present Illness History of Present Illness 07/23/2021 No acute events tonight. Patient seen and examined bedside. Saturating well on room air and vital signs are stable. Please see social work notes details for prolonged hospital stay. PT OT still recommending SNF 07/22/2021 Patient seen and examined bedside. No concerns per nursing. Recommend PT and OT to reevaluate and possibly give new recommendations so that we can adjust to proper placement. Currently patient is a 1 person assist. Patient's chart, labs, images were reviewed and discussed with RN 07/21/2021 No acute events overnight. Patient seen examined bedside. No complaints from the patient. No concerns nursing. Pending SNF placement. Patient's chart, labs, images were reviewed and discussed with RN 07/20/2021 No acute events tonight. Patient seen examined bedside. No concerns from nursing. Patient seen this morning by physical therapy. Patient still requires multiple verbal and tactile cues for maintaining nonweightbearing on the left foot. Patient's chart, labs, images were reviewed and discussed with RN 07/19/2021 No acute events overnight. Patient seen and examined bedside. Patient does have some incontinence and she has irritation to her buttock region. Pending SNF placement. Patient's chart, labs, images were reviewed and discussed with RN 07/18/2021 Patient seen examined bedside. Vital signs stable. Pending SNF placement. Possibly [place]. Patient's chart, labs, images were reviewed and discussed with RN 07/17 Patient evaluated an examined at bedside. No clinical changes. Still awaiting placement. See social work notes for further details of d/c complications. Patient's chart, labs, images were reviewed and discussed with RN 07/16/2021 No acute events overnight. Patient seen and examined bedside. Pending possible oblique view either [facility] [place] or [place]. Please see discharge planning notes for details. No further recommendations from orthopedic surgery. Patient's chart, labs, images were reviewed and discussed with RN 07/15/2021 No acute events overnight. Patient seen and examined bedside. Unfortunately, yesterday patient suffered a fall from standing and landed on the coccyx. She was found to have a periprosthetic fracture orthopedics have reviewed the images and recommended patient to be TTWB for transfers only and continue to work with physical therapy. Patient's chart, labs, images were reviewed and discussed with RN 07/14/2021 No acute events overnight. Patient seen and examined bedside. Patient in good spirits. Bowel movements x2 in the past 24 hours. Working well with physical therapy. Pending placement and insurance authorization. Patient will need Covid PCR and before acceptance to nursing facility. Patient's chart, labs, images were reviewed and discussed with RN 07/13/2021 No acute events overnight. Patient seen and examined bedside. [place] removed from surgical site. No complications. Total of 2 bowel movements in the last 24 hours. Decreased from yesterday. No Other concerns from nursing. Patient's chart, labs, images were reviewed and discussed with RN 07/12: Afebrile overnight. Bowels have firmed up on second round of oral vancomycin. Redirectable able to fold towels with occupational therapy and responsive to redirection admitted with 1-2 person assist to restroom. Denies shortness of breath or chest pain. Does require redirection to get herself dressed. 07/11: She is responsive to 1-2 person assist and is redirectable with OT for behaviors and is responsive to medication with as needed oral dissolving Zyprexa not requiring further interventions. Tolerating repeat round of oral vancomycin well stools are firming up. No shortness of breath or CP 07/10: She is redirectable. After 3 doses back on oral vancomycin her stools have firmed up though she still had 4 bowel movements last 24 hours. No dysuria no shortness of breath or chest pain. She is able to ambulate with standby assistance with no pain complaints. 07/09: Easily redirectable hip pain well controlled on very occasional tramadol and Tylenol. Loose stools not improved no dysuria. Awaiting rehab placement. 07/08: Loose stools getting worse again off of oral vancomycin. Still intermittently confused with therapy. Awaiting placement no chest pain or shortness of breath 07/07: Patient evaluated and examined at bedside. No major clinical changes. Continue therapy. Can discharge once placement found. 07/06: Patient evaluated examined at bedside. No major clinical change. Just waiting for placement. 07/05: Patient evaluated and examined at bedside. No major clinical changes. To continue therapy. Can discharge once placement found. 07/04: Patient evaluated and examined at bedside. Was trying to work with PT when evaluated. Continue oral Vanco. Awaiting insurance Auth can discharge once that it is received 07/03: Patient evaluated examined at bedside. Resting in bed with ongoing altered mental status. Continue oral vancomycin for C. difficile treatment has been accepted facility awaiting insurance authorization. Can discharge whenever that is received. 07/02: Patient evaluated examined at bedside. Resting no apparent distress still quite altered mental status. Appears she has been accepted at a facility awaiting insurance authorization right now. Continue p.o. Vanco for C. difficile treatment. Plan of care discussed with bedside RN. 07/01: Patient seen and examined. Chart reviewed Ms Mcmillan is an 85-year-old female past medical history of hypertension and dementia, presents the ED brought in by EMS [facility] after patient was seen on the ground just next to her bed with complaints of left leg and hip pain. Patient was seen prior to this 1 hour ago in her bed, no active complaints. Due to patient's dementia, history and review of systems are unable to be obtained. According to the daughter, patient is fairly mobile without using any cane or walker. She is able to dress herself and feed herself and use the toilet. No falls in the past. To OR, Status post left intertrochanteric femur fracture IM nailing. 06/20: Patient underwent surgical intervention yesterday. Patient evaluated examined at bedside. She cannot provide much history given mental status but from report she has improved. PT OT ordered. Weightbearing status per orthopedics. Continue Rocephin for now. 06/21: Patient evaluated examined at bedside. Does. Clinically improved a little more alert today. Continue to Rocephin for UTI. Can be switched to p.o. on discharge continue working with PT OT. Patient could possibly go over the weekend if placement found. 06/22: Patient evaluated examined at bedside. Resting in bed when evaluated. Did not really endorse any complaints. It appears that patient had denied for placement will need home health. 06/23: No acute events overnight. Patient seen and examined bedside. Patient still having uncontrolled pain during physical therapy and any time she is moving in bed. Discussed with daughter Nori about pain management. Apparently patient at assisted living facility was started on Celexa by a psychiatrist. We are currently waiting for medication reconciliation overnight [facility]. Nurse will call over there today. I have also instructed the nurse to make sure that the patient receives her pain medication about 30 minutes prior to any physical therapy session. Patient at this time is a total care and is not safe for discharge to assisted living facility. Patient will need to be in a long-term care facility. Patient's chart, labs, images were reviewed and di scussed with RN 06/24: No overnight events. Completed antibiotic course for UTI. Not oriented. No complaints. 06/25: Febrile overnight, T-max 100.3 F. Her C. difficile resulted positive on 06/23. Will initiate oral vancomycin 125 mg 4 times daily x 10 days. Still having diarrhea, but denies any abdominal pain. 06/26: Patient seen and evaluated in bed. Denies any further diarrhea. Work with PT and recommended SNU. interstate planner spoke with patient's daughter who declined SNU would like patient to go back to the [facility] with home health. 06/27: Patient did not discharge back to The [facility] yesterday, as they were unable to accommodate her needs. Daughter is now okay with pursuing rehab. Referrals placed to rehab facilities, with acceptance pending. Still having diarrhea. c diff positive. Reinforced medication compliance. 06/28: Still with diarrhea but on oral vancomycin. Working with therapy. She is easily redirected. Pleasant. Has a little bit of epigastric tenderness after taking medications but otherwise no complaints leg pain well controlled no shortness of breath or chest pain. 06/29: Afebrile. Continue vancomycin for C. difficile. interstate planner working on SNU placement for left femur fracture. This has been made difficult due to patient's dementia behavior. 06/30: Afebrile. S/P left intertrochanteric femur intramedullary nail fixation for acute left femur fracture. Family now amenable to SNU. multimedia services coordinator looking for rehab facility that will accept patients based on her dementia behaviors. Continue vancomycin for C. difficile. Vitals/I&O Vitals/I&O: Vital Signs Date Time Temp Pulse Resp B/P (MAP) Pulse Ox O2 Delivery O2 Flow Rate FiO2 07/23/21 11:00 97.9 79 16 113/43 (66) 95 Room Air 97.9 I & O 07/22/21 07/22/21 07/23/21 15:00 23:00 07:00 Intake Total 200 ml 150 ml Balance 200 ml 150 ml Physical Exam General: Alert, Cooperative, No acute distress Heart: Regular rate, Normal S1, Normal S2 Lungs: Clear Abdomen: Soft, No tenderness Extremities: No clubbing, No edema, Normal pulses Skin: No rashes, Other (CDI) Assessment and Plan Assessmemt and Plan Problems Medical Problems: (1) Closed left hip fracture Status: Acute (2) Pain of left lower extremity Status: Acute Comment Review of Relevant I have reviewed the following items markus (where applicable) has been applied. Justifications for Admission Other Justification Left femur fracture KEIRA JACKSON MD Jul 23, 2021 11:44
--- NOTE | 2021-07-23 14:35 | NUR ---
Received report from VANDANA Can. Transfer of care to real estate underwriter complete.
--- NOTE | 2021-07-23 14:42 | NUR ---
Report given to VANDANA Louis
[2021-07-23 15:00] VITALS: BP 125/45
[2021-07-23 19:08] VITALS: BP 124/56
[2021-07-23] MEDS: MIRTAZAPINE 15 MG TABLET PO SCH (19:47)
[2021-07-23] MEDS: traMADol 50 MG TABLET PO PRN (19:47)
[2021-07-23 23:08] VITALS: BP 120/88
[2021-07-24 02:58] VITALS: BP 164/69
[2021-07-24 07:00] VITALS: BP 121/66
[2021-07-24] MEDS: MEMANTINE 10 MG TABLET. PO SCH ×2 (10:36→21:16)
[2021-07-24] MEDS: LACTOBACILLUS RHAMNOSUS GG 1 CAPSULE. PO SCH ×2 (10:36→21:16)
[2021-07-24] MEDS: busPIRone 5 MG TABLET. PO SCH ×2 (10:36→21:16)
[2021-07-24 11:00] VITALS: BP 154/67
--- NOTE | 2021-07-24 12:31 | PDOC ---
[employer] PROGRESS NOTE Date of Service DOS: DATE: 07/24/21 TIME: 12:27 Chief Complaint Chief Complaint Assessment/Plan Recent fall - Intramedullary dequan and dynamic hip screw identified transfixing the intertrochanteric fracture however there is a minimally displaced oblique nondisplaced fracture of the proximal left femur likely new periprosthetic fracture. Acute left femur fracture status post left intertrochanteric femur in tramedullary nail fixation 06/19/2021 Acute UTI - proteus mirabilis, s/p 4 doses IV rocephin and 2 doses of cefdinir. Course completed on 06/23/2021. C difficile diarrhea - likely secondary to antibiotic exposure from UTI. Will need additional 10 total days of treatment Mild hypokalemia History of Alzheimer's dementia Normocytic anemia History of vitamin B12 deficiency History of hypertension Admit to hospitalist service for further management Orthopedic consult, s/p ORIF femur Delirium prevention protocolexposure to daylight, open curtains, oriented to date time and people, avoid sedative acting medications. Lovenox for DVT prophylaxis --> eliquis 30 days Diet as tolerated CODE STATUS DNR Discussed with RN and MANUEL DPOA: Daughter 37 MIN PT exam, chart review, > 50% of time spent with exam, chart review, pt care coordination. History of Present Illness History of Present Illness 07/24: No overnight events. Responding to redirection well. minimal one-person assist. No chest pain or shortness of breath. Diarrhea has resolved. 07/23/2021 No acute events tonight. Patient seen and examined bedside. Saturating well on room air and vital signs are stable. Please see social work notes details for prolonged hospital stay. PT OT still recommending SNF 07/22/2021 Patient seen and examined bedside. No concerns per nursing. Recommend PT and OT to reevaluate and possibly give new recommendations so that we can adjust to proper placement. Currently patient is a 1 person assist. Patient's chart, labs, images were reviewed and discussed with RN 07/21/2021 No acute events overnight. Patient seen examined bedside. No complaints from the patient. No concerns nursing. Pending SNF placement. Patient's chart, labs, images were reviewed and discussed with RN 07/20/2021 No acute events tonight. Patient seen examined bedside. No concerns from nursing. Patient seen this morning by physical therapy. Patient still requires multiple verbal and tactile cues for maintaining nonweightbearing on the left foot. Patient's chart, labs, images were reviewed and discussed with RN 07/19/2021 No acute events overnight. Patient seen and examined bedside. Patient does have some incontinence and she has irritation to her buttock region. Pending SNF placement. Patient's chart, labs, images were reviewed and discussed with RN 07/18/2021 Patient seen examined bedside. Vital signs stable. Pending SNF placement. Possibly [place]. Patient's chart, labs, images were reviewed and discussed with RN 07/17 Patient evaluated an examined at bedside. No clinical changes. Still awaiting placement. See social work notes for further details of d/c complications. Patient's chart, labs, images were reviewed and discussed with RN 07/16/2021 No acute events overnight. Patient seen and examined bedside. Pending possible oblique view either [place] or [place]. Please see discharge planning notes for details. No further recommendations from orthopedic surgery. Patient's chart, labs, images were reviewed and discussed with RN 07/15/2021 No acute events overnight. Patient seen and examined bedside. Unfortunately, yesterday patient suffered a fall from standing and landed on the coccyx. She was found to have a periprosthetic fracture orthopedics have reviewed the images and recommended patient to be TTWB for transfers only and continue to work with physical therapy. Patient's chart, labs, images were reviewed and discussed with RN 07/14/2021 No acute events overnight. Patient seen and examined bedside. Patient in good spirits. Bowel movements x2 in the past 24 hours. Working well with physical therapy. Pending placement and insurance authorization. Patient will need Covid PCR and before acceptance to nursing facility. Patient's chart, labs, images were reviewed and discussed with RN 07/13/2021 No acute events overnight. Patient seen and examined bedside. Pantera removed from surgical site. No complications. Total of 2 bowel movements in the last 24 hours. Decreased from yesterday. No Other concerns from nursing. Patient's chart, labs, images were reviewed and discussed with RN 07/12: Afebrile overnight. Bowels have firmed up on second round of oral vancomycin. Redirectable able to fold towels with occupational therapy and responsive to redirection admitted with 1-2 person assist to restroom. Denies shortness of breath or chest pain. Does require redirection to get herself dressed. 07/11: She is responsive to 1-2 person assist and is redirectable with OT for behaviors and is responsive to medication with as needed oral dissolving Zyprexa not requiring further interventions. Tolerating repeat round of oral vancomycin well stools are firming up. No shortness of breath or CP 07/10: She is redirectable. After 3 doses back on oral vancomycin her stools have firmed up though she still had 4 bowel movements last 24 hours. No dysuria no shortness of breath or chest pain. She is able to ambulate with standby assistance with no pain complaints. 07/09: Easily redirectable hip pain well controlled on very occasional tramadol and Tylenol. Loose stools not improved no dysuria. Awaiting rehab placement. 07/08: Loose stools getting worse again off of oral vancomycin. Still intermittently confused with therapy. Awaiting placement no chest pain or shortness of breath 07/07: Patient evaluated and examined at bedside. No major clinical changes. Continue therapy. Can discharge once placement found. 07/06: Patient evaluated examined at bedside. No major clinical change. Just waiting for placement. 07/05: Patient evaluated and examined at bedside. No major clinical changes. To continue therapy. Can discharge once placement found. 07/04: Patient evaluated and examined at bedside. Was trying to work with PT when evaluated. Continue oral Vanco. Awaiting insurance Auth can discharge once that it is received 07/03: Patient evaluated examined at bedside. Resting in bed with ongoing altered mental status. Continue oral vancomycin for C. difficile treatment has been accepted facility awaiting insurance authorization. Can discharge whenever that is received. 07/02: Patient evaluated examined at bedside. Resting no apparent distress still quite altered mental status. Appears she has been accepted at a facility a waiting insurance authorization right now. Continue p.o. Vanco for C. difficile treatment. Plan of care discussed with bedside RN. 07/01: Patient seen and examined. Chart reviewed Ms Mcmillan is an 85-year-old female past medical history of hypertension and dementia, presents the ED brought in by EMS from proper halfway after patient was seen on the ground just next to her bed with complaints of left leg and hip pain. Patient was seen prior to this 1 hour ago in her bed, no active complaints. Due to patient's dementia, history and review of systems are unable to be obtained. According to the daughter, patient is fairly mobile without using any cane or walker. She is able to dress herself and feed herself and use the toilet. No falls in the past. To OR, Status post left intertrochanteric femur fracture IM nailing. 06/20: Patient underwent surgical intervention yesterday. Patient evaluated examined at bedside. She cannot provide much history given mental status but from report she has improved. PT OT ordered. Weightbearing status per orthopedics. Continue Rocephin for now. 06/21: Patient evaluated examined at bedside. Does. Clinically improved a little more alert today. Continue to Rocephin for UTI. Can be switched to p.o. on discharge continue working with PT OT. Patient could possibly go over the weekend if placement found. 06/22: Patient evaluated examined at bedside. Resting in bed when evaluated. Did not really endorse any complaints. It appears that patient had denied for placement will need home health. 06/23: No acute events overnight. Patient seen and examined bedside. Patient still having uncontrolled pain during physical therapy and any time she is moving in bed. Discussed with daughter Nori about pain management. Apparently patient at assisted living facility was started on Celexa by a psychiatrist. We are currently waiting for medication reconciliation overnight [facility]. Nurse will call over there today. I have also instructed the nurse to make sure that the patient receives her pain medication about 30 minutes prior to any physical therapy session. Patient at this time is a total care and is not safe for discharge to assisted living facility. Patient will need to be in a long-term care facility. Patient's chart, labs, images were reviewed and discussed with RN 06/24: No overnight events. Completed antibiotic course for UTI. Not oriented. No complaints. 06/25: Febrile overnight, T-max 100.3 F. Her C. difficile resulted positive on 06/23. Will initiate oral vancomycin 125 mg 4 times daily x 10 days. Still having diarrhea, but denies any abdominal pain. 06/26: Patient seen and evaluated in bed. Denies any further diarrhea. Work with PT and recommended SNU. associate merchandise planner spoke with patient's daughter who declined SNU would like patient to go back to the [facility] with home health. 06/27: Patient did not discharge back to [facility] yesterday, as they were unable to accommodate her needs. Daughter is now okay with pursuing rehab. Referrals placed to rehab facilities, with acceptance pending. Still having diarrhea. c diff positive. Reinforced medication compliance. 06/28: Still with diarrhea but on oral vancomycin. Working with therapy. She is easily redirected. Pleasant. Has a little bit of epigastric tenderness af ter taking medications but otherwise no complaints leg pain well controlled no shortness of breath or chest pain. 06/29: Afebrile. Continue vancomycin for C. difficile. associate merchandise planner working on SNU placement for left femur fracture. This has been made difficult due to patient's dementia behavior. 06/30: Afebrile. S/P left intertrochanteric femur intramedullary nail fixation for acute left femur fracture. Family now amenable to SNU. shared services and outsourcing manager looking for rehab facility that will accept patients based on her dementia behaviors. Continue vancomycin for C. difficile. Vitals/I&O Vitals/I&O: Vital Signs Date Time Temp Pulse Resp B/P (MAP) Pulse Ox O2 Delivery O2 Flow Rate FiO2 07/24/21 11:00 97.8 86 18 154/67 (96) 97 Room Air 97.8 I & O 07/23/21 07/23/21 07/24/21 15:00 23:00 07:00 Intake Total 360 ml 125 ml Balance 360 ml 125 ml Physical Exam General: Alert, Cooperative, No acute distress Heart: Regular rate, Normal S1, Normal S2 Lungs: Clear Abdomen: Soft, No tenderness Extremities: No clubbing, No edema, Normal pulses Skin: No rashes, Other (CDI) Assessment and Plan Assessmemt and Plan Problems Medical Problems: (1) Closed left hip fracture Status: Acute (2) Pain of left lower extremity Status: Acute Comment Review of Relevant I have reviewed the following items markus (where applicable) has been applied. Justifications for Admission Other Justification Left femur fracture MADDISON LAROSE MD Jul 24, 2021 12:31
[2021-07-24 15:00] VITALS: BP 139/66
[2021-07-24 19:00] VITALS: BP 174/67
[2021-07-24] MEDS: MIRTAZAPINE 15 MG TABLET PO SCH (21:16)
[2021-07-24 23:00] VITALS: BP 154/63
[2021-07-25 07:00] VITALS: BP 148/66
[2021-07-25] MEDS: LACTOBACILLUS RHAMNOSUS GG 1 CAPSULE. PO SCH ×2 (09:00→21:52)
[2021-07-25] MEDS: busPIRone 5 MG TABLET. PO SCH ×2 (09:00→21:52)
[2021-07-25] MEDS: MEMANTINE 10 MG TABLET. PO SCH ×2 (09:00→21:53)
[2021-07-25] MEDS: MIRTAZAPINE 15 MG TABLET PO SCH ×2 (10:55→21:57)
[2021-07-25 11:00] VITALS: BP 141/60
--- NOTE | 2021-07-25 11:55 | PDOC ---
[employer] PROGRESS NOTE Date of Service DOS: DATE: 07/25/21 TIME: 11:47 Chief Complaint Chief Complaint Assessment/Plan Recent fall - Intramedullary dequan and dynamic hip screw identified transfixing the intertrochanteric fracture however 07/14/2021 - there is a minimally displaced oblique nondisplaced fracture of the proximal left femur likely new periprosthetic fracture. Acute left femur fracture status post left intertrochanteric femur intramedullary nail fixation 06/19/2021 Acute UTI - proteus mirabilis, s/p 4 doses IV rocephin and 2 doses of cefdinir. Course completed on 06/23/2021. C difficile diarrhea - likely secondary to antibiotic exposure from UTI. Will need additional 10 total days of treatment Mild hypokalemia History of Alzheimer's dementia Normocytic anemia History of vitamin B12 deficiency History of hypertension Admit to hospitalist service for further management Orthopedic consult, s/p ORIF femur Delirium prevention protocolexposure to daylight, open curtains, oriented to date time and people, avoid sedative acting medications. Lovenox for DVT prophylaxis --> eliquis 30 days Diet as tolerated CODE STATUS DNR Discussed with RN and MANUEL DPOA: Daughter 37 MIN PT exam, chart review, > 50% of time spent with exam, chart review, pt care coordination. History of Present Illness History of Present Illness 07/25: No overnight events. No complaints. Follows Redirection well. Folding Towels. Pleasantly confused. No diarrhea. 07/24: No overnight events. Responding to redirection well. minimal one-person assist. No chest pain or shortness of breath. Diarrhea has resolved. 07/23/2021 No acute events tonight. Patient seen and examined bedside. Saturating well on room air and vital signs are stable. Please see social work notes details for prolonged hospital stay. PT OT still recommending SNF 07/22/2021 Patient seen and examined bedside. No concerns per nursing. Recommend PT and OT to reevaluate and possibly give new recommendations so that we can adjust to proper placement. Currently patient is a 1 person assist. Patient's chart, labs, images were reviewed and discussed with RN 07/21/2021 No acute events overnight. Patient seen examined bedside. No complaints from the patient. No concerns nursing. Pending SNF placement. Patient's chart, labs, images were reviewed and discussed with RN 07/20/2021 No acute events tonight. Patient seen examined bedside. No concerns from nursing. Patient seen this morning by physical therapy. Patient still requires multiple verbal and tactile cues for maintaining nonweightbearing on the left foot. Patient's chart, labs, images were reviewed and discussed with RN 07/19/2021 No acute events overnight. Patient seen and examined bedside. Patient does have some incontinence and she has irritation to her buttock region. Pending SNF placement. Patient's chart, labs, images were reviewed and discussed with RN 07/18/2021 Patient seen examined bedside. Vital signs stable. Pending SNF placement. Possibly [place]. Patient's chart, labs, images were reviewed and discussed with RN 07/17 Patient evaluated an examined at bedside. No clinical changes. Still awaiting placement. See social work notes for further details of d/c complications. Patient's chart, labs, images were reviewed and discussed with RN 07/16/2021 No acute events overnight. Patient seen and examined bedside. Pending possible oblique view either [place] or [place]. Please see discharge planning notes for details. No further recommendations from orthopedic surgery. Patient's chart, labs, images were reviewed and discussed with RN 07/15/2021 No acute events overnight. Patient seen and examined bedside. Unfortunately, y day patient suffered a fall from standing and landed on the coccyx. She was found to have a periprosthetic fracture orthopedics have reviewed the images and recommended patient to be TTWB for transfers only and continue to work with physical therapy. Patient's chart, labs, images were reviewed and discussed with RN 07/14/2021 No acute events overnight. Patient seen and examined bedside. Patient in good spirits. Bowel movements x2 in the past 24 hours. Working well with physical therapy. Pending placement and insurance authorization. Patient will need Covid PCR and before acceptance to nursing facility. Patient's chart, labs, images were reviewed and discussed with RN 07/13/2021 No acute events overnight. Patient seen and examined bedside. Pantera removed from surgical site. No complications. Total of 2 bowel movements in the last 24 hours. Decreased from yesterday. No Other concerns from nursing. Patient's chart, labs, images were reviewed and discussed with RN 07/12: Afebrile overnight. Bowels have firmed up on second round of oral vancomycin. Redirectable able to fold towels with occupational therapy and responsive to redirection admitted with 1-2 person assist to restroom. Denies shortness of breath or chest pain. Does require redirection to get herself dressed. 07/11: She is responsive to 1-2 person assist and is redirectable with OT for behaviors and is responsive to medication with as needed oral dissolving Zyprexa not requiring further interventions. Tolerating repeat round of oral vancomycin well stools are firming up. No shortness of breath or CP 07/10: She is redirectable. After 3 doses back on oral vancomycin her stools have firmed up though she still had 4 bowel movements last 24 hours. No dysuria no shortness of breath or chest pain. She is able to ambulate with standby assistance with no pain complaints. 07/09: Easily redirectable hip pain well controlled on very occasional tramadol and Tylenol. Loose stools not improved no dysuria. Awaiting rehab placement. 07/08: Loose stools getting worse again off of oral vancomycin. Still intermittently confused with therapy. Awaiting placement no chest pain or shortness of breath 07/07: Patient evaluated and examined at bedside. No major clinical changes. Continue therapy. Can discharge once placement found. 07/06: Patient evaluated examined at bedside. No major clinical change. Just waiting for placement. 07/05: Patient evaluated and examined at bedside. No major clinical changes. To continue therapy. Can discharge once placement found. 07/04: Patient evaluated and examined at bedside. Was trying to work with PT when evaluated. Continue oral Vanco. Awaiting insurance Auth can discharge once that it is received 07/03: Patient evaluated examined at bedside. Resting in bed with ongoing altered mental status. Continue oral vancomycin for C. difficile treatment has been accepted facility awaiting insurance authorization. Can discharge whenever that is received. 07/02: Patient evaluated examined at bedside. Resting no apparent distress still quite altered mental status. Appears she has been accepted at a facility awaiting insurance authorization right now. Continue p.o. Vanco for C. difficile treatment. Plan of care discussed with bedside RN. 07/01: Patient seen and examined. Chart reviewed Ms Mcmillan is an 85-year-old female past medical history of hypertension and dementia, presents the ED brought in by EMS from [facility] after patient was seen on the ground just next to her bed with complaints of left leg and hip pain. Patient was seen prior to this 1 hour ago in her bed, no active complaints. Due to patient's dementia, history and review of systems are unable to be obtained. According to the daughter, patient is fairly mobile without using any cane or walker. She is able to dress herself and feed herself and use the toilet. No falls in the past. To OR, Status post left intertrochanteric femur fracture IM nailing. 06/20: Patient underwent surgical intervention yesterday. Patient evaluated examined at bedside. She cannot provide much history given mental status but from report she has improved. PT OT ordered. Weightbearing status per orthopedics. Continue Rocephin for now. 06/21: Patient evaluated examined at bedside. Does. Clinically improved a little more alert today. Continue to Rocephin for UTI. Can be switched to p.o. on discharge continue working with PT OT. Patient could possibly go over the weekend if placement found. 06/22: Patient evaluated examined at bedside. Resting in bed when evaluated. Did not really endorse any complaints. It appears that patient had denied for placement will need home health. 06/23: No acute events overnight. Patient seen and examined bedside. Patient still having uncontrolled pain during physical therapy and any time she is moving in bed. Discussed with daughter Nori about pain management. Haleigh adam patient at assisted living facility was started on Celexa by a psychiatrist. We are currently waiting for medication reconciliation overnight [place]. Nurse will call over there today. I have also instructed the nurse to make sure that the patient receives her pain medication about 30 minutes prior to any physical therapy session. Patient at this time is a total care and is not safe for discharge to assisted living facility. Patient will need to be in a long-term care facility. Patient's chart, labs, images were reviewed and discussed with RN 06/24: No overnight events. Completed antibiotic course for UTI. Not oriented. No complaints. 06/25: Febrile overnight, T-max 100.3 F. Her C. difficile resulted positive on 06/23. Will initiate oral vancomycin 125 mg 4 times daily x 10 days. Still having diarrhea, but denies any abdominal pain. 06/26: Patient seen and evaluated in bed. Denies any further diarrhea. Work with PT and recommended SNU. estate planner spoke with patient's daughter who declined SNU would like patient to go back to the [facility] with home health. 06/27: Patient did not discharge back to [facility] yesterday, as they were unable to accommodate her needs. Daughter is now okay with pursuing rehab. Referrals placed to rehab facilities, with acceptance pending. Still having diarrhea. c diff positive. Reinforced medication compliance. 06/28: Still with diarrhea but on oral vancomycin. Working with therapy. She is easily redirected. Pleasant. Has a little bit of epigastric tenderness after taking medications but otherwise no complaints leg pain well controlled no shortness of breath or chest pain. 06/29: Afebrile. Continue vancomycin for C. difficile. estate planner working on SNU placement for left femur fracture. This has been made difficult due to patient's dementia behavior. 06/30: Afebrile. S/P left intertrochanteric femur intramedullary nail fixation for acute left femur fracture. Family now amenable to SNU. conference services director looking for rehab facility that will accept patients based on her dementia behaviors. Continue vancomycin for C. difficile. Vitals/I&O Vitals/I&O: Vital Signs Date Time Temp Pulse Resp B/P (MAP) Pulse Ox O2 Delivery O2 Flow Rate FiO2 07/25/21 11:00 99.0 79 18 141/60 (87) 97 Room Air 99.0 I & O 07/24/21 07/24/21 07/25/21 15:00 23:00 07:00 Intake Total 250 ml Balance 250 ml Physical Exam General: Alert, Cooperative, No acute distress Heart: Regular rate, Normal S1, Normal S2 Lungs: Clear Abdomen: Soft, No tenderness Extremities: No clubbing, No edema, Normal pulses Skin: No rashes, Other (CDI) Assessment and Plan Assessmemt and Plan Problems Medical Problems: (1) Closed left hip fracture Status: Acute (2) Pain of left lower extremity Status: Acute Comment Review of Relevant I have reviewed the following items markus (where applicable) has been applied. Justifications for Admission Other Justification Left femur fracture MADDISON LAROSE MD Jul 25, 2021 11:55
[2021-07-25 15:00] VITALS: BP 138/62
[2021-07-25 19:30] VITALS: BP 149/56
[2021-07-25] MEDS: traMADol 50 MG TABLET PO PRN (21:55)
[2021-07-25 23:14] VITALS: BP 151/63
--- NOTE | 2021-07-26 08:12 | PDOC ---
[employer] PROGRESS NOTE Date of Service DOS: DATE: 07/26/21 TIME: 08:11 Chief Complaint Chief Complaint Assessment/Plan Recent fall - Intramedullary dequan and dynamic hip screw identified transfixing the intertrochanteric fracture however 07/14/2021 - there is a minimally displaced oblique nondisplaced fracture of the proximal left femur likely new periprosthetic fracture. Acute left femur fracture status post left intertrochanteric femur intramedullary nail fixation 06/19/2021 Acute UTI - proteus mirabilis, s/p 4 doses IV rocephin and 2 doses of cefdinir. Course completed on 06/23/2021. C difficile diarrhea - likely secondary to antibiotic exposure from UTI. Will need additional 10 total days of treatment Mild hypokalemia History of Alzheimer's dementia Normocytic anemia History of vitamin B12 deficiency History of hypertension Admit to hospitalist service for further management Orthopedic consult, s/p ORIF femur Delirium prevention protocolexposure to daylight, open curtains, oriented to date time and people, avoid sedative acting medications. Lovenox for DVT prophylaxis --> eliquis 30 days Diet as tolerated CODE STATUS DNR Discussed with RN and MANUEL DPOA: Daughter 37 MIN PT exam, chart review, > 50% of time spent with exam, chart review, pt care coordination. History of Present Illness History of Present Illness 07/26: No overnight events. No complaints. Following redirection and falling down as well. Confused. No further diarrhea. 07/25: No overnight events. No complaints. Follows Redirection well. Folding Towels. Pleasantly confused. No diarrhea. 07/24: No overnight events. Responding to redirection well. minimal one-person assist. No chest pain or shortness of breath. Diarrhea has resolved. 07/23: No acute events tonight. Patient seen and examined bedside. Saturating well on room air and vital signs are stable. Please see social work notes details for prolonged hospital stay. PT OT still recommending SNF 07/22/2021 Patient seen and examined bedside. No concerns per nursing. Recommend PT and OT to reevaluate and possibly give new recommendations so that we can adjust to proper placement. Currently patient is a 1 person assist. Patient's chart, labs, images were reviewed and discussed with RN 07/21/2021 No acute events overnight. Patient seen examined bedside. No complaints from the patient. No concerns nursing. Pending SNF placement. Patient's chart, labs, images were reviewed and discussed with RN 07/20/2021 No acute events tonight. Patient seen examined bedside. No concerns from nursing. Patient seen this morning by physical therapy. Patient still requires multiple verbal and tactile cues for maintaining nonweightbearing on the left foot. Patient's chart, labs, images were reviewed and discussed with RN 07/19/2021 No acute events overnight. Patient seen and examined bedside. Patient does have some incontinence and she has irritation to her buttock region. Pending SNF placement. Patient's chart, labs, images were reviewed and discussed with RN 07/18/2021 Patient seen examined bedside. Vital signs stable. Pending SNF placement. Possibly [facility]. Patient's chart, labs, images were reviewed and discussed with RN 07/17 Patient evaluated an examined at bedside. No clinical changes. Still awaiting placement. See social work notes for further details of d/c complications. Patient's chart, labs, images were reviewed and discussed with RN 07/16/2021 No acute events overnight. Patient seen and examined bedside. Pending possible oblique view either [facility] or [facility]. Please see discharge planning notes for details. No further recommendations from orthopedic surgery. Patient's chart, labs, images were reviewed and discussed with RN 07/15/2021 No acute events overnight. Patient seen and examined bedside. Unfortunately, yesterday patient suffered a fall from standing and landed on the coccyx. She was found to have a periprosthetic fracture orthopedics have reviewed the images and recommended patient to be TTWB for transfers only and continue to work with physical therapy. Patient's chart, labs, images were reviewed and discussed with RN 07/14/2021 No acute events overnight. Patient seen and examined bedside. Patient in good spirits. Bowel movements x2 in the past 24 hours. Working well with physical therapy. Pending placement and insurance authorization. Patient will need Covid PCR and before acceptance to nursing facility. Patient's chart, labs, images were reviewed and discussed with RN 07/13/2021 No acute events overnight. Patient seen and examined bedside. Mark removed from surgical site. No complications. Total of 2 bowel movements in the last 24 hours. Decreased from yesterday. No Other concerns from nursing. Patient's chart, labs, images were reviewed and discussed with RN 07/12: Afebrile overnight. Bowels have firmed up on second round of oral vancomycin. Redirectable able to fold towels with occupational therapy and responsive to redirection admitted with 1-2 person assist to restroom. Denies shortness of breath or chest pain. Does require redirection to get herself dressed. 07/11: She is responsive to 1-2 person assist and is redirectable with OT for behaviors and is responsive to medication with as needed oral dissolving Zyprexa not requiring further interventions. Tolerating repeat round of oral vancomycin well stools are firming up. No shortness of breath or CP 07/10: She is redirectable. After 3 doses back on oral vancomycin her stools have firmed up though she still had 4 bowel movements last 24 hours. No dysuria no shortness of breath or chest pain. She is able to ambulate with standby assistance with no pain complaints. 07/09: Easily redirectable hip pain well controlled on very occasional tramadol and Tylenol. Loose stools not improved no dysuria. Awaiting rehab placement. 07/08: Loose stools getting worse again off of oral vancomycin. Still intermittently confused with therapy. Awaiting placement no chest pain or shortness of breath 07/07: Patient evaluated and examined at bedside. No major clinical changes. Continue therapy. Can discharge once placement found. 07/06: Patient evaluated examined at bedside. No major clinical change. Just waiting for placement. 07/05: Patient evaluated and examined at bedside. No major clinical changes. To continue therapy. Can discharge once placement found. 07/04: Patient evaluated and examined at bedside. Was trying to work with PT wh en evaluated. Continue oral Vanco. Awaiting insurance Auth can discharge once that it is received 07/03: Patient evaluated examined at bedside. Resting in bed with ongoing altered mental status. Continue oral vancomycin for C. difficile treatment has been accepted facility awaiting insurance authorization. Can discharge whenever that is received. 07/02: Patient evaluated examined at bedside. Resting no apparent distress still quite altered mental status. Appears she has been accepted at a facility rian iting insurance authorization right now. Continue p.o. Vanco for C. difficile treatment. Plan of care discussed with bedside RN. 07/01: Patient seen and examined. Chart reviewed Ms Mcmillan is an 85-year-old female past medical history of hypertension and de mentia, presents the ED brought in by EMS [facility] after patient was seen on the ground just next to her bed with complaints of left leg and hip pain. Patient was seen prior to this 1 hour ago in her bed, no active complaints. Due to patient's dementia, history and review of systems are unable to be obtained. According to the daughter, patient is fairly mobile without using any cane or walker. She is able to dress herself and feed herself and use the toilet. No falls in the past. To OR, Status post left intertrochanteric femur fracture IM nailing. 06/20: Patient underwent surgical intervention yesterday. Patient evaluated examined at bedside. She cannot provide much history given mental status but from report she has improved. PT OT ordered. Weightbearing status per orthopedics. Continue Rocephin for now. 06/21: Patient evaluated examined at bedside. Does. Clinically improved a little more alert today. Continue to Rocephin for UTI. Can be switched to p.o. on discharge continue working with PT OT. Patient could possibly go over the weekend if placement found. 06/22: Patient evaluated examined at bedside. Resting in bed when evaluated. Did not really endorse any complaints. It appears that patient had denied for placement will need home health. 06/23: No acute events overnight. Patient seen and examined bedside. Patient still having uncontrolled pain during physical therapy and any time she is moving in bed. Discussed with daughter Nori about pain management. Apparently patient at assisted living facility was started on Celexa by a psychiatrist. We are currently waiting for medication reconciliation overnight [facility]. Nurse will call over there today. I have also instructed the nurse to make sure that the patient receives her pain medication about 30 minutes prior to any physical therapy session. Patient at this time is a total care and is not safe for discharge to assisted living facility. Patient will need to be in a long-term care facility. Patient's chart, labs, images were reviewed and discussed with RN 06/24: No overnight events. Completed antibiotic course for UTI. Not oriented. No complaints. 06/25: Febrile overnight, T-max 100.3 F. Her C. difficile resulted positive on 06/23. Will initiate oral vancomycin 125 mg 4 times daily x 10 days. Still having diarrhea, but denies any abdominal pain. 06/26: Patient seen and evaluated in bed. Denies any further diarrhea. Work with PT and recommended SNU. senior materials planner spoke with patient's daughter who declined SNU would like patient to go back to the [facility] with home health. 06/27: Patient did not discharge back to [facility] yesterday, as they were unable to accommodate her needs. Daughter is now okay with pursuing rehab. Referrals placed to rehab facilities, with acceptance pending. Still having diarrhea. c diff positive. Reinforced medication compliance. 06/28: Still with diarrhea but on oral vancomycin. Working with therapy. She is easily redirected. Pleasant. Has a little bit of epigastric tenderness afte r taking medications but otherwise no complaints leg pain well controlled no shortness of breath or chest pain. 06/29: Afebrile. Continue vancomycin for C. difficile. senior materials planner working on SNU placement for left femur fracture. This has been made difficult due to patient's dementia behavior. 06/30: Afebrile. S/P left intertrochanteric femur intramedullary nail fixation for acute left femur fracture. Family now amenable to SNU. disability services coordinator looking for rehab facility that will accept patients based on her dementia behaviors. Continue vancomycin for C. difficile. Vitals/I&O Vitals/I&O: Vital Signs Date Time Temp Pulse Resp B/P (MAP) Pulse Ox O2 Delivery O2 Flow Rate FiO2 07/25/21 23:14 98.1 88 18 151/63 (92) 93 Room Air 98.1 I & O 07/25/21 07/25/21 07/26/21 15:00 23:00 07:00 Intake Total 120 ml Balance 120 ml Physical Exam General: Alert, Cooperative, No acute distress Heart: Regular rate, Normal S1, Normal S2 Lungs: Clear Abdomen: Soft, No tenderness Extremities: No clubbing, No edema, Normal pulses Skin: No rashes, Other (CDI) Assessment and Plan Assessmemt and Plan Problems Medical Problems: (1) Closed left hip fracture Status: Acute (2) Pain of left lower extremity Status: Acute Comment Review of Relevant I have reviewed the following items markus (where applicable) has been applied. Justifications for Admission Other Justification Left femur fracture MADDISON LAROSE MD Jul 26, 2021 08:12
[2021-07-26] MEDS: MEMANTINE 10 MG TABLET. PO SCH ×2 (09:00→21:01)
[2021-07-26] MEDS: LACTOBACILLUS RHAMNOSUS GG 1 CAPSULE. PO SCH ×2 (09:00→21:01)
[2021-07-26] MEDS: busPIRone 5 MG TABLET. PO SCH ×2 (09:00→21:01)
[2021-07-26 11:00] VITALS: BP 117/53
[2021-07-26 15:00] VITALS: BP 122/68
[2021-07-26 19:00] VITALS: BP 131/45
[2021-07-26] MEDS: MIRTAZAPINE 15 MG TABLET PO SCH (21:01)
[2021-07-26] MEDS: traMADol 50 MG TABLET PO PRN (21:02)
[2021-07-26 23:00] VITALS: BP 145/58
[2021-07-27] VITALS (7 sets, daily range): BP systolic 107–125; BP diastolic 45–52
[2021-07-27] MEDS: busPIRone 5 MG TABLET. PO SCH ×2 (08:32→21:00)
[2021-07-27] MEDS: LACTOBACILLUS RHAMNOSUS GG 1 CAPSULE. PO SCH ×2 (08:32→21:00)
[2021-07-27] MEDS: MEMANTINE 10 MG TABLET. PO SCH ×2 (08:32→21:00)
[2021-07-27] MEDS: traMADol 50 MG TABLET PO PRN ×2 (08:32→16:08)
--- NOTE | 2021-07-27 13:26 | PDOC ---
[employer] [facility] PROGRESS NOTE Date of Service DOS: DATE: 07/27/21 TIME: 13:25 Chief Complaint Chief Complaint Assessment/Plan Recent fall - Intramedullary dequan and dynamic hip screw identified transfixing the intertrochanteric fracture however 07/14/2021 - there is a minimally displaced oblique nondisplaced fracture of the proximal left femur likely new periprosthetic fracture. Acute left femur fracture status post left intertrochanteric femur intramedullary nail fixation 06/19/2021 Acute UTI - proteus mirabilis, s/p 4 doses IV rocephin and 2 doses of cefdinir. Course completed on 06/23/2021. C difficile diarrhea - likely secondary to antibiotic exposure from UTI. Will need additional 10 total days of treatment Mild hypokalemia History of Alzheimer's dementia Normocytic anemia History of vitamin B12 deficiency History of hypertension Admit to hospitalist service for further management Orthopedic consult, s/p ORIF femur Delirium prevention protocolexposure to daylight, open curtains, oriented to date time and people, avoid sedative acting medications. Lovenox for DVT prophylaxis --> eliquis 30 days Diet as tolerated CODE STATUS DNR Discussed with RN and MANUEL DPOA: Daughter 37 MIN PT exam, chart review, > 50% of time spent with exam, chart review, pt care coordination. History of Present Illness History of Present Illness 07/27: No significant overnight events. No complaints. Redirected easily. Confused. No diarrhea 07/26: No overnight events. No complaints. Following redirection and not falling down. Confused. No further diarrhea. 07/25: No overnight events. No complaints. Follows Redirection well. Folding Towels. Pleasantly confused. No diarrhea. 07/24: No overnight events. Responding to redirection well. minimal one-person assist. No chest pain or shortness of breath. Diarrhea has resolved. 07/23: No acute events tonight. Patient seen and examined bedside. Saturating well on room air and vital signs are stable. Please see social work notes details for prolonged hospital stay. PT OT still recommending SNF 07/22/2021 Patient seen and examined bedside. No concerns per nursing. Recommend PT and OT to reevaluate and possibly give new recommendations so that we can adjust to proper placement. Currently patient is a 1 person assist. Patient's chart, labs, images were reviewed and discussed with RN 07/21/2021 No acute events overnight. Patient seen examined bedside. No complaints from the patient. No concerns nursing. Pending SNF placement. Patient's chart, labs, images were reviewed and discussed with RN 07/20/2021 No acute events tonight. Patient seen examined bedside. No concerns from nursing. Patient seen this morning by physical therapy. Patient still requires multiple verbal and tactile cues for maintaining nonweightbearing on the left foot. Patient's chart, labs, images were reviewed and discussed with RN 07/19/2021 No acute events overnight. Patient seen and examined bedside. Patient does have some incontinence and she has irritation to her buttock region. Pending SNF placement. Patient's chart, labs, images were reviewed and discussed with RN 07/18/2021 Patient seen examined bedside. Vital signs stable. Pending SNF placement. Possibly [place]. Patient's chart, labs, images were reviewed and discussed with RN 07/17 Patient evaluated an examined at bedside. No clinical changes. Still awaiting placement. See social work notes for further details of d/c complications. Patient's chart, labs, images were reviewed and discussed with RN 07/16/2021 No acute events overnight. Patient seen and examined bedside. Pending possible oblique view either [place] or [place]. Please see discharge planning notes for details. No further recommendations from orthopedic surgery. Patient's chart, labs, images were reviewed and discussed with RN 07/15/2021 No acute events overnight. Patient seen and examined bedside. Unfortunately, yesterday patient suffered a fall from standing and landed on the coccyx. She was found to have a periprosthetic fracture orthopedics have reviewed the images and recommended patient to be TTWB for transfers only and continue to work with physical therapy. Patient's chart, labs, images were reviewed and discussed with RN 07/14/2021 No acute events overnight. Patient seen and examined bedside. Patient in good spirits. Bowel movements x2 in the past 24 hours. Working well with physical therapy. Pending placement and insurance authorization. Patient will need Covid PCR and before acceptance to nursing facility. Patient's chart, labs, images were reviewed and discussed with RN 07/13/2021 No acute events overnight. Patient seen and examined bedside. Pantera removed from surgical site. No complications. Total of 2 bowel movements in the last 24 hours. Decreased from yesterday. No Other concerns from nursing. Patient's chart, labs, images were reviewed and discussed with RN 07/12: Afebrile overnight. Bowels have firmed up on second round of oral vancomycin. Redirectable able to fold towels with occupational therapy and responsive to redirection admitted with 1-2 person assist to restroom. Denies shortness of breath or chest pain. Does require redirection to get herself dressed. 07/11: She is responsive to 1-2 person assist and is redirectable with OT for behaviors and is responsive to medication with as needed oral dissolving Zyprexa not requiring further interventions. Tolerating repeat round of oral vancomycin well stools are firming up. No shortness of breath or CP 07/10: She is redirectable. After 3 doses back on oral vancomycin her stools have firmed up though she still had 4 bowel movements last 24 hours. No dysuria no shortness of breath or chest pain. She is able to ambulate with standby assistance with no pain complaints. 07/09: Easily redirectable hip pain well controlled on very occasional tramadol and Tylenol. Loose stools not improved no dysuria. Awaiting rehab placement. 07/08: Loose stools getting worse again off of oral vancomycin. Still intermittently confused with therapy. Awaiting placement no chest pain or shortness of breath 07/07: Patient evaluated and examined at bedside. No major clinical changes. Continue therapy. Can discharge once placement found. 07/06: Patient evaluated examined at bedside. No major clinical change. Just waiting for placement. 07/05: Patient evaluated and examined at bedside. No major clinical changes. To continue therapy. Can discharge once placement found. 07/04: Patient evaluated and examined at bedside. Was trying to work with PT when evaluated. Continue oral Vanco. Awaiting insurance Auth can discharge once that it is received 07/03: Patient evaluated examined at bedside. Resting in bed with ongoing altered mental status. Continue oral vancomycin for C. difficile treatment has been accepted facility awaiting insurance authorization. Can discharge whenever that is received. 07/02: Patient evaluated examined at bedside. Resting no apparent distress still quite altered mental status. Appears she has been accepted at a facility awaiting insurance authorization right now. Continue p.o. Vanco for C. difficile treatment. Plan of care discussed with bedside RN. 11/1: Patient seen and examined. Chart reviewed Ms Hipolito is an 85-year-old female past medical history of hypertension and dementia, presents the ED brought in by [facility] after patient was seen on the ground just next to her bed with complaints of left leg and hip pain. Patient was seen prior to this 1 hour ago in her bed, no active complaints. Due to patient's dementia, history and review of systems are unable to be obtained. According to the daughter, patient is fairly mobile without using any cane or walker. She is able to dress herself and feed herself and use the toilet. No falls in the past. To OR, Status post left intertrochanteric femur fracture IM nailing. 06/20: Patient underwent surgical intervention yesterday. Patient evaluated examined at bedside. She cannot provide much history given mental status but from report she has improved. PT OT ordered. Weightbearing status per orthopedics. Continue Rocephin for now. 06/21: Patient evaluated examined at bedside. Does. Clinically improved a little more alert today. Continue to Rocephin for UTI. Can be switched to p.o. on discharge continue working with PT OT. Patient could possibly go over the weekend if placement found. 06/22: Patient evaluated examined at bedside. Resting in bed when evaluated. Did not really endorse any complaints. It appears that patient had denied for placement will need home health. 06/23: No acute events overnight. Patient seen and examined bedside. Patient still having uncontrolled pain during physical therapy and any time she is moving in bed. Discussed with daughter Nori about pain management. Apparently patient at assisted living facility was started on Celexa by a psychiatrist. We are currently waiting for medication reconciliation overnight [facility]. Nurse will call over there today. I have also instructed the nurse to make sure that the patient receives her pain medication about 30 minutes prior to any physical therapy session. Patient at this time is a total care and is not safe for discharge to assisted living facility. Patient will need to be in a long-term care facility. Patient's chart, labs, images were reviewed and discussed with RN 06/24: No overnight events. Completed antibiotic course for UTI. Not oriented. No complaints. 06/25: Febrile overnight, T-max 100.3 F. Her C. difficile resulted positive on 06/23. Will initiate oral vancomycin 125 mg 4 times daily x 10 days. Still having diarrhea, but denies any abdominal pain. 06/26: Patient seen and evaluated in bed. Denies any further diarrhea. Work with PT and recommended SNU. landscape architect and planner spoke with patient's daughter who declined SNU would like patient to go back to the [facility] with home health. 06/27: Patient did not discharge back to [facility] yesterday, as they were unable to accommodate her needs. Daughter is now okay with pursuing rehab. Referrals placed to rehab facilities, with acceptance pending. Still having diarrhea. c diff positive. Reinforced medication compliance. 06/28: Still with diarrhea but on oral vancomycin. Working with therapy. She is easily redirected. Pleasant. Has a little bit of epigastric tenderness after taking medications but otherwise no complaints leg pain well controlled no shortness of breath or chest pain. 06/29: Afebrile. Continue vancomycin for C. difficile. landscape architect and planner working on SNU placement for left femur fracture. This has been made difficult due to patient's dementia behavior. 06/30: Afebrile. S/P left intertrochanteric femur intramedullary nail fixation for acute left femur fracture. Family now amenable to SNU. director of consulting services looking for rehab facility that will accept patients based on her dementia behaviors. Continue vancomycin for C. difficile. Vitals/I&O Vitals/I&O: Vital Signs Date Time Temp Pulse Resp B/P (MAP) Pulse Ox O2 Delivery O2 Flow Rate FiO2 07/27/21 11:11 98.0 76 16 109/45 (66) Room Air 98.0 07/27/21 11:00 96 Physical Exam General: Alert, Cooperative, No acute distress Heart: Regular rate, Normal S1, Normal S2 Lungs: Clear Abdomen: Soft, No tenderness Extremities: No clubbing, No edema, Normal pulses Skin: No rashes, Other (CDI) Assessment and Plan Assessmemt and Plan Problems Medical Problems: (1) Closed left hip fracture Status: Acute (2) Pain of left lower extremity Status: Acute Comment Review of Relevant I have reviewed the following items markus (where applicable) has been applied. Justifications for Admission Other Justification Left femur fracture MADDISON LAROSE MD Jul 27, 2021 13:26
[2021-07-27] MEDS ORDERED: ZIPRASIDONE IM 20 MG VIAL. IM ONE (16:15)
[2021-07-28 03:00] VITALS: BP 112/47
[2021-07-28 07:00] VITALS: BP 132/76
[2021-07-28] MEDS: busPIRone 5 MG TABLET. PO SCH ×2 (08:25→20:51)
[2021-07-28] MEDS: MEMANTINE 10 MG TABLET. PO SCH ×2 (08:25→20:51)
[2021-07-28] MEDS: LACTOBACILLUS RHAMNOSUS GG 1 CAPSULE. PO SCH ×2 (08:25→20:51)
[2021-07-28] MEDS: traMADol 50 MG TABLET PO PRN ×2 (08:25→20:52)
[2021-07-28 11:00] VITALS: BP 112/47
[2021-07-28 15:00] VITALS: BP 132/49
--- NOTE | 2021-07-28 16:49 | PDOC ---
GENERAL General: Patient examined chart reviewed patient has been here over a month after [facility] at [facility] memory unit at [facility]. She sustained a left hip fracture and underwent a left hip arthroplasty. She had a very slow recovery from that mostly due to her Alzheimer's dementia with difficulty following direction. Unfortunately she tripped and fell here 2 weeks later sustaining a periprosthetic left femur fracture for which now she is nonweightbearing. She is awaiting placement where they can care for her while she continues to heal. Appreciate the therapy teams and social services counselor and working on placement for this patient. She has had no overnight events and is comfortable this afternoon on evaluation. Time spent today is 30 minutes with greater than 50% in counseling and coordination of care most of which in discussion with patient on her care plan and progress. Problems: (1) Alzheimer's dementia (2) Closed left hip fracture VITAL SIGNS Vital Signs/I&O: Vital Signs Date Time Temp Pulse Resp B/P (MAP) Pulse Ox O2 Delivery O2 Flow Rate FiO2 07/28/21 15:00 98.0 78 16 132/49 (76) 96 Room Air 98.0 In general patient is laying in bed resting comfortably at baseline orientation in no acute distress HEENT exam is unremarkable for acute abnormality Neck is soft and supple no adenopathy or thyromegaly noted Chest is clear to auscultation Heart S1-S2 normal regular rate and rhythm no murmurs or gallops are noted Abdomen soft nontender nondistended no masses organomegaly noted Extremity exam is unremarkable for acute abnormality ALLERGIES Allergies: Allergies Coded Allergies Type Severity Reaction Last Updated Verified No Known Drug Allergies 05/11/21 No MEDS Medications: Current Medications Medications (Trade) Dose Ordered Sig/Zachary Start Time Stop Time Status Last Admin Dose Admin Acetaminophen (Tylenol) 500 mg Q6H 06/23/21 15:00 06/24/21 07:57 DC Apixaban (Eliquis) 2.5 mg BID 06/24/21 09:00 07/24/21 08:59 DC 07/23/21 19:47 Buspirone HCl (Buspar) 2.5 mg BID 06/21/21 21:00 07/28/21 08:25 Cefdinir (Omnicef) 300 mg BID 06/22/21 13:00 06/24/21 07:57 DC 06/23/21 09:43 Ceftriaxone Sodium (Rocephin) 1 gm Q24H 06/19/21 11:00 06/22/21 09:18 DC 06/21/21 10:35 Dexamethasone Sodium Phosphate (Decadron) 4 mg STK-MED ONCE 06/19/21 16:04 06/19/21 16:04 DC Dextrose (Dextrose 50%-Water Syringe) 12.5 gm PRN Q15MIN PRN 06/19/21 21:00 Docusate Sodium (Colace) 100 mg PRN DAILY PRN 06/19/21 11:45 Enoxaparin Sodium (Lovenox 40mg Syringe) 40 mg Q24H 06/19/21 12:00 06/24/21 08:00 DC 06/23/21 14:00 Ephedrine Sulfate (ePHEDrine PF IN SALINE SYRINGE) 50 mg STK-MED ONCE 06/19/21 16:04 06/19/21 16:05 DC Fentanyl Citrate (Fentanyl 2ml Vial) 100 mcg STK-MED ONCE 06/19/21 19:40 06/19/21 19:40 DC Hydralazine HCl (Apresoline Inj) 10 mg PRN Q15MIN PRN 06/19/21 20:45 06/23/21 21:28 Info (Anti-Coagulation Monitoring By Pharmacy) 1 each PRN DAILY PRN 07/02/21 12:30 07/24/21 12:10 DC 07/14/21 11:46 Lactobacillus Rhamnosus (Culturelle) 1 cap BID 06/20/21 21:00 07/28/21 08:25 Loperamide HCl (Imodium) 2 mg PRN BID PRN 07/07/21 15:00 07/10/21 09:21 DC 07/07/21 15:17 Lorazepam (Ativan Inj) 0.25 mg PRN Q4HRS PRN 06/19/21 11:45 06/24/21 07:57 DC 06/22/21 10:17 Lorazepam (Ativan) 0.5 mg PRN Q6HRS PRN 06/19/21 11:45 06/24/21 07:57 DC 06/23/21 09:42 Memantine (Namenda) 10 mg BID 06/21/21 21:00 07/28/21 08:25 Mirtazapine (Remeron) 15 mg QHS 06/21/21 21:00 07/26/21 21:01 Morphine Sulfate (Morphine Sulfate) 2 mg PRN Q1HR PRN 06/21/21 00:30 06/24/21 07:57 DC 06/24/21 02:45 Nitrofurantoin Macrocrystals (Macrobid) 100 mg BID 06/22/21 10:00 06/22/21 12:33 DC Non-Formulary Medication (Melatonin ) 5 mg DAILY 06/22/21 09:00 UNV Olanzapine (ZyPREXA ZYDIS) 5 mg PRN BID PRN 06/24/21 08:15 07/28/21 08:25 Ondansetron HCl (Zofran) 4 mg Q6HRS 06/20/21 00:00 06/20/21 18:01 DC 06/20/21 06:10 Oxycodone/ Acetaminophen (Percocet 5/325) 1 tab PRN Q4HRS PRN 06/19/21 11:45 06/28/21 08:59 DC 06/28/21 08:18 Phenylephrine HCl (PHENYLEPHRINE in 0.9% NACL PF) 1 mg STK-MED ONCE 06/19/21 16:04 06/19/21 16:05 DC Potassium Bicarbonate (Potassium Effervescent Tablet) 20 meq Q2H 06/20/21 19:00 06/20/21 21:01 DC Potassium Chloride/Water 100 ml @ 50 mls/hr Q2H 06/20/21 19:00 06/20/21 22:59 DC 06/20/21 21:16 Potassium Chloride (Klor-Con) 40 meq 1X ONCE 06/21/21 16:30 06/21/21 16:31 DC 06/21/21 16:33 Prochlorperazine Edisylate (Compazine) 10 mg PRN Q6HRS PRN 06/19/21 11:45 Sennosides (Senna) 17.2 mg PRN BID PRN 06/19/21 11:45 Sevoflurane (Ultane) 30 ml STK-MED ONCE 06/19/21 20:00 06/19/21 20:00 DC Sodium Chloride 1,000 ml @ 75 mls/hr [id number] 06/19/21 09:15 06/20/21 09:14 DC 06/19/21 22:02 Tramadol HCl (Ultram) 50 mg PRN Q6HRS PRN 06/28/21 09:00 07/28/21 08:25 Vancomycin HCl (Vancomycin Oral Solution) 125 mg [id number] 07/09/21 13:00 07/19/21 12:59 DC 07/19/21 08:55 Ziprasidone (Geodon Im) 10 mg 1X ONCE 07/27/21 16:15 07/27/21 16:16 DC 07/27/21 16:16 Zolpidem Tartrate (Ambien) 2.5 mg PRN QHS PRN 06/19/21 11:45 06/24/21 07:57 DC ASSESSMENT & PLAN A&P Plan as noted above This note was created using [email or web address] and may have omissions and/or errors due to the nature of real-time voice quality engineer medical device. Justifications for Admission Other Justification Left femur fracture Nutrition Consultation Dietary Evaluation: Recommendations by RD: Dietary education by RD, Increase Calorie Intake, Protein supplementation Comments: continue Regular diet with ensure enlive supplements TID Expected Outcomes/Goals: improved po intake- met at times, goal ongoing Malnutrition Findings: Body Fat Depletion (Non Severe: Mod to Severe Weight Status: Underweight SANTIAGO WHITLEY MD Jul 28, 2021 16:49
[2021-07-28 19:00] VITALS: BP 127/56
[2021-07-28] MEDS: MIRTAZAPINE 15 MG TABLET PO SCH (20:51)
[2021-07-28 23:00] VITALS: BP 131/54
[2021-07-29 03:00] VITALS: BP 147/69
[2021-07-29 04:39] LABS: BASO % 0 % (0-3); EOS # 0.4 x10^3/uL (0.0-0.7); EOS % 6 % (0-3); HEMATOCRIT 30.1 % (36.0-47.0); HEMOGLOBIN 9.5 g/dL (12.0-15.5); LYMPH # 1.6 x10^3/uL (1.0-4.8); LYMPH % 26 % (24-48); MEAN CORPUSCULAR HEMOGLOBIN 27 pg (25-35); MEAN CORPUSCULAR HGB CONC 32 g/dL (31-37); MEAN CORPUSCULAR VOLUME 85 fL (79-100); MONO # 0.4 x10^3/uL (0.0-1.1); MONO % 7 % (0-9); NEUT # 3.9 x10^3/uL (1.8-7.7); NEUT % 62 % (31-73); PLATELET COUNT 356 x10^3/uL (140-400); RED BLOOD COUNT 3.53 x10^6/uL (3.50-5.40); RED CELL DISTRIBUTION WIDTH 15.8 % (11.5-14.5); WHITE BLOOD COUNT 6.3 x10^3/uL (4.0-11.0)
[2021-07-29 05:10] LABS: ALBUMIN 2.5 g/dL (3.4-5.0); ALBUMIN/GLOBULIN RATIO 0.7 (1.0-1.7); CALCIUM 9.7 mg/dL (8.5-10.1); CREATININE 0.7 mg/dL (0.6-1.0); GFR 79.2; POTASSIUM 3.5 mmol/L (3.5-5.1); TOTAL BILIRUBIN 0.1 mg/dL (0.2-1.0); TOTAL PROTEIN 6.1 g/dL (6.4-8.2)
[2021-07-29 07:00] VITALS: BP 170/61
--- NOTE | 2021-07-29 09:00 | NUR ---
Bed alarm heard going off approx. 0849 followed by a thud against the wall. Pt. found sitting flat on the floor holding the back of her head. No open areas or immediate bruising noted to pt's body. Pt. states she hit her head. Also bedside table was pushed to the side and breakfast tray on the floor. Dr. Lindsey notified, telephone orders received. Pupils 3+ and brisk bilaterally. Pt. confused but alert, helped back to bed, bed alarm turned back on.
--- NOTE | 2021-07-29 09:33 | RAD ---
Exam Date: 07/29/2021 9:[address] HEAD/BRAIN WO Indication: Reason: fall, hit head / Spl. Instructions: / History: . TECHNIQUE: Head CT was performed without intravenous contrast. One or more of the following dose re duction techniques were utilized: *Automated exposure control (AEC) *Adjustment of mA and/or kV according to patient size *Use of iterative reconstruction technique *CT scan done according to ALARA, or ALARA/IMAGE GENTLY COMPARISON: June 19, 2021 FINDINGS: The ventricles and sulci are prominent consistent with cerebral volume loss. Patchy ill-defined low attenuation areas in the subcortical and periventricular white matter bilaterally are consistent with microvascular disease. There is no evidence of acute intracranial hemorrhage, extra-axial collecti on, mass effect, midline shift, or acute territorial infarct. No lesion of the skull base or the calv arium is seen. The visualized paranasal sinuses, mastoid air cells and orbits are normal in appearanc e. IMPRESSION: No evidence for acute intracranial abnormality. Volume loss and microvascular disease. Electronically signed by: Juvenal Marquez MD (07/29/2021 9:31 AM) [id number]
[2021-07-29] MEDS: LACTOBACILLUS RHAMNOSUS GG 1 CAPSULE. PO SCH ×2 (09:45→20:22)
[2021-07-29] MEDS: busPIRone 5 MG TABLET. PO SCH ×2 (09:45→20:22)
[2021-07-29] MEDS: MEMANTINE 10 MG TABLET. PO SCH ×2 (09:46→20:23)
[2021-07-29 11:00] VITALS: BP 127/49
--- NOTE | 2021-07-29 11:59 | PDOC ---
[employer] PROGRESS NOTE Date of Service DOS: DATE: 07/29/21 TIME: 11:58 Chief Complaint Chief Complaint Assessment/Plan Recent fall - Intramedullary dequan and dynamic hip screw identified transfixing the intertrochanteric fracture however 07/14/2021 - there is a minimally displaced oblique nondisplaced fracture of the proximal left femur likely new periprosthetic fracture. Acute left femur fracture status post left intertrochanteric femur intramedullary nail fixation 06/19/2021 Acute UTI - proteus mirabilis, s/p 4 doses IV rocephin and 2 doses of cefdinir. Course completed on 06/23/2021. C difficile diarrhea - likely secondary to antibiotic exposure from UTI. Will need additional 10 total days of treatment Mild hypokalemia History of Alzheimer's dementia Normocytic anemia History of vitamin B12 deficiency History of hypertension Admit to hospitalist service for further management Orthopedic consult, s/p ORIF femur Delirium prevention protocolexposure to daylight, open curtains, oriented to date time and people, avoid sedative acting medications. Lovenox for DVT prophylaxis --> eliquis 30 days Diet as tolerated CODE STATUS DNR Discussed with RN and SW DPOA: Daughter 37 MIN PT exam, chart review, > 50% of time spent with exam, chart review, pt care coordination. History of Present Illness History of Present Illness 07/29: Had a fall this morning and struck her head. CT head reviewed no abnormalities no focal neurologic deficits. Baseline confusion persists. Easily redirected. No further diarrhea chest pain shortness of breath. 07/27: No significant overnight events. No complaints. Redirected easily. Confused. No diarrhea 07/26: No overnight events. No complaints. Following redirection and not falling down. Confused. No further diarrhea. 07/25: No overnight events. No complaints. Follows Redirection well. Folding Towels. Pleasantly confused. No diarrhea. 07/24: No overnight events. Responding to redirection well. minimal one-person assist. No chest pain or shortness of breath. Diarrhea has resolved. 07/23: No acute events tonight. Patient seen and examined bedside. Saturating well on room air and vital signs are stable. Please see social work notes details for prolonged hospital stay. PT OT still recommending SNF 07/22/2021 Patient seen and examined bedside. No concerns per nursing. Recommend PT and OT to reevaluate and possibly give new recommendations so that we can adjust to proper placement. Currently patient is a 1 person assist. Patient's chart, labs, images were reviewed and discussed with RN 07/21/2021 No acute events overnight. Patient seen examined bedside. No complaints from the patient. No concerns nursing. Pending SNF placement. Patient's chart, labs, images were reviewed and discussed with RN 07/20/2021 No acute events tonight. Patient seen examined bedside. No concerns from nursing. Patient seen this morning by physical therapy. Patient still requires multiple verbal and tactile cues for maintaining nonweightbearing on the left foot. Patient's chart, labs, images were reviewed and discussed with RN 07/19/2021 No acute events overnight. Patient seen and examined bedside. Patient does have some incontinence and she has irritation to her buttock region. Pending SNF placement. Patient's chart, labs, images were reviewed and discussed with RN 07/18/2021 Patient seen examined bedside. Vital signs stable. Pending SNF placement. Possibly [facility]. Patient's chart, labs, images were reviewed and discussed with RN 07/17 Patient evaluated an examined at bedside. No clinical changes. Still awaiting placement. See social work notes for further details of d/c complications. Patient's chart, labs, images were reviewed and discussed with RN 07/16/2021 No acute events overnight. Patient seen and examined bedside. Pending possible oblique view either [facility] or [facility]. Please see discharge planning notes for details. No further recommendations from orthopedic surgery. Patient's chart, labs, images were reviewed and discussed with RN 07/15/2021 No acute events overnight. Patient seen and examined bedside. Unfortunately, yesterday patient suffered a fall from standing and landed on the coccyx. She was found to have a periprosthetic fracture orthopedics have reviewed the images and recommended patient to be TTWB for transfers only and continue to work with physical therapy. Patient's chart, labs, images were reviewed and discussed with RN 07/14/2021 No acute events overnight. Patient seen and examined bedside. Patient in good spirits. Bowel movements x2 in the past 24 hours. Working well with physical therapy. Pending placement and insurance authorization. Patient will need Covid PCR and before acceptance to nursing facility. Patient's chart, labs, images were reviewed and discussed with RN 07/13/2021 No acute events overnight. Patient seen and examined bedside. Hamilton removed from surgical site. No complications. Total of 2 bowel movements in the last 24 hours. Decreased from yesterday. No Other concerns from nursing. Patient's chart, labs, images were reviewed and discussed with RN 07/12: Afebrile overnight. Bowels have firmed up on second round of oral vancomycin. Redirectable able to fold towels with occupational therapy and responsive to redirection admitted with 1-2 person assist to restroom. Denies shortness of breath or chest pain. Does require redirection to get herself dressed. 07/11: She is responsive to 1-2 person assist and is redirectable with OT for behaviors and is responsive to medication with as needed oral dissolving Zyprexa not requiring further interventions. Tolerating repeat round of oral vancomycin well stools are firming up. No shortness of breath or CP 07/10: She is redirectable. After 3 doses back on oral vancomycin her stools have firmed up though she still had 4 bowel movements last 24 hours. No dysuria no shortness of breath or chest pain. She is able to ambulate with standby as sistance with no pain complaints. 07/09: Easily redirectable hip pain well controlled on very occasional tramadol and Tylenol. Loose stools not improved no dysuria. Awaiting rehab placement. 07/08: Loose stools getting worse again off of oral vancomycin. Still intermittently confused with therapy. Awaiting placement no chest pain or shortness of breath 07/07: Patient evaluated and examined at bedside. No major clinical changes. Continue therapy. Can discharge once placement found. 07/06: Patient evaluated examined at bedside. No major clinical change. Just waiting for placement. 07/05: Patient evaluated and examined at bedside. No major clinical changes. To continue therapy. Can discharge once placement found. 07/04: Patient evaluated and examined at bedside. Was trying to work with PT when evaluated. Continue oral Vanco. Awaiting insurance Auth can discharge once that it is received 07/03: Patient evaluated examined at bedside. Resting in bed with ongoing altered mental status. Continue oral vancomycin for C. difficile treatment has been accepted facility awaiting insurance authorization. Can discharge whenever that is received. 07/02: Patient evaluated examined at bedside. Resting no apparent distress still quite altered mental status. Appears she has been accepted at a facility awaiting insurance authorization right now. Continue p.o. Vanco for C. difficile treatment. Plan of care discussed with bedside RN. 07/01: Patient seen and examined. Chart reviewed Ms Mcmillan is an 85-year-old female past medical history of hypertension and dementia, presents the ED brought in by EMS from proper intermediate after patient was seen on the ground just next to her bed with complaints of left leg and hip pain. Patient was seen prior to this 1 hour ago in her bed, no active complaints. Due to patient's dementia, history and review of systems are unable to be obtained. According to the daughter, patient is fairly mobile without using any cane or walker. She is able to dress herself and feed herself and use the toilet. No falls in the past. To OR, Status post left intertrochanteric femur fracture IM nailing. 06/20: Patient underwent surgical intervention yesterday. Patient evaluated examined at bedside. She cannot provide much history given mental status but from report she has improved. PT OT ordered. Weightbearing status per orthopedics. Continue Rocephin for now. 06/21: Patient evaluated examined at bedside. Does. Clinically improved a little more alert today. Continue to Rocephin for UTI. Can be switched to p.o. on discharge continue working with PT OT. Patient could possibly go over the weekend if placement found. 06/22: Patient evaluated examined at bedside. Resting in bed when evaluated. Did not really endorse any complaints. It appears that patient had denied for placement will need home health. 06/23: No acute events overnight. Patient seen and examined bedside. Patient still having uncontrolled pain during physical therapy and any time she is moving in bed. Discussed with daughter Nori about pain management. Apparently patient at assisted living facility was started on Celexa by a psychiatrist. We are currently waiting for medication reconciliation overnight [facility]. Nurse will call over there today. I have also instructed the nurse to make sure that the patient receives her pain medication about 30 minutes prior to any physical therapy session. Patient at this time is a total care and is not safe for discharge to assisted living facility. Patient will need to be in a long-term care facility. Patient's chart, labs, images were reviewed and discussed with RN 06/24: No overnight events. Completed antibiotic course for UTI. Not oriented. No complaints. 06/25: Febrile overnight, T-max 100.3 F. Her C. difficile resulted positive on 06/23. Will initiate oral vancomycin 125 mg 4 times daily x 10 days. Still having diarrhea, but denies any abdominal pain. 06/26: Patient seen and evaluated in bed. Denies any further diarrhea. Work with PT and recommended SNU. digital media planner spoke with patient's daughter who declined SNU would like patient to go back to the [facility] with home health. 06/27: Patient did not discharge back to [facility] yesterday, as they were unable to accommodate her needs. Daughter is now okay with pursuing rehab. Referrals placed to rehab facilities, with acceptance pending. Still having diarrhea. c diff positive. Reinforced medication compliance. 06/28: Still with diarrhea but on oral vancomycin. Working with therapy. She is easily redirected. Pleasant. Has a little bit of epigastric tenderness after taking medications but otherwise no complaints leg pain well controlled no shortness of breath or chest pain. 06/29: Afebrile. Continue vancomycin for C. difficile. digital media planner working on SNU placement for left femur fracture. This has been made difficult due to patient's dementia behavior. 06/30: Afebrile. S/P left intertrochanteric femur intramedullary nail fixation for acute left femur fracture. Family now amenable to SNU. clinical services assistant looking for rehab facility that will accept patients based on her dementia behaviors. Continue vancomycin for C. difficile. Vitals/I&O Vitals/I&O: Vital Signs Date Time Temp Pulse Resp B/P (MAP) Pulse Ox O2 Delivery O2 Flow Rate FiO2 07/29/21 11:00 97.8 77 18 127/49 (75) 95 Room Air 97.8 I & O 07/28/21 07/28/21 07/29/21 15:00 23:00 07:00 Intake Total 100 ml Balance 100 ml Physical Exam General: Alert, Cooperative, No acute distress Heart: Regular rate, Normal S1, Normal S2 Lungs: Clear Abdomen: Soft, No tenderness Extremities: No clubbing, No edema, Normal pulses Skin: No rashes, Other (CDI) Labs Labs: Laboratory Tests Test 07/29/21 03:30 White Blood Count 6.3 x10^3/uL (4.0-11.0) Red Blood Count 3.53 x10^6/uL (3.50-5.40) Hemoglobin 9.5 g/dL (12.0-15.5) Hematocrit 30.1 % (36.0-47.0) Mean Corpuscular Volume 85 fL (79-100) Mean Corpuscular Hemoglobin 27 pg (25-35) Mean Corpuscular Hemoglobin Concent 32 g/dL (31-37) Red Cell Distribution Width 15.8 % (11.5-14.5) Platelet Count 356 x10^3/uL (140-400) Neutrophils (%) (Auto) 62 % (31-73) Lymphocytes (%) (Auto) 26 % (24-48) Monocytes (%) (Auto) 7 % (0-9) Eosinophils (%) (Auto) 6 % (0-3) Basophils (%) (Auto) 0 % (0-3) Neutrophils # (Auto) 3.9 x10^3/uL (1.8-7.7) Lymphocytes # (Auto) 1.6 x10^3/uL (1.0-4.8) Monocytes # (Auto) 0.4 x10^3/uL (0.0-1.1) Eosinophils # (Auto) 0.4 x10^3/uL (0.0-0.7) Basophils # (Auto) 0.0 x10^3/uL (0.0-0.2) Sodium Level 145 mmol/L (136-145) Potassium Level 3.5 mmol/L (3.5-5.1) Chloride Level 106 mmol/L (98-107) Carbon Dioxide Level 31 mmol/L (21-32) Anion Gap 8 (6-14) Blood Urea Nitrogen 23 mg/dL (7-20) Creatinine 0.7 mg/dL (0.6-1.0) Estimated GFR (Cockcroft-Gault) 79.2 BUN/Creatinine Ratio 33 (6-20) Glucose Level 94 mg/dL (70-99) Calcium Level 9.7 mg/dL (8.5-10.1) Total Bilirubin 0.1 mg/dL (0.2-1.0) Aspartate Amino Transf (AST/SGOT) 17 U/L (15-37) Alanine Aminotransferase (ALT/SGPT) 22 U/L (14-59) Alkaline Phosphatase 202 U/L (46-116) Total Protein 6.1 g/dL (6.4-8.2) Albumin 2.5 g/dL (3.4-5.0) Albumin/Globulin Ratio 0.7 (1.0-1.7) Assessment and Plan Assessmemt and Plan Problems Medical Problems: (1) Closed left hip fracture Status: Acute (2) Pain of left lower extremity Status: Acute Comment Review of Relevant I have reviewed the following items markus (where applicable) has been applied. Justifications for Admission Other Justification Left femur fracture MADDISON LAROSE MD Jul 29, 2021 11:59
--- NOTE | 2021-07-29 12:31 | NUR ---
Pt's daughter Nguyen notified of pt's fall this am.
[2021-07-29 15:00] VITALS: BP 143/67
--- NOTE | 2021-07-29 17:00 | NUR ---
Pt's bed alarm going off. when a staff arrived, pt was sitting flat on bottom at the foot of the bed on the floor. L fa skin tear noted. Skin tear dressed with foam, Dr. Lindsey notified, no knew telephone orders received.
[2021-07-29 19:00] VITALS: BP 154/72
[2021-07-29] MEDS: MIRTAZAPINE 15 MG TABLET PO SCH (20:22)
[2021-07-29] MEDS: traMADol 50 MG TABLET PO PRN (20:23)
[2021-07-29 23:00] VITALS: BP 91/76
[2021-07-30 07:00] VITALS: BP 160/65
[2021-07-30] MEDS: busPIRone 5 MG TABLET. PO SCH ×2 (08:11→21:00)
[2021-07-30] MEDS: MEMANTINE 10 MG TABLET. PO SCH ×2 (08:11→21:00)
[2021-07-30] MEDS: LACTOBACILLUS RHAMNOSUS GG 1 CAPSULE. PO SCH ×2 (08:12→21:00)
[2021-07-30] MEDS ORDERED: OLAN5TAB7 PO (10:41)
[2021-07-30] MEDS ORDERED: TRAM50TA PO (10:41)
[2021-07-30 11:00] VITALS: BP 123/55
--- NOTE | 2021-07-30 12:23 | PDOC ---
[employer] PROGRESS NOTE Date of Service DOS: DATE: 07/30/21 TIME: 12:21 Chief Complaint Chief Complaint Assessment/Plan Recent fall - Intramedullary dequan and dynamic hip screw identified transfixing the intertrochanteric fracture however 07/14/2021 - there is a minimally displaced oblique nondisplaced fracture of the proximal left femur likely new periprosthetic fracture. Acute left femur fracture status post left intertrochanteric femur intramedullary nail fixation 06/19/2021 Acute UTI - proteus mirabilis, s/p 4 doses IV rocephin and 2 doses of cefdinir. Course completed on 06/23/2021. C difficile diarrhea - likely secondary to antibiotic exposure from UTI. Will need additional 10 total days of treatment Mild hypokalemia History of Alzheimer's dementia Normocytic anemia History of vitamin B12 deficiency History of hypertension Admit to hospitalist service for further management Orthopedic consult, s/p ORIF femur Delirium prevention protocolexposure to daylight, open curtains, oriented to date time and people, avoid sedative acting medications. Lovenox for DVT prophylaxis --> eliquis 30 days Diet as tolerated CODE STATUS DNR Discussed with RN and SW DPOA: Daughter 37 MIN PT exam, chart review, > 50% of time spent with exam, chart review, pt care coordination. History of Present Illness History of Present Illness 07/30: No overnight events. She is redirectable pleasantly confused. No pain complaints no diarrhea no chest pain or shortness of breath. 07/29: Had a fall this morning and struck her head. CT head reviewed no abnormalities no focal neurologic deficits. Baseline confusion persists. Easily redirected. No further diarrhea chest pain shortness of breath. 07/27: No significant overnight events. No complaints. Redirected easily. Confused. No diarrhea 07/26: No overnight events. No complaints. Following redirection and not falling down. Confused. No further diarrhea. 07/25: No overnight events. No complaints. Follows Redirection well. Folding Towels. Pleasantly confused. No diarrhea. 07/24: No overnight events. Responding to redirection well. minimal one-person assist. No chest pain or shortness of breath. Diarrhea has resolved. 07/23: No acute events tonight. Patient seen and examined bedside. Saturating well on room air and vital signs are stable. Please see social work notes details for prolonged hospital stay. PT OT still recommending SNF 07/22: Patient seen and examined bedside. No concerns per nursing. Recommend PT and OT to reevaluate and possibly give new recommendations so that we can adj ust to proper placement. Currently patient is a 1 person assist. 07/21: No acute events overnight. Patient seen examined bedside. No complaints from the patient. No concerns nursing. Pending SNF placement. Patient's chart, labs, images were reviewed and discussed with RN 07/20: No acute events tonight. Patient seen examined bedside. No concerns from nursing. Patient seen this morning by physical therapy. Patient still requires multiple verbal and tactile cues for maintaining nonweightbearing on the left foot. 07/19: No acute events overnight. Patient seen and examined bedside. Patient does have some incontinence and she has irritation to her buttock region. Pending SNF placement. Patient's chart, labs, images were reviewed and discussed with RN 07/18: Patient seen examined bedside. Vital signs stable. Pending SNF placement. Possibly [facility]. Patient's chart, labs, images were reviewed and discussed with RN 07/17: Patient evaluated an examined at bedside. No clinical changes. Still awaiting placement. See social work notes for further details of d/c complications. Patient's chart, labs, images were reviewed and discussed with RN 07/16: No acute events overnight. Patient seen and examined bedside. Pending possible oblique view either [facility] or [facility]. Please see discharge planning notes for details. No further recommendations from orthopedic surgery. 07/15: No acute events overnight. Patient seen and examined bedside. Unfortunately, yesterday patient suffered a fall from standing and landed on the coccyx. She was found to have a periprosthetic fracture orthopedics recommended patient to be TTWB for transfers only and continue PT 07/14: No acute events overnight. Patient seen and examined bedside. Patient in good spirits. Bowel movements x2 in the past 24 hours. Working well with physical therapy. Pending placement and insurance authorization. Patient will need Covid PCR and before acceptance to SNF 07/13: No acute events overnight. Patient seen and examined bedside. Pantera removed from surgical site. No complications. Total of 2 bowel movements in the last 24 hours. Decreased from yesterday. No Other concerns from nursing. 07/12: Afebrile overnight. Bowels have firmed up on second round of oral vancomycin. Redirectable able to fold towels with occupational therapy and responsive to redirection admitted with 1-2 person assist to restroom. Denies shortness of breath or chest pain. Does require redirection 07/11: She is responsive to 1-2 person assist and is redirectable with OT for behaviors and is responsive to medication with as needed oral dissolving Zyprexa not requiring further interventions. Tolerating repeat round of oral vancomycin well stools are firming up. No shortness of breath or CP 07/10: She is redirectable. After 3 doses back on oral vancomycin her stools have firmed up though she still had 4 bowel movements last 24 hours. No dysuria no shortness of breath or chest pain. She is able to ambulate with standby assistance with no pain complaints. 07/09: Easily redirectable hip pain well controlled on very occasional tramadol and Tylenol. Loose stools not improved no dysuria. Awaiting rehab placement. 07/08: Loose stools getting worse again off of oral vancomycin. Still intermi ttently confused with therapy. Awaiting placement no chest pain or shortness of breath 07/07: Patient evaluated and examined at bedside. No major clinical changes. Continue therapy. Can discharge once placement found. 07/06: Patient evaluated examined at bedside. No major clinical change. Just waiting for placement. 07/05: Patient evaluated and examined at bedside. No major clinical changes. To continue therapy. Can discharge once placement found. 07/04: Patient evaluated and examined at bedside. Was trying to work with PT when evaluated. Continue oral Vanco. Awaiting insurance Auth can discharge once that it is received 07/03: Patient evaluated examined at bedside. Resting in bed with ongoing altered mental status. Continue oral vancomycin for C. difficile treatment has been accepted facility awaiting insurance authorization. Can discharge whenever that is received. 07/02: Patient evaluated examined at bedside. Resting no apparent distress still quite altered mental status. Appears she has been accepted at a facility awaiting insurance authorization right now. Continue p.o. Vanco for C. difficile treatment. Plan of care discussed with bedside RN. 07/01: Patient seen and examined. Chart reviewed Ms Mcmillan is an 85-year-old female past medical history of hypertension and dementia, presents the ED brought in by EMS from [facility] after patient was seen on the ground just next to her bed with complaints of left leg and hip pain. Patient was seen prior to this 1 hour ago in her bed, no active complaints. Due to patient's dementia, history and review of systems are unable to be obtained. According to the daughter, patient is fairly mobile without using any cane or walker. She is able to dress herself and feed herself and use the toilet. No falls in the past. To OR, Status post left intertrochanteric femur fracture IM nailing. 06/20: Patient underwent surgical intervention yesterday. Patient evaluated examined at bedside. She cannot provide much history given mental status but from report she has improved. PT OT ordered. Weightbearing status per orthopedics. Continue Rocephin for now. 06/21: Patient evaluated examined at bedside. Does. Clinically improved a little more alert today. Continue to Rocephin for UTI. Can be switched to p.o. on discharge continue working with PT OT. Patient could possibly go over the weekend if placement found. 06/22: Patient evaluated examined at bedside. Resting in bed when evaluated. Did not really endorse any complaints. It appears that patient had denied for placement will need home health. 06/23: No acute events overnight. Patient seen and examined bedside. Patient still having uncontrolled pain during physical therapy and any time she is moving in bed. Discussed with daughter Nori about pain management. Apparently patient at assisted living facility was started on Celexa by a psychiatrist. We are currently waiting for medication reconciliation overnight [facility]. Nurse will call over there today. I have also instructed the nurse to make sure that the patient receives her pain medication about 30 minutes prior to any physical therapy session. Patient at this time is a total care and is not safe for discharge to assisted living facility. Patient will need to be in a long-term care facility. Patient's chart, labs, images were reviewed and discussed with RN 06/24: No overnight events. Completed antibiotic course for UTI. Not oriented. No complaints. 06/25: Febrile overnight, T-max 100.3 F. Her C. difficile resulted positive on 06/23. Will initiate oral vancomycin 125 mg 4 times daily x 10 days. Still having diarrhea, but denies any abdominal pain. 06/26: Patient seen and evaluated in bed. Denies any further diarrhea. Work with PT and recommended SNU. sales planner spoke with patient's daughter who declined SNU would like patient to go back to the [facility] with home health. 06/27: Patient did not discharge back to [facility] yesterday, as they were unable to accommodate her needs. Daughter is now okay with pursuing rehab. Referrals placed to rehab facilities, with acceptance pending. Still having diarrhea. c diff positive. Reinforced medication compliance. 06/28: Still with diarrhea but on oral vancomycin. Working with therapy. She is easily redirected. Pleasant. Has a little bit of epigastric tenderness after taking medications but otherwise no complaints leg pain well controlled no shortness of breath or chest pain. 06/29: Afebrile. Continue vancomycin for C. difficile. sales planner working on SNU placement for left femur fracture. This has been made difficult due to patient's dementia behavior. 06/30: Afebrile. S/P left intertrochanteric femur intramedullary nail fixation for acute left femur fracture. Family now amenable to SNU. 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 Continue vancomycin for C. difficile. Vitals/I&O Vitals/I&O: Vital Signs Date Time Temp Pulse Resp B/P (MAP) Pulse Ox O2 Delivery O2 Flow Rate FiO2 07/30/21 11:00 98.4 74 18 123/55 (77) 95 98.4 07/30/21 07:20 Room Air Physical Exam General: Alert, Cooperative, No acute distress Heart: Regular rate, Normal S1, Normal S2 Lungs: Clear Abdomen: Soft, No tenderness Extremities: No clubbing, No edema, Normal pulses Skin: No rashes, Other (CDI) Assessment and Plan Assessmemt and Plan Problems Medical Problems: (1) Closed left hip fracture Status: Acute (2) Pain of left lower extremity Status: Acute Comment Review of Relevant I have reviewed the following items markus (where applicable) has been applied. Justifications for Admission Other Justification Left femur fracture MADDISON LAROSE MD Jul 30, 2021 12:23
[2021-07-30] MEDS: MIRTAZAPINE 15 MG TABLET PO SCH (21:00)
[2021-07-31] MEDS: traMADol 50 MG TABLET PO PRN (03:43)
[2021-07-31 07:00] VITALS: BP 150/61
[2021-07-31] MEDS: busPIRone 5 MG TABLET. PO SCH (08:42)
[2021-07-31] MEDS: MEMANTINE 10 MG TABLET. PO SCH (08:42)
[2021-07-31] MEDS: LACTOBACILLUS RHAMNOSUS GG 1 CAPSULE. PO SCH (08:42)
[2021-07-31] MEDS ORDERED: TRAM50TA PO (09:13)
--- NOTE | 2021-07-31 12:43 | NUR ---
Pt left at 1215 for [facility]. She was transported by w/c shwetha. Call placed to [facility] to give report. Was hung up on the first time, second time was left on hold for 10 minutes. Unable to give report at this time
--- NOTE | 2021-07-31 14:15 | PDOC3 ---
Discharge Summary Visit Information Date of Admission: Jun 19, 2021 Date of Discharge: Jun 26, 2021 Final Diagnosis traumatic fall fall - Intramedullary dequan and dynamic hip screw identified transfixing the intertrochanteric fracture however 07/14/2021 - there is a minimally displaced oblique nondisplaced fracture of the proximal left femur likely new periprosthetic fracture. Acute left femur fracture status post left intertrochanteric femur intramedullary nail fixation 06/19/2021 Acute UTI - proteus mirabilis, s/p 4 doses IV rocephin and 2 doses of cefdinir. Course completed on 06/23/2021. C difficile diarrhea - likely secondary to antibiotic exposure from UTI. Will need additional 10 total days of treatment Mild hypokalemia History of Alzheimer's dementia Normocytic anemia History of vitamin B12 deficiency History of hypertension Problems Medical Problems: (1) Closed left hip fracture Status: Acute (2) Pain of left lower extremity Status: Acute Brief Hospital Course Allergies Allergies Coded Allergies Type Severity Reaction Last Updated Verified No Known Drug Allergies 05/11/21 No Vital Signs Vital Signs Date Time Temp Pulse Resp B/P (MAP) Pulse Ox O2 Delivery O2 Flow Rate FiO2 07/31/21 08:00 Room Air 07/31/21 07:00 97.9 77 18 150/61 (90 94 97.9 Brief Hospital Course Ms. Mcmillan is a 86 old Admit to hospitalist for fall and femur fracture, then confusion stable left intertrochanteric femur fracture s/p intramedullary nail fixation. Worse with PT and recommended SNU. UTI this admit, recent C. difficile diagnosis. del Discharge Information Condition at Discharge: Improved Follow Up: Weeks Disposition/Orders: D/C to Another Facility Scheduled Buspirone Hcl (Buspirone Hcl) 5 Mg Tablet, 0.5 TAB PO BID for ANXIETY, #60 Ref 2 (Reported) Entered as Reported by: DOROTEO JIM on 05/12/21319 Last Action: Continued on 06/21/211640 by MADDISON CANELA MD Cyanocobalamin (Vitamin B-12) (Vitamin B-12) 1,000 Mcg Tab.subl, 1 TAB SL DAILY for B12 DEFICIENCY for 30 Days, #30 Ref 0 (Reported) Entered as Reported by: DOROTEO JIM on 9/12/21 0326 Last Action: HELD on 06/21/211640 by MADDISON CANELA MD Melatonin (Melatonin) 5 Mg Tab.rapdis, 5 MG PO DAILY for SLEEP, (Reported) Entered as Reported by: DOROTEO JIM on 05/12/21322 Last Action: Converted on 06/21/211640 by MADDISON CANELA MD Memantine Hcl (Namenda) 10 Mg Tablet, 10 MG PO BID for DEMENTIA, (Reported) Entered as Reported by: DOROTEO JIM on 05/12/21321 Last Action: Continued on 06/21/211640 by MADDISON CANELA MD Mirtazapine (Remeron) 15 Mg Tablet, 1 TAB PO QHS for INSOPMNIA, #30 Ref 1 (Reported) Entered as Reported by: DOROTEO JIM on 05/12/21323 Last Action: Continued on 06/21/211640 by MADDISON CANELA MD Nut.tx.impaired Digestive Fxn (Ensure Clear Therapeutic) 237 Ml Liquid, 237 ML PO WITH MEALS for SUPPLEMENT, (Reported) Entered as Reported by: DOROTEO JIM on 05/12/21328 Last Action: HELD on 06/21/211640 by MADDISON CANELA MD Scheduled PRN Acetaminophen (Tylenol) 325 Mg Tablet, 2 TAB PO PRN Q6HRS PRN for PAIN/TEMP, #30 (Reported) Entered as Reported by: DOROTEO JIM on 05/12/21324 Last Action: HELD on 06/21/211640 by MADDISON CANELA MD Olanzapine (Olanzapine Odt) 5 Mg Tab.rapdis, 5 MG PO PRN BID PRN for ANXIETY / AGITATION for 30 Days, #60 Ref 2 Prescribed by: MADDISON LAROSE MD on 07/30/21 1041 Tramadol Hcl (Tramadol Hcl) 50 Mg Tablet, 50 MG PO PRN Q6HRS PRN for MODERATE- SEVERE PAIN for 6 Days, #24 Prescribed by: MADDISON LAROSE MD on 07/30/21 1041 Tramadol Hcl (Tramadol Hcl) 50 Mg Tablet, 50 MG PO Q6HRS PRN for PAIN, #35 Prescribed by: NOLA KHAN on 07/31/21 0914 Patient Instructions Patient Instructions to skilled pt seen face to face, 34 min Justicifation of Admission Dx: Justifications for Admission: Justification of Admission Dx: Yes NOLA KHAN MD Jul 31, 2021 14:15
--- NOTE | 2021-07-31 15:40 | NUR ---
Wound Care Attempted to see pt for L forearm skin tear, but pt has already been discharged.
== END 2021-07-31 12:30 | DRG 480 ==
LOC: ER 05:16 → 4 NORTH 08:00 → ER 10:20 → UNDODISIN 06-22 15:25
PROVIDERS: ADMIT Internal Medicine; ATTEND Internal Medicine
PROC: 0QS706Z Reposition Left Upper Femur with Intramedullary Internal Fixation Device, Open Approach (ICD-10-PCS; principal; 2021-06-19 19:00)
DX: S72.142A Displaced intertrochanteric fracture of left femur, initial encounter for closed fracture (principal); E43 Unspecified severe protein-calorie malnutrition; N39.0 Urinary tract infection, site not specified; T83.518A Infection and inflammatory reaction due to other urinary catheter, initial encounter; A04.72 Enterocolitis due to Clostridium difficile, not specified as recurrent; D63.8 Anemia in other chronic diseases classified elsewhere; E04.1 Nontoxic single thyroid nodule; E53.8 Deficiency of other specified B group vitamins; E87.6 Hypokalemia; F02.80 Dementia in other diseases classified elsewhere, unspecified severity, without behavioral disturbance, psychotic disturbance, mood disturbance, and anxiety; F41.9 Anxiety disorder, unspecified; G30.9 Alzheimer's disease, unspecified; G89.29 Other chronic pain; I10 Essential (primary) hypertension; M47.819 Spondylosis without myelopathy or radiculopathy, site unspecified; M48.02 Spinal stenosis, cervical region; M81.0 Age-related osteoporosis without current pathological fracture; R32 Unspecified urinary incontinence; R62.7 Adult failure to thrive; Y84.6 Urinary catheterization as the cause of abnormal reaction of the patient, or of later complication, without mention of misadventure at the time of the procedure; Z66 Do not resuscitate; Z79.899 Other long term (current) drug therapy; Z86.73 Personal history of transient ischemic attack (TIA), and cerebral infarction without residual deficits; B96.4 Proteus (mirabilis) (morganii) as the cause of diseases classified elsewhere; W01.0XXA Fall on same level from slipping, tripping and stumbling without subsequent striking against object, initial encounter; Y93.89 Activity, other specified; Y92.89 Other specified places as the place of occurrence of the external cause; Y99.8 Other external cause status; Z20.822 Contact with and (suspected) exposure to COVID-19
CPT/HCPCS: 36415; 51702; 70450; 71045; 72125; 72170; 73060; 73090; 73521; 73552; 73560; 73590; 76000; 80048; 80053; 81001; 82306; 82607; 82962; 83735; 84100; 84132; 85025; 87077; 87086; 87186; 87426; 87493; 93005; 96374; A4930; A6235; A6237; C1713; C1769; J0360; J0696; J1100; J1650; J2060; J2270; J2370; J2405; J3010; J3480; J3486; J7030; U0003; U0005; 97110-GO; 97110-GP; 97116-GP; 97530-GO; 97530-GP; 97535-GO; 99285-25; G0378